=== PATIENT | male | born 1945 | race Caucasian/White ===

== ENCOUNTER → 2016-10-16 | Outpatient (CLI) | payer OTHER | END | disposition home or self-care (01) | LOC: EDSEX → C.LABMFLN 11:09 | PROVIDERS: ATTEND Family Medicine | DX: R19.7 Diarrhea, unspecified (principal) ==

== ENCOUNTER 2019-05-02 13:03 | Inpatient (IN) ==
[2019-05-02] MEDS ORDERED: ASPIRIN CHEW 324 MG PO STA (13:50)
[2019-05-02 13:59] LABS: Basophils # (auto) 0.03 K/uL (0-0.2); Basophils % (auto) 0.5 %; Eosinophils # (auto) 0.13 K/uL (0-0.5); Eosinophils % (auto) 2.1 %; Hematocrit (blood only) 40.3 % (42-52); Hemoglobin 14.2 g/dL (14.0-18.0); Immature Granulocytes # (auto) 0.01 K/uL (0.00-0.02); Immature Granulocytes % (auto) 0.2 %; Lymphocytes # (auto) 1.67 K/uL (1.2-3.4); Lymphocytes % (auto) 27.6 %; Mean Corpuscular Hemoglobin 32.6 pg (25-34); Mean Corpuscular Hgb Conc 35.2 g/dL (32-36); Mean Corpuscular Volume 92.4 fL (80-100); Mean Platelet Volume 12.6 fL (7.4-10.4); Monocytes # (auto) 0.96 K/uL (0.11-0.59); Monocytes % (auto) 15.8 %; Neutrophils # (auto) 3.26 K/uL (1.4-6.5); Neutrophils % (auto) 53.8 %; Platelet Count 166 K/uL (130-400); RDW Coefficient of Variation 13.7 % (11.5-14.5); Red Blood Count 4.36 M/uL (4.7-6.1); White Blood Count 6.06 K/uL (4.8-10.8)
[2019-05-02 14:06] LABS: BUN Creatinine Ratio 11.9 (10-20); Creatinine Clr Calc Pharmacy 68.8 ml/min; Est GFR (African American) 74.1; Est GFR (Non-African American) 63.9; Potassium 3.4 mmol/L (3.5-5.1)
[2019-05-02 14:10] LABS: INR 1.2 (0.9-1.1); Partial Thromboplastin Ratio 1.4; Partial Thromboplastin Time 37.9 Seconds (21.0-31.0); Prothrombin Time 12.6 Seconds (9.0-12.0)
[2019-05-02 14:17] LABS: Troponin I 0.127 ng/ml (0-0.045)
[2019-05-02] MEDS ORDERED: Heparin IV Low Dose WITH Bolus IV STA (14:20)
[2019-05-02] MEDS ORDERED: MoRPHine SULFATE 2 MG/ML CARP IV STA (14:28)
[2019-05-02] MEDS ORDERED: HEPARIN SODIUM/DEXTROSE 25,000 UNITS/500 ML BAG IV SCH (14:30)
--- NOTE | 2019-05-02 15:13 | History & Physical Report ---
Date of Service May 02, 2019 Assessment & Plan (1) Non-ST elevation CT (NSTEMI): presents with chest pressure that started around 11am worse with deep breath, fairly constant but not better recent history of worsening exertional dyspnea, decrease exercise tolerance, some exertional angina now occurring at rest some ischemic changes in lateral leads, specifically TW inversions and some ST depressions V6, I, aVL initial troponin 0.12 will admit to tele, cycle troponin q6 x 3 sets, routine echo morphine and Nitro PRN for any chest pressure continue on Coreg already on Eliquis for afib which he took this morning so no role for heparin drip received aspirin 324mg in the ED, will resume 81mg qAM tomorrow consult cardiology for further recommendations (2) Ischemic cardiomyopathy: long standing h/o EF of 35-40% no edema, no weight gain, says he weighs himself a few times a week continue on Lasix, Lisinopril, Coreg (3) Paroxysmal atrial fibrillation: rates are controlled, continue on Coreg continue Eliquis for anticoagulation (4) Hypertension: BP stable continue Norvasc, Lisinopril, Coreg (5) Hyperlipidemia: continue on Crestor (6) Coronary artery disease: h/o CT 14 years ago, was treated in [place] has a CABG x 2 no issues since the CT was previously taking aspirin 81mg daily, on prior visit with Dr. Marks decision made to stop aspirin due to Eliquis will resume Eliquis with possible NSTEMI continue Crestor (7) COPD with asthma: continue home inhalers no wheezing on exam, no labored breathing (8) Allergic rhinitis: continue Loratadine History of Present Illness Chief Complaint: I have some chest pressure Primary Care Provider: Geetha Galvez MD 73 yo male with history of CAD with acute CT in 2005 treated with CABG x 2 in [place], history of ischemic cardiomyopathy with EF 35-40%, hypertension, pre-diabetes presents to the ED this morning due to chest pressure. He said that the chest pressure started around 11am, he was exerting himself slightly at the time, walking up an incline in his backyard. However, the pressure did not go away with rest. He reports having some symptoms intermittently like this in the recent past. He gets winded going up the incline in his yard and he feels that his exercise tolerance is decreasing. Today however was the first time he has noticed pressure. He has not had a stress test in the past 5 years per his recollection, follows with Dr. Marks. He said that the pressure today is nothing like the severe, crushing pain he had 14 years ago. He did not have any associated dyspnea, nausea, diaphoresis. The pain/pressure did not radiate to his jaw or shoulder or arm. He elected to come to the ED when the pressure did not go away. He now feels better, the pressure got better with aspirin 324mg, very subtle sensation is left. Vitals stable. Labs with minimal elevation in troponin at 0.127 but symptoms only started about 2.5 hours prior to presentation. EKG with some lateral ischemic changes with ST depression and TW inversions. Allergies Allergy/AdvReac Type Severity Reaction Status Date / Time bee venom protein (honey bee) Allergy Verified 05/02/19 14:21 No Known Drug Allergies Allergy Verified 05/02/19 14:21 Home Medications Home Medications Medication Instructions Recorded Confirmed Type albuterol sulfate 90 mcg/actuation 2 puffs INHALATION Q4H PRN #18 gm 12/23/18 05/02/19 Rx aerosol inhaler apixaban 5 mg tablet 5 mg PO BID #60 tab 12/23/18 05/02/19 Rx calcium carbonate 600 mg calcium 600 mg PO HS tab 12/23/18 05/02/19 History (1,500 mg) tablet carvedilol 25 mg tablet 25 mg PO BID #60 tab 12/23/18 05/02/19 Rx lisinopril 40 mg tablet 40 mg PO BID #180 tab 12/23/18 05/02/19 History loratadine 10 mg tablet 10 mg PO QAM #30 tab 12/23/18 05/02/19 History multivitamin 1 tab PO QAM 12/23/18 05/02/19 History omega-3 acid ethyl esters 1 gram 1 cap PO BID cap 12/23/18 05/02/19 History capsule sildenafil 100 mg tablet 50 mg PO DAILY PRN tab 12/31/18 05/02/19 History nitroglycerin 0.4 mg sublingual 0.4 mg SL Q5M PRN #25 tab 04/08/19 05/02/19 Rx tablet amlodipine See Rx Instructions .ROUTE .COMPLEX 05/02/19 05/02/19 History furosemide 40 mg PO QAM 05/02/19 05/02/19 History potassium chloride 10 meq PO QAM 05/02/19 05/02/19 History rosuvastatin 20 mg PO HS 05/02/19 05/02/19 History tiotropium-olodaterol 2 puffs INHALATION QAM 05/02/19 05/02/19 History Past Med/Surg History Medical History Allergic rhinitis (Chronic) Cardiac defibrillator in place (Chronic) Chronic ischemic heart disease (Chronic) Congestive heart failure (Chronic) COPD with asthma (Chronic) Coronary artery disease (Chronic) Hyperlipidemia (Chronic) Hypertension (Chronic) Ischemic cardiomyopathy (Chronic) Paroxysmal atrial fibrillation (Chronic) Prediabetes (Chronic) Surgical History History of nasal surgery Hx of CABG S/P appendectomy (Chronic) S/P colonoscopy S/P implantation of automatic cardioverter/defibrillator (AICD) (Chronic) [employer] Family History (Updated 05/02/19 @ 16:46 by Don Valentin DO) Other Heart disease Hypertension Social History Preferred Language: [place] Communication Ability: Effective Director Of Market Research Required: No Beliefs That Will Affect Care: None marital status: Current Living Situation: Spouse current occupational status: retired Other Information That Helps Us Care for You: No Feels Safe at Home: Yes Safety Concerns: Feels Safe At This Time Smoking Status: Former smoker Hx Alcohol Use: No Hx Substance Use: No Review of Systems Review of Systems: All systems reviewed & are unremarkable except as noted in HPI & below Physical Exam Constitutional: WD/WN, vitals as above Eyes: PERRL, conjunctivae normal, anicteric sclerae ENMT: external ear and nose normal, oropharynx normal Neck: trachea midline, no thyromegaly Respiratory: normal respiratory effort, lungs clear to auscultation Cardiovascular: Rate/Rhythm: regular rate and + irregularly irregular Heart Sounds: normal S1 and normal S2; no murmur Vessels: no JVD Extremities: normal capillary refill; no edema Gastrointestinal (Abdomen): normal bowel sounds, soft, nontender, no hepatosplenomegaly Musculoskeletal: no cyanosis or clubbing, extremities motor strength 5/5 Skin: no rashes, warm and dry Neurologic: patellar DTR's 2+ bilat, sensation intact and PERRL, EOMI, accommodation nl, no face palsy, no dysarthria Psychiatric: A+Ox3, euthymic affect Lymphatic: no cervical or axillary lymphadenopathy Results & Data Vital Signs (Past 12 Hours) Vital Signs Temp Pulse Pulse Resp BP BP Pulse Ox 05/02/19 14:21 69 22 135/79 96 05/02/19 13:06 36.6 C 66 20 138/78 96 Laboratory Results Laboratory Results - last 24 hr 05/02/19 05/02/19 05/02/19 13:22 13:22 13:22 WBC 6.06 RBC 4.36 L Hgb 14.2 Hct 40.3 L MCV 92.4 MCH 32.6 MCHC 35.2 RDW Std Deviation 46.0 RDW Coeff of Jodee 13.7 Plt Count 166 MPV 12.6 H Immature Gran % (Auto) 0.2 Neut % (Auto) 53.8 Lymph % (Auto) 27.6 [place] % (Auto) 15.8 Eos % (Auto) 2.1 Baso % (Auto) 0.5 Immature Gran # (Auto) 0.01 Neut # (Auto) 3.26 Lymph # (Auto) 1.67 [place] # (Auto) 0.96 H Eos # (Auto) 0.13 Baso # (Auto) 0.03 PT 12.6 H INR 1.2 H APTT 37.9 H PTT Ratio 1.4 Sodium 139 Potassium 3.4 L Chloride 106 Carbon Dioxide 29 Anion Gap 4.0 BUN 14 Creatinine 1.14 Est Cr Clr Drug Dosing 68.8 Est GFR ( Amer) 74.1 Est GFR (Non-Af Amer) 63.9 BUN/Creatinine Ratio 11.9 Glucose 137 H Calcium 9.0 Troponin I 0.127 H* Lipase 86 05/02/19 13:22 WBC RBC Hgb Hct MCV MCH MCHC RDW Std Deviation RDW Coeff of Jodee Plt Count MPV Immature Gran % (Auto) Neut % (Auto) Lymph % (Auto) [place] % (Auto) Eos % (Auto) Baso % (Auto) Immature Gran # (Auto) Neut # (Auto) Lymph # (Auto) [place] # (Auto) Eos # (Auto) Baso # (Auto) PT INR APTT PTT Ratio Sodium Potassium Chloride Carbon Dioxide Anion Gap BUN Creatinine Est Cr Clr Drug Dosing Est GFR ( Amer) Est GFR (Non-Af Amer) BUN/Creatinine Ratio Glucose Calcium Troponin I Cancelled Lipase Diagnostic Findings XR chest 2V PA/lateral HISTORY: 73 years-old Male Chest Pain acute atypical chest pain COMPARISON: None available TECHNIQUE: PA and lateral views of the chest FINDINGS: Cardiac silhouette is enlarged, unchanged. Prior median sternotomy. Left subclavian pacer/AICD. No pneumothorax, large pleural effusion, focal airspace consolidation or overt pulmonary edema. Mild blunting of the posterior costophrenic angles. Mild diaphragmatic flattening. Degenerative changes of the shoulders and spine. IMPRESSION: Cardiomegaly without acute process. ECG Indication: chest pain Rhythm: atrial fibrillation Findings: + ST depression (Lateral) and + T-wave inversion (Lateral) Code Status & VTE Plan Code Status full code VTE Prophylaxis Plan VTE Prophylaxis will be ordered: Yes PG Care Time/CCT Total # of Minutes Spent Total Time Spent with Patient: Total time spent is greater than 50% in coordination of care (as documented) at patient's floor/unit and/or counseling patient:
--- NOTE | 2019-05-02 15:43 | XRay Report ---
XR chest 2V PA/lateral HISTORY: 73 years-old Male Chest Pain acute atypical chest pain COMPARISON: None available TECHNIQUE: PA and lateral views of the chest FINDINGS: Cardiac silhouette is enlarged, unchanged. Prior median sternotomy. Left subclavian pacer/AICD. No pn eumothorax, large pleural effusion, focal airspace consolidation or overt pulmonary edema. Mild blunt ing of the posterior costophrenic angles. Mild diaphragmatic flattening. Degenerative changes of the shoulders and spine. IMPRESSION: Cardiomegaly without acute process. The above report was generated using voice recognition software. It may contain grammatical, syntax o r spelling errors. Electronically signed by: Valeriano Dillon M.D. 05/02/2019 3:41 PM
[2019-05-02] MEDS ORDERED: MoRPHine SULFATE 2 MG/ML CARP IV PRN (16:17)
[2019-05-02] MEDS ORDERED: ACETAMINOPHEN 325 MG TAB PO PRN (16:17)
[2019-05-02] MEDS ORDERED: ONDANSETRON INJ 2 MG/ML 2 ML VIAL IV PRN (16:17)
[2019-05-02] MEDS ORDERED: NITROGLYCERIN SL 0.4 MG/TAB TAB SL PRN (16:17)
--- NOTE | 2019-05-02 18:06 | Emergency Department Note ---
Entered by Nataliya Pedroza acting as a scribe for History of Present Illness General Chief complaint: Chest Pain Stated complaint: CHEST PAIN Time Seen by Provider: 05/02/19 13:23 Source: patient Limitations: no limitations History of Present Illness Provider complaint: Chest pain Onset (ago): hour(s) Location: chest Radiation: non-radiation Pain Consistency: + constant Maximum Pain Intensity: 4 Quality: + constant Exacerbated By: + other (inhaling ) Associated symptoms: + chest pain and + other (Positive: chest pressure. Negative: difficulty breathing, diarrhea ); no nausea/vomiting The patient is a 73 year old male with past medical history of CABG, HTN, hyperlipidemia, paroxysmal atrial fibrillation, ischemic cardiomyopathy, CHF, COPD, diabetes, ventricular tachycardia, who presents to the ED with complaints of constant chest pain that is worsened with inhaling that started this morning. The patient notes he took nitro which did not help. He states he was not doing any strenuous activity when he first experienced the pain. The patient describes his pain more like pressure in his chest. He notes his pain does not radiate. He additionally states he is on Eliquis and missed two doses last week. 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 Marks, was a month ago. The patient denies difficulty breathing, nausea, vomiting, or diarrhea. Home Medications Home Medications Medication Instructions Recorded Confirmed Type albuterol sulfate 90 mcg/actuation 2 puffs INHALATION Q4H PRN #18 gm 12/23/18 05/02/19 Rx aerosol inhaler apixaban 5 mg tablet 5 mg PO BID #60 tab 12/23/18 05/02/19 Rx calcium carbonate 600 mg calcium 600 mg PO HS tab 12/23/18 05/02/19 History (1,500 mg) tablet carvedilol 25 mg tablet 25 mg PO BID #60 tab 12/23/18 05/02/19 Rx lisinopril 40 mg tablet 40 mg PO BID #180 tab 12/23/18 05/02/19 History loratadine 10 mg tablet 10 mg PO QAM #30 tab 12/23/18 05/02/19 History multivitamin 1 tab PO QAM 12/23/18 05/02/19 History omega-3 acid ethyl esters 1 gram 1 cap PO BID cap 12/23/18 05/02/19 History capsule sildenafil 100 mg tablet 50 mg PO DAILY PRN tab 12/31/18 05/02/19 History nitroglycerin 0.4 mg sublingual 0.4 mg SL Q5M PRN #25 tab 04/08/19 05/02/19 Rx tablet amlodipine See Rx Instructions .ROUTE .COMPLEX 05/02/19 05/02/19 History furosemide 40 mg PO QAM 05/02/19 05/02/19 History potassium chloride 10 meq PO QAM 05/02/19 05/02/19 History rosuvastatin 20 mg PO HS 05/02/19 05/02/19 History tiotropium-olodaterol 2 puffs INHALATION QAM 05/02/19 05/02/19 History Allergies Allergy/AdvReac Type Severity Reaction Status Date / Time bee venom protein (honey bee) Allergy Verified 05/02/19 14:21 No Known Drug Allergies Allergy Verified 05/02/19 14:21 Past Med/Surg History Medical History Allergic rhinitis (Chronic) Cardiac defibrillator in place (Chronic) Chronic ischemic heart disease (Chronic) Congestive heart failure (Chronic) COPD with asthma (Chronic) Coronary artery disease (Chronic) Hyperlipidemia (Chronic) Hypertension (Chronic) Ischemic cardiomyopathy (Chronic) Paroxysmal atrial fibrillation (Chronic) Prediabetes (Chronic) Surgical History History of nasal surgery Hx of CABG S/P appendectomy (Chronic) S/P colonoscopy S/P implantation of automatic cardioverter/defibrillator (AICD) (Chronic) [employer] Family History (Updated 05/02/19 @ 16:46 by Don Valentin DO) Other Heart disease Hypertension Social History Preferred Language: Chinese Communication Ability: Effective Chute Loader Required: No Beliefs That Will Affect Care: None marital status: Current Living Situation: Spouse current occupational status: retired Other Information That Helps Us Care for You: No Feels Safe at Home: Yes Safety Concerns: Feels Safe At This Time Smoking Status: Former smoker Hx Alcohol Use: No Hx Substance Use: No Review of Systems See HPI for pertinent positives & negatives. and A total of 10 systems reviewed and were otherwise negative Physical Exam Vital Signs Vital Signs - 24 hr 05/02/19 13:06 05/02/19 14:21 Temperature 36.6 C Temperature Source Oral Pulse Rate 66 Pulse Rate [Left] 69 Respiratory Rate 20 22 Respiratory Effort / Characteristics Non-Labored Spontaneous Non-Labored Respiratory Depth Normal Normal Respiratory Pattern Regular Regular Blood Pressure 138/78 Blood Pressure [Left Arm] 135/79 Blood Pressure Mean 98 Blood Pressure Mean [Left Arm] 97 Pulse Oximetry 96 96 Oxygen Delivery Method Room Air Room Air Sepsis Action Taken by Nursing No Action Required GENERAL: He is oriented to person, place, and time. He appears well-developed and well-nourished. He does not appear distressed. HENT: Exam performed. - Head: Normocephalic and atraumatic. - Right Ear: External ear normal. No mastoid tenderness. - Left Ear: External ear normal. No mastoid tenderness. - Mouth/Throat: The oropharynx is clear and moist. No trismus in the jaw. No dental abscesses or uvula swelling. No oropharyngeal exudate or tonsillar abscesses. EYES: Conjunctivae and EOM are normal. Pupils are equal, round, and reactive to light. Right eye exhibits no discharge. Left eye exhibits no discharge. No scleral icterus. NECK: Normal range of motion. Neck supple. No JVD present. No spinous process tenderness present. No carotid bruit present. No rigidity. No tracheal deviation and normal range of motion present. No Brudzinski's sign and no Kernig's sign noted. CV: Normal rate, regular rhythm, normal heart sounds and intact distal pulses. There is no peripheral edema. Palpable radial pulses bue. PULM/CHEST: Effort normal and breath sounds normal. No respiratory distress. No stridor. He has no wheezes. He has no rales. Irregular rhythm, regular rate. - Chest Wall: He exhibits no tenderness. ABD: The abdomen is soft. Bowel sounds are normal. He has no distension. No mass is present. There is no tenderness. There is no rebound, no guarding, no Rodriguez's sign and no tenderness at McBurney's point. Rovsig negative. MUSC/SKEL: Normal range of motion. There is no peripheral edema, tenderness or deformity. LYMPH: No cervical adenopathy. NEURO: He is alert and oriented to person, place, and time. He has normal strength. No cranial nerve deficit or sensory deficit. Coordination and gait normal. GCS eye subscore is 4. GCS verbal subscore is 5. GCS motor subscore is 6. Cerebellar tests wnl. SKIN: Skin is warm and dry. He is not diaphoretic. PSYCH: He has a normal mood and affect. Behavior is normal. Judgment and thought content normal. Course Course 1346: The patient was evaluated in room A3. A complete history and physical exam was performed. EMR reviewed: The patient has history of CABG, paroxysmal atrial fibrillation, ischemic cardiomyopathy, CHF, ventricular tachycardia, diabetes, HTN, COPD, hyperlipidemia. 1430: I checked on the patient. Vital signs stable. ECG shows T-wave inversion in lead 1 and AVL. The patient's troponin is elevated and will be treated for NSTEMI. The patient noted he is on Eliquis and missed 2 doses last week, however, did not miss any this week. I discussed the patient's case with Dr. Mark and he noted that there is no need to heparinize if the patient did not miss any doses of Eliquis this week. The patient will be admitted to Dr. Don Valentin. Administered Medications Discontinued Medications Aspirin (Aspirin) 324 mg PO NOW STA Stop: 05/02/19 13:51 Last Admin: 05/02/19 14:19 Dose: 324 mg Documented by: [id number] Heparin Sodium/Dextrose () 1 ea IV NOW STA; Protocol Stop: 05/02/19 14:21 Last Admin: 05/02/19 14:40 Dose: Not Given Documented by: [id number] Medical Decision Making Medical Records Attestation: I reviewed the patient's medical records. Home Medications Current Medication List: was personally reviewed by me Laboratory Data Attestation: I reviewed the patient's lab results. Result diagrams: 05/02/19 13:22 05/02/19 13:22 Lab Results 05/02/19 05/02/19 05/02/19 Range/Units 13:22 13:22 13:22 WBC 6.06 (4.8-10.8) K/uL RBC 4.36 L (4.7-6.1) M/uL Hgb 14.2 (14.0-18.0) g/dL Hct 40.3 L (42-52) % MCV 92.4 (80-100) fL MCH 32.6 (25-34) pg MCHC 35.2 (32-36) g/dL RDW Std Deviation 46.0 (36.4-46.3) fL RDW Coeff of Jodee 13.7 (11.5-14.5) % Plt Count 166 (130-400) K/uL MPV 12.6 H (7.4-10.4) fL Immature Gran % (Auto) 0.2 % Neut % (Auto) 53.8 % Lymph % (Auto) 27.6 % [place] % (Auto) 15.8 % Eos % (Auto) 2.1 % Baso % (Auto) 0.5 % Immature Gran # (Auto) 0.01 (0.00-0.02) K/uL Neut # (Auto) 3.26 (1.4-6.5) K/uL Lymph # (Auto) 1.67 (1.2-3.4) K/uL [place] # (Auto) 0.96 H (0.11-0.59) K/uL Eos # (Auto) 0.13 (0-0.5) K/uL Baso # (Auto) 0.03 (0-0.2) K/uL PT 12.6 H (9.0-12.0) Seconds INR 1.2 H (0.9-1.1) APTT 37.9 H (21.0-31.0) Seconds PTT Ratio 1.4 Sodium 139 (136-145) mmol/L Potassium 3.4 L (3.5-5.1) mmol/L Chloride 106 (98-107) mmol/L Carbon Dioxide 29 (21-32) mmol/L Anion Gap 4.0 (3-11) BUN 14 (7-18) mg/dl Creatinine 1.14 (0.6-1.4) mg/dl Est Cr Clr Drug Dosing 68.8 ml/min Est GFR ( Amer) 74.1 Est GFR (Non-Af Amer) 63.9 BUN/Creatinine Ratio 11.9 (10-20) Glucose 137 H (70-99) mg/dl Calcium 9.0 (8.5-10.1) mg/dl Troponin I 0.127 H* (0-0.045) ng/ml Lipase 86 (73-393) U/L 05/02/19 Range/Units 13:22 WBC (4.8-10.8) K/uL RBC (4.7-6.1) M/uL Hgb (14.0-18.0) g/dL Hct (42-52) % MCV (80-100) fL MCH (25-34) pg MCHC (32-36) g/dL RDW Std Deviation (36.4-46.3) fL RDW Coeff of Jodee (11.5-14.5) % Plt Count (130-400) K/uL MPV (7.4-10.4) fL Immature Gran % (Auto) % Neut % (Auto) % Lymph % (Auto) % [place] % (Auto) % Eos % (Auto) % Baso % (Auto) % Immature Gran # (Auto) (0.00-0.02) K/uL Neut # (Auto) (1.4-6.5) K/uL Lymph # (Auto) (1.2-3.4) K/uL [place] # (Auto) (0.11-0.59) K/uL Eos # (Auto) (0-0.5) K/uL Baso # (Auto) (0-0.2) K/uL PT (9.0-12.0) Seconds INR (0.9-1.1) APTT (21.0-31.0) Seconds PTT Ratio Sodium (136-145) mmol/L Potassium (3.5-5.1) mmol/L Chloride (98-107) mmol/L Carbon Dioxide (21-32) mmol/L Anion Gap (3-11) BUN (7-18) mg/dl Creatinine (0.6-1.4) mg/dl Est Cr Clr Drug Dosing ml/min Est GFR ( Amer) Est GFR (Non-Af Amer) BUN/Creatinine Ratio (10-20) Glucose (70-99) mg/dl Calcium (8.5-10.1) mg/dl Troponin I Cancelled (0-0.045) ng/ml Lipase (73-393) U/L Imaging Data Radiologist's Impression: Radiology results as stated below per my review and the radiologist's interpretation: XR chest 2V PA/lateral HISTORY: 73 years-old Male Chest Pain acute atypical chest pain COMPARISON: None available TECHNIQUE: PA and lateral views of the chest FINDINGS: Cardiac silhouette is enlarged, unchanged. Prior median sternotomy. Left arriaga bclavian pacer/AICD. No pneumothorax, large pleural effusion, focal airspace consolidation or overt pulmonary edema. Mild blunting of the posterior costophrenic angles. Mild diaphragmatic flattening. Degenerative changes of the shoulders and spine. IMPRESSION: Cardiomegaly without acute process. The above report was generated using voice recognition software. It may contain grammatical, syntax or spelling errors. Electronically signed by: Valeriano Dillon M.D. 05/02/2019 3:41 PM ECG Data Attestation: I personally reviewed and interpreted this ECG as follows: Indication: + chest pain Rate (beats per minute): 70 Rhythm: + atrial fibrillation ECG ST segments: + T-wave inversions (Lead 1, aVL); no ST depression and no ST elevation ECG Findings: + Other (QRS: 126 QT-c: 440.Left ventricular hypertrophy present) Blood Pressure Blood Pressure Findings: Normal blood pressure Blood Pressure Disposition: did not require urgent referral MDM Narrative 1346: The patient was evaluated in room A3. A complete history and physical exam was performed. EMR reviewed: The patient has history of CABG, paroxysmal atrial fibrillation, ischemic cardiomyopathy, CHF, ventricular tachycardia, diabetes, HTN, COPD, hyperlipidemia. 1430: I checked on the patient. Vital signs stable. ECG shows T-wave inversion in lead 1 and AVL. The patient's troponin is elevated and will be treated for NSTEMI. The patient noted he is on Eliquis and missed 2 doses last week, however, did not miss any this week. I discussed the patient's case with Dr. Mark and he noted that there is no need to heparinize if the patient did not miss any doses of Eliquis this week. The patient will be admitted to Dr. Don Valentin. Impression & Plan Non-ST elevation SC (NSTEMI) Discharge Plan Visit Data *Final* Discharge Date/Time: 05/02/19 15:49 Chief Complaint: Chest Pain Stated Complaint: CHEST PAIN ED Provider: Toby Llanos Discharge Problem: Non-ST elevation SC (NSTEMI) Patient Disposition: Admitted As Inpatient Discharge Instructions Interventions: ED Discharge Assessment Last Done: 05/02/19 15:49 The scribe's documentation has been prepared under my direction and personally reviewed by me in its entirety. I confirm that the note above accurately reflects all work, treatment, procedures, and medical decision making performed by me.
[2019-05-02] MEDS: OMEGA-3 (PURIFIED FISH OIL) 1 GM CAP PO SCH (20:33)
[2019-05-02] MEDS: carvediloL 25 MG TAB PO SCH (20:34)
[2019-05-02] MEDS: APIXABAN 5 MG TABLET PO SCH (20:34)
[2019-05-02] MEDS: AMLODIPINE BESYLATE 5 MG TAB PO SCH (20:35)
[2019-05-02] MEDS: CALCIUM CARBONATE 1250MG TAB PO SCH (20:37)
[2019-05-02] MEDS: ROSUVASTATIN CALCIUM 20 MG TAB PO SCH (20:37)
[2019-05-02] MEDS: lisinopriL 40 MG TAB PO SCH (20:37)
[2019-05-03 07:17] LABS: Hematocrit (blood only) 43.4 % (42-52); Hemoglobin 15.5 g/dL (14.0-18.0); Mean Corpuscular Hemoglobin 33.2 pg (25-34); Mean Corpuscular Hgb Conc 35.7 g/dL (32-36); Mean Corpuscular Volume 92.9 fL (80-100); Mean Platelet Volume 12.5 fL (7.4-10.4); Platelet Count 163 K/uL (130-400); RDW Coefficient of Variation 13.6 % (11.5-14.5); Red Blood Count 4.67 M/uL (4.7-6.1); White Blood Count 6.48 K/uL (4.8-10.8)
[2019-05-03 07:45] LABS: BUN Creatinine Ratio 13.9 (10-20); Calcium 9.2 mg/dl (8.5-10.1); Creatinine Clr Calc Pharmacy 87.5 ml/min; Est GFR (African American) 99.5; Est GFR (Non-African American) 85.8; Potassium 3.3 mmol/L (3.5-5.1)
[2019-05-03] MEDS: FUROSEMIDE 40 MG TAB PO SCH (08:13)
[2019-05-03] MEDS: carvediloL 25 MG TAB PO SCH ×2 (08:13→20:28)
[2019-05-03] MEDS: lisinopriL 40 MG TAB PO SCH ×2 (08:13→20:26)
[2019-05-03] MEDS: POTASSIUM CHLORIDE 10 MEQ TABCR PO SCH (08:13)
[2019-05-03] MEDS: ASPIRIN 81 MG ECTAB PO SCH (08:13)
[2019-05-03] MEDS: LORATADINE 10 MG TAB PO SCH (08:13)
[2019-05-03] MEDS: APIXABAN 5 MG TABLET PO SCH ×2 (08:13→20:28)
[2019-05-03] MEDS: OMEGA-3 (PURIFIED FISH OIL) 1 GM CAP PO SCH ×2 (08:13→20:27)
[2019-05-03] MEDS ORDERED: POTASSIUM CHLORIDE 20 MEQ TABCR PO STA (08:49)
[2019-05-03] MEDS ORDERED: TIOTROPIUM OLODATEROL INH SCH (09:00)
--- NOTE | 2019-05-03 09:04 | Hospitalist Progress Note ---
Date of Service May 03, 2019 Assessment & Plan (1) Non-ST elevation LA (NSTEMI): presents with chest pressure that started around 11am day of admission worse with deep breath, fairly constant but not better recent history of worsening exertional dyspnea, decrease exercise tolerance, some exertional angina now occurring at rest some ischemic changes in lateral leads, specifically TW inversions and some ST depressions V6, I, aVL initial troponin 0.12 repeat troponin 0.13 and 0.13, did not go up much further no further chest pressure this AM echo report pending morphine and Nitro PRN for any chest pressure continue on Coreg continue Eliquis and aspirin follow up on cardiology recs, anticipate needing either Lexiscan stress or cath (2) Ischemic cardiomyopathy: long standing h/o EF of 35-40%, will follow up on repeat echo this admiss ion no edema, no weight gain, says he weighs himself a few times a week continue on Lasix, Lisinopril, Coreg examines euvolemic (3) Paroxysmal atrial fibrillation: rates are controlled, continue on Coreg continue Eliquis for anticoagulation (4) Hypertension: BP slightly high this AM and was high in 150s yesterday continue Norvasc, Lisinopril, Coreg add Imdur 30mg this AM, monitor BP (5) Hyperlipidemia: continue on Crestor (6) Coronary artery disease: h/o LA 14 years ago, was treated in [place] has a CABG x 2 no issues since the LA was previously taking aspirin 81mg daily, on prior visit with Dr. Marks decision made to stop aspirin due to Eliquis will resume Eliquis with possible NSTEMI continue Crestor (7) COPD with asthma: continue home inhalers no wheezing on exam, no labored breathing (8) Allergic rhinitis: continue Loratadine Subjective patient doing well this morning, no further chest pressure, it went away last evening reviewed troponin, did not rise and fall, stayed consistent at 0.1 K slightly low at 3.3 this AM, CBC stable, BUN/Cr stable no dyspnea, no cough, no fever/chills discussed with him that cardiology will see, anticipate some further testing, either Lexiscan or cath Review of Systems Review of Systems: All systems reviewed & are unremarkable except as noted in HPI & below Physical Exam Constitutional: WD/WN, vitals as above Eyes: PERRL, conjunctivae normal, anicteric sclerae ENMT: external ear and nose normal, oropharynx normal Neck: trachea midline, no thyromegaly Respiratory: normal respiratory effort, lungs clear to auscultation Cardiovascular: Rate/Rhythm: regular rate and + irregularly irregular Heart Sounds: normal S1 and normal S2; no murmur Vessels: no JVD Extremities: normal capillary refill; no edema Gastrointestinal (Abdomen): normal bowel sounds, soft, nontender, no hepatosplenomegaly Musculoskeletal: no cyanosis or clubbing, extremities motor strength 5/5 Skin: no rashes, warm and dry Neurologic: patellar DTR's 2+ bilat, sensation intact and PERRL, EOMI, accommodation nl, no face palsy, no dysarthria Psychiatric: A+Ox3, euthymic affect Lymphatic: no cervical or axillary lymphadenopathy Results & Data Vital Signs (Past 12 Hours) Vital Signs Temp Pulse Resp BP Pulse Ox 05/03/19 08:14 36.4 C L 76 18 153/82 H 94 05/03/19 02:56 36.6 C 72 18 130/68 94 05/02/19 22:56 36.8 C 69 20 138/78 90 Laboratory Results Laboratory Results - last 24 hr 05/02/19 05/02/19 05/02/19 13:22 13:22 13:22 WBC 6.06 RBC 4.36 L Hgb 14.2 Hct 40.3 L MCV 92.4 MCH 32.6 MCHC 35.2 RDW Std Deviation 46.0 RDW Coeff of Jodee 13.7 Plt Count 166 MPV 12.6 H Immature Gran % (Auto) 0.2 Neut % (Auto) 53.8 Lymph % (Auto) 27.6 Lewis % (Auto) 15.8 Eos % (Auto) 2.1 Baso % (Auto) 0.5 Immature Gran # (Auto) 0.01 Neut # (Auto) 3.26 Lymph # (Auto) 1.67 Lewis # (Auto) 0.96 H Eos # (Auto) 0.13 Baso # (Auto) 0.03 PT 12.6 H INR 1.2 H APTT 37.9 H PTT Ratio 1.4 Sodium 139 Potassium 3.4 L Chloride 106 Carbon Dioxide 29 Anion Gap 4.0 BUN 14 Creatinine 1.14 Est Cr Clr Drug Dosing 68.8 Est GFR ( Amer) 74.1 Est GFR (Non-Af Amer) 63.9 BUN/Creatinine Ratio 11.9 Glucose 137 H Calcium 9.0 Troponin I 0.127 H* Lipase 86 05/02/19 05/02/19 05/03/19 13:22 18:48 00:47 WBC RBC Hgb Hct MCV MCH MCHC RDW Std Deviation RDW Coeff of Jodee Plt Count MPV Immature Gran % (Auto) Neut % (Auto) Lymph % (Auto) Lewis % (Auto) Eos % (Auto) Baso % (Auto) Immature Gran # (Auto) Neut # (Auto) Lymph # (Auto) Lewis # (Auto) Eos # (Auto) Baso # (Auto) PT INR APTT PTT Ratio Sodium Potassium Chloride Carbon Dioxide Anion Gap BUN Creatinine Est Cr Clr Drug Dosing Est GFR ( Amer) Est GFR (Non-Af Amer) BUN/Creatinine Ratio Glucose Calcium Troponin I Cancelled 0.133 H* 0.126 H* Lipase 05/03/19 05/03/19 05/03/19 06:52 06:52 06:52 WBC 6.48 RBC 4.67 L Hgb 15.5 Hct 43.4 MCV 92.9 MCH 33.2 MCHC 35.7 RDW Std Deviation 46.0 RDW Coeff of Jodee 13.6 Plt Count 163 MPV 12.5 H Immature Gran % (Auto) Neut % (Auto) Lymph % (Auto) Lewis % (Auto) Eos % (Auto) Baso % (Auto) Immature Gran # (Auto) Neut # (Auto) Lymph # (Auto) Lewis # (Auto) Eos # (Auto) Baso # (Auto) PT INR APTT PTT Ratio Sodium 139 Potassium 3.3 L Chloride 105 Carbon Dioxide 28 Anion Gap 5.0 BUN 12 Creatinine 0.88 Est Cr Clr Drug Dosing 87.5 Est GFR ( Amer) 99.5 Est GFR (Non-Af Amer) 85.8 BUN/Creatinine Ratio 13.9 Glucose 111 H Calcium 9.2 Troponin I 0.132 H* Lipase Medications Administered Current Inpatient Medications Acetaminophen (Tylenol) 650 mg PO Q4H PRN PRN Reason: Pain or Fever Stop: 06/01/19 16:16 Amlodipine Besylate (Norvasc) 2.5 mg PO QPM JANINE Stop: 06/01/19 20:59 Last Admin: 05/02/19 20:35 Dose: 2.5 mg Documented by: Amlodipine Besylate (Norvasc) 5 mg PO QAM [facility] Stop: 06/02/19 08:59 Apixaban (Eliquis) 5 mg PO BID [facility] Stop: 06/01/19 20:59 Last Admin: 05/03/19 08:13 Dose: 5 mg Documented by: Aspirin (Ecotrin Ectab) 81 mg PO QAM [facility] Stop: 06/02/19 08:59 Last Admin: 05/03/19 08:13 Dose: 81 mg Documented by: Calcium Carbonate (Os-Emmanuel 500) 1,250 mg PO HS [facility] Stop: 06/01/19 20:59 Last Admin: 05/02/19 20:37 Dose: 1,250 mg Documented by: Carvedilol (Coreg) 25 mg PO BID [facility] Stop: 06/01/19 20:59 Last Admin: 05/03/19 08:13 Dose: 25 mg Documented by: Fish Oil (Gipsy-3 (Purified Fish Oil)) 1 gm PO BID [facility] Stop: 06/01/19 20:59 Last Admin: 05/03/19 08:13 Dose: 1 gm Documented by: Furosemide (Lasix) 40 mg PO QAM [facility] Stop: 06/02/19 08:59 Last Admin: 05/03/19 08:13 Dose: 40 mg Documented by: Lisinopril (Zestril) 40 mg PO BID [facility] Stop: 06/01/19 20:59 Last Admin: 05/03/19 08:13 Dose: 40 mg Documented by: Loratadine (Claritin) 10 mg PO QAM [facility] Stop: 06/02/19 08:59 Last Admin: 05/03/19 08:13 Dose: 10 mg Documented by: Miscellaneous (Order Awaiting Action) 1 ea N/A QS [facility] Stop: 06/02/19 16:59 Morphine Sulfate (Morphine Sulfate) 2 mg IV Q30M PRN PRN Reason: Chest Pain Stop: 05/16/19 16:16 Nitroglycerin (Nitrostat) 0.4 mg SL UD PRN PRN Reason: Chest Pain Stop: 06/01/19 16:16 Ondansetron HCl (Zofran) 4 mg IV Q6H PRN PRN Reason: Nausea Stop: 01/06/20 16:16 Potassium Chloride (Klor-Con M10) 10 meq PO QAM [facility] Stop: 06/02/19 08:59 Last Admin: 05/03/19 08:13 Dose: 10 meq Documented by: Rosuvastatin Calcium (Crestor) 20 mg PO HS [facility] Stop: 06/01/19 20:59 Last Admin: 05/02/19 20:37 Dose: 20 mg Documented by: PG Care Time/CCT Total # of Minutes Spent Total Time Spent with Patient: Total time spent is greater than 50% in coordination of care (as documented) at patient's floor/unit and/or counseling patient:
[2019-05-03] MEDS: ISOSORBIDE MONO EXTENDED REL 30 MG TABCR PO SCH (09:52)
[2019-05-03] MEDS: AMLODIPINE BESYLATE 5 MG TAB PO SCH ×3 (10:43→20:26)
--- NOTE | 2019-05-03 18:11 | Cardiology Consultation ---
Date of Consultation May 03, 2019 History of Present Illness Attending Physician: Don Valentin, History of Present Illness Patient is a 73-year-old male with a past medical history significant for coronary artery disease s/p CABG x2, ischemic cardiomyopathy, atrial fibrillation and hyperlipidemia who is being seen today in consultation for elevated cardiac enzymes. Patient notes that he was in his usual state of health until yesterday at around 11 AM when he noted he had developed chest discomfort which he described as a pressure sensation. He noted that he had increased discomfort with inspiration. He denied any radiation shortness of breath or any other complaints noting it did not feel like his myocardial infarction in the past. But just to be safe he felt he should go to the emergency department where his cardiac enzymes were found to be mildly elevated therefore was admitted to the hospital service. Given his presentation cardiology was consulted. This morning when I saw the patient he noted that he had no further chest pain since being hospitalized which was at least 24 hours ago. He notes he has been up and ambulating with no chest discomfort or any other complaints and is feeling well today. He notes that at home he took one nitroglycerin which did not give him any relief. He notes that this was the first time he is ever taken nitroglycerin since his first heart attack 14 years ago. He denies any other complaints and is otherwise feeling well today. Allergies Allergy/AdvReac Type Severity Reaction Status Date / Time bee venom protein (honey bee) Allergy Verified 05/02/19 14:21 No Known Drug Allergies Allergy Verified 05/02/19 14:21 Home Medications Home Medications Medication Instructions Recorded Confirmed Type albuterol sulfate 90 mcg/actuation 2 puffs INHALATION Q4H PRN #18 gm 12/23/18 05/02/19 Rx aerosol inhaler apixaban 5 mg tablet 5 mg PO BID #60 tab 12/23/18 05/02/19 Rx calcium carbonate 600 mg calcium 600 mg PO HS tab 12/23/18 05/02/19 History (1,500 mg) tablet carvedilol 25 mg tablet 25 mg PO BID #60 tab 12/23/18 05/02/19 Rx lisinopril 40 mg tablet 40 mg PO BID #180 tab 12/23/18 05/02/19 History loratadine 10 mg tablet 10 mg PO QAM #30 tab 12/23/18 05/02/19 History multivitamin 1 tab PO QAM 12/23/18 05/02/19 History omega-3 acid ethyl esters 1 gram 1 cap PO BID cap 12/23/18 05/02/19 History capsule sildenafil 100 mg tablet 50 mg PO DAILY PRN tab 12/31/18 05/02/19 History nitroglycerin 0.4 mg sublingual 0.4 mg SL Q5M PRN #25 tab 04/08/19 05/02/19 Rx tablet amlodipine See Rx Instructions .ROUTE .COMPLEX 05/02/19 05/02/19 History furosemide 40 mg PO QAM 05/02/19 05/02/19 History potassium chloride 10 meq PO QAM 05/02/19 05/02/19 History rosuvastatin 20 mg PO HS 05/02/19 05/02/19 History tiotropium-olodaterol 2 puffs INHALATION QAM 05/02/19 05/02/19 History Patient History Medical History Allergic rhinitis (Chronic) Cardiac defibrillator in place (Chronic) Chronic ischemic heart disease (Chronic) Congestive heart failure (Chronic) COPD with asthma (Chronic) Coronary artery disease (Chronic) Hyperlipidemia (Chronic) Hypertension (Chronic) Ischemic cardiomyopathy (Chronic) Paroxysmal atrial fibrillation (Chronic) Prediabetes (Chronic) Surgical History History of nasal surgery Hx of CABG S/P appendectomy (Chronic) S/P colonoscopy S/P implantation of automatic cardioverter/defibrillator (AICD) (Chronic) [employer] [employer] Family History (Updated 05/02/19 @ 16:46 by Don Valentin DO) Other Heart disease Hypertension Social History Preferred Language: Indonesian Communication Ability: Effective 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: No Beliefs That Will Affect Care: None marital status: Current Living Situation: Spouse current occupational status: retired Other Information That Helps Us Care for You: No Feels Safe at Home: Yes Safety Concerns: Feels Safe At This Time Smoking Status: Former smoker Hx Alcohol Use: No Hx Substance Use: No Review of Systems Review of Systems: All systems reviewed & are unremarkable except as noted in HPI & below Physical Exam Physical Exam: General appearance he is awake alert and oriented no apparent distress stable pleasant HEENT: Normocephalic atraumatic Neck: Supple no JVD bruits adenopathy or thyromegaly Lungs: Diminished but clear to auscultation bilaterally Cardiovascular: Irregularly irregular normal rate. No appreciable murmurs rubs or gallops. Abdomen: Soft nontender nondistended with positive bowel sounds or bruits or masses are noted Extremities: No significant lower extremity edema Neurology: Grossly nonfocal Results & Data Vital Signs (Past 12 Hours) Vital Signs Temp Pulse Resp BP Pulse Ox 05/03/19 15:41 36.5 C 76 18 110/68 96 05/03/19 12:14 36.3 C L 72 18 112/66 95 05/03/19 08:14 36.4 C L 76 18 153/82 H 94 Impression: 1. Elevated cardiac enzymes 2. History of CAD 3. Chest pain 4. Atrial fibrillation 5. Hyperlipidemia 6. H/o ICM LVEF 35% 7. History of AICD placement Plan: 1. The patient's mild elevation in troponin have remained flat and I did explain to the patient and his that given he has had no recurrence of chest discomfort in over 24 hours that we could do a Lexiscan myocardial perfusion imaging study to evaluate for ischemic burden. We can continue titrating guideline directed medical therapy. We will continue with telemetry monitoring. He did have an echocardiogram which noted abnormal wall motion abnormalities in the LAD territory but did have history of large [place] with reduced LVEF. 2. As above patient should be made n.p.o. after midnight tonight and a Lexiscan MPI should be ordered. If chest pain does recur would consider changing our strategy and recommend a diagnostic cardiac catheterization. 3. As above 4. Patient is in atrial fibrillation with a controlled ventricular response therefore we will continue current management including Eliquis. He is stable from this perspective. 5. We will continue with statin therapy and I recommend a lipid panel be checked with a goal LDL of less than 70 6. Patient does follow with Dr. Marks. Continue with current HF regimen. Appears to be well compensated. 7. Follows with Dr. Marks as above. No shocks noted. If you have any questions please feel free to contact me and thank you for allowing her cardiovascular team to care for this patient
[2019-05-03] MEDS: CALCIUM CARBONATE 1250MG TAB PO SCH (20:26)
[2019-05-03] MEDS: ROSUVASTATIN CALCIUM 20 MG TAB PO SCH (20:27)
[2019-05-04] MEDS: OMEGA-3 (PURIFIED FISH OIL) 1 GM CAP PO SCH (07:37)
[2019-05-04] MEDS: ISOSORBIDE MONO EXTENDED REL 30 MG TABCR PO SCH (07:37)
[2019-05-04] MEDS: AMLODIPINE BESYLATE 5 MG TAB PO SCH (07:38)
[2019-05-04] MEDS: POTASSIUM CHLORIDE 10 MEQ TABCR PO SCH (07:38)
[2019-05-04] MEDS: LORATADINE 10 MG TAB PO SCH (07:38)
[2019-05-04] MEDS: FUROSEMIDE 40 MG TAB PO SCH (07:38)
[2019-05-04] MEDS: APIXABAN 5 MG TABLET PO SCH (07:38)
[2019-05-04] MEDS: ASPIRIN 81 MG ECTAB PO SCH (07:38)
[2019-05-04] MEDS: carvediloL 25 MG TAB PO SCH (07:38)
[2019-05-04] MEDS: lisinopriL 40 MG TAB PO SCH (08:52)
[2019-05-04] MEDS ORDERED: TIOTROPIUM BR/OLODATEROL HCL INHALER INH SCH (09:00)
[2019-05-04] MEDS ORDERED: REGADENOSON 0.4 MG/5 ML SYR IV ONE (10:01)
--- NOTE | 2019-05-04 10:47 | XCELERA ---
[id number] \\[email or web address]\[id number]
--- NOTE | 2019-05-04 15:06 | Discharge Summary ---
Date of Service May 04, 2019 Admission HPI Per Admitting Provider 73 yo male with history of CAD with acute SD in 2005 treated with CABG x 2 in [place], history of ischemic cardiomyopathy with EF 35-40%, hypertension, pre-diabetes presents to the ED this morning due to chest pressure. He said that the chest pressure started around 11am, he was exerting himself slightly at the time, walking up an incline in his backyard. However, the pressure did not go away with rest. He reports having some symptoms intermittently like this in the recent past. He gets winded going up the incline in his yard and he feels that his exercise tolerance is decreasing. Today however was the first time he has noticed pressure. He has not had a stress test in the past 5 years per his recollection, follows with Dr. Marks. He said that the pressure today is nothing like the severe, crushing pain he had 14 years ago. He did not have any associated dyspnea, nausea, diaphoresis. The pain/pressure did not radiate to his jaw or shoulder or arm. He elected to come to the ED when the pressure did not go away. He now feels better, the pressure got better with aspirin 324mg, very subtle sensation is left. Vitals stable. Labs with minimal elevation in troponin at 0.127 but symptoms only started about 2.5 hours prior to presentation. EKG with some lateral ischemic changes with ST depression and TW inversions. Principal Diagnosis Chest pain Discharge Exam Constitutional WD/WN, vitals as above Eyes PERRL, conjunctivae normal, anicteric sclerae ENMT external ear and nose normal, oropharynx normal Neck trachea midline, no thyromegaly Respiratory normal respiratory effort, lungs clear to auscultation Cardiovascular Rate/Rhythm: regular rate and + irregularly irregular Heart Sounds: normal S1 and normal S2; no murmur Vessels: no JVD Extremities: normal capillary refill; no edema Gastrointestinal (Abdomen) normal bowel sounds, soft, nontender, no hepatosplenomegaly Musculoskeletal no cyanosis or clubbing, extremities motor strength 5/5 Skin no rashes, warm and dry Neurologic patellar DTR's 2+ bilat, sensation intact and PERRL, EOMI, accommodation nl, no face palsy, no dysarthria Psychiatric A+Ox3, euthymic affect Lymphatic no cervical or axillary lymphadenopathy Discharge Data Allergies Allergy/AdvReac Type Severity Reaction Status Date / Time bee venom protein (honey bee) Allergy Verified 05/02/19 14:21 No Known Drug Allergies Allergy Verified 05/02/19 14:21 Consultations 05/02/19 14:21 ED Decision to Admit Stat 05/02/19 16:17 Consult Cardiology Routine Consult Case Management - Discharge Planning Routine Hospital Course (1) Non-ST elevation SD (NSTEMI): presents with chest pressure that started around 11am day of admission worse with deep breath, fairly constant but not better recent history of worsening exertional dyspnea, decrease exercise tolerance, some exertional angina now occurring at rest some ischemic changes in lateral leads, specifically TW inversions and some ST depressions V6, I, aVL initial troponin 0.12 repeat troponin 0.13 and 0.13, did not go up much further no further chest pressure this AM echo showed EF 30-35%, similar to prior study, with diastolic dysfunction large area of akinesis/hypokinesis in LAD distribution consistent with prior infarct morphine and Nitro PRN for any chest pressure continue on Coreg continue Eliquis and aspirin Lexiscan stress test on 05/04 with no areas of active ischemia d/c to home (2) Ischemic cardiomyopathy: long standing h/o EF of 35-40%, will follow up on repeat echo: EF is 30- 35% no edema, no weight gain, says he weighs himself a few times a week continue on Lasix, Lisinopril, Coreg examines euvolemic BP elevated at times despite optimum treatment with other medications would use Imdur but the patient takes Viagra at home will use Hydralazine 25mg BID and could be titrated up as outpatient (3) Paroxysmal atrial fibrillation: rates are controlled, continue on Coreg continue Eliquis for anticoagulation (4) Hypertension: BP slightly high this AM and was high in 150s yesterday continue Norvasc, Lisinopril, Coreg would add Imdur 30mg daily BUT the patient takes Viagra intermittently at home will use Hydralazine 25mg BID instead, follow up with PCP and data control assistant (5) Hyperlipidemia: continue on Crestor (6) Coronary artery disease: h/o SD 14 years ago, was treated in [place] has a CABG x 2 no issues since the SD was previously taking aspirin 81mg daily, on prior visit with Dr. Marks decision made to stop aspirin due to Eliquis will resume aspirin with possible NSTEMI continue Crestor (7) COPD with asthma: continue home inhalers no wheezing on exam, no labored breathing (8) Allergic rhinitis: continue Loratadine Total Time Total Time Spent Total Time Spent (In Minutes): 43 minutes Total Time Includes: Examination of the Patient, Discharge Planning, Medication Reconciliation, Communication With Other Providers (Dr. Marks and Dr. Salmon) and Other (discussion with family at the bedside) Discharge Plan Discharge Items Patient Disposition: Home - Self-Care Reason For Visit: CHEST PAIN Discharge Diagnosis: Angina Condition on Discharge: Good Goals: continue medical regimen for coronary disease Activity: Resume your previous activity Driving/Machine Use: No limitations Non-emergency contact: Primary Care Provider Call non-emergency contact if: you have any medication questions Follow-up/Referrals: Geetha Galvez MD [Primary Care Provider] - 05/11/19 8:30 am (Please, follow up with Dr. Galvez with her associate, Shanice WALLS, on SaturdayMay 11 at 8:30 am. *If you need to change this appointment, call the office at [phone].) Ck Marks MD [Physician] - 05/18/19 2:30 pm (Please, follow up with Dr. Marks on SaturdayMay 18 at 2:30 pm. *The office is located in [address] of [facility], next to this hospital. *If you need to change this appointment, call the office at [phone].) Diet: Heart Healthy Addtl Attending Provider Instructions: Medications: - ASPIRIN: resume 81mg daily - HYDRALAZINE: 25mg twice a day for blood pressure control Chest pain, pressure resolved with Nitro, no signs of acute SD, likely just stable angina Lexiscan stress test with no signs of acute ischemia, just shows the prior heart attack resume aspirin 81mg added Hydralazine 25mg twice a day for blood pressure control Follow up with PCP this week on recommend follow up with Dr. Marks in several weeks, call for appt Pending Studies at Discharge: No Stand-Alone Forms: Call Back Authorization, [facility], Smoking Cessation Medications and DC Order Prescriptions: New aspirin [Ecotrin Low Strength] 81 mg Tablet,Delayed Release (Dr/Ec) 81 mg PO QAM 30 Days Qty: 30 RF: 0 hydralazine 25 mg tablet 25 mg PO BID 30 Days Qty: 60 RF: 1 Continued nitroglycerin 0.4 mg tablet, sublingual 0.4 mg SL Q5M PRN (Reason: chest pain) Qty: 25 RF: 0 calcium carbonate 600 mg calcium (1,500 mg) tablet 600 mg PO HS RF: 0 omega-3 acid ethyl esters 1 gram capsule 1 cap PO BID RF: 0 loratadine 10 mg tablet 10 mg PO QAM Qty: 30 RF: 0 multivitamin tablet 1 tab PO QAM RF: 0 albuterol sulfate 90 mcg/actuation HFA aerosol inhaler 2 puffs inhalation Q4H PRN (Reason: shortness of breath or wheezing) Qty: 18 RF: 5 Eliquis 5 mg tablet 5 mg PO BID Qty: 60 RF: 5 carvedilol 25 mg tablet 25 mg PO BID Qty: 60 RF: 5 lisinopril 40 mg tablet 40 mg PO BID Qty: 180 RF: 0 sildenafil 100 mg tablet 50 mg PO DAILY PRN (Reason: .) RF: 0 furosemide 40 mg tablet 40 mg PO QAM RF: 0 amlodipine 2.5 mg tablet See Rx Instructions .ROUTE .COMPLEX RF: 0 rosuvastatin 40 mg tablet 20 mg PO HS RF: 0 potassium chloride 20 mEq tablet extended release 10 meq PO QAM RF: 0 tiotropium-olodaterol 2.5-2.5 mcg/actuation mist 2 puffs inhalation QAM RF: 0 Discharge Orders: Discharge Order (Routine); Ordered 05/04/19 Ordered By: Don Castaneda/Other Patient Handouts: ED Heart Disease Education Admission Data Admit Date/Time: 05/02/19 15:09 Attending Provider: Don Valentin Admit Provider: Don Valentin Primary Care Provider: Geetha Galvez Other Providers: Don Valentin ; Ck Marks. Other Interventions: Discharge Summary Assessment (RN) Last Done: 05/04/19 15:32 DC Date/Time DO NOT enter until pt leaves facility: 05/04/19 15:53
--- NOTE | 2019-05-04 15:10 | Myocardial Perfusion Study ---
Date of Service May 04, 2019 Myocardial Perfusion Study [facility] Myocardial Perfusion Study Report Myocardial Perfusion Study Report One day nuclear medicine technetium 99m Cardiolite myocardial perfusion scan Clinical history: This stress test is being performed because of a chest pain syndrome and an elevated troponin. Comparison: None Technique: For the stress portion of the study, 31.7 mCi of technetium 99m Cardiolite IV was injected at 11:40 a.m. on May 04, 2019. Thirty minutes following the injection, imaging of the heart was performed in multiple projections. For the rest portion of the study, 10.3 mCi of technetium 99m Cardiolite was injected IV at 9:50 a.m. on May 04, 2019. One hour following the injection, imaging of the heart was performed in the same projections. Lexiscan administration: For the stress portion of the study, the patient received 0.4 mg of Lexiscan injected intravenously. The patient did experience Lexiscan induced chest discomfort. There were no EKG changes. Following the study, the patient was hemodynamically stable and without complaints. Findings: The short axis, vertical long axis, horizontal long axis, rotating, and gated images were reviewed in detail. There was a large perfusion defect involving the anterior wall, apex, anteroseptum myocardial perfusion at both stress and rest suggesting a prior myocardial infarction. There is no evidence of stress induced myocardial ischemia. The left ventricle demonstrates reduced systolic function with a large anterior and apical wall motion abnormality. The left ventricular ejection fraction is 31%. Conclusions: 1. Scintigraphic evidence of a prior myocardial infarction involving the anterior wall and apex. 2. No stress-induced myocardial ischemia. 3. Lexiscan induced chest pain. 4. No Lexiscan induced EKG changes. 5. Reduced left ventricular systolic function with a large anterior and apical wall motion abnormality. Left ventricular ejection fraction is 31%. Myocardial perfusion codes Indication for Procedure (1) Chest pain syndrome: (2) Elevated troponin: Procedure Code Procedure 1: Myocardial Perfusion Codes: 59970 Cardiovascular Stress Test, multiple Procedure 2: Myocardial Perfusion Codes: 97145 Cardiovascular Stress Test, supervision only Procedure 3: Myocardial Perfusion Codes: 33230 Cardiovascular Stress Test, interpretation and report
--- NOTE | 2019-05-04 18:08 | Medical Student Progress Note ---
Date of Service May 04, 2019 Assessment & Plan (1) Chest pain syndrome: Aleks is a 73 y/o male with a PMH of CAD (s/p CABG x2), ischemic cardiomyopathy (EF 35-40%), HTN, and pre-diabetes that presented with chest pain that started after exertion but was not relieved by rest. Aleks states that his exercise tolerance has been decreasing. EKG on admission showed TW inversions and ST depressions in V6, I, aVL. Troponins on admission was 0.12, which trended to 0.13 and did continue to rise. He was given nitro and morphine for chest pressure. Aleks no longer has chest pain. He is ambulating and has no pain or dyspnea on exertion. He had a stress test today, which was reviewed by cardiology and did not show acute changes. He is clinically stable and clear for discharge. Continue to follow up with regular food and beverage analyst, Dr. Marks. (2) Hyperlipidemia: Continue Crestor (3) Hypertension: Continue Norvasc, Lisinopril and Coreg. Hydralazine was added to regimen as well. Imdur was discussed but differed due to sildenafil use. (4) Ischemic cardiomyopathy: Aleks has a longstanding history of HF with an EF of 35-40%. Stress test during this admission did not show any acute changes. He has no recent weight gain or LE edema. Continue Lasix, Lisinopril and Coreg. (5) COPD with asthma: Continue on home inhalers (6) Allergic rhinitis: Continue Loratadine Subjective Aleks is feeling well this morning. He has no chest pain or pressure. He has been walking the hallways and has no pain on exertion. He does not endorse any dyspnea, or LE swelling. Review of Systems Review of Systems: All systems reviewed & are unremarkable except as noted in HPI & below Constitutional: no fever, no chills, no fatigue and no anorexia Respiratory: no cough, no dyspnea and no pain on inspiration Cardiovascular: no chest pain, no dyspnea and no lightheadedness Psychiatric: no confusion Physical Exam Constitutional: WD/WN, vitals as above Eyes: PERRL, conjunctivae normal, anicteric sclerae ENMT: external ear and nose normal, oropharynx normal Neck: trachea midline, no thyromegaly Respiratory: normal respiratory effort, lungs clear to auscultation Cardiovascular: Rate/Rhythm: regular rate and + irregularly irregular Heart Sounds: normal S1 and normal S2; no murmur Vessels: no JVD Extremities: normal capillary refill; no edema Gastrointestinal (Abdomen): normal bowel sounds, soft, nontender, no hepatospl enomegaly Musculoskeletal: no cyanosis or clubbing, extremities motor strength 5/5 Skin: no rashes, warm and dry Neurologic: patellar DTR's 2+ bilat, sensation intact and PERRL, EOMI, accommodation nl, no face palsy, no dysarthria Psychiatric: A+Ox3, euthymic affect Lymphatic: no cervical or axillary lymphadenopathy Results & Data Vital Signs (Past 12 Hours) Vital Signs Temp Pulse Resp BP BP Pulse Ox 05/04/19 15:32 36.7 C 74 20 129/83 133/72 95 05/04/19 15:12 36.7 C 74 20 129/83 95 05/04/19 07:28 36.6 C 69 16 133/72 95 Lexiscan was reviewed by cardiology and showed no acute changes.
== END 2019-05-04 15:53 | disposition home or self-care (01) | DRG 281 ==
LOC: ED 13:03 → 2S 15:09

== ENCOUNTER 2020-09-18 13:18 | Observation (INO) ==
[2020-09-18] MEDS ORDERED: SODIUM CHLORIDE 0.9% 500 ML IV SCH (14:30)
--- NOTE | 2020-09-18 14:38 | Emergency Department Note ---
Impression & Plan Hypoxia, Abnormal ECG, Elevated troponin ED Provider Note NAME: BOOGIE VELASQUEZ AGE: 75 SEX: M : 1945 ARRIVES VIA: Walk-In INFORMANT: Patient ED PROVIDER(S): Kwame Dill DO CHIEF COMPLAINT: weak HPI: Patient is a 75-year-old male who presents to the ER for weakness. He denies any headache or change in vision. No chest pain or shortness of breath. No nausea, vomiting, or diarrhea. He denies any dysuria, urgency, or frequency. He notes that he had surgery on his left hand around the first of this month. On the fifth he had a Covid vaccine. Eventually started feeling better and then since Saturday he is just felt tired weak and rundown. He denies all other complaints. No tick bites. ROS: See above HPI for pertinent positives & negatives. A total of 10 systems reviewed and were otherwise negative. PAST MEDICAL HISTORY:See Below PAST SURGICAL HISTORY:See Below FAMILY HISTORY:See Below SOCIAL HISTORY:See Below HOME MEDICATIONS:See Below ALLERGIES:See Below VITALS:See Below PHYSICAL EXAMINATION: GENERAL: Sitting up in bed, alert, well appearing, well nourished, no distress, non-toxic EYE EXAM: normal conjunctiva. PERRL and EOM's grossly intact. OROPHARYNX: no exudate, no erythema, lips, buccal mucosa, and tongue normal and mucous membranes are moist NECK: supple, no nuchal rigidity, no adenopathy, non-tender LUNGS: Clear to auscultation. Normal chest wall mechanics HEART: no murmurs, S1 normal and S2 normal ABDOMEN: abdomen soft, non-tender, normo-active bowel sounds, no masses, no rebound or guarding. BACK: Back is symmetrical on inspection and there is no deformity, no midline tenderness, no CVA tenderness. SKIN: no rashes and no bruising UPPER EXTREMITIES: upper extremities are grossly normal. LOWER EXTREMITIES: No pitting edema. NEURO EXAM: Normal sensorium, cranial nerves II-XII intact, normal speech, no gross weakness of arms, no gross weakness of legs. MEDICAL DECISION MAKING: Patient is a 75-year-old male who presents the ER for diffuse weakness. IV was established blood work was obtained. He is completely neurologically intact. Labs show no significant leukocytosis or anemia. BMP with slightly elevated chloride. LFTs bilirubin was unremarkable. Troponin was elevated at 0.1. Upon review of his chart back in 2018 he had an elevated troponin and had an NSTEMI. Has not had any since then. EKG is fairly consistent with previous when you go to back. UA was negative. He denies any chest pain or shortness of breath. He is on a NOAC. He has not missed any doses. Will not pursue PE. He was slightly hypoxic. Does have a history of COPD and asthma. He was given steroids. Discussed with the hospitalist and remained on 2 L nasal cannula while in the ER. Triage Nursing notes reviewed. Limited review of prior medical records performed Vital Signs: reviewed and remarkable for HTN Differential diagnosis: Infection, dehydration, metabolic abnormality, hypo/hyperglycemia, electrolyte disturbance, anemia, hypoxia, cardiac sources, intracerebral event, toxicologic, neurologic, as well as other pathologies. ER treatment provided: See below Diagnostics interpreted by me: ECG: A. fib rate of 78 Left axis Left bundle branch block Consider gastroparesis changes in the lateral leads with ST depressions in DWI in the high lateral leads EKG changes are new from May 04, 2019 in the high lateral leads Cardiac Monitoring: An order was placed for continuous cardiac monitoring. The monitor shows a rate of 72 with sinus rhythm. Laboratory studies: As stated above and show below. Imaging studies: Portable AP upright 1 view of the chest shows no focal infiltrate or pneumothorax Consultation(s): Discussed with the hospitalist for further evaluation Procedures: none Critical Care: I have personally spent 31 minutes of critical care time in the direct management of this patient. This includes bedside care, interpretation of diagnostic studies, and testing, discussion with consultants, patient, and family members, and other required patient management activities. This 31 minutes is in excess of all separately billable procedures. Past Med/Surg History Medical History Allergic rhinitis Cardiac defibrillator in place [facility] Chronic ischemic heart disease F/U DR KRUEGER Congestive heart failure COPD with asthma Coronary artery disease s/p 2 vessel CABG (2003) Hyperlipidemia Hypertension Ischemic cardiomyopathy S/p AICD placement - LVEF 30-35% Non-ST elevation AK (NSTEMI) Anterior AK 2006- s/p 2 vessel CABG Paroxysmal atrial fibrillation Prediabetes Surgical History History of anesthesia reaction SLOW TO WAKE UP-GROGGY FOR A WHILE History of nasal surgery Hx of CABG 2 VESSELS 2004 S/P appendectomy S/P colonoscopy S/P implantation of automatic cardioverter/defibrillator (AICD) [employer] Family History Other Heart disease Hypertension Social History Smoking Status: Never smoker Second Hand Exposure: Yes (SPOUSE USED TO SMOKE); Hx Alcohol Use: Yes Alcohol type: beer and wine Hx Substance Use: No Preferred Language: Chinese Communication Ability: Effective Beamer 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 Required: No Beliefs That Will Affect Care: None marital status: Current Living Situation: Spouse current occupational status: retired Feels Safe at Home: Yes Assistive Devices: Denture - Upper, Glasses and Hearing Aid - Bilateral Allergies Allergies Allergy/AdvReac Type Severity Reaction Status Date / Time bee venom protein (honey bee) Allergy Unknown BIT BY BEE Verified 08/25/20 07:16 SWARM-SWELLING THROAT FACE No Known Drug Allergies Allergy NO KNOWN Verified 09/18/20 15:41 DRUG ALLERGIES Home Meds Home Medications Medication Instructions Recorded Confirmed calcium carbonate 600 mg calcium 600 mg PO HS tab 12/23/18 09/18/20 (1,500 mg) tablet lisinopril 40 mg tablet 40 mg PO BID #180 tab 12/23/18 09/18/20 loratadine 10 mg tablet 10 mg PO HS #30 tab 12/23/18 09/18/20 multivitamin 1 tab PO QAM 12/23/18 09/18/20 sildenafil 100 mg tablet 50 mg PO DAILY PRN tab 12/31/18 09/18/20 furosemide 40 mg PO QAM 05/02/19 09/18/20 potassium chloride 10 meq PO QAM 05/02/19 09/18/20 rosuvastatin 20 mg PO HS 05/02/19 09/18/20 tiotropium-olodaterol 2 puffs INHALATION QAM 05/02/19 09/18/20 amlodipine 2.5 mg tablet See Rx Instructions .ROUTE .COMPLEX 07/10/19 09/18/20 Airborne (ascorbic acid) 1 tab PO QAM 08/19/20 09/18/20 hydralazine 25 mg PO BID 08/19/20 09/18/20 Previous Rx's Medication Instructions Recorded albuterol sulfate 90 mcg/actuation 2 puffs INHALATION Q4H PRN #18 gm 12/23/18 aerosol inhaler apixaban 5 mg tablet 5 mg PO BID #60 tab 12/23/18 carvedilol 25 mg tablet 25 mg PO BID #60 tab 12/23/18 nitroglycerin 0.4 mg sublingual 0.4 mg SL Q5M PRN #25 tab 04/08/19 tablet Results & Data (ED) Vital Signs Vital Signs - 24 hr 09/18/20 13:29 09/18/20 14:34 09/18/20 14:40 Temperature 36.7 C Temperature Source Oral Pulse Rate 84 79 78 Pulse Rate [Right Finger] 78 Pulse Rate from SpO2 Sensor 77 Pulse Rhythm Regular Pulse Strength Normal Respiratory Rate 20 21 20 Respiratory Effort / Characteristics Non-Labored Respiratory Depth Normal Respiratory Pattern Regular Blood Pressure 145/80 H 145/85 H Blood Pressure [Right Arm] 145/85 H Blood Pressure Mean 101 105 Blood Pressure Mean [Right Arm] 105 Blood Pressure Position Sitting Pulse Oximetry 97 94 95 Oxygen Delivery Method Room Air Room Air Oxygen Flow Rate Sepsis Recent Fever Within 48 Hours No Sepsis New/Unexplained Change in Mental Status No Sepsis Action Taken by Nursing No Action Required Oxygen Flow Rate - Titration Pulse Oximetry Post Tiitration 09/18/20 14:49 09/18/20 15:00 09/18/20 15:01 Temperature Temperature Source Pulse Rate 78 79 74 Pulse Rate [Right Finger] Pulse Rate from SpO2 Sensor 77 76 74 Pulse Rhythm Pulse Strength Respiratory Rate 18 24 17 Respiratory Effort / Characteristics Respiratory Depth Respiratory Pattern Blood Pressure 133/81 Blood Pressure [Right Arm] Blood Pressure Mean 98 Blood Pressure Mean [Right Arm] Blood Pressure Position Pulse Oximetry 94 92 93 Oxygen Delivery Method Oxygen Flow Rate Sepsis Recent Fever Within 48 Hours Sepsis New/Unexplained Change in Mental Status Sepsis Action Taken by Nursing Oxygen Flow Rate - Titration Pulse Oximetry Post Tiitration 09/18/20 15:47 09/18/20 16:00 09/18/20 16:01 Temperature Temperature Source Pulse Rate 77 77 71 Pulse Rate [Right Finger] Pulse Rate from SpO2 Sensor 80 77 72 Pulse Rhythm Pulse Strength Respiratory Rate 28 H 24 33 H Respiratory Effort / Characteristics Respiratory Depth Respiratory Pattern Blood Pressure 129/94 144/81 H Blood Pressure [Right Arm] Blood Pressure Mean 105 102 Blood Pressure Mean [Right Arm] Blood Pressure Position Pulse Oximetry 92 92 92 Oxygen Delivery Method Oxygen Flow Rate Sepsis Recent Fever Within 48 Hours Sepsis New/Unexplained Change in Mental Status Sepsis Action Taken by Nursing Oxygen Flow Rate - Titration Pulse Oximetry Post Tiitration 09/18/20 16:18 09/18/20 16:30 09/18/20 16:31 Temperature Temperature Source Pulse Rate 72 81 Pulse Rate [Right Finger] Pulse Rate from SpO2 Sensor 78 81 Pulse Rhythm Pulse Strength Respiratory Rate 24 25 H Respiratory Effort / Characteristics Respiratory Depth Respiratory Pattern Blood Pressure 151/82 H Blood Pressure [Right Arm] Blood Pressure Mean 105 Blood Pressure Mean [Right Arm] Blood Pressure Position Pulse Oximetry 88 L 91 92 Oxygen Delivery Method Room Air Oxygen Flow Rate Sepsis Recent Fever Within 48 Hours Sepsis New/Unexplained Change in Mental Status Sepsis Action Taken by Nursing Oxygen Flow Rate - Titration 2 Pulse Oximetry Post Tiitration 98 09/18/20 17:00 09/18/20 17:01 09/18/20 17:16 Temperature Temperature Source Pulse Rate 83 78 Pulse Rate [Right Finger] 80 Pulse Rate from SpO2 Sensor 84 Pulse Rhythm Pulse Strength Respiratory Rate 24 23 24 Respiratory Effort / Characteristics Respiratory Depth Respiratory Pattern Blood Pressure 145/87 H Blood Pressure [Right Arm] 145/87 H Blood Pressure Mean 106 Blood Pressure Mean [Right Arm] 106 Blood Pressure Position Pulse Oximetry 93 97 Oxygen Delivery Method Nasal Cannula Oxygen Flow Rate 2 Sepsis Recent Fever Within 48 Hours Sepsis New/Unexplained Change in Mental Status Sepsis Action Taken by Nursing Oxygen Flow Rate - Titration Pulse Oximetry Post Tiitration 09/18/20 17:39 09/18/20 17:40 09/18/20 18:00 Temperature Temperature Source Pulse Rate 88 84 86 Pulse Rate [Right Finger] Pulse Rate from SpO2 Sensor 92 H 87 93 H Pulse Rhythm Pulse Strength Respiratory Rate 13 24 24 Respiratory Effort / Characteristics Respiratory Depth Respiratory Pattern Blood Pressure 145/81 H 144/84 H Blood Pressure [Right Arm] Blood Pressure Mean 102 104 Blood Pressure Mean [Right Arm] Blood Pressure Position Pulse Oximetry 96 92 93 Oxygen Delivery Method Oxygen Flow Rate Sepsis Recent Fever Within 48 Hours Sepsis New/Unexplained Change in Mental Status Sepsis Action Taken by Nursing Oxygen Flow Rate - Titration Pulse Oximetry Post Tiitration 09/18/20 18:01 09/18/20 18:30 09/18/20 19:00 Temperature Temperature Source Pulse Rate 95 H 87 82 Pulse Rate [Right Finger] Pulse Rate from SpO2 Sensor 91 H 86 83 Pulse Rhythm Pulse Strength Respiratory Rate 30 H 23 24 Respiratory Effort / Characteristics Respiratory Depth Respiratory Pattern Blood Pressure 143/87 H 133/82 Blood Pressure [Right Arm] Blood Pressure Mean 105 99 Blood Pressure Mean [Right Arm] Blood Pressure Position Pulse Oximetry 91 91 92 Oxygen Delivery Method Oxygen Flow Rate Sepsis Recent Fever Within 48 Hours Sepsis New/Unexplained Change in Mental Status Sepsis Action Taken by Nursing Oxygen Flow Rate - Titration Pulse Oximetry Post Tiitration 09/18/20 19:10 09/18/20 19:20 09/18/20 19:30 Temperature Temperature Source Pulse Rate 88 80 82 Pulse Rate [Right Finger] Pulse Rate from SpO2 Sensor 84 83 88 Pulse Rhythm Pulse Strength Respiratory Rate 20 22 20 Respiratory Effort / Characteristics Respiratory Depth Respiratory Pattern Blood Pressure 132/82 Blood Pressure [Right Arm] Blood Pressure Mean 98 Blood Pressure Mean [Right Arm] Blood Pressure Position Pulse Oximetry 93 93 94 Oxygen Delivery Method Oxygen Flow Rate Sepsis Recent Fever Within 48 Hours Sepsis New/Unexplained Change in Mental Status Sepsis Action Taken by Nursing Oxygen Flow Rate - Titration Pulse Oximetry Post Tiitration 09/18/20 19:31 09/18/20 19:40 09/18/20 20:02 Temperature Temperature Source Pulse Rate 73 83 Pulse Rate [Right Finger] Pulse Rate from SpO2 Sensor 77 81 Pulse Rhythm Pulse Strength Respiratory Rate 19 21 Respiratory Effort / Characteristics Respiratory Depth Respiratory Pattern Blood Pressure Blood Pressure [Right Arm] Blood Pressure Mean Blood Pressure Mean [Right Arm] Blood Pressure Position Pulse Oximetry 94 90 Oxygen Delivery Method Room Air Oxygen Flow Rate Sepsis Recent Fever Within 48 Hours Sepsis New/Unexplained Change in Mental Status Sepsis Action Taken by Nursing Oxygen Flow Rate - Titration Pulse Oximetry Post Tiitration Laboratory Data Result diagrams: 09/18/20 14:38 09/18/20 14:38 Lab Results 09/18/20 09/18/20 09/18/20 Range/Units 14:25 14:38 14:38 WBC 6.03 (4.8-10.8) K/uL RBC 4.22 L (4.7-6.1) M/uL Hgb 12.6 L (14.0-18.0) g/dL Hct 37.8 L (42-52) % MCV 89.6 (80-100) fL MCH 29.9 (25-34) pg MCHC 33.3 (32-36) g/dL RDW Std Deviation 47.3 H (36.4-46.3) fL RDW Coeff of Jodee 14.4 (11.5-14.5) % Plt Count 236 (130-400) K/uL MPV 11.5 H (7.4-10.4) fL Immature Gran % (Auto) 0.2 % Neut % (Auto) 61.0 % Lymph % (Auto) 17.9 % Taylor % (Auto) 17.9 % Eos % (Auto) 2.3 % Baso % (Auto) 0.7 % Neut # (Auto) 3.68 (1.4-6.5) K/uL Lymph # (Auto) 1.08 L (1.2-3.4) K/uL Taylor # (Auto) 1.08 H (0.11-0.59) K/uL Eos # (Auto) 0.14 (0-0.5) K/uL Baso # (Auto) 0.04 (0-0.2) K/uL Immature Gran # (Auto) 0.01 (0.00-0.02) K/uL Sodium 141 (136-145) mmol/L Potassium 3.7 (3.5-5.1) mmol/L Chloride 108 H (98-107) mmol/L Carbon Dioxide 26 (21-32) mmol/L Anion Gap 7.0 (3-11) BUN 15 (7-18) mg/dl Creatinine 0.76 (0.6-1.4) mg/dl Est Cr Clr Drug Dosing 93.6 ml/min Est GFR ( Amer) 104.2 Est GFR (Non-Af Amer) 89.9 BUN/Creatinine Ratio 20.0 (10-20) Glucose 101 H (70-99) mg/dl Calcium 8.9 (8.5-10.1) mg/dl Total Bilirubin 1.0 (0.2-1) mg/dl AST 13 L (15-37) U/L ALT 20 (12-78) U/L Alkaline Phosphatase 79 (45-117) U/L Troponin I 0.100 H* (0-0.045) ng/ml NT-Pro-B Natriuret Pep 3004 H (0-900) pg/ml Total Protein 8.6 H (6.4-8.2) gm/dl Albumin 3.3 L (3.4-5.0) gm/dl Globulin 5.3 H (2.5-4.0) gm/dl Albumin/Globulin Ratio 0.6 L (0.9-2) Procalcitonin < 0.05 (0-0.5) ng/ml TSH 1.480 (0.300-4.500) uIu/ml Urine Color Urine Appearance (Clear) Urine pH (4.5-7.5) Ur Specific [place] (1.000-1.030) Urine Protein (Negative) Urine Glucose (UA) (Negative) Urine Ketones (Negative) Urine Blood (Negative) Urine Nitrite (Negative) Urine Bilirubin (Negative) Urine Urobilinogen (Negative) Ur Leukocyte Esterase (Negative) COVID-19 Eval Order SARS-CoV-2 (PCR) (Negative) Influenza Type A (PCR) (Neg) Influenza Type B (PCR) (Neg) RSV (RT-PCR) (Neg) 09/18/20 09/18/20 09/18/20 Range/Units 15:37 17:15 17:15 WBC (4.8-10.8) K/uL RBC (4.7-6.1) M/uL Hgb (14.0-18.0) g/dL Hct (42-52) % MCV (80-100) fL MCH (25-34) pg MCHC (32-36) g/dL RDW Std Deviation (36.4-46.3) fL RDW Coeff of Jodee (11.5-14.5) % Plt Count (130-400) K/uL MPV (7.4-10.4) fL Immature Gran % (Auto) % Neut % (Auto) % Lymph % (Auto) % Taylor % (Auto) % Eos % (Auto) % Baso % (Auto) % Neut # (Auto) (1.4-6.5) K/uL Lymph # (Auto) (1.2-3.4) K/uL Taylor # (Auto) (0.11-0.59) K/uL Eos # (Auto) (0-0.5) K/uL Baso # (Auto) (0-0.2) K/uL Immature Gran # (Auto) (0.00-0.02) K/uL Sodium (136-145) mmol/L Potassium (3.5-5.1) mmol/L Chloride (98-107) mmol/L Carbon Dioxide (21-32) mmol/L Anion Gap (3-11) BUN (7-18) mg/dl Creatinine (0.6-1.4) mg/dl Est Cr Clr Drug Dosing ml/min Est GFR ( Amer) Est GFR (Non-Af Amer) BUN/Creatinine Ratio (10-20) Glucose (70-99) mg/dl Calcium (8.5-10.1) mg/dl Total Bilirubin (0.2-1) mg/dl AST (15-37) U/L ALT (12-78) U/L Alkaline Phosphatase (45-117) U/L Troponin I (0-0.045) ng/ml NT-Pro-B Natriuret Pep (0-900) pg/ml Total Protein (6.4-8.2) gm/dl Albumin (3.4-5.0) gm/dl Globulin (2.5-4.0) gm/dl Albumin/Globulin Ratio (0.9-2) Procalcitonin (0-0.5) ng/ml TSH (0.300-4.500) uIu/ml Urine Color Yellow Urine Appearance Clear (Clear) Urine pH 6.0 (4.5-7.5) Ur Specific [place] 1.014 (1.000-1.030) Urine Protein Negative (Negative) Urine Glucose (UA) Negative (Negative) Urine Ketones Negative (Negative) Urine Blood Negative (Negative) Urine Nitrite Negative (Negative) Urine Bilirubin Negative (Negative) Urine Urobilinogen Negative (Negative) Ur Leukocyte Esterase Negative (Negative) COVID-19 Eval Order CovFluRsv at [facility] SARS-CoV-2 (PCR) NEGATIVE (Negative) Influenza Type A (PCR) Negative (Neg) Influenza Type B (PCR) Negative (Neg) RSV (RT-PCR) Negative (Neg) Administered Medications Discontinued Medications Sodium Chloride (Nss) 500 mls @ 999 mls/hr IV .Q31M JANINE Stop: 09/18/20 15:00 Last Infusion: 09/18/20 16:02 Dose: 0 mls/hr Documented by: [id number] Admin: 09/18/20 15:03 Dose: 999 mls/hr Documented by: [id number] Methylprednisolone (Methylprednisolone 125 Mg/2 Ml Vial) 60 mg IV NOW STA Stop: 09/18/20 16:29 Last Admin: 09/18/20 17:13 Dose: 60 mg Documented by: [id number] Imaging Data Radiologist's Impression: Chest X-Ray 09/18/20 14:25 XR chest 1V portable CLINICAL HISTORY: weakness COMPARISON STUDY: Chest radiograph May 02, 2019. FINDINGS: Left subclavian pacer/AICD, median sternotomy wires and mediastinal surgical clips are noted. Note is made of cardiomegaly without evidence for pulmonary edema. There is no pneumothorax or pleural effusion. IMPRESSION: No acute cardiopulmonary findings. No change in appearance of the chest. Cardiomegaly. ACT 112: Negative or not required by law. Electronically signed by: Callum Nava M.D. 09/18/2020 2:[address] 09/18/20 17:16 CT OF THE CHEST WITHOUT IV CONTRAST CLINICAL HISTORY: Hypoxemia COMPARISON STUDY: Chest radiograph September 18, 2020 and May 02, 2019. CT DOSE: 438.23 mGy.cm TECHNIQUE: Axial images of the chest were obtained without IV contrast. Images were reviewed in the axial, sagittal, and coronal planes. IV contrast was not administered for this examination. Automated exposure control was utilized for the study. A dose lowering technique was utilized adhering to the principles of ALARA. FINDINGS: A left subclavian pacer/AICD, median sternotomy wires and mediastinal surgical clips are noted. Incidental note is made of an aberrant right subclavian artery. Moderate cardiomegaly is noted. There is no pericardial effusion. There is extensive coronary artery calcification. Multiple mildly enlarged mediastinal lymph nodes are noted. Index lymph node anterior to the SVC measures 1.1 cm in short axis diameter. There are prominent bilateral axillary lymph nodes. No pneumothorax is present. Small right and trace left pleural effusions are noted. Left pleural effusion may be chronic given pleural thickening. Lungs are suboptimally assessed due to respiratory motion. There is interlobular septal thickening. There are additional groundglass opacities within the lungs. There is no lobar consolidation. Visualized portions of the upper abdomen are unremarkable. There is a small hiatal hernia. IMPRESSION: 1. Interlobular septal thickening consistent with interstitial pulmonary edema. Additional mild airspace opacities could reflect alveolar pulmonary edema or atelectasis. An infectious process is considered less likely but could appear similar. 2. Small right and trace left pleural effusions. The left pleural effusion may be chronic given pleural thickening. 3. Moderate cardiomegaly and coronary artery calcification. 4. Multiple mildly enlarged mediastinal lymph nodes. A follow-up chest CT in 6 months is recommended. ACT 112: Negative or not required by law. Electronically signed by: Callum Nava M.D. 09/18/2020 6:22 PM Discharge Plan Visit Data Chief Complaint: Weakness Stated Complaint: WEAKNESS ED Provider: Kwame Dill Discharge Problem: Hypoxia, Abnormal ECG, Elevated troponin Patient Disposition: Admitted As Inpatient Discharge Instructions Interventions: ED Discharge Assessment Last Done: 09/18/20 20:02 Forms Stand Alone Forms: [employer] Prescriptions Prescriptions: No Action nitroglycerin 0.4 mg tablet, sublingual 0.4 mg SL Q5M PRN (Reason: chest pain) Qty: 25 RF: 0 calcium carbonate 600 mg calcium (1,500 mg) tablet 600 mg PO HS RF: 0 loratadine 10 mg tablet 10 mg PO HS Qty: 30 RF: 0 multivitamin tablet 1 tab PO QAM RF: 0 albuterol sulfate 90 mcg/actuation HFA aerosol inhaler 2 puffs inhalation Q4H PRN (Reason: shortness of breath or wheezing) Qty: 18 RF: 5 Eliquis 5 mg tablet 5 mg PO BID Qty: 60 RF: 5 carvedilol 25 mg tablet 25 mg PO BID Qty: 60 RF: 5 lisinopril 40 mg tablet 40 mg PO BID Qty: 180 RF: 0 sildenafil 100 mg tablet 50 mg PO DAILY PRN (Reason: .) RF: 0 furosemide 40 mg tablet 40 mg PO QAM RF: 0 rosuvastatin 40 mg tablet 20 mg PO HS RF: 0 potassium chloride 20 mEq tablet extended release 10 meq PO QAM RF: 0 tiotropium-olodaterol 2.5-2.5 mcg/actuation mist 2 puffs inhalation QAM RF: 0 amlodipine 2.5 mg tablet See Rx Instructions .ROUTE .COMPLEX RF: 0 hydralazine 25 mg tablet 25 mg PO BID RF: 0 Airborne (ascorbic acid) 250-8.875 mg Tablet,Chewable 1 tab PO QAM RF: 0 Referrals Referrals: Geetha Galvez MD [Primary Care Provider] -
--- NOTE | 2020-09-18 14:54 | XRay Report ---
XR chest 1V portable CLINICAL HISTORY: weakness COMPARISON STUDY: Chest radiograph May 02, 2019. FINDINGS: Left subclavian pacer/AICD, median sternotomy wires and mediastinal surgical clips are note d. Note is made of cardiomegaly without evidence for pulmonary edema. There is no pneumothorax or ple ural effusion. IMPRESSION: No acute cardiopulmonary findings. No change in appearance of the chest. Cardiomegaly. ACT 112: Negative or not required by law. Electronically signed by: Callum Nava M.D. 09/18/2020 2:52 PM
[2020-09-18 14:56] LABS: Basophils # (auto) 0.04 K/uL (0-0.2); Basophils % (auto) 0.7 %; Eosinophils # (auto) 0.14 K/uL (0-0.5); Eosinophils % (auto) 2.3 %; Hematocrit (blood only) 37.8 % (42-52); Hemoglobin 12.6 g/dL (14.0-18.0); Immature Granulocytes # (auto) 0.01 K/uL (0.00-0.02); Immature Granulocytes % (auto) 0.2 %; Lymphocytes # (auto) 1.08 K/uL (1.2-3.4); Lymphocytes % (auto) 17.9 %; Mean Corpuscular Hemoglobin 29.9 pg (25-34); Mean Corpuscular Hgb Conc 33.3 g/dL (32-36); Mean Corpuscular Volume 89.6 fL (80-100); Mean Platelet Volume 11.5 fL (7.4-10.4); Monocytes # (auto) 1.08 K/uL (0.11-0.59); Monocytes % (auto) 17.9 %; Neutrophils # (auto) 3.68 K/uL (1.4-6.5); Platelet Count 236 K/uL (130-400); RDW Coefficient of Variation 14.4 % (11.5-14.5); RDW Standard Deviation 47.3 fL (36.4-46.3); Red Blood Count 4.22 M/uL (4.7-6.1); White Blood Count 6.03 K/uL (4.8-10.8)
[2020-09-18 15:16] LABS: Albumin Level 3.3 gm/dl (3.4-5.0); Calcium 8.9 mg/dl (8.5-10.1); Creatinine Clr Calc Pharmacy 93.6 ml/min; Est GFR (African American) 104.2; Est GFR (Non-African American) 89.9; Potassium 3.7 mmol/L (3.5-5.1)
[2020-09-18 15:28] LABS: Albumin Globulin Ratio 0.6 (0.9-2); Globulin 5.3 gm/dl (2.5-4.0); Thyroid Stimulating Hormone 1.48 uIu/ml (0.300-4.500); Total Protein 8.6 gm/dl (6.4-8.2); Troponin I 0.1 ng/ml (0-0.045)
[2020-09-18 15:51] LABS: Appearance Urine Clear (Clear); Bilirubin Urine Negative (Negative); Blood Urine Negative (Negative); Color Urine Yellow; Glucose Urine UA Negative (Negative); Ketones Urine Negative (Negative); Leukocyte Esterase Urine Negative (Negative); Nitrite Urine Negative (Negative); Protein Urine Negative (Negative); Specific Gravity Urine 1.014 (1.000-1.030); Urobilinogen Urine Negative (Negative)
[2020-09-18] MEDS ORDERED: methylPREDNISolone 125 MG/2 ML VIAL IV STA (16:28)
--- NOTE | 2020-09-18 17:29 | History & Physical Report ---
Date of Service September 18, 2020 Assessment & Plan (1) Fatigue: Generalized fatigue and weakness are his main reasons for presentation. Ddx obviously is pretty broad here, including his known cardiomyopathy, afib becoming symptomatic, endocrinology issues (though TSH normal today), respiratory issues (including the hypoxemia (see below)), occult infection or malignancy, KYRIE, atypical PA, and more. - Ordered: * Chest CT given new hypoxemia * Trend troponins and EKGs (currently both are stable from multiple priors) * Limited echo to see how heart function may have changed * AM cortisol * Covid swab pending * Nocturnal pulse ox study to look for KYRIE * Will get BNP and procalcitonin to look for causes of hypoxemia * Will get HCV as he has a globulin gap on labs on admission (2) Hypoxemia: Has been told he has "early" COPD. Uses his maintenance inhaler faithfully. In the ED, needed 2L O2 to maintain an SpO2 of 91% which is new for him. - Plan as above (3) Ischemic cardiomyopathy: Echo in 04/2019 showed EF 30 - 35%. With hx of 2vCABG in 2007 after an [place]. As such, he has chronic systolic heart failure. - Continue home carvedilol, lisinopril, rosuvastatin - Continue home furosemide. Appears euvolemic at this time. (4) Paroxysmal atrial fibrillation: In atrial fibrillation with controlled rate on admission. He reports that he is asymptomatic from afib perspective and cannot tell when he goes in or out of afib. - Continue home apixaban - Continue home beta-sukumar for rate control (5) Hypertension: BP here is 145/90, but he reports his home BP is usually ~120/80. - Continue home amlodipine, carvedilol, furosemide, hydralazine, and lisinopril at home dosages (6) COPD with asthma: Reports he has been told he has "mild" or "early" COPD. Has some clear sputum in the mornings, but this has been stable. No extra shortness of breath or coughing. No wheezing on exam. - Do NOT think he is in COPD exacerbation. - Continue home maintenance inhaler (or formulary equivalents) - Albuterol PRN (7) Allergic rhinitis: Reports some post-nasal drip. - Continue home loratadine (8) Prediabetes: A1c was 6.5% in 02/2020. Not on home meds for DM. - Repeat A1c in the AM (9) DVT prophylaxis: On apixaban for afib History of Present Illness Primary Care Provider: Geetha Galvez MD 75yo M w/ hx of afib, HFrEF, early COPD who presents with fatigue and general weakness. He reports he had about 24h of chills, fatigue, weakness on August 29 when he had his second Covid vaccine, but reports he recovered after that. However, for the last week, he has had increased in generalized weakness, fatigue, and just generally feeling "rough." He reports that over the last few weeks, he has had episodes at night where he wakes up gasping for air. He and his tried a fan in the window and an air freshener. He also reports that he uses a "Sleep Number" bed and has increased the head of the bed height, though his reports it hasn't changed much recently and it's still lower than her side of the bed. However, he really denies any focal symptoms other than the above. He specifically denies RIVERA, vision changes, chest pain, palpitations, shortness of breath, cough, change in mucus production (he has some mild, clear sputum in the mornings, but this is stable), abdominal pain, nausea, vomiting, fevers/chills/night sweats, loss of weight, diarrhea, constipation, or blood in the stool. He has some mild LLE edema which he reports has been stable for a long time. Allergies Allergy/AdvReac Type Severity Reaction Status Date / Time bee venom protein (honey bee) Allergy Unknown BIT BY BEE Verified 08/25/20 07:16 SWARM-SWELLING THROAT FACE No Known Drug Allergies Allergy NO KNOWN Verified 09/18/20 15:41 DRUG ALLERGIES Home Medications Medication Instructions Recorded Confirmed Type albuterol sulfate 90 mcg/actuation 2 puffs INHALATION Q4H PRN #18 gm 12/23/18 09/18/20 Rx aerosol inhaler apixaban 5 mg tablet 5 mg PO BID #60 tab 12/23/18 09/18/20 Rx calcium carbonate 600 mg calcium 600 mg PO HS tab 12/23/18 09/18/20 History (1,500 mg) tablet carvedilol 25 mg tablet 25 mg PO BID #60 tab 12/23/18 09/18/20 Rx lisinopril 40 mg tablet 40 mg PO BID #180 tab 12/23/18 09/18/20 History loratadine 10 mg tablet 10 mg PO HS #30 tab 12/23/18 09/18/20 History multivitamin 1 tab PO QAM 12/23/18 09/18/20 History sildenafil 100 mg tablet 50 mg PO DAILY PRN tab 12/31/18 09/18/20 History nitroglycerin 0.4 mg sublingual 0.4 mg SL Q5M PRN #25 tab 04/08/19 09/18/20 Rx tablet furosemide 40 mg PO QAM 05/02/19 09/18/20 History potassium chloride 10 meq PO QAM 05/02/19 09/18/20 History rosuvastatin 20 mg PO HS 05/02/19 09/18/20 History tiotropium-olodaterol 2 puffs INHALATION QAM 05/02/19 09/18/20 History amlodipine 2.5 mg tablet See Rx Instructions .ROUTE .COMPLEX 07/10/19 09/18/20 History Airborne (ascorbic acid) 1 tab PO QAM 08/19/20 09/18/20 History hydralazine 25 mg PO BID 08/19/20 09/18/20 History Past Med/Surg History Medical History Allergic rhinitis Cardiac defibrillator in place [facility] single-chamber, [facility] Chronic ischemic heart disease F/U DR KRUEGER Congestive heart failure COPD with asthma Coronary artery disease s/p 2 vessel CABG (2003) Hyperlipidemia Hypertension Ischemic cardiomyopathy S/p AICD placement - LVEF 30-35% Non-ST elevation PA (NSTEMI) Anterior PA 2006- s/p 2 vessel CABG Paroxysmal atrial fibrillation Prediabetes Surgical History History of anesthesia reaction SLOW TO WAKE UP-GROGGY FOR A WHILE History of nasal surgery Hx of CABG 2 VESSELS 2003 S/P appendectomy S/P colonoscopy S/P implantation of automatic cardioverter/defibrillator (AICD) [employer] Family History Other Heart disease Hypertension Social History Smoking Status: Never smoker Second Hand Exposure: Yes (SPOUSE USED TO SMOKE); Hx Alcohol Use: Yes Alcohol type: beer and wine Hx Substance Use: No Preferred Language: Arabic Communication Ability: Effective Software Team Leader Required: No Beliefs That Will Affect Care: None marital status: Current Living Situation: Spouse current occupational status: retired Feels Safe at Home: Yes Assistive Devices: Denture - Upper, Glasses and Hearing Aid - Bilateral Review of Systems Review of Systems: All systems reviewed & are unremarkable except as noted in HPI & below Physical Exam Constitutional: WD/WN, vitals as above Eyes: EOM intact bilaterally; no conjunctival abnormality ENMT: external ear and nose normal, oropharynx normal Neck: trachea midline, no thyromegaly normal visual inspection Respiratory: normal respiratory effort, lungs clear to auscultation no respiratory distress Cardiovascular: RRR, no murmur, no edema Gastrointestinal (Abdomen): Inspection/Auscultation: abdomen normal to inspection; abdomen not distended Musculoskeletal: no cyanosis or clubbing, extremities motor strength 5/5 Skin: no rashes, warm and dry Neurologic: moves all extremities and awake Psychiatric: Orientation: alert, oriented to person and cooperative Results & Data Results & Data ([facility]) Vital Signs (Past 12 Hours) Vital Signs Temp Pulse Pulse Resp BP BP Pulse Ox 09/18/20 16:18 88 L 09/18/20 15:47 77 28 H 129/94 92 09/18/20 15:01 74 17 93 09/18/20 15:00 79 24 133/81 92 09/18/20 14:49 78 18 94 09/18/20 14:40 78 78 20 145/85 H 95 09/18/20 14:34 79 21 145/85 H 94 09/18/20 13:29 36.7 C 84 20 145/80 H 97 Code Status & VTE Plan VTE Prophylaxis Plan VTE Prophylaxis will be ordered: Yes PG Care Time/CCT Total # of Minutes Spent Total Time Spent with Patient: Total time spent is greater than 50% in coordination of care (as documented) at patient's floor/unit and/or counseling patient: Coding Level of Care Code 27333 OBS Care - Level 3 Diagnoses Fatigue R53.83 Hypoxemia R09.02 Ischemic cardiomyopathy I25.5 Paroxysmal atrial fibrillation I48.0 Hypertension I10 Hypertension type: essential hypertension COPD with asthma J44.9 Allergic rhinitis J30.9 Prediabetes R73.03 DVT prophylaxis Z29.9 (1) Hypertension Hypertension type: essential hypertension Qualified Code(s): I10 - Essential (primary) hypertension
[2020-09-18 17:58] LABS: Influenza A virus by PCR Negative (Neg); Influenza B virus by PCR Negative (Neg); RSV by PCR Negative (Neg); SARS CoV2 RNA(COVID-19) InHosp NEGATIVE (Negative)
--- NOTE | 2020-09-18 18:24 | CT Scan Report ---
CT OF THE CHEST WITHOUT IV CONTRAST CLINICAL HISTORY: Hypoxemia COMPARISON STUDY: Chest radiograph September 18, 2020 and May 02, 2019. CT DOSE: 438.23 mGy.cm TECHNIQUE: Axial images of the chest were obtained without IV contrast. Images were reviewed in the axial, sagittal, and coronal planes. IV contrast was not administered for this examination. Automat ed exposure control was utilized for the study. A dose lowering technique was utilized adhering to t he principles of ALARA. FINDINGS: A left subclavian pacer/AICD, median sternotomy wires and mediastinal surgical clips are n oted. Incidental note is made of an aberrant right subclavian artery. Moderate cardiomegaly is noted. There is no pericardial effusion. There is extensive coronary artery calcification. Multiple mildly enlarged mediastinal lymph nodes are noted. Index lymph node anterior to the SVC measures 1.1 cm in s hort axis diameter. There are prominent bilateral axillary lymph nodes. No pneumothorax is present. S mall right and trace left pleural effusions are noted. Left pleural effusion may be chronic given ple ural thickening. Lungs are suboptimally assessed due to respiratory motion. There is interlobular sep lara thickening. There are additional groundglass opacities within the lungs. There is no lobar consol idation. Visualized portions of the upper abdomen are unremarkable. There is a small hiatal hernia. IMPRESSION: 1. Interlobular septal thickening consistent with interstitial pulmonary edema. Additional mild airsp hua opacities could reflect alveolar pulmonary edema or atelectasis. An infectious process is conside red less likely but could appear similar. 2. Small right and trace left pleural effusions. The left pleural effusion may be chronic given pleur al thickening. 3. Moderate cardiomegaly and coronary artery calcification. 4. Multiple mildly enlarged mediastinal lymph nodes. A follow-up chest CT in 6 months is recommended. ACT 112: Negative or not required by law. Electronically signed by: Callum Nava M.D. 09/18/2020 6:22 PM
[2020-09-18] MEDS ORDERED: ACETAMINOPHEN 325 MG TAB PO PRN (20:30)
[2020-09-18] MEDS ORDERED: ONDANSETRON INJ 2 MG/ML 2 ML VIAL IV PRN (20:30)
[2020-09-18] MEDS ORDERED: ALBUTEROL HFA 8 GM INHALER INH PRN (20:30)
[2020-09-18] MEDS ORDERED: ROSUVASTATIN CALCIUM 20 MG TAB PO SCH (21:00)
[2020-09-18] MEDS ORDERED: LORATADINE 10 MG TAB PO SCH (21:00)
[2020-09-18] MEDS: lisinopril 40 MG TAB PO SCH (21:51)
[2020-09-18] MEDS: hydrALAZINE HCL 25 MG TAB PO SCH (21:51)
[2020-09-18] MEDS: carvediloL 25 MG TAB PO SCH (21:52)
[2020-09-18] MEDS: APIXABAN 5 MG TABLET PO SCH (21:52)
[2020-09-19 08:14] LABS: Hematocrit (blood only) 40.2 % (42-52); Hemoglobin 13.3 g/dL (14.0-18.0); Mean Corpuscular Hemoglobin 29.5 pg (25-34); Mean Corpuscular Hgb Conc 33.1 g/dL (32-36); Mean Corpuscular Volume 89.1 fL (80-100); Mean Platelet Volume 11.5 fL (7.4-10.4); Platelet Count 220 K/uL (130-400); Red Blood Count 4.51 M/uL (4.7-6.1); White Blood Count 4.18 K/uL (4.8-10.8)
[2020-09-19 08:22] LABS: Estimated Average Glucose 134 mg/dl; Hemoglobin A1C 6.3 % (4.5-5.6)
[2020-09-19 08:48] LABS: BUN Creatinine Ratio 21.3 (10-20); Calcium 9.2 mg/dl (8.5-10.1); Creatinine Clr Calc Pharmacy 88.5 ml/min; Magnesium 2.2 mg/dl (1.8-2.4); Potassium 3.7 mmol/L (3.5-5.1)
[2020-09-19 08:49] LABS: Phosphorus 3.3 mg/dl (2.5-4.9)
[2020-09-19] MEDS ORDERED: amLODIPine BESYLATE 5 MG TAB PO SCH (09:00)
[2020-09-19] MEDS ORDERED: FUROSEMIDE 40 MG TAB PO SCH (09:00)
[2020-09-19] MEDS ORDERED: UMECLIDINIUM/VILANTEROL 62.5/25MCG 7 PUFFS/INHALER INH SCH (09:00)
[2020-09-19] MEDS ORDERED: POTASSIUM CHLORIDE 10 MEQ TABCR PO SCH (09:00)
[2020-09-19 09:04] LABS: Cortisol AM 12.16 mcg/dl (4.3-22.4)
[2020-09-19] MEDS: APIXABAN 5 MG TABLET PO SCH (09:26)
[2020-09-19] MEDS: carvediloL 25 MG TAB PO SCH (09:26)
[2020-09-19] MEDS: hydrALAZINE HCL 25 MG TAB PO SCH (09:27)
[2020-09-19] MEDS: lisinopril 40 MG TAB PO SCH (09:27)
[2020-09-19 09:43] LABS: Hepatitis C IgG 13Yrs+Old_Rflx Neg (Neg)
--- NOTE | 2020-09-19 13:06 | XCELERA ---
[id number]
--- NOTE | 2020-09-19 14:16 | Electrocardiogram Report ---
Test Reason : Blood Pressure : / mmHG Vent. Rate : 078 BPM Atrial Rate : 208 BPM P-R Int : 000 ms QRS Dur : 122 ms QT Int : 396 ms P-R-T Axes : 000 -37 131 degrees QTc Int : 451 ms Atrial fibrillation Left axis deviation Left ventricular hypertrophy with QRS widening Abnormal ECG When compared with ECG of 04-MAY-2019 06:13, QRS axis Shifted left Nonspecific T wave abnormality no longer evident in Inferior leads T wave inversion more evident in Lateral leads Confirmed by Kiko Salmon ([id number]) on 09/19/2020 2:16:04 PM Referred By: REFERRED SELF Confirmed By:Kiko Salmon
--- NOTE | 2020-09-19 14:34 | Electrocardiogram Report ---
Test Reason : Blood Pressure : / mmHG Vent. Rate : 085 BPM Atrial Rate : 250 BPM P-R Int : 000 ms QRS Dur : 114 ms QT Int : 398 ms P-R-T Axes : 000 -27 156 degrees QTc Int : 473 ms Atrial fibrillation Incomplete left bundle block Left ventricular hypertrophy with repolarization abnormality Prolonged QT Abnormal ECG When compared with ECG of 18-SEP-2020 14:50, (unconfirmed) No significant change was found Confirmed by Kiko Salmon ([id number]) on 09/19/2020 2:34:54 PM Referred By: REFERRED SELF Confirmed By:Kiko Salmon
--- NOTE | 2020-09-19 18:26 | Discharge Summary ---
Date of Service September 19, 2020 Admission HPI Per Admitting Provider 75yo M w/ hx of afib, HFrEF, early COPD who presents with fatigue and general weakness. He reports he had about 24h of chills, fatigue, weakness on August 29 when he had his second Covid vaccine, but reports he recovered after that. However, for the last week, he has had increased in generalized weakness, fatigue, and just generally feeling "rough." He reports that over the last few weeks, he has had episodes at night where he wakes up gasping for air. He and his tried a fan in the window and an air freshener. He also reports that he uses a "Sleep Number" bed and has increased the head of the bed height, though his reports it hasn't changed much recently and it's still lower than her side of the bed. However, he really denies any focal symptoms other than the above. He specifically denies RIVERA, vision changes, chest pain, palpitations, shortness of breath, cough, change in mucus production (he has some mild, clear sputum in the mornings, but this is stable), abdominal pain, nausea, vomiting, f alex/chills/night sweats, loss of weight, diarrhea, constipation, or blood in the stool. He has some mild LLE edema which he reports has been stable for a long time. Principal Diagnosis Fatigue Discharge Exam Constitutional WD/WN, vitals as above Eyes EOM intact bilaterally; no conjunctival abnormality ENMT external ear and nose normal, oropharynx normal Neck trachea midline, no thyromegaly normal visual inspection Respiratory normal respiratory effort, lungs clear to auscultation no respiratory distress Cardiovascular RRR, no murmur, no edema Gastrointestinal (Abdomen) Inspection/Auscultation: abdomen normal to inspection; abdomen not distended Musculoskeletal no cyanosis or clubbing, extremities motor strength 5/5 Skin no rashes, warm and dry Neurologic moves all extremities and awake Psychiatric Orientation: alert, oriented to person and cooperative Discharge Data Allergies Allergy/AdvReac Type Severity Reaction Status Date / Time bee venom protein (honey bee) Allergy Unknown BIT BY BEE Verified 08/25/20 07:16 SWARM-SWELLING THROAT FACE No Known Drug Allergies Allergy NO KNOWN Verified 09/18/20 15:41 DRUG ALLERGIES Consultations 09/18/20 16:27 ED Decision to Admit Stat Ordered Studies 09/18/20 17:16 CT chest diagnostic wo con Routine Hospital Course (1) Fatigue: Generalized fatigue and weakness are his main reasons for presentation. Ddx obviously is pretty broad here, including his known cardiomyopathy, afib becoming symptomatic, endocrinology issues (though TSH normal today), respiratory issues (including the hypoxemia (see below)), occult infection or malignancy, KYRIE, atypical NH, and more. - Ordered: * Chest CT given new hypoxemia -> showed some mild/moderate pulmonary edema; no primary lung pathology to my read. * Trend troponins and EKGs (currently both are stable from multiple priors) -> No indication of ACS * Limited echo to see how heart function may have changed -> No change * AM cortisol -> Normal * Covid swab negative * Nocturnal pulse ox study to look for KYRIE -> Clear indication of KYRIE; will need outpatient sleep study and CPAP. Patient amenable to this. * Will get BNP and procalcitonin to look for causes of hypoxemia -> Elevated BNP indicating some volume overload, though weight was down/stable from priors and no major clinical indication of CHF. * Will get HCV as he has a globulin gap on labs on admission -> Negative (2) Hypoxemia: Has been told he has "early" COPD. Uses his maintenance inhaler faithfully. In the ED, needed 2L O2 to maintain an SpO2 of 91% which is new for him. - Plan as above (3) Ischemic cardiomyopathy: Echo in 04/2019 showed EF 30 - 35%. With hx of 2vCABG in 2007 after an NH. As such, he has chronic systolic heart failure. - Continue home carvedilol, lisinopril, rosuvastatin - Continue home furosemide. Appears euvolemic at this time. BNP was elevated, but again, clinical exam doesn't appear overloaded. Will defer to cardiology. (4) Paroxysmal atrial fibrillation: In atrial fibrillation with controlled rate on admission. He reports that he is asymptomatic from afib perspective and cannot tell when he goes in or out of afib. - Continue home apixaban - Continue home beta-sukumar for rate control - May want to discuss with cardiology if afib could be contributing to his fatigue. (5) Hypertension: BP here is 145/90, but he reports his home BP is usually ~120/80. - Continue home amlodipine, carvedilol, furosemide, hydralazine, and lisinopril at home dosages (6) COPD with asthma: Reports he has been told he has "mild" or "early" COPD. Has some clear sputum in the mornings, but this has been stable. No extra shortness of breath or coughing. No wheezing on exam. - Do NOT think he is in COPD exacerbation. - Continue home maintenance inhaler (or formulary equivalents) - Albuterol PRN (7) Allergic rhinitis: Reports some post-nasal drip. - Continue home loratadine (8) Prediabetes: A1c was 6.5% in 02/2020. Not on home meds for DM. - Repeat A1c in the AM showed A1c of 6.3%, so still pre-diabetic range. (9) DVT prophylaxis: On apixaban for afib Total Time Total Time Spent Total Time Spent (In Minutes): 35 Discharge Plan Discharge Items Patient Disposition: Home - Self-Care Reason For Visit: WEAKNESS,HYPOXEMIA Discharge Diagnosis: Weakness, low overnight oxygen levels Activity: Resume your previous activity Non-emergency contact: Primary Care Provider and Irrigator Valve Pipe Call non-emergency contact if: your symptoms worsen Follow-up/Referrals: Geetha Galvez MD [Primary Care Provider] - 09/21/20 11:30 am (Your appointment is with the nurse practitioner, Shanice Lopez. If you have any question or need to change this appointment, please call .) Ck Marks MD [Physician] - 09/23/20 3:45 pm (Please see Dr. Marks in 1-2 weeks to make sure you are doing well. If you have any questions or need to change this appointment, please call [phone].) Diet: Heart Healthy and Low Sodium (2gm) Addtl Attending Provider Instructions: Mr. Wilder, You were admitted to the hospital with fatigue and some overnight shortness of breath episodes. We did pretty thorough looking into your lungs and heart and found two issues. 1) You are having episodes were your oxygen falls overnight. It is falling as low as the low 80% range for several minutes at a time! This is almost certainly sleep apnea which is treated with a mask overnight that helps provide some extra pressure to keep your airways open. Unfortunately, "in hospital" testing cannot qualify insurance to pay for a CPAP machine. Dr. Galvez will have to see you in the office and get the equipment company to send a home testing kit to re-affirm our hospital testing before insurance will pay for the CPAP device. While this isn't urgent, I think the sooner the better to get this done. The equipment companies have lots of masks to try, so don't get discouraged if a mask or two don't fit very well initially. 2) You did have some slight fluid on the lungs as well. This is related to your heart failure which is stable from 2019 when you had your last heart ultrasound. However, it would be worth seeing Dr. Marks to see if he feels your atrial fibrillation ("afib") is causing any additional symptoms at this time. Otherwise, all your testing looked good, and I do not see any primary lung issues or hormone/lab issues. I hope you feel better soon and can see your doctors in the office to get these issues resolved! Pending Studies at Discharge: No Stand-Alone Forms: My [facility], Smoking Cessation Medications and DC Order Prescriptions: Continued nitroglycerin 0.4 mg tablet, sublingual 0.4 mg SL Q5M PRN (Reason: chest pain) Qty: 25 RF: 0 calcium carbonate 600 mg calcium (1,500 mg) tablet 600 mg PO HS RF: 0 loratadine 10 mg tablet 10 mg PO HS Qty: 30 RF: 0 multivitamin tablet 1 tab PO QAM RF: 0 albuterol sulfate 90 mcg/actuation HFA aerosol inhaler 2 puffs inhalation Q4H PRN (Reason: shortness of breath or wheezing) Qty: 18 RF: 5 Eliquis 5 mg tablet 5 mg PO BID Qty: 60 RF: 5 carvedilol 25 mg tablet 25 mg PO BID Qty: 60 RF: 5 lisinopril 40 mg tablet 40 mg PO BID Qty: 180 RF: 0 sildenafil 100 mg tablet 50 mg PO DAILY PRN (Reason: .) RF: 0 furosemide 40 mg tablet 40 mg PO QAM RF: 0 rosuvastatin 40 mg tablet 20 mg PO HS RF: 0 potassium chloride 20 mEq tablet extended release 10 meq PO QAM RF: 0 tiotropium-olodaterol 2.5-2.5 mcg/actuation mist 2 puffs inhalation QAM RF: 0 amlodipine 2.5 mg tablet See Rx Instructions .ROUTE .COMPLEX RF: 0 hydralazine 25 mg tablet 25 mg PO BID RF: 0 Airborne (ascorbic acid) 250-8.875 mg Tablet,Chewable 1 tab PO QAM RF: 0 Discharge Orders: Discharge Order (Routine); Ordered 09/19/20 Ordered By: Philip Camargo Admission Data Admit Date/Time: 09/18/20 17:16 Attending Provider: Philip Camargo Admit Provider: Philip Camargo Primary Care Provider: Geetha Galvez Other Interventions: Discharge Summary Assessment (RN) Last Done: 09/19/20 14:37 Coding Level of Care Code 10621 OBS Care - Discharge Diagnoses Fatigue R53.83 Hypoxemia R09.02 Ischemic cardiomyopathy I25.5 Paroxysmal atrial fibrillation I48.0 Hypertension I10 Hypertension type: essential hypertension COPD with asthma J44.9 Allergic rhinitis J30.9 Prediabetes R73.03 DVT prophylaxis Z29.9
== END 2020-09-19 15:56 | disposition home or self-care (01) ==
LOC: ED 13:18 → 2W 13:18

== ENCOUNTER 2021-05-31 10:45 | Inpatient (IN) ==
--- NOTE | 2021-05-31 11:44 | XRay Report ---
XR chest 1V portable HISTORY: 75 years-old Male Dyspnea acute shortness of breath COMPARISON: Chest radiograph 05/22/2021 TECHNIQUE: Portable AP view of the chest FINDINGS: Cardiac silhouette is enlarged. Prior median sternotomy. Left subclavian pacer/AICD. No pneumothorax. Trace pleural effusions. Pulmonary vascular congestion with interstitial coarsening, progressed from prior. Mild bibasilar densities. Degenerative changes of the shoulders and spine. IMPRESSION: 1. Cardiomegaly with pulmonary edema. 2. Trace pleural effusions with mild bibasilar opacities. ACT 112: Negative or not required by law. The above report was generated using voice recognition software. It may contain grammatical, syntax o r spelling errors. Electronically signed by: Zack Dillon M.D. 05/31/2021 11:42 AM
[2021-05-31 11:49] LABS: Basophils # (auto) 0.05 K/uL (0-0.2); Basophils % (auto) 0.9 %; Eosinophils # (auto) 0.12 K/uL (0-0.5); Eosinophils % (auto) 2.1 %; Hemoglobin 12.5 g/dL (14.0-18.0); Immature Granulocytes # (auto) 0.01 K/uL (0.00-0.02); Immature Granulocytes % (auto) 0.2 %; Lymphocytes # (auto) 0.81 K/uL (1.2-3.4); Lymphocytes % (auto) 14.3 %; Mean Corpuscular Hgb Conc 32.1 g/dL (32-36); Mean Corpuscular Volume 90.5 fL (80-100); Mean Platelet Volume 12.3 fL (7.4-10.4); Monocytes # (auto) 0.64 K/uL (0.11-0.59); Monocytes % (auto) 11.3 %; Neutrophils # (auto) 4.04 K/uL (1.4-6.5); Neutrophils % (auto) 71.2 %; Platelet Count 235 K/uL (130-400); RDW Coefficient of Variation 19.1 % (11.5-14.5); RDW Standard Deviation 62.8 fL (36.4-46.3); Red Blood Count 4.31 M/uL (4.7-6.1); White Blood Count 5.67 K/uL (4.8-10.8)
[2021-05-31 12:02] LABS: D Dimer 3470 ug/L FEU (0-500)
[2021-05-31] MEDS ORDERED: LEVALBUTEROL HCL 0.63 MG/3 ML NEB NEB STA (12:07)
[2021-05-31] MEDS ORDERED: methylPREDNISolone 125 MG/2 ML VIAL IV STA (12:07)
[2021-05-31] MEDS ORDERED: FUROSEMIDE 40 MG/4 ML VIAL IV ONE (12:07)
[2021-05-31 12:13] LABS: Albumin Level 2.9 gm/dl (3.4-5.0); BUN Creatinine Ratio 18.8 (10-20); Creatinine Clr Calc Pharmacy 79.2 ml/min; Est GFR (African American) 94.6 ml/min; Est GFR (Non-African American) 81.6 ml/min; Potassium 3.7 mmol/L (3.5-5.1)
[2021-05-31 12:31] LABS: Albumin Globulin Ratio 0.5 (0.9-2); Bilirubin,Total 1.5 mg/dl (0.2-1); Globulin 5.5 gm/dl (2.5-4.0); Total Protein 8.4 gm/dl (6.4-8.2); Troponin I 0.15 ng/ml (0-0.045)
[2021-05-31] MEDS ORDERED: OPTIRAY 320 125ml IV ONE (13:09)
--- NOTE | 2021-05-31 13:13 | Electrocardiogram Report ---
Test Reason : Blood Pressure : / mmHG Vent. Rate : 084 BPM Atrial Rate : 110 BPM P-R Int : 000 ms QRS Dur : 142 ms QT Int : 414 ms P-R-T Axes : 000 -43 130 degrees QTc Int : 489 ms Atrial fibrillation with premature ventricular or aberrantly conducted complexes Left axis deviation Left bundle branch block Abnormal ECG When compared with ECG of 18-SEP-2020 22:17, Left bundle branch block has replaced Incomplete left bundle block Confirmed by Kiko Salmon ([id number]) on 05/31/2021 1:13:00 PM Referred By: Confirmed By:Kiko Salmon
[2021-05-31 13:24] LABS: Appearance Urine Clear (Clear); Bacteria Urine Automated Negative (Negative); Bilirubin Urine Negative (Negative); Blood Urine Negative (Negative); Color Urine Yellow; Glucose Urine UA Negative (Negative); Ketones Urine Negative (Negative); Leukocyte Esterase Urine Negative (Negative); Nitrite Urine Negative (Negative); Protein Urine 1+ (Negative); RBC Urine Automated 0-4 /hpf (0-4); Specific Gravity Urine 1.012 (1.000-1.030); Urobilinogen Urine Negative (Negative); pH Urine 5.5 (4.5-7.5)
--- NOTE | 2021-05-31 13:27 | CT Scan Report ---
CT angio chest PE protocol CLINICAL HISTORY: hypoxia, elevated dimer TECHNIQUE: Multidetector row helical CT of the chest was performed. Coronal and sagittal reformations were obtained. Coronal and sagittal MIPS were obtained from the axial data set and were submitted fo r review. Automated dose lowering techniques and/or adjustment according to patient size were utiliz ed for this exam. Comparison: Comparison is made to CT chest 03/22/2021 FINDINGS: Lungs and pleura: There is a moderate right and small left pleural effusion with extension into the f issures. Smooth interlobular septal thickening is seen compatible with moderate pulmonary edema. Diff use groundglass opacities are seen. There is a 2 cm nodular mass abutting the left major fissure. Heart and pericardium: There is cardiomegaly without evidence of pericardial effusion. Reflux of cont rast is seen into the IVC which can be seen in heart failure. Vessels: There is a linear filling defect in the left main pulmonary trunk with extension into multip le lobar and segmental branches in the upper and lower lobes. No occlusion is seen. Mediastinum and maryellen: Subcentimeter lymph nodes are seen. Chest wall and lower neck: Subcentimeter axillary lymph nodes noted. There is a right axillary node m easuring 14 mm in diameter, however a fatty hilum is preserved. Abdomen: Unremarkable. Bones: Degenerative changes in the thoracic spine. In particular, sclerotic densities are seen in the anterior aspect of multiple thoracic vertebral bodies. IMPRESSION: 1. Linear nonocclusive filling defect in the left main pulmonary artery extending into lobar and seg mental branches in the upper and lower lobes. Although this may possibly reflect turbulent flow, it i s favored to represent a chronic thrombus. 2. Multifocal groundglass opacities which may reflect pneumonia or alveolar edema. 3. At least moderate pulmonary edema. Moderate right and small left pleural effusions. 4. 2 cm nodular density abutting the left major fissure is favored to represent a locule of pleural fluid. ACT 112: Negative or not required by law. Electronically signed by: Don Xiao M.D. 05/31/2021 1:25 PM
[2021-05-31] MEDS ORDERED: NITROGLYCERIN 2% OINTMENT 30GM TUBE EXT STA (15:21)
--- NOTE | 2021-05-31 15:21 | Emergency Department Note ---
Impression & Plan SOB (shortness of breath), Hypoxia, CHF (congestive heart failure) ED Provider Note INFORMANT: Patient and ED PROVIDER(S): Sunil Bruno MD CHIEF COMPLAINT: Shortness of breath PLAN: Disposition: Admitted Condition: Good Outpatient prescription management: none Referral: None MEDICAL DECISION MAKING: Patient presented because of worsening shortness of breath. He had peripheral edema on physical examination. The patient became more dyspneic and dropped his O2 saturations. He required significant of supplemental oxygen to correct. He was given Solu-Medrol and a Xopenex treatment. The patient was given IV Lasix. His chest x-ray was consistent with CHF. The patient had an unremarkable CBC and chemistry panel. His BNP and troponin were elevated. EKG did not show any obviou s ischemic changes. The patient had an elevated D-dimer. He was sent for CT imaging. The patient is anticoagulated. Chronic thrombus was noted. No acute thrombi noted. Patient had findings consistent with CHF on CT imaging. Nitropaste was applied. Patient and were updated. Under the circumstances further management in the hospital will be necessary. Consultation was made with the [facility] hospitalist service. Patient was evaluated by Al aMrio PA-C and admitted for further management. Triage Nursing notes reviewed and agree them. Vital Signs: reviewed and remarkable for hypoxia and tachypnea Differential diagnosis: Reactive airway disease, pneumonia, pneumothorax, COPD, CHF, infections, cardiac ischemia, pulmonary embolism, musculoskeletal, gastrointestinal, as well as other pathologies. Diagnostics interpreted by me: ECG: Twelve-lead ECG reveals A. fib at 84 bpm. Left axis deviation and left bundle branch block. No acute ST elevation or criteria for ischemia. Cardiac Monitoring:Cardiac monitoring ordered by me: The patient was placed on continuous cardiac monitoring and observed. It revealed atrial fibrillation at 84 beats per minute without ectopy or evidence of dysrhythmia. Imaging studies: Chest x-ray consistent with cardiomegaly and pulmonary edema. CT PE study is negative for acute thromboembolism. Possible chronic thrombus present. There is findings consistent with pulmonary edema and pleural effusion. Concerning for CHF. HPI: The patient is a 75 year old male who presents to the Emergency Room with complaints of shortness of breath. This started about 6 months ago and is worsening over the last few weeks. The patient also notes the following associated symptoms, dyspnea on exertion, difficulty sleeping. The patient has tried CPAP and is on Lasix for relieving factors. Current pain is rated as 0/10. Patient contacted his fraternity adviser and was directed to the ER. The patient also contacted pulmonology but no appointments were available until July. Pt denies LOC, headache, fevers, chills, diaphoresis, visual changes, neck pain, chest pain, nausea, vomiting, abdominal pain, back pain, melena, hematochezia, urinary symptoms, numbness, weakness, lymphadenopathy, rash, or other complaints. ROS: See above HPI for pertinent positives & negatives. A total of 10 systems reviewed and were otherwise negative. PAST MEDICAL HISTORY:See Below , CHF, COPD, anticoagulated PAST SURGICAL HISTORY:See Below, FAMILY HISTORY:See Below SOCIAL HISTORY:See Below, former-smoker. . HOME MEDICATIONS:See Below ALLERGIES:See Below VITALS:See Below PHYSICAL EXAMINATION: GENERAL: Awake, alert, mildly dyspneic-appearing, in no distress HENT: Normocephalic, atraumatic. Oropharynx unremarkable. EYES: Normal conjunctiva. Sclera non-icteric. NECK: Inspection normal. Non-tender. Supple. No nuchal rigidity. FROM. No masses. RESPIRATORY: No wheezes. Scattered rales. Mildly increased respiratory effort. CARDIAC: Normal rate. Normal rhythm. No murmurs. No rubs. Extremities warm and well perfused. Pulses equal. No JVD. GI: Soft, non-distended. No tenderness to palpation. No rebound or guarding. No masses. RECTAL: Deferred. MUSCULOSKELETAL: Atraumatic. Chest examination reveals no tenderness. The back is symmetrical on inspection without obvious abnormality. There is no CVA tenderness to palpation. No joint edema. LOWER EXTREMITIES: Calves are equal size bilaterally and non-tender. 2+ edema. No discoloration. NEURO: Normal sensorium. No sensory or motor deficits noted. SKIN: No rash or jaundice noted. CRITICAL CARE: I have personally spent greater than 35 minutes of critical care time in the direct management of this patient. This includes bedside care, interpretation of diagnostic studies, and testing, discussion with consultants, patient, and family members, and other required patient management activities. These minutes are in excess of all separately billable procedures. Sunil Bruno MD Past Med/Surg History Medical History Allergic rhinitis Anemia Cardiac defibrillator in place Congestive heart failure COPD with asthma Coronary artery disease Hyperlipidemia Hypertension Ischemic cardiomyopathy Non-ST elevation OK (NSTEMI) Paroxysmal atrial fibrillation Prediabetes Surgical History History of nasal surgery Hx of CABG Hx of carpal tunnel repair Hx of hand surgery S/P appendectomy S/P colonoscopy S/P implantation of automatic cardioverter/defibrillator (AICD) Family History Other Heart disease Hypertension Social History Smoking Status: Former smoker Second Hand Exposure: Yes (SPOUSE USED TO SMOKE); Hx Alcohol Use: Yes Alcohol type: beer Hx Substance Use: No Preferred Language: French Communication Ability: Effective Sales Estimator Required: No Beliefs That Will Affect Care: None marital status: Current Living Situation: Spouse current occupational status: retired Feels Safe at Home: Yes Assistive Devices: None Allergies Allergies Allergy/AdvReac Type Severity Reaction Status Date / Time bee venom protein (honey bee) Allergy Unknown BIT BY BEE Verified 05/02/21 10:44 SWARM-SWELLING THROAT FACE No Known Drug Allergies Allergy NO KNOWN Verified 05/02/21 10:44 DRUG ALLERGIES hydralazine AdvReac bad joint Verified 05/02/21 10:44 pain Home Meds Home Medications Medication Instructions Recorded Confirmed calcium carbonate 600 mg calcium 600 mg PO HS tab 12/23/18 05/31/21 (1,500 mg) tablet loratadine 10 mg tablet 10 mg PO HS #30 tab 12/23/18 05/31/21 multivitamin 1 tab PO QAM 12/23/18 05/31/21 sildenafil 100 mg tablet 50 mg PO DAILY PRN tab 12/31/18 05/31/21 furosemide 40 mg tablet 40 mg PO QAM 05/02/19 05/31/21 potassium chloride 20 mEq 10 meq PO QAM 05/02/19 05/31/21 tablet,extended release rosuvastatin 40 mg tablet 20 mg PO HS 05/02/19 05/31/21 tiotropium 2.5 mcg-olodaterol 2.5 2 puffs INHALATION QAM 05/02/19 05/31/21 mcg/actuation mist for inhalation ilidagtv-rizbmiby-uty C 250 1 tab PO QAM 08/19/20 05/31/21 mg-herbal no.124 8.875 mg chewable tablet (Airborne (ascorbic acid)) amlodipine 2.5 mg tablet 5 mg PO .COMPLEX tab 05/02/21 05/31/21 Previous Rx's Medication Instructions Recorded albuterol sulfate 90 mcg/actuation 2 puffs INHALATION Q4H PRN #18 gm 12/23/18 aerosol inhaler apixaban 5 mg tablet (Eliquis) 5 mg PO BID #60 tab 12/23/18 carvedilol 25 mg tablet 25 mg PO BID #60 tab 12/23/18 nitroglycerin 0.4 mg sublingual 0.4 mg SL Q5M PRN #25 tab 04/08/19 tablet sacubitril 24 mg-valsartan 26 mg 1 tab PO BID #60 tab 12/20/20 tablet (Entresto) CPAP Machine See Rx Instructions .ROUTE 12/28/20 .COMPLEX #1 ea Results & Data (ED) Vital Signs Vital Signs - 24 hr 05/31/21 11:08 05/31/21 11:32 05/31/21 11:33 Temperature 36.4 C L Temperature Source Temporal Artery Scan Pulse Rate 70 Pulse Rate [Apical] Respiratory Rate 22 Blood Pressure 111/77 Blood Pressure [Right Arm] Blood Pressure Mean 88 Blood Pressure Mean [Right Arm] Pulse Oximetry 91 88 L 91 Oxygen Delivery Method Room Air Room Air Nasal Cannula Oxygen Flow Rate 6 Sepsis Recent Fever Within 48 Hours No Sepsis New/Unexplained Change in Mental Status No Sepsis Action Taken by Nursing No Action Required 05/31/21 12:30 05/31/21 14:38 Temperature Temperature Source Pulse Rate Pulse Rate [Apical] 77 84 Respiratory Rate 22 28 H Blood Pressure Blood Pressure [Right Arm] 127/75 130/80 Blood Pressure Mean Blood Pressure Mean [Right Arm] 92 96 Pulse Oximetry 93 96 Oxygen Delivery Method Nebulizer Non-rebreather Oxygen Flow Rate 10 15 Sepsis Recent Fever Within 48 Hours Sepsis New/Unexplained Change in Mental Status Sepsis Action Taken by Nursing Laboratory Data Result diagrams: 05/31/21 11:35 05/31/21 11:35 Lab Results 05/31/21 05/31/21 05/31/21 Range/Units 11:20 11:35 11:35 WBC 5.67 (4.8-10.8) K/uL RBC 4.31 L (4.7-6.1) M/uL Hgb 12.5 L (14.0-18.0) g/dL Hct 39.0 L (42-52) % MCV 90.5 (80-100) fL MCH 29.0 (25-34) pg MCHC 32.1 (32-36) g/dL RDW Std Deviation 62.8 H (36.4-46.3) fL RDW Coeff of Jodee 19.1 H (11.5-14.5) % Plt Count 235 (130-400) K/uL MPV 12.3 H (7.4-10.4) fL Immature Gran % (Auto) 0.2 % Neut % (Auto) 71.2 % Lymph % (Auto) 14.3 % [place] % (Auto) 11.3 % Eos % (Auto) 2.1 % Baso % (Auto) 0.9 % Neut # (Auto) 4.04 (1.4-6.5) K/uL Lymph # (Auto) 0.81 L (1.2-3.4) K/uL [place] # (Auto) 0.64 H (0.11-0.59) K/uL Eos # (Auto) 0.12 (0-0.5) K/uL Baso # (Auto) 0.05 (0-0.2) K/uL Immature Gran # (Auto) 0.01 (0.00-0.02) K/uL D-Dimer (0-500) ug/L FEU Sodium 139 (136-145) mmol/L Potassium 3.7 (3.5-5.1) mmol/L Chloride 108 H (98-107) mmol/L Carbon Dioxide 24 (21-32) mmol/L Anion Gap 7.0 (3-11) BUN 17 (7-18) mg/dl Creatinine 0.92 (0.6-1.4) mg/dl Est Cr Clr Drug Dosing 79.2 ml/min Est GFR ( Amer) 94.6 ml/min Est GFR (Non-Af Amer) 81.6 ml/min BUN/Creatinine Ratio 18.8 (10-20) Glucose 136 H (70-99) mg/dl Calcium 9.0 (8.5-10.1) mg/dl Total Bilirubin 1.5 H (0.2-1) mg/dl AST 18 (15-37) U/L ALT 21 (12-78) Alkaline Phosphatase 152 H D (45-117) U/L Troponin I 0.150 H* (0-0.045) ng/ml NT-Pro-B Natriuret Pep 4491 H (0-900) pg/ml Total Protein 8.4 H (6.4-8.2) gm/dl Albumin 2.9 L (3.4-5.0) gm/dl Globulin 5.5 H (2.5-4.0) gm/dl Albumin/Globulin Ratio 0.5 L (0.9-2) Urine Color Urine Appearance (Clear) Urine pH (4.5-7.5) Ur Specific Circle (1.000-1.030) Urine Protein (Negative) Urine Glucose (UA) (Negative) Urine Ketones (Negative) Urine Blood (Negative) Urine Nitrite (Negative) Urine Bilirubin (Negative) Urine Urobilinogen (Negative) Ur Leukocyte Esterase (Negative) Urine WBC (Auto) (0-5) /hpf Urine RBC (Auto) (0-4) /hpf U Hyaline Cast (Auto) (0-5) /lpf U Epithel Cells (Auto) (0-5) /lpf Urine Bacteria (Auto) (Negative) SARS-CoV-2, RNA, NAAT NEGATIVE (NEGATIVE) 05/31/21 05/31/21 Range/Units 11:35 12:51 WBC (4.8-10.8) K/uL RBC (4.7-6.1) M/uL Hgb (14.0-18.0) g/dL Hct (42-52) % MCV (80-100) fL MCH (25-34) pg MCHC (32-36) g/dL RDW Std Deviation (36.4-46.3) fL RDW Coeff of Jodee (11.5-14.5) % Plt Count (130-400) K/uL MPV (7.4-10.4) fL Immature Gran % (Auto) % Neut % (Auto) % Lymph % (Auto) % [place] % (Auto) % Eos % (Auto) % Baso % (Auto) % Neut # (Auto) (1.4-6.5) K/uL Lymph # (Auto) (1.2-3.4) K/uL [place] # (Auto) (0.11-0.59) K/uL Eos # (Auto) (0-0.5) K/uL Baso # (Auto) (0-0.2) K/uL Immature Gran # (Auto) (0.00-0.02) K/uL D-Dimer 3470 H* (0-500) ug/L FEU Sodium (136-145) mmol/L Potassium (3.5-5.1) mmol/L Chloride (98-107) mmol/L Carbon Dioxide (21-32) mmol/L Anion Gap (3-11) BUN (7-18) mg/dl Creatinine (0.6-1.4) mg/dl Est Cr Clr Drug Dosing ml/min Est GFR ( Amer) ml/min Est GFR (Non-Af Amer) ml/min BUN/Creatinine Ratio (10-20) Glucose (70-99) mg/dl Calcium (8.5-10.1) mg/dl Total Bilirubin (0.2-1) mg/dl AST (15-37) U/L ALT (12-78) Alkaline Phosphatase (45-117) U/L Troponin I (0-0.045) ng/ml NT-Pro-B Natriuret Pep (0-900) pg/ml Total Protein (6.4-8.2) gm/dl Albumin (3.4-5.0) gm/dl Globulin (2.5-4.0) gm/dl Albumin/Globulin Ratio (0.9-2) Urine Color Yellow Urine Appearance Clear (Clear) Urine pH 5.5 (4.5-7.5) Ur Specific Circle 1.012 (1.000-1.030) Urine Protein 1+ H (Negative) Urine Glucose (UA) Negative (Negative) Urine Ketones Negative (Negative) Urine Blood Negative (Negative) Urine Nitrite Negative (Negative) Urine Bilirubin Negative (Negative) Urine Urobilinogen Negative (Negative) Ur Leukocyte Esterase Negative (Negative) Urine WBC (Auto) 1-5 (0-5) /hpf Urine RBC (Auto) 0-4 (0-4) /hpf U Hyaline Cast (Auto) 5-10 H (0-5) /lpf U Epithel Cells (Auto) 5-10 H (0-5) /lpf Urine Bacteria (Auto) Negative (Negative) SARS-CoV-2, RNA, NAAT (NEGATIVE) Administered Medications Discontinued Medications Furosemide (Furosemide 40 Mg/4 Ml Vial) 40 mg IV ONE ONE Stop: 05/31/21 12:08 Last Admin: 05/31/21 12:28 Dose: 40 mg Documented by: [id number] Ioversol (Optiray 320 125ml) 104 ml IV ONCE ONE Stop: 05/31/21 13:10 Last Admin: 05/31/21 13:10 Dose: 104 ml Documented by: [id number] Levalbuterol HCl (Levalbuterol Hcl 0.63 Mg/3 Ml Neb) 0.63 mg NEB NOW STA; Protocol Stop: 05/31/21 12:08 Last Admin: 05/31/21 12:28 Dose: 0.63 mg Documented by: [id number] Methylprednisolone (Methylprednisolone 125 Mg/2 Ml Vial) 125 mg IV NOW STA Stop: 05/31/21 12:08 Last Admin: 05/31/21 12:28 Dose: 125 mg Documented by: [id number] Imaging Data Radiologist's Impression: Chest X-Ray 05/31/21 11:14 XR chest 1V portable HISTORY: 75 years-old Male Dyspnea acute shortness of breath COMPARISON: Chest radiograph 05/22/2021 TECHNIQUE: Portable AP view of the chest FINDINGS: Cardiac silhouette is enlarged. Prior median sternotomy. Left subclavian pacer/AICD. No pneumothorax. Trace pleural effusions. Pulmonary vascular congestion with interstitial coarsening, progressed from prior. Mild bibasilar densities. Degenerative changes of the shoulders and spine. IMPRESSION: 1. Cardiomegaly with pulmonary edema. 2. Trace pleural effusions with mild bibasilar opacities. ACT 112: Negative or not required by law. The above report was generated using voice recognition software. It may contain grammatical, syntax or spelling errors. Electronically signed by: Zack Dillon M.D. 05/31/2021 11:42 AM Chest CTA 05/31/21 12:07 CT angio chest PE protocol CLINICAL HISTORY: hypoxia, elevated dimer TECHNIQUE: Multidetector row helical CT of the chest was performed. Coronal and sagittal reformations were obtained. Coronal and sagittal MIPS were obtained from the axial data set and were submitted for review. Automated dose lowering techniques and/or adjustment according to patient size were utilized for this exam. Comparison: Comparison is made to CT chest 03/22/2021 FINDINGS: Lungs and pleura: There is a moderate right and small left pleural effusion with extension into the fissures. Smooth interlobular septal thickening is seen compatible with moderate pulmonary edema. Diffuse groundglass opacities are seen. There is a 2 cm nodular mass abutting the left major fissure. Heart and pericardium: There is cardiomegaly without evidence of pericardial effusion. Reflux of contrast is seen into the IVC which can be seen in heart failure. Vessels: There is a linear filling defect in the left main pulmonary trunk with extension into multiple lobar and segmental branches in the upper and lower lobes. No occlusion is seen. Mediastinum and maryellen: Subcentimeter lymph nodes are seen. Chest wall and lower neck: Subcentimeter axillary lymph nodes noted. There is a right axillary node measuring 14 mm in diameter, however a fatty hilum is preserved. Abdomen: Unremarkable. Bones: Degenerative changes in the thoracic spine. In particular, sclerotic densities are seen in the anterior aspect of multiple thoracic vertebral bodies. IMPRESSION: 1. Linear nonocclusive filling defect in the left main pulmonary artery extending into lobar and segmental branches in the upper and lower lobes. Although this may possibly reflect turbulent flow, it is favored to represent a chronic thrombus. 2. Multifocal groundglass opacities which may reflect pneumonia or alveolar edema. 3. At least moderate pulmonary edema. Moderate right and small left pleural effusions. 4. 2 cm nodular density abutting the left major fissure is favored to represent a locule of pleural fluid. ACT 112: Negative or not required by law. Electronically signed by: Don Xiao M.D. 05/31/2021 1:25 PM Discharge Plan Visit Data Chief Complaint: Shortness of Breath/Dyspnea Stated Complaint: SOB ED Provider: Sunil Bruno Discharge Problem: SOB (shortness of breath), Hypoxia, CHF (congestive heart failure) Forms Stand Alone Forms: [employer] Prescriptions Prescriptions: No Action nitroglycerin 0.4 mg tablet, sublingual 0.4 mg SL Q5M PRN (Reason: chest pain) Qty: 25 RF: 0 calcium carbonate 600 mg calcium (1,500 mg) tablet 600 mg PO HS RF: 0 loratadine 10 mg tablet 10 mg PO HS Qty: 30 RF: 0 multivitamin tablet 1 tab PO QAM RF: 0 albuterol sulfate 90 mcg/actuation HFA aerosol inhaler 2 puffs inhalation Q4H PRN (Reason: shortness of breath or wheezing) Qty: 18 RF: 5 Eliquis 5 mg tablet 5 mg PO BID Qty: 60 RF: 5 carvedilol 25 mg tablet 25 mg PO BID Qty: 60 RF: 5 sildenafil 100 mg tablet 50 mg PO DAILY PRN (Reason: .) RF: 0 CPAP Machine Misc See Rx Instructions .ROUTE .COMPLEX Qty: 1 RF: 0 Entresto 24-26 mg tablet 1 tab PO BID Qty: 60 RF: 2 furosemide 40 mg tablet 40 mg PO QAM RF: 0 rosuvastatin 40 mg tablet 20 mg PO HS RF: 0 potassium chloride 20 mEq tablet extended release 10 meq PO QAM RF: 0 tiotropium-olodaterol 2.5-2.5 mcg/actuation mist 2 puffs inhalation QAM RF: 0 amlodipine 2.5 mg tablet 5 mg PO .COMPLEX RF: 0 Airborne (ascorbic acid) 250-8.875 mg Tablet,Chewable 1 tab PO QAM RF: 0 Referrals Referrals: Geetha Galvez MD [Primary Care Provider] -
[2021-05-31] MEDS: ASPIRIN 81 MG ECTAB PO SCH (15:36)
--- NOTE | 2021-05-31 15:46 | History & Physical Report ---
Date of Service May 31, 2021 Assessment & Plan (1) SOB (shortness of breath): (2) Hypoxia: (3) Acute on chronic systolic CHF (congestive heart failure): Plan: Mr. Wilder is a 75-year-old male with a history of CAD s/p Anterior ME 2006 s/p CABG x 2 Vessels 03/2007(GONZALES to LAD, Rad Artery Graft to LCx), Ischemic Cardiomyopathy s/p AICD, LVEF 30% to 35%, Chronic Systolic CHF, Hypertension, Hypercholesterolemia, COPD/Asthma, Prediabetes, Mild AI, Moderate MR, and Paroxysmal Atrial Fibrillationwho presents to [facility] today complaining of progressive SOB/HARRIS, and Hypoxemia over the past couple of months. Because of these symptoms he increased his Lasix from 40 mg to 80 mg and increased his KCL to 20 mEq daily approximately 4 to 5 weeks ago. His body weight went from 205 lb down to 189 lb a few days ago -- and despite this good diuretic response his breathing has not improved and, as a matter of fact, suddenly seemed to worsen about 3 weeks ago. In addition, the patient has experienced some fullness/soreness of his upper chest and into his upper back with exertion recently and thinks it's from the increased work of breathing and not his angina pectoris. Patient has been doing less activity over these past 3 weeks because his symptoms. He is becoming more short of breath with just walking across the room. In addition to the above symptoms, he has had orthopnea and PND. He sleeps in a Sleep number bed and has elevated the head of the bed recently. Patient denies any nausea, vomiting, diaphoresis associated with the above mentioned symptoms. Patient is currently in rate controlled A-fib. Patient states his diet has been steady. He denies any increase in dietary salt intake recently. The patient has been using his CPAP during the day in hopes that his breathing improves -- initially it seemed to help but it is no longer helping. patient has not had any fevers, chills, sputum production, or hemoptysis. He denies any ruperto chest pain. He denies any syncope or near syncope. He has not had any discharges from his defibrillator. Chest x-ray shows cardiomegaly with pulmonary edema trace pleural effusions with mild bibasilar opacities. CTA CHEST shows a linear nonocclusive filling defect in left main pulmonary artery extending into the lobar and segmental branches in left upper and left lower lobes favored to represent chronic thrombus multi focal ground-glass opacities least moderate pulmonary edema and moderate right and small left pleural effusions. Laboratory show a mild anemia hemoglobin 12.5 g dL, hematocrit 39% D-dimer is elevated 3470. Electrolytes and renal function are at baseline. ProBNP is elevated at 4491 pg/mL. Troponin I is elevated at 0.150 ng/mL. EKG shows rate controlled A-fib with an LBBB -- compared to prior EKG August 2020; LBBB has replaced an incomplete LBBB. While in the emergency room, the patient became more dyspneic and his O2 saturation dropped down into the mid 80s. He is now on oxygen mask at 15 liters/minute, and his O2 saturations are staying in the 90s. Patient was tr eated with IV Solu-Medrol, nebulizer treatment, and he received a dose of Lasix 40 mg. His breathing status subsequently improved. Recommend the followin. Admit to PCU. 2. Continue supplemental O2 to maintain SpO2 > 94%. 3. IV Lasix 60 mg b.i.d.. 4. Continue Entresto 24-26 mg b.i.d.. 5. Continue Coreg 25 mg b.i.d. 6. Add Topical Nitropaste, convert to Imdur at discharge. 7. Continue KCL 20 mEq daily. 8. Monitor daily BMP, Mg levels. 9. Strict I&O's, daily body weights. 10. Low sodium diet, 1500 mL fluid restriction. 11. Check Echocardiogram to reassess LV systolic function, QRS duration is 142 msec. (4) Ischemic cardiomyopathy: Plan: Ischemic Cardiomyopathy s/p AICD, LVEF 30% to 35%: -- Manage as outlined above. -- Discontinue Amlodipine due to negative inotropic effect. (5) Coronary artery disease: Plan: CAD s/p Anterior ME 2006 s/p CABG x 2 Vessels 03/2007(GONZALES to LAD, Rad Artery Graft to LCx): -- Initial Troponin I is elevated, will trend it. -- Add Aspirin 81 mg daily. -- Continue Coreg 25 mg b.i.d.. -- Continue Crestor 20 mg daily. -- Continue Entresto 24-26 mg b.i.d.. -- Add Nitrate. (6) Paroxysmal atrial fibrillation: Plan: Currently in A-Fib with rates in the 80's. -- Continue beta-sukumar and long-term anticoagulation with Eliquis 5 mg b.i.d. (7) Chronic pulmonary embolism: Plan: Appeared in CTA Chest today: -- It is not occlusive. -- Continue Eliquis 5 mg b.i.d.. History of Present Illness Chief Complaint: -- Progressive SOB/HARRIS and Hypoxemia. -- Decompensated Systolic CHF. -- Elevated Troponin I. -- Ischemic Cardiomyopathy (LVEF 30%-35% August 2020). Primary Care Provider: Geetha Galvez MD Mr. Wilder is a 75-year-old male with a history of CAD s/p Anterior ME 2006 s/p CABG x 2 Vessels 03/2007(GONZALES to LAD, Rad Artery Graft to LCx), Ischemic Cardiomyopathy s/p AICD, LVEF 30% to 35%, Chronic Systolic CHF, Hypertension, Hypercholesterolemia, COPD/Asthma, Prediabetes, Mild AI, Moderate MR, and Paroxysmal Atrial Fibrillationwho presents to [facility] ER today complaining of progressive SOB/HARRIS, and Hypoxemia over the past couple of months. Because of these symptoms he increased his Lasix from 40 mg to 80 mg and increased his KCL to 20 mEq daily approximately 4 to 5 weeks ago. His body weight went from 205 lb down to 189 lb a few days ago -- and despite this good diuretic response his breathing has not improved and, as a matter of fact, suddenly seemed to worsen about 3 weeks ago. In addition, the patient has experienced some fullness/soreness of his upper chest and into his upper back with exertion rece ntly and thinks it's from the increased work of breathing and not his angina pectoris. Patient has been doing less activity over these past 3 weeks because his symptoms. He is becoming more short of breath with just walking across the room. In addition to the above symptoms, he has had orthopnea and PND. He sleeps in a Sleep number bed and has elevated the head of the bed recently. Patient denies any nausea, vomiting, diaphoresis associated with the above mentioned symptoms. Patient is currently in rate controlled A-fib. patient states his diet has been steady. He denies any increase in dietary salt intake recently. The patient has been using his CPAP during the day in hopes that his breathing improves -- initially it seemed to help but it is no longer helping. patient has not had any fevers, chills, sputum production, or hemoptysis. He denies any ruperto chest pain. He denies any syncope or near syncope. He has not had any discharges from his defibrillator. While in the emergency room, the patient became more dyspneic and his O2 saturation dropped down into the mid 80s. He is now on oxygen mask at 15 liters/minute, and his O2 saturations are staying in the 90s. Patient was treated with IV Solu-Medrol, nebulizer treatment, and he received a dose of Lasix 40 mg. His breathing status subsequently improved. Patient has been compliant with his medications, he denies any adverse side effects. He has been compliant with his Eliquis. Allergies Allergy/AdvReac Type Severity Reaction Status Date / Time bee venom protein (honey bee) Allergy Unknown BIT BY BEE Verified 05/02/21 10:44 SWARM-SWELLING THROAT FACE No Known Drug Allergies Allergy NO KNOWN Verified 05/02/21 10:44 DRUG ALLERGIES hydralazine AdvReac bad joint Verified 05/02/21 10:44 pain Home Medications Medication Instructions Recorded Confirmed Type albuterol sulfate 90 mcg/actuation 2 puffs INHALATION Q4H PRN #18 gm 12/23/18 05/31/21 Rx aerosol inhaler apixaban 5 mg tablet (Eliquis) 5 mg PO BID #60 tab 12/23/18 05/31/21 Rx calcium carbonate 600 mg calcium 600 mg PO HS tab 12/23/18 05/31/21 History (1,500 mg) tablet carvedilol 25 mg tablet 25 mg PO BID #60 tab 12/23/18 05/31/21 Rx loratadine 10 mg tablet 10 mg PO HS #30 tab 12/23/18 05/31/21 History multivitamin 1 tab PO QAM 12/23/18 05/31/21 History sildenafil 100 mg tablet 50 mg PO DAILY PRN tab 12/31/18 05/31/21 History nitroglycerin 0.4 mg sublingual 0.4 mg SL Q5M PRN #25 tab 04/08/19 05/31/21 Rx tablet furosemide 40 mg tablet 40 mg PO QAM 05/02/19 05/31/21 History potassium chloride 20 mEq 10 meq PO QAM 05/02/19 05/31/21 History tablet,extended release rosuvastatin 40 mg tablet 20 mg PO HS 05/02/19 05/31/21 History tiotropium 2.5 mcg-olodaterol 2.5 2 puffs INHALATION QAM 05/02/19 05/31/21 History mcg/actuation mist for inhalation [id number]-[id number]-osb C 250 1 tab PO QAM 08/19/20 05/31/21 History mg-herbal no.124 8.875 mg chewable tablet (Airborne (ascorbic acid)) sacubitril 24 mg-valsartan 26 mg 1 tab PO BID #60 tab 12/20/20 05/31/21 Rx tablet (Entresto) CPAP Machine See Rx Instructions .ROUTE 12/28/20 05/31/21 Rx .COMPLEX #1 ea amlodipine 2.5 mg tablet 5 mg PO .COMPLEX tab 05/02/21 05/31/21 History Past Med/Surg History Medical History Allergic rhinitis Anemia [facility] in place [employer] [facility] Congestive [facility] COPD with asthma Coronary artery disease s/p 2 vessel CABG (2003) Hyperlipidemia Hypertension Ischemic cardiomyopathy S/p AICD placement - LVEF 30-35% Non-ST elevation ME (NSTEMI) Anterior ME 2006- s/p 2 vessel CABG Paroxysmal atrial fibrillation Prediabetes Surgical History History of nasal surgery Hx of CABG 2 VESSELS 2003 Hx of carpal tunnel repair Left hand Hx of hand surgery Plate placed in L thumb S/P appendectomy S/P colonoscopy 05/25/2015 repeat 10yrs S/P implantation of automatic cardioverter/defibrillator (AICD) [employer] Family History Other Heart disease Hypertension Social History Smoking Status: Former smoker Second Hand Exposure: Yes (SPOUSE USED TO SMOKE); Hx Alcohol Use: Yes Alcohol type: beer and wine Hx Substance Use: No Preferred Language: Tamaz[place] Communication Ability: Effective Manager [employer] Required: No Beliefs That Will Affect Care: None marital status: Current Living Situation: Spouse current occupational status: retired Other Information That Helps Us Care for You: No Feels Safe at Home: Yes Assistive Devices: CPAP, Glasses and Hearing Aid - Bilateral Review of Systems Review of Systems: Ten point review of systems was completed, and is negative with the exception of what is mentioned in the HPI. Physical Exam Physical Exam: GENERAL: Patient appears mildly distressed. Patient is tachypneic, difficulty finishing sentences due to dyspnea. HEENT: Head is atraumatic, normocephalic. EOM's intact. Facies symmetric. No perioral cyanosis. NECK: JVD is present. JVP is elevated to the angle of the jaw sitting upright. Carotid upstrokes are + 2 bilaterally. No bruits are noted. CHEST/LUNGS: Scattered crackles in bilateral lower and mid lung lindsay, no wheezes. He is tachypneic with RR 28. CVS: S1 and S2 are irregularly irregular with an apical rate of 84 beats per minute. No obvious murmurs, gallops, or rubs. No abdominal aortic or renal bruits. Palpable AICD generator present left subclavian fossa. ABDOMINAL EXAM: Bowel sounds are present. No masses, organomegaly, or tenderness. EXTREMITIES: No clubbing or cyanosis. +2 pitting edema to the level of the thigh, +2 to +3 pitting edema bilateral legs and feet. Limbs appear well perfused. NEUROLOGIC EXAM: Patient is awake, alert, and oriented. Pleasant and cooperative. Answers questions appropriately. Speech is clear. Normal movement in all 4 extremities. Gait pattern is unremarkable. EKG 08/19/20: -- Atrial fibrillation with controlled ventricular response rate at 84 bpm. -- LBBB. -- Left axis deviation. -- Compared to 09/18/20 tracing; LBBB has replaced an incomplete left bundle- branch block. Echocardiogram is ordered. Results & Data Results & Data ([facility]) Vital Signs (Past 12 Hours) Vital Signs Temp Pulse Pulse Resp BP BP Pulse Ox 05/31/21 14:38 84 28 H 130/80 96 05/31/21 12:30 77 22 127/75 93 05/31/21 11:33 91 05/31/21 11:32 88 L 05/31/21 11:08 36.4 C L 70 22 111/77 91 Laboratory Results Laboratory Results - last 24 hr 05/31/21 05/31/21 05/31/21 11:20 11:35 11:35 WBC 5.67 RBC 4.31 L Hgb 12.5 L Hct 39.0 L MCV 90.5 MCH 29.0 MCHC 32.1 RDW Std Deviation 62.8 H RDW Coeff of Jodee 19.1 H Plt Count 235 MPV 12.3 H Immature Gran % (Auto) 0.2 Neut % (Auto) 71.2 Lymph % (Auto) 14.3 [place] % (Auto) 11.3 Eos % (Auto) 2.1 Baso % (Auto) 0.9 Neut # (Auto) 4.04 Lymph # (Auto) 0.81 L [place] # (Auto) 0.64 H Eos # (Auto) 0.12 Baso # (Auto) 0.05 Immature Gran # (Auto) 0.01 D-Dimer Sodium 139 Potassium 3.7 Chloride 108 H Carbon Dioxide 24 Anion Gap 7.0 BUN 17 Creatinine 0.92 Est Cr Clr Drug Dosing 79.2 Est GFR ( Amer) 94.6 Est GFR (Non-Af Amer) 81.6 BUN/Creatinine Ratio 18.8 Glucose 136 H Calcium 9.0 Total Bilirubin 1.5 H AST 18 ALT 21 Alkaline Phosphatase 152 H D Troponin I 0.150 H* NT-Pro-B Natriuret Pep 4491 H Total Protein 8.4 H Albumin 2.9 L Globulin 5.5 H Albumin/Globulin Ratio 0.5 L Urine Color Urine Appearance Urine pH Ur Specific [place] Urine Protein Urine Glucose (UA) Urine Ketones Urine Blood Urine Nitrite Urine Bilirubin Urine Urobilinogen Ur Leukocyte Esterase Urine WBC (Auto) Urine RBC (Auto) U Hyaline Cast (Auto) U Epithel Cells (Auto) Urine Bacteria (Auto) SARS-CoV-2, RNA, NAAT NEGATIVE 05/31/21 05/31/21 05/31/21 11:35 12:51 15:53 WBC RBC Hgb Hct MCV MCH MCHC RDW Std Deviation RDW Coeff of Jodee Plt Count MPV Immature Gran % (Auto) Neut % (Auto) Lymph % (Auto) [place] % (Auto) Eos % (Auto) Baso % (Auto) Neut # (Auto) Lymph # (Auto) [place] # (Auto) Eos # (Auto) Baso # (Auto) Immature Gran # (Auto) D-Dimer 3470 H* Sodium Potassium Chloride Carbon Dioxide Anion Gap BUN Creatinine Est Cr Clr Drug Dosing Est GFR ( Amer) Est GFR (Non-Af Amer) BUN/Creatinine Ratio Glucose Calcium Total Bilirubin AST ALT Alkaline Phosphatase Troponin I Pending NT-Pro-B Natriuret Pep Total Protein Albumin Globulin Albumin/Globulin Ratio Urine Color Yellow Urine Appearance Clear Urine pH 5.5 Ur Specific [place] 1.012 Urine Protein 1+ H Urine Glucose (UA) Negative Urine Ketones Negative Urine Blood Negative Urine Nitrite Negative Urine Bilirubin Negative Urine Urobilinogen Negative Ur Leukocyte Esterase Negative Urine WBC (Auto) 1-5 Urine RBC (Auto) 0-4 U Hyaline Cast (Auto) 5-10 H U Epithel Cells (Auto) 5-10 H Urine Bacteria (Auto) Negative SARS-CoV-2, RNA, NAAT Diagnostic Findings CTA CHEST 05/31/21: Lungs and pleura: There is a moderate right and small left pleural effusion with extension into the fissures. Smooth interlobular septal thickening is seen compatible with moderate pulmonary edema. Diffuse groundglass opacities are se en. There is a 2 cm nodular mass abutting the left major fissure. Heart and pericardium: There is cardiomegaly without evidence of pericardial effusion. Reflux of contrast is seen into the IVC which can be seen in heart failure. Vessels: There is a linear filling defect in the left main pulmonary trunk with extension into multiple lobar and segmental branches in the upper and lower lobes. No occlusion is seen. Mediastinum and maryellen: Subcentimeter lymph nodes are seen. Chest wall and lower neck: Subcentimeter axillary lymph nodes noted. There is a right axillary node measuring 14 mm in diameter, however a fatty hilum is preserved. Abdomen: Unremarkable. Bones: Degenerative changes in the thoracic spine. In particular, sclerotic densities are seen in the anterior aspect of multiple thoracic vertebral bodies. IMPRESSION: 1. Linear nonocclusive filling defect in the left main pulmonary artery extending into lobar and segmental branches in the upper and lower lobes. Although this may possibly reflect turbulent flow, it is favored to represent a chronic thrombus. 2. Multifocal ground-glass opacities which may reflect pneumonia or alveolar edema. 3. At least moderate pulmonary edema. Moderate right and small left pleural effusions. 4. 2 cm nodular density abutting the left major fissure is favored to represent a locule of pleural fluid. CXR 05/31/21: Cardiac silhouette is enlarged. Prior median sternotomy. Left subclavian pacer/AICD. No pneumothorax. Trace pleural effusions. Pulmonary vascular congestion with interstitial coarsening, progressed from prior. Mild bibasilar densities. Degenerative changes of the shoulders and spine. IMPRESSION: 1. Cardiomegaly with pulmonary edema. 2. Trace pleural effusions with mild bibasilar opacities. Medications Administered Medications albuterol sulfate 90 mcg/actuation aerosol inhaler 2 puffs INHALATION Q4H PRN #18 gm 12/23/18 [Rx Confirmed 05/31/21] apixaban 5 mg tablet (Eliquis) 5 mg PO BID #60 tab 12/23/18 [Rx Confirmed 05/31/21] calcium carbonate 600 mg calcium (1,500 mg) tablet 600 mg PO HS tab 12/23/18 [History Confirmed 05/31/21] carvedilol 25 mg tablet 25 mg PO BID #60 tab 12/23/18 [Rx Confirmed 05/31/21] loratadine 10 mg tablet 10 mg PO HS #30 tab 12/23/18 [History Confirmed 05/31/21] multivitamin 1 tab PO QAM 12/23/18 [History Confirmed 05/31/21] sildenafil 100 mg tablet 50 mg PO DAILY PRN tab 12/31/18 [History Confirmed 05/31/21] nitroglycerin 0.4 mg sublingual tablet 0.4 mg SL Q5M PRN #25 tab 04/08/19 [Rx Confirmed 05/31/21] furosemide 40 mg tablet 40 mg PO QAM 05/02/19 [History Confirmed 05/31/21] potassium chloride 20 mEq tablet,extended release 10 meq PO QAM 05/02/19 [History Confirmed 05/31/21] rosuvastatin 40 mg tablet 20 mg PO HS 05/02/19 [History Confirmed 05/31/21] tiotropium 2.5 mcg-olodaterol 2.5 mcg/actuation mist for inhalation 2 puffs INHALATION QAM 05/02/19 [History Confirmed 05/31/21] aqzparuk-tvfrwzzj-not C 250 mg-herbal no.124 8.875 mg chewable tablet (Airborne (ascorbic acid)) 1 tab PO QAM 08/19/20 [History Confirmed 05/31/21] sacubitril 24 mg-valsartan 26 mg tablet (Entresto) 1 tab PO BID #60 tab 12/20/20 [Rx Confirmed 05/31/21] CPAP Machine See Rx Instructions .ROUTE .COMPLEX #1 ea 12/28/20 [Rx Confirmed 05/31/21] amlodipine 2.5 mg tablet 5 mg PO .COMPLEX tab 05/02/21 [History Confirmed 05/31/21] Home Medications Aspirin (Aspirin 81 Mg Ectab) 81 mg PO DAILY JANINE Stop: 06/30/21 15:29 Last Admin: 05/31/21 15:36 Dose: 81 mg Documented by: Code Status & VTE Plan Code Status Full Code VTE Prophylaxis Plan VTE Prophylaxis will be ordered: Yes Supervising Physician Co-Signing Physician Notes Reviewed documentation, discussed with PA. Agree with his note above. Patient has worsening dyspnea on exertion, has known chronic systolic CHF with EF of 30- 35%. Patient will now be admitted for acute systolic CHF. Diuresed well with Lasix as noted. Recheck 2D echo. Ask cardiology to evaluate further recommendations. PG Care Time/CCT Total # of Minutes Spent Total Time Spent with Patient: Total time spent is greater than 50% in coordination of care (as documented) at patient's floor/unit and/or counseling patient:45 Coding Level of Care Code 41879 Initial Inpt Care Lvl 3 Diagnoses SOB (shortness of breath) R06.02 Hypoxia R09.02 Acute on chronic systolic CHF (congestive heart failure) I50.23 Ischemic cardiomyopathy I25.5 Coronary artery disease I25.10 Paroxysmal atrial fibrillation I48.0 Chronic pulmonary embolism I27.82 Time Spent (min) 66
[2021-05-31] MEDS ORDERED: ALBUTEROL HFA 8 GM INHALER INH PRN (16:23)
[2021-05-31] MEDS ORDERED: NON-FORMULARY MEDICATION (Sildenafil 100 mg tablet) PO PRN (16:23)
[2021-05-31] MEDS ORDERED: NITROGLYCERIN SL 0.4 MG/TAB TAB SL PRN (16:23)
[2021-05-31] MEDS: CALCIUM CARBONATE 1250MG TAB PO SCH (20:54)
[2021-05-31] MEDS: ROSUVASTATIN CALCIUM 20 MG TAB PO SCH (20:54)
[2021-05-31] MEDS: VALSARTAN/SACUBITRIL 26/24MG TAB PO SCH (20:54)
[2021-05-31] MEDS: LORATADINE 10 MG TAB PO SCH (20:54)
[2021-05-31] MEDS: carvediloL 25 MG TAB PO SCH (20:54)
[2021-05-31] MEDS: APIXABAN 5 MG TABLET PO SCH (20:54)
[2021-05-31] MEDS: NITROGLYCERIN 2% OINTMENT 30GM TUBE EXT SCH (20:55)
[2021-05-31] MEDS: FUROSEMIDE 40 MG/4 ML VIAL IV SCH (20:55)
[2021-06-01] MEDS: NITROGLYCERIN 2% OINTMENT 30GM TUBE EXT SCH ×4 (02:51→20:52)
[2021-06-01 06:01] LABS: Basophils # (auto) 0.01 K/uL (0-0.2); Basophils % (auto) 0.3 %; Hematocrit (blood only) 36.2 % (42-52); Hemoglobin 11.5 g/dL (14.0-18.0); Lymphocytes # (auto) 0.41 K/uL (1.2-3.4); Lymphocytes % (auto) 13.4 %; Mean Corpuscular Hemoglobin 28.8 pg (25-34); Mean Corpuscular Hgb Conc 31.8 g/dL (32-36); Mean Corpuscular Volume 90.7 fL (80-100); Monocytes # (auto) 0.09 K/uL (0.11-0.59); Monocytes % (auto) 2.9 %; Neutrophils # (auto) 2.56 K/uL (1.4-6.5); Neutrophils % (auto) 83.4 %; Platelet Count 225 K/uL (130-400); RDW Coefficient of Variation 18.9 % (11.5-14.5); RDW Standard Deviation 63.4 fL (36.4-46.3); Red Blood Count 3.99 M/uL (4.7-6.1); White Blood Count 3.07 K/uL (4.8-10.8)
[2021-06-01 06:32] LABS: BUN Creatinine Ratio 22.7 (10-20); Creatinine Clr Calc Pharmacy 81.9 ml/min; Est GFR (African American) 97.6 ml/min; Est GFR (Non-African American) 84.2 ml/min; Magnesium 2.2 mg/dl (1.8-2.4); Potassium 3.3 mmol/L (3.5-5.1)
[2021-06-01] MEDS ORDERED: [UNRECOGNIZED DRUG - REMARK] PO SCH (09:00)
[2021-06-01] MEDS: FUROSEMIDE 40 MG/4 ML VIAL IV SCH ×2 (09:54→18:01)
[2021-06-01] MEDS: UMECLIDINIUM/VILANTEROL 62.5/25MCG 7 PUFFS/INHALER INH SCH (09:54)
[2021-06-01] MEDS: carvediloL 25 MG TAB PO SCH ×2 (09:55→20:52)
[2021-06-01] MEDS: VALSARTAN/SACUBITRIL 26/24MG TAB PO SCH ×2 (09:55→20:52)
[2021-06-01] MEDS: MULTIVITAMIN TAB PO SCH (09:55)
[2021-06-01] MEDS: APIXABAN 5 MG TABLET PO SCH (09:55)
[2021-06-01] MEDS: ASPIRIN 81 MG ECTAB PO SCH (10:00)
--- NOTE | 2021-06-01 10:34 | XCELERA ---
[id number]
--- NOTE | 2021-06-01 13:04 | Hospitalist Progress Note ---
Date of Service June 01, 2021 Assessment & Plan (1) Acute on chronic systolic CHF (congestive heart failure): Plan: Mr. Wilder is a 75-year-old male with a history of CAD s/p Anterior [place] 2006 s/p CABG x 2 Vessels 03/2007(GONZALES to LAD, Rad Artery Graft to LCx), Ischemic Cardiomyopathy s/p AICD, LVEF 30% to 35%, Chronic Systolic CHF, Hypertension, Hypercholesterolemia, COPD/Asthma, Prediabetes, Mild AI, Moderate MR, and Paroxysmal Atrial Fibrillationwho presents to [facility] today complaining of progressive SOB/HARRIS, and Hypoxemia over the past couple of months. Because of these symptoms he increased his Lasix from 40 mg to 80 mg and increased his KCL to 20 mEq daily approximately 4 to 5 weeks ago. His body weight went from 205 lb down to 189 lb a few days ago -- and despite this good diuretic response his breathing has not improved and, as a matter of fact, suddenly seemed to worsen about 3 weeks ago. In addition, the patient has experienced some fullness/soreness of his upper chest and into his upper back with exertion recently and thinks it's from the increased work of breathing and not his angina pectoris. Patient has been doing less activity over these past 3 weeks because his symptoms. He is becoming more short of breath with just walking across the room. In addition to the above symptoms, he has had orthopnea and PND. He sleeps in a Sleep number bed and has elevated the head of the bed recently. Patient denies any nausea, vomiting, diaphoresis associated with the above mentioned symptoms. Patient is currently in rate controlled A-fib. Patient states his diet has been steady. He denies any increase in dietary salt intake recently. The patient has been using his CPAP during the day in hopes that his breathing improves -- initially it seemed to help but it is no longer helping. patient has not had any fevers, chills, sputum production, or hemoptysis. He denies any ruperto chest pain. He denies any syncope or near syncope. He has not had any discharges from his defibrillator. Chest x-ray shows cardiomegaly with pulmonary edema trace pleural effusions with mild bibasilar opacities. CTA CHEST shows a linear nonocclusive filling defect in left main pulmonary artery extending into the lobar and segmental branches in left upper and left lower lobes favored to represent chronic thrombus multi focal ground-glass opacities least moderate pulmonary edema and moderate right and small left pleural effusions. Laboratory show a mild anemia hemoglobin 12.5 g dL, hematocrit 39% D-dimer is elevated 3470. Electrolytes and renal function are at baseline. ProBNP is elevated at 4491 pg/mL. Troponin I is elevated at 0.150 ng/mL. EKG shows rate controlled A-fib with an LBBB -- compared to prior EKG August 2020; LBBB has replaced an incomplete LBBB. While in the emergency room, the patient became more dyspneic and his O2 saturation dropped down into the mid 80s. He is now on oxygen mask at 15 liters/minute, and his O2 saturations are staying in the 90s. Patient was treated with IV Solu-Medrol, nebulizer treatment, and he received a dose of Lasix 40 mg. His breathing status subsequently improved. -Admit to PCU. - Echo - EF 30-35%; moderataly dilated L ventricle with moderately to severely reduced systolic function; large area of apical and anteroseptal akinesis; global hypokinesis; L ventricular hypertrophy; severe L atrial dilation, mild aortic regurg; mod mitral regurg; mild/mod tricuspid regurg; moderate pulm HTN 55 mmHg -- similar findings from echo in August 2020 -Continue supplemental O2 to maintain SpO2 > 94%. -- Given the pulm HTN this could also explain his chronic exertional dyspnea - May need to do 2-step prior to D/C - CPAP at night for KYRIE -IV Lasix 60 mg b.i.d. initially given but will reduce to 40 mg IV BID for now and monitor -Continue Entresto 24-26 mg b.i.d.. -Continue Coreg 25 mg b.i.d. -Add Topical Nitropaste, convert to Imdur at discharge. -Continue KCL 20 mEq daily. -Monitor daily BMP, Mg levels. -Strict I&O's, daily body weights. -Low sodium diet, 1500 mL fluid restriction. - Follows with Dr. Marks; will refer to CHF clinic as well (2) Hypoxia: Plan: - Acute hypoxic respiratory failure - Not normally on supplemental O2 - likely in setting of CHF and possibly PE? (3) Ischemic cardiomyopathy: Plan: Ischemic Cardiomyopathy s/p AICD, LVEF 30% to 35%: -- Manage as outlined above. -- Discontinue Amlodipine due to negative inotropic effect. (4) Coronary artery disease: Plan: CAD s/p Anterior UT 2006 s/p CABG x 2 Vessels 03/2007(GONZALES to LAD, Rad Artery Graft to LCx): -- Initial Troponin I is elevated and repeat slightly higher - 0.15 and 0.16 and trend until decreasing -- Add Aspirin 81 mg daily. -- Continue Coreg 25 mg b.i.d.. -- Continue Crestor 20 mg daily. -- Continue Entresto 24-26 mg b.i.d.. -- Add Nitrate. (5) Paroxysmal atrial fibrillation: Plan: Currently in A-Fib -- Continue beta-sukumar; anti-coagulation as below (6) Chronic pulmonary embolism: Plan: CTA - linear nonocclusive filling defect in L main pulmonary artery extending into lobar and segmental branches in the upper and lower lobes - may be turbulent flow but favors chronic thrombus - May be the instigator for his worsening SOB and dyspnea?? - Will hold Eliquis for now and cover with therapeutic Lovenox and obtain U/S bilateral legs. He does report that his L foot swells more than the R and was told this was due to gout? -- May need to consider Eliquis failure?? Plan: - Anticipate being able to return home on D/C; await diuresis and O2 wean Admission and Anticipated Discharge Date Admission Date: May 31, 2021 Supervising Physician Co-Signing Physician Notes Attending Attestation - Chart reviewed in detail, care plan d/w BARBER Ravi. I agree with the estrada components of her documentation. 75yo male - acute/chronic systolic CHF - cont IV diuresis. ?left-sided chronic PEs - developed while on Eliquis? Very unusual - change Eliquis to Lovenox 1mg/kg BID while awaiting additional w/u. Check dopplers of legs r/o DVT. Other plans per Ms Ravi. Groundglass opacities on CT chest, mild leukopenia, mild lymphopenia - if any fever or COVID symptoms -- retest for COVID. Jose Gonzalez MD Subjective No acute events overnight. Has been able to wean down on O2. He reports feeling better today than he has in weeks. No chest pain. Discussed with his licensed optician today as well. Also discussed with his over the phone. Review of Systems Review of Systems: All systems reviewed & are unremarkable except as noted in Subjective Physical Exam Physical Exam: PHYSICAL EXAM General Appearance: WDWN in NAD who is A&O x 3; has oxymask in place however able to carry full conversation without dyspnea HEENT: Head is normocephalic/atraumatic; Hearing grossly intact; Mucous membranes moist Neck: Supple; Trachea midline; Neg JVD Heart: Irregulgarly irregular Lungs: Crackles at bases; diminished at R base; Respirations unlabored; Neg accessory muscle use Abdomen: Soft, non-tender, non-distended; Positive BS x 4 quadrants Extremities: Neg cyanosis; + edema Neurological: Speech clear; Gross motor/sensory function intact; Neg focal neurologic deficits Psychiatric: Appropriate mood/affect Skin: Normal Color; Warm/Dry Results & Data Results & Data ([facility]) Vital Signs (Past 12 Hours) Vital Signs Temp Pulse Pulse Resp BP Pulse Ox 06/01/21 12:02 72 06/01/21 11:37 100 06/01/21 09:53 37 C 78 18 125/70 98 06/01/21 03:08 72 22 99 06/01/21 02:54 36.4 C L 79 20 117/78 96 06/01/21 01:03 71 20 121/69 100 PG Care Time/CCT Total # of Minutes Spent Total Time Spent with Patient: Total time spent is greater than 50% in coordination of care (as documented) at patient's floor/unit and/or counseling patient: Coding Level of Care Code 39265 Subseq Hosp Care Lvl 3 Diagnoses Hypoxia R09.02 Acute on chronic systolic CHF (congestive heart failure) I50.23 Ischemic cardiomyopathy I25.5 Coronary artery disease I25.10 Paroxysmal atrial fibrillation I48.0 Chronic pulmonary embolism I27.82
[2021-06-01] MEDS ORDERED: POTASSIUM CHLORIDE CRTAB 20 MEQ TABCR PO STA (16:49)
[2021-06-01] MEDS: ENOXAPARIN 100 MG/1ML SYR SQ SCH (19:33)
[2021-06-01] MEDS: CALCIUM CARBONATE 1250MG TAB PO SCH (20:52)
[2021-06-01] MEDS: LORATADINE 10 MG TAB PO SCH (20:52)
[2021-06-01] MEDS: ROSUVASTATIN CALCIUM 20 MG TAB PO SCH (20:52)
[2021-06-02] MEDS: NITROGLYCERIN 2% OINTMENT 30GM TUBE EXT SCH ×3 (03:44→16:16)
[2021-06-02 04:42] LABS: Hematocrit (blood only) 33.9 % (42-52); Hemoglobin 10.9 g/dL (14.0-18.0); Immature Granulocytes # (auto) 0.02 K/uL (0.00-0.02); Immature Granulocytes % (auto) 0.2 %; Lymphocytes # (auto) 0.67 K/uL (1.2-3.4); Lymphocytes % (auto) 6.6 %; Mean Corpuscular Hgb Conc 32.2 g/dL (32-36); Mean Corpuscular Volume 90.2 fL (80-100); Mean Platelet Volume 12.5 fL (7.4-10.4); Monocytes % (auto) 7.9 %; Neutrophils # (auto) 8.66 K/uL (1.4-6.5); Neutrophils % (auto) 85.3 %; Platelet Count 230 K/uL (130-400); RDW Coefficient of Variation 19.2 % (11.5-14.5); Red Blood Count 3.76 M/uL (4.7-6.1); White Blood Count 10.15 K/uL (4.8-10.8)
[2021-06-02 05:05] LABS: BUN Creatinine Ratio 27.2 (10-20); Calcium 8.8 mg/dl (8.5-10.1); Creatinine Clr Calc Pharmacy 70.1 ml/min; Est GFR (African American) 81.6 ml/min; Est GFR (Non-African American) 70.4 ml/min; Magnesium 2.2 mg/dl (1.8-2.4); Potassium 3.7 mmol/L (3.5-5.1)
[2021-06-02 05:14] LABS: Troponin I 0.111 ng/ml (0-0.045)
[2021-06-02] MEDS: ENOXAPARIN 100 MG/1ML SYR SQ SCH (06:52)
--- NOTE | 2021-06-02 07:06 | Ultrasound Report ---
ULTRASOUND BILATERAL LOWER EXTREMITY VENOUS CLINICAL HISTORY: Pulmonary embolus. COMPARISON STUDY: No priors. TECHNIQUE: Real-time, grayscale, and color Doppler sonography of the deep veins of the right and left lower extremity was performed from the inguinal crease to the calf. Compression and augmentation wer e utilized. FINDINGS: There is no sonographic evidence of deep venous thrombosis identified in the right or left lower extremity. The common femoral, superficial femoral, and popliteal veins are patent and normally compressible bilaterally. The greater saphenous vein and the profunda femoris vein at the junction w ith the common femoral vein are clear in both legs. The visualized calf veins are patent bilaterally. IMPRESSION: There is no sonographic evidence of deep venous thrombosis identified in the right or lef t lower extremity. ACT 112: Negative or not required by law. Electronically signed by: Vaibhav Mclean M.D. 06/02/2021 7:05 AM
[2021-06-02] MEDS: ASPIRIN 81 MG ECTAB PO SCH (08:10)
[2021-06-02] MEDS: VALSARTAN/SACUBITRIL 26/24MG TAB PO SCH ×2 (08:10→19:33)
[2021-06-02] MEDS: MULTIVITAMIN TAB PO SCH (08:11)
[2021-06-02] MEDS: carvediloL 25 MG TAB PO SCH ×2 (08:11→19:33)
[2021-06-02] MEDS: FUROSEMIDE 40 MG/4 ML VIAL IV SCH ×2 (08:12→16:51)
[2021-06-02] MEDS: UMECLIDINIUM/VILANTEROL 62.5/25MCG 7 PUFFS/INHALER INH SCH (08:12)
[2021-06-02] MEDS: APIXABAN 5 MG TABLET PO SCH ×2 (09:22→19:33)
--- NOTE | 2021-06-02 12:05 | Hospitalist Progress Note ---
Date of Service June 02, 2021 Assessment & Plan (1) Acute on chronic systolic CHF (congestive heart failure): Plan: Mr. Wilder is a 75-year-old male with a history of CAD s/p Anterior [place] 2006 s/p CABG x 2 Vessels 03/2007(GONZALES to LAD, Rad Artery Graft to LCx), Ischemic Cardiomyopathy s/p AICD, LVEF 30% to 35%, Chronic Systolic CHF, Hypertension, Hypercholesterolemia, COPD/Asthma, Prediabetes, Mild AI, Moderate MR, and Paroxysmal Atrial Fibrillationwho presents to [facility] today complaining of progressive SOB/HARRIS, and Hypoxemia over the past couple of months. Because of these symptoms he increased his Lasix from 40 mg to 80 mg and increased his KCL to 20 mEq daily approximately 4 to 5 weeks ago. His body weight went from 205 lb down to 189 lb a few days ago -- and despite this good diuretic response his breathing has not improved and, as a matter of fact, suddenly seemed to worsen about 3 weeks ago. In addition, the patient has experienced some fullness/soreness of his upper chest and into his upper back with exertion recently and thinks it's from the increased work of breathing and not his angina pectoris. -Admit to PCU. - Echo - EF 30-35%; moderataly dilated L ventricle with moderately to severely reduced systolic function; large area of apical and anteroseptal akinesis; global hypokinesis; L ventricular hypertrophy; severe L atrial dilation, mild aortic regurg; mod mitral regurg; mild/mod tricuspid regurg; moderate pulm HTN 55 mmHg -- similar findings from echo in August 2020 -Continue supplemental O2 to maintain SpO2 > 94%. -- Given the pulm HTN this could also explain his chronic exertional dyspnea - May need to do 2-step prior to D/C - CPAP at night for KYRIE -IV Lasix 60 mg b.i.d. initially given but will reduce to 40 mg IV BID for now and monitor -Continue Entresto 24-26 mg b.i.d.. -Continue Coreg 25 mg b.i.d. -Add Topical Nitropaste, consider changing to Imdur -Continue potassium supplement -Monitor daily BMP, Mg levels. -Strict I&O's, daily body weights. -- currently negative 3 L -Low sodium diet, 1500 mL fluid restriction. - Follows with Dr. Marks; discussed with Dr. Marks and also reached out to Bella Gallagher for involvement with CHF clinic (2) Hypoxia: Plan: - Acute hypoxic respiratory failure - improving - Not normally on supplemental O2 - likely in setting of CHF and continues to wean -- Encourage to keep saturations > 90% - Consider 2 step on D/C given CHF and pulmonary HTN on echo (3) Ischemic cardiomyopathy: Plan: Ischemic Cardiomyopathy s/p AICD, LVEF 30% to 35%; has ICD placed -- Manage as outlined above. -- Discontinue Amlodipine due to negative inotropic effect. (4) Coronary artery disease: Plan: CAD s/p Anterior [place] 2006 s/p CABG x 2 Vessels 03/2007(GONZALES to LAD, Rad Artery Graft to LCx): -- Initial Troponin I is elevated and repeat slightly higher - 0.15 and 0.16 but check today trending down to 0.111 -- suspect some demand mismatch given hypoxia -- Add Aspirin 81 mg daily. -- Continue Coreg 25 mg b.i.d.. -- Continue Crestor 20 mg daily. -- Continue Entresto 24-26 mg b.i.d.. -- Add Nitrate - plan to convert to Imdur (5) Paroxysmal atrial fibrillation: Plan: Currently in A-Fib; rate controlled -- Continue beta-sukumar; Eliquis (6) Chronic pulmonary embolism: Plan: - Ordered U/S - no signs of DVT - Was called by radiologist and addendum placed on CTA - There is no evidence of pulmonary embolus in the main, lobar, or segmental pulmonary arteries. The filling defect in the left main pulmonary artery question on the initial inter pretation corresponds to mixing artifact. There is no pulmonary embolus present on this examination. - Did change to Lovenox while awaiting more work-up given no DVT/PE will remain on Eliquis and converted back Plan: - Anticipate being able to return home on D/C; await diuresis and O2 wean; maybe 1-2 days and would recommend 2-step - Discussed with patient about consideration for CHF clinic as this may help with monitoring and better control/fluid balance Admission and Anticipated Discharge Date Admission Date: May 31, 2021 Subjective No acute events overnight. Continues to wean down on O2 and feeling much improved since arriving. Diuresing very nicely and labs remain stable. Not normally on supplemental O2 at baseline. Discussed his imaging and CHF program. Only reports being hungry as breakfast hasn't arrived but otherwise feeling well. Verbalizes no other complaints. Review of Systems Review of Systems: All systems reviewed & are unremarkable except as noted in Subjective Physical Exam Physical Exam: PHYSICAL EXAM General Appearance: WDWN in NAD who is A&O x 3; has NC in place however able to carry full conversation without dyspnea HEENT: Head is normocephalic/atraumatic; Hearing grossly intact; Mucous mem branes moist Neck: Supple; Trachea midline; Neg JVD Heart: Irregularly irregular; no murmur Lungs: CTA bilaterally, minimally diminished at bases; Respirations unlabored; Neg accessory muscle use Abdomen: Soft, non-tender, non-distended; Positive BS x 4 quadrants Extremities: Neg cyanosis, no edema Neurological: Speech clear; Gross motor/sensory function intact; Neg focal neurologic deficits Psychiatric: Appropriate mood/affect Skin: Normal Color; Warm/Dry Results & Data Results & Data ([facility]) Vital Signs (Past 12 Hours) Vital Signs Temp Pulse Pulse Resp BP Pulse Ox 06/02/21 07:30 36.8 C 70 22 114/78 95 06/02/21 03:29 87 20 96 06/02/21 00:17 64 18 98/60 L 99 PG Care Time/CCT Total # of Minutes Spent Total Time Spent with Patient: Total time spent is greater than 50% in coordination of care (as documented) at patient's floor/unit and/or counseling patient: Coding Level of Care Code 97656 Subseq Hosp Care Lvl 3 Diagnoses Acute on chronic systolic CHF (congestive heart failure) I50.23 Hypoxia R09.02 Ischemic cardiomyopathy I25.5 Coronary artery disease I25.10 Paroxysmal atrial fibrillation I48.0 Chronic pulmonary embolism I27.82
--- NOTE | 2021-06-02 14:52 | Heart Failure Consultation ---
Date of Consultation June 02, 2021 Assessment & Plan (1) Acute on chronic systolic CHF (congestive heart failure): (2) Sleep apnea: (3) Ischemic cardiomyopathy: (4) Coronary artery disease: (5) Cardiac defibrillator in place: Acute on chronic systolic CHF: Currently NYHA Class III symptoms. Patient has improved significantly with diuretic therapy. He is net negative for admission and is down 5 lb. BUN trending up but creatinine is stable. He remains slightly hypervolemic, still with JVD and supplemental O2. Would continue Lasix 40 mg IV BID with careful monitoring of his creatinine. If further elevated in am consider transitioning to PO. Patient is familiar with a low sodium diet. Recommend daily standing weights on discharge. Notify HF program of 2+ lb weight gain overnight or 5+ lb in 1 week. Strict I&Os. He is on appropriate medical therapy including Carvedilol and Entresto. Would consider adding Spironolactone for triple therapy. Can continue to titrate as outpatient if BP and heart rate allow. Planning on 2step prior to discharge. We discussed the goals of the heart failure program and he is agreeable to enrollment. Ischemic cardiomyopathy: Long standing. EF stable on recent echocardiogram. Continue Carvedilol and Entresto. Titrate as able. He has an AICD. KYRIE: Encourage compliance with CPAP. Follows with Dr. Rossi. Atrial fibrillation: Appears permanent. Overall good rate control. No symptoms. Continue on Eliquis. ICD: Follows with Dr. Marks CAD: No anginal symptoms. Continue medical therapy- ASA, Carvedilol, Crestor, Entresto, Nitrate. Disposition: Patient will be enrolled in the HF program. Follow up 06/08/21 at 1030. Follow up with Dr. Marks 06/26 as scheduled. History of Present Illness Reason for Consultation: New CHF referral Attending Physician: Don Valentin DO History of Present Illness Mr. Wilder is a 75-year-old male with a history of CAD s/p Anterior GA 2006 s/p CABG x 2 Vessels 03/2007(GONZALES to LAD, Rad Artery Graft to LCx), Ischemic Cardiomyopathy s/p AICD, LVEF 30% to 35%, Chronic Systolic CHF, Hypertension, Hypercholesterolemia, COPD/Asthma, Prediabetes, Mild AI, Moderate MR, and Paroxysmal Atrial Fibrillation. Dr. Marks is his primary mixer pigment. Recent cardiac studies: . 06/01/21 Echo: Moderately dilated LV with moderate to severely reduced EF. 30- 35%. Large area of apical akinesis and anteroseptal akinesis. Otherwise global hypokinesis. No LVH. Severe left atrial dilation. Mild AR. Moderate MR. Mild-mod TR. Moderate pulmonary hypertension. RVSP 55 mmHg. Patient was most recently evaluated by Dr. Marks 05/02/21. He was having increased dyspnea at that time but did not appear hypervolemic. His weight was trending down. Labs ordered. He presented to the ED 05/31/21 with shortness of breath, edema, and hypoxia. Chest x-ray shows cardiomegaly with pulmonary edema trace pleural effusions with mild bibasilar opacities. CTA CHEST shows a linear nonocclusive filling defect in left main pulmonary artery extending into the lobar and segmental branches in left upper and left lower lobes favored to represent chronic thrombus multi focal ground-glass opacities least moderate pulmonary edema and moderate right and small left pleural effusions. Laboratory show a mild anemia hemoglobin 12.5 g dL, hematocrit 39% D-dimer is elevated 3470. Electrolytes and renal function are at baseline. ProBNP is elevated at 4491 pg/mL. Troponin I is elevated at 0.150 ng/mL. EKG shows rate controlled A-fib with an LBBB -- compared to prior EKG August 2020; LBBB has replaced an incomplete LBBB. Echocardiogram stable from previous. He was treated with IV Lasix, nebulizers, SoluMedrol with good response. Patient was referred to the HF program by the primary service. He was evaluated in the ED today. He is ambulating around his room. He reports he's feeling significantly improved. He remains on supplemental O2, 2L. His edema has res olved. He denies significant orthopnea or PND. He's responding well to IV Lasix 40 mg BID. Net negative 3.5 L. Weight is trending down from 196 ---> 195 lb. SocHx: Patient lives at home with his . They are typically independent. He denies alcohol or tobacco use. Allergies Allergy/AdvReac Type Severity Reaction Status Date / Time bee venom protein (honey bee) Allergy Unknown BIT BY BEE Verified 05/02/21 10:44 SWARM-SWELLING THROAT FACE No Known Drug Allergies Allergy NO KNOWN Verified 05/02/21 10:44 DRUG ALLERGIES hydralazine AdvReac bad joint Verified 05/02/21 10:44 pain Home Medications Medication Instructions Recorded Confirmed Type albuterol sulfate 90 mcg/actuation 2 puffs INHALATION Q4H PRN #18 gm 12/23/18 05/31/21 Rx aerosol inhaler apixaban 5 mg tablet (Eliquis) 5 mg PO BID #60 tab 12/23/18 05/31/21 Rx calcium carbonate 600 mg calcium 600 mg PO HS tab 12/23/18 05/31/21 History (1,500 mg) tablet carvedilol 25 mg tablet 25 mg PO BID #60 tab 12/23/18 05/31/21 Rx loratadine 10 mg tablet 10 mg PO HS #30 tab 12/23/18 05/31/21 History multivitamin 1 tab PO QAM 12/23/18 05/31/21 History sildenafil 100 mg tablet 50 mg PO DAILY PRN tab 12/31/18 05/31/21 History nitroglycerin 0.4 mg sublingual 0.4 mg SL Q5M PRN #25 tab 04/08/19 05/31/21 Rx tablet furosemide 40 mg tablet 40 mg PO QAM 05/02/19 05/31/21 History potassium chloride 20 mEq 10 meq PO QAM 05/02/19 05/31/21 History tablet,extended release rosuvastatin 40 mg tablet 20 mg PO HS 05/02/19 05/31/21 History tiotropium 2.5 mcg-olodaterol 2.5 2 puffs INHALATION QAM 05/02/19 05/31/21 History mcg/actuation mist for inhalation [id number] C 250 1 tab PO QAM 08/19/20 05/31/21 History mg-herbal no.124 8.875 mg chewable tablet (Airborne (ascorbic acid)) sacubitril 24 mg-valsartan 26 mg 1 tab PO BID #60 tab 12/20/20 05/31/21 Rx tablet (Entresto) CPAP Machine See Rx Instructions .ROUTE 12/28/20 05/31/21 Rx .COMPLEX #1 ea amlodipine 2.5 mg tablet 5 mg PO .COMPLEX tab 05/02/21 05/31/21 History Patient History Medical History (Updated 06/02/21 @ 14:50 by Marilyn Gallagher PA-C) Allergic rhinitis Anemia Cardiac defibrillator in place [place] [facility] single-chamber, [facility] COPD with asthma Coronary artery disease s/p 2 vessel CABG (2003) Hyperlipidemia Hypertension Ischemic cardiomyopathy S/p AICD placement - LVEF 30-35% Non-ST elevation GA (NSTEMI) Anterior GA 2006- s/p 2 vessel CABG Paroxysmal atrial fibrillation Prediabetes Surgical History History of nasal surgery Hx of CABG 2 VESSELS 2003 Hx of carpal tunnel repair Left hand Hx of hand surgery Plate placed in L thumb S/P appendectomy S/P colonoscopy 05/25/2015 repeat 10yrs S/P implantation of automatic cardioverter/defibrillator (AICD) [place] Family History Other Heart disease Hypertension Social History Smoking Status: Former smoker Second Hand Exposure: Yes (SPOUSE USED TO SMOKE); Hx Alcohol Use: Yes Alcohol type: beer and wine Hx Substance Use: No Preferred Language: Turkish Communication Ability: Effective Conventional Underwriter Required: No Beliefs That Will Affect Care: None marital status: Current Living Situation: Spouse current occupational status: retired Other Information That Helps Us Care for You: No Feels Safe at Home: Yes Assistive Devices: CPAP, Glasses and Oxygen - Continuous Physical Exam Physical Exam: Constitutional: Alert, oriented, in no acute distress. Supplemental O2 via NC. HEENT: Head is atraumatic and normocephalic. EOMs intact. Sclera anicteric. Face is symmetric. No perioral cyanosis. Mucous membranes moist. Neck: Supple, JVD noted usp to the mandible sitting upright. + HJR. Pulmonary: Normal respiratory effort, clear to auscultation bilaterally Cardiac: Irregularly irregular rate and rhythm. Normal S1 and S2, no gallops, no rubs, no murmurs. Palpable AICD generator present left subclavian fossa. Extremities: 2+ radial pulses bilaterally. 2+ posterior tibialis pulses bilaterally. Trace BLE pitting edema. No cyanosis or clubbing. Abdomen: Normal bowel sounds, soft, non-tender, no abdominal mass palpated Skin: Normal skin color, turgor, and pigmentation, no rash, no skin lesions Neurological: Patient is awake, alert, and oriented. Pleasant and cooperative. Answers questions appropriately. Speech is clear. Normal movement in all 4 extremities. Gait pattern is unremarkable. Results & Data ([facility]) Vital Signs (Past 12 Hours) Vital Signs Temp Pulse Pulse Resp BP Pulse Ox 06/02/21 13:34 98 06/02/21 13:00 64 16 113/66 97 06/02/21 07:30 98.2 F 70 22 114/78 95 06/02/21 03:29 87 20 96 Heart Failure Data/Metrics Heart Failure Type: Systolic Ejection Fraction: 30-35% NYHA classification: III: Sx w/ ltd. activity Risk Stratification: B Implanted Cardiac Defibrillator (ICD): Yes Evidenced Based Beta Vernell Therapy Beta Vernell Therapy: Yes Beta Vernell Name: Carvedilol Beta Vernell Target Therapy: Target Therapy YESENIA/ARB/ARNI Therapy YESENIA/ARB/ARNI Therapy: Yes YESENIA/ARB/ARNI Name: Rocio YESENIA/ARB/ARNI Target Therapy: Not at Target Therapy Coding Level of Care Code 09284 Initial Inpt Care Lvl 3 Diagnoses Acute on chronic systolic CHF (congestive heart failure) I50.23 Sleep apnea G47.30 Ischemic cardiomyopathy I25.5 Coronary artery disease I25.[address] Z95.810
[2021-06-02] MEDS: ROSUVASTATIN CALCIUM 20 MG TAB PO SCH (19:33)
[2021-06-02] MEDS: CALCIUM CARBONATE 1250MG TAB PO SCH (19:33)
[2021-06-02] MEDS: LORATADINE 10 MG TAB PO SCH (19:34)
[2021-06-03 06:25] LABS: Basophils # (auto) 0.01 K/uL (0-0.2); Basophils % (auto) 0.1 %; Eosinophils % (auto) 1.3 %; Hematocrit (blood only) 37.7 % (42-52); Hemoglobin 11.8 g/dL (14.0-18.0); Immature Granulocytes # (auto) 0.01 K/uL (0.00-0.02); Immature Granulocytes % (auto) 0.1 %; Lymphocytes # (auto) 1.71 K/uL (1.2-3.4); Mean Corpuscular Hemoglobin 28.7 pg (25-34); Mean Corpuscular Hgb Conc 31.3 g/dL (32-36); Mean Corpuscular Volume 91.7 fL (80-100); Mean Platelet Volume 12.1 fL (7.4-10.4); Monocytes # (auto) 0.97 K/uL (0.11-0.59); Monocytes % (auto) 12.5 %; Neutrophils # (auto) 4.99 K/uL (1.4-6.5); Platelet Count 217 K/uL (130-400); RDW Standard Deviation 64.2 fL (36.4-46.3); Red Blood Count 4.11 M/uL (4.7-6.1); White Blood Count 7.79 K/uL (4.8-10.8)
[2021-06-03 06:33] LABS: BUN Creatinine Ratio 30.7 (10-20); Calcium 8.3 mg/dl (8.5-10.1); Creatinine Clr Calc Pharmacy 75.2 ml/min; Est GFR (African American) 97.6 ml/min; Est GFR (Non-African American) 84.2 ml/min; Magnesium 2.2 mg/dl (1.8-2.4); Potassium 3.3 mmol/L (3.5-5.1)
[2021-06-03] MEDS ORDERED: ISOSORBIDE MONO EXTENDED REL 30 MG TABCR PO SCH (09:00)
[2021-06-03] MEDS ORDERED: POTASSIUM CHLORIDE 10 MEQ TABCR PO SCH (09:00)
[2021-06-03] MEDS: UMECLIDINIUM/VILANTEROL 62.5/25MCG 7 PUFFS/INHALER INH SCH (09:12)
[2021-06-03] MEDS: carvediloL 25 MG TAB PO SCH (09:13)
[2021-06-03] MEDS: VALSARTAN/SACUBITRIL 26/24MG TAB PO SCH (09:14)
[2021-06-03] MEDS: APIXABAN 5 MG TABLET PO SCH (09:14)
[2021-06-03] MEDS: MULTIVITAMIN TAB PO SCH (09:14)
[2021-06-03] MEDS: ASPIRIN 81 MG ECTAB PO SCH (09:15)
[2021-06-03] MEDS: FUROSEMIDE 40 MG/4 ML VIAL IV SCH (09:15)
--- NOTE | 2021-06-03 11:02 | Discharge Summary ---
Date of Service June 03, 2021 Admission HPI Per Admitting Provider Mr. Wilder is a 75-year-old male with a history of CAD s/p Anterior MT 2006 s/p CABG x 2 Vessels 03/2007(GONZALES to LAD, Rad Artery Graft to LCx), Ischemic Cardiomyopathy s/p AICD, LVEF 30% to 35%, Chronic Systolic CHF, Hypertension, Hypercholesterolemia, COPD/Asthma, Prediabetes, Mild AI, Moderate MR, and Paroxysmal Atrial Fibrillationwho presents to [facility] ER today complaining of progressive SOB/HARRIS, and Hypoxemia over the past couple of months. Because of these symptoms he increased his Lasix from 40 mg to 80 mg and increased his KCL to 20 mEq daily approximately 4 to 5 weeks ago. His body weight went from 205 lb down to 189 lb a few days ago -- and despite this good diuretic response his breathing has not improved and, as a matter of fact, suddenly seemed to worsen about 3 weeks ago. In addition, the patient has experienced some fullness/soreness of his upper chest and into his upper back with exertion recently and thinks it's from the increased work of breathing and not his angina pectoris. Patient has been doing less activity over these past 3 weeks because his symptoms. He is becoming more short of breath with just walking across the room. In addition to the above symptoms, he has had orthopnea and PND. He sleeps in a Sleep number bed and has elevated the head of the bed recently. Patient denies any nausea, vomiting, diaphoresis associated with the above mentioned symptoms. Patient is currently in rate controlled A-fib. patient states his diet has been steady. He denies any increase in dietary salt intake recently. The patient has been using his CPAP during the day in hopes that his breathing improves -- initially it seemed to help but it is no longer helping. patient has not had any fevers, chills, sputum production, or hemoptysis. He denies any ruperto chest pain. He denies any syncope or near syncope. He has not had any discharges from his defibrillator. While in the emergency room, the patient became more dyspneic and his O2 saturation dropped down into the mid 80s. He is now on oxygen mask at 15 liters/minute, and his O2 saturations are staying in the 90s. Patient was treated with IV Solu-Medrol, nebulizer treatment, and he received a dose of Lasix 40 mg. His breathing status subsequently improved. Patient has been compliant with his medications, he denies any adverse side effects. He has been compliant with his Eliquis. Admission Exam Per Admitting Provider Physical Exam: GENERAL: Patient appears mildly distressed. Patient is tachypneic, difficulty finishing sentences due to dyspnea. HEENT: Head is atraumatic, normocephalic. EOM's intact. Facies symmetric. No perioral cyanosis. NECK: JVD is present. JVP is elevated to the angle of the jaw sitting upright. Carotid upstrokes are + 2 bilaterally. No bruits are noted. CHEST/LUNGS: Scattered crackles in bilateral lower and mid lung lindsay, no wheezes. He is tachypneic with RR 28. CVS: S1 and S2 are irregularly irregular with an apical rate of 84 beats per minute. No obvious murmurs, gallops, or rubs. No abdominal aortic or renal bruits. Palpable AICD generator present left subclavian fossa. ABDOMINAL EXAM: Bowel sounds are present. No masses, organomegaly, or tenderness. EXTREMITIES: No clubbing or cyanosis. +2 pitting edema to the level of the thigh, +2 to +3 pitting edema bilateral legs and feet. Limbs appear well perfused. NEUROLOGIC EXAM: Patient is awake, alert, and oriented. Pleasant and cooperative. Answers questions appropriately. Speech is clear. Normal movement in all 4 extremities. Gait pattern is unremarkable. EKG 08/19/20: -- Atrial fibrillation with controlled v entricular response rate at 84 bpm. -- LBBB. -- Left axis deviation. -- Compared to 09/18/20 tracing; LBBB has replaced an incomplete left bundle- branch block. Principal Diagnosis Acute on chronic CHF exacerbation Discharge Exam Temp Pulse Resp BP Pulse Ox 36.4 C 77 18 116/77 93 06/03/21 04:00 06/03/21 09:35 06/03/21 09:35 06/03/21 09:10 06/03/21 09:35 Patient is afebrile. Vital signs stable. Constitutional average body habitus; no acute distress Eyes + anicteric sclerae ENMT Ears: + hearing impairment (hard of hearing, has hearing aids ) Neck normal visual inspection Respiratory normal respiratory effort, lungs clear to auscultation Cardiovascular RRR, no murmur, no edema Gastrointestinal (Abdomen) Inspection/Auscultation: normal bowel sounds Percussion/Palpation: abdomen soft; abdomen nontender Musculoskeletal Head/Neck/Chest: normocephalic and head atraumatic Skin no rashes, warm and dry Psychiatric A+Ox3, euthymic affect Discharge Data Allergies Allergy/AdvReac Type Severity Reaction Status Date / Time bee venom protein (honey bee) Allergy Unknown BIT BY BEE Verified 05/02/21 10:44 SWARM-SWELLING THROAT FACE No Known Drug Allergies Allergy NO KNOWN Verified 05/02/21 10:44 DRUG ALLERGIES hydralazine AdvReac bad joint Verified 05/02/21 10:44 pain Consultations 05/31/21 15:43 ED Decision to Admit Stat 06/01/21 18:57 [facility] CHF Program Referral Routine Ordered Studies 05/31/21 12:07 CT angio chest PE protocol Stat 06/02/21 08:00 US venous doppler LE BI Routine Hospital Course (1) Acute on chronic systolic CHF (congestive heart failure): Mr. Wilder is a 75-year-old male with a history of CAD s/p Anterior MT 2006 s/p CABG x 2 Vessels 03/2007(GONZALES to LAD, Rad Artery Graft to LCx), Ischemic Cardiomyopathy s/p AICD, LVEF 30% to 35%, Chronic Systolic CHF, Hypertension, Hypercholesterolemia, COPD/Asthma, Prediabetes, Mild AI, Moderate MR, and Paroxysmal Atrial Fibrillationwho presents to [facility] ER today complaining of progressive SOB/HARRIS, and Hypoxemia over the past couple of months. Because of these symptoms he increased his Lasix from 40 mg to 80 mg and increased his KCL to 20 mEq daily approximately 4 to 5 weeks ago. His body weight went from 205 lb down to 189 lb a few days ago -- and despite this good diuretic response his breathing has not improved and, as a matter of fact, suddenly seemed to worsen about 3 weeks ago. In addition, the patient has experienced some fullness/soreness of his upper chest and into his upper back with exertion recently and thinks it's from the increased work of breathing and not his angina pectoris. -Admit to PCU. - Echo - EF 30-35%; moderataly dilated L ventricle with moderately to severely reduced systolic function; large area of apical and anteroseptal akinesis; global hypokinesis; L ventricular hypertrophy; severe L atrial dilation, mild aortic regurg; mod mitral regurg; mild/mod tricuspid regurg; moderate pulm HTN 55 mmHg -- similar findings from echo in August 2020 -Continue supplemental O2 to maintain SpO2 > 94%. -- Given the pulm HTN this could also explain his chronic exertional dyspnea - 2- step demonstrating need for 1L with exertion this AM. - CPAP at night for KYRIE -IV Lasix 60 mg b.i.d. initially given but will reduce to 40 mg IV BID for now and monitor--> resume 40mg PO qam upon discharge -Continue Entresto 24-26 mg b.i.d.. -Continue Coreg 25 mg b.i.d. -Add Topical Nitropaste, consider changing to Imdur -Continue potassium supplement -Monitor daily BMP, Mg levels. -Strict I&O's, daily body weights. -- currently negative 2580 L -Low sodium diet, 1500 mL fluid restriction, heart healthy diet - Follows with Dr. Marks; discussed with Dr. Marks and also reached out to Bella Gallagher for involvement with CHF clinic---> patient is scheduled to f/u with [facility] clinic on 06/08/[address] Marks on 06/26/21. Lungs clear to auscultation on exam this morning. Patient states he is feeling much better; denies SOB. Edema has resolved. Patient will be discharged home today with home O2 for exertion. F/u with cardiology as scheduled above. (2) Hypoxia: - Acute hypoxic respiratory failure - improving - Not normally on supplemental O2 - likely in setting of CHF and continues to wean -- Encourage to keep saturations > 90% - 2 step upon d/c showing need to 1L NC with exertion. Rx provided upon discharge. (3) Ischemic cardiomyopathy: Plan: Ischemic Cardiomyopathy s/p AICD, LVEF 30% to 35%; has ICD placed -- Manage as outlined above. -- Discontinue Amlodipine due to negative inotropic effect. (3) Ischemic cardiomyopathy: Ischemic Cardiomyopathy s/p AICD, LVEF 30% to 35%; has ICD placed -- Manage as outlined above. -- Discontinue Amlodipine due to negative inotropic effect. (4) Coronary artery disease: CAD s/p Anterior MT 2006 s/p CABG x 2 Vessels 03/2007(GONZALES to LAD, Rad Artery Graft to LCx): -- Initial Troponin I is elevated and repeat slightly higher - 0.15 and 0.16 but check today trending down to 0.111 -- suspect some demand mismatch given hypoxia -- Add Aspirin 81 mg daily. -- Continue Coreg 25 mg b.i.d.. -- Continue Crestor 20 mg daily. -- Continue Entresto 24-26 mg b.i.d.. -- Add Nitrate - plan to convert to Imdur (5) Paroxysmal atrial fibrillation: Currently in A-Fib; rate controlled -- Continue beta-sukumar; Eliqui (6) Chronic pulmonary embolism: - Ordered U/S - no signs of DVT - Was called by radiologist and addendum placed on CTA -There is no evidence of pulmonary embolus in the main, lobar, or segmental pulmonary arteries. The filling defect in the left main pulmonary artery question on the initial interpretation corresponds to mixing artifact. There is no pulmonary embolus present on this examination. - Did change to Lovenox while awaiting more work-up given no DVT/PE will remain on Eliquis and converted back Disposition: Discharge home today. Rx for home O2 provided. Follow-up with cardiology as scheduled. Follow-up with primary care in 1-2 weeks. Total Time Total Time Spent Total Time Spent (In Minutes): >60 minutes Total Time Includes: Examination of the Patient, Discharge Planning, Medication Reconciliation and Communication With Other Providers Discharge Plan Discharge Items Patient Disposition: Home - Self-Care Reason For Visit: ACUTE ON CHRONIC SYSTOLIC CHF Discharge Diagnosis: Acute on chronic CHF exacerbation Activity: Resume your previous activity Activity Comment: Need to wear O2 with activity Bathing: No limitations Exercise/Sports: Gradually increase as tolerated Driving/Machine Use: Resume 1 day after discharge Weightbearing: Full weightbearing Non-emergency contact: Primary Care Provider Call non-emergency contact if: you have any medication questions, your symptoms worsen and you have a fever Follow-up/Referrals: Geetha Galvez MD [Primary Care Provider] - Marilyn Gallagher PA-C [Physician Doctor Of Radiology] - 06/08/21 10:30 am (Congestive Heart Failure Program Appointment Information Early follow up is essential to managing your heart failure. An appointment has been scheduled for you with the [facility] Heart Failure Program within 7 days of discharge. Anticipate this visit to be 30-60 minutes long. Please expect a card hand phone call from one of our nurses approximately 48 hours from discharge. They will also be placing an order for lab work to be completed 1-2 days prior to your heart failure follow up appointment. Please be sure to have this done so we can go over the results when you come in. Office Location The cardiology office building is located in front of the hospital at [address]. Bring the following with you to your follow-up doctor appointments: Please bring your daily weight log any discharge paperwork all of your medication bottles with you to this visit. ) Diet: Heart Healthy and Low Sodium (2gm) Fluids: 1500ml (6 cups) Addtl Attending Provider Instructions: Follow-up with [facility] with Bella Gallagher PA-C on 06/08/21 at 1030am. Follow-up with Dr. Marks on 06/26/21 as scheduled. Follow-up with primary care in 1-2 weeks. Pending Studies at Discharge: No Stand-Alone Forms: My [facility] Medications and DC Order Prescriptions: New aspirin 81 mg Tablet,Delayed Release (Dr/Ec) 81 mg PO DAILY 30 Days Qty: 30 RF: 0 Continued nitroglycerin 0.4 mg tablet, sublingual 0.4 mg SL Q5M PRN (Reason: chest pain) Qty: 25 RF: 0 calcium carbonate 600 mg calcium (1,500 mg) tablet 600 mg PO HS RF: 0 loratadine 10 mg tablet 10 mg PO HS Qty: 30 RF: 0 multivitamin tablet 1 tab PO QAM RF: 0 albuterol sulfate 90 mcg/actuation HFA aerosol inhaler 2 puffs inhalation Q4H PRN (Reason: shortness of breath or wheezing) Qty: 18 RF: 5 Eliquis 5 mg tablet 5 mg PO BID Qty: 60 RF: 5 carvedilol 25 mg tablet 25 mg PO BID Qty: 60 RF: 5 sildenafil 100 mg tablet 50 mg PO DAILY PRN (Reason: .) RF: 0 CPAP Machine Misc See Rx Instructions .ROUTE .COMPLEX Qty: 1 RF: 0 Entresto 24-26 mg tablet 1 tab PO BID Qty: 60 RF: 2 furosemide 40 mg tablet 40 mg PO QAM RF: 0 rosuvastatin 40 mg tablet 20 mg PO HS RF: 0 potassium chloride 20 mEq tablet extended release 10 meq PO QAM RF: 0 tiotropium-olodaterol 2.5-2.5 mcg/actuation mist 2 puffs inhalation QAM RF: 0 Airborne (ascorbic acid) 250-8.875 mg Tablet,Chewable 1 tab PO QAM RF: 0 Discontinued amlodipine 2.5 mg tablet 5 mg PO .COMPLEX RF: 0 Discharge Orders: Discharge Order (Routine); Ordered 06/03/21 Ordered By: Hannah Castaneda/Other Patient Handouts: Coping with Heart Failure, My Heart Failure Symptoms Chart Admission Data Admit Date/Time: 05/31/21 15:23 Attending Provider: Homero Weldon Admit Provider: Omid Corado Primary Care Provider: Geetha Galvez Other Providers: Homero Weldon ; Marilyn Gallagher Coding Level of Care Code Established Pt D/C DAY MANAGEMENT >30 MINS Patient Type Established Exam Expanded Problem Focused Medical Decision Making Moderate Complexity Diagnoses Acute on chronic systolic CHF (congestive heart failure) I50.23 Hypoxia R09.02 Ischemic cardiomyopathy I25.5 Coronary artery disease I25.10 Paroxysmal atrial fibrillation I48.0 Chronic pulmonary embolism I27.82
== END 2021-06-03 12:55 | disposition home or self-care (01) | DRG 291 ==
LOC: ED 10:45 → SUATTDRO 15:23 → EDINP 15:23

== ENCOUNTER 2022-09-05 09:57 | Observation (INO) ==
--- NOTE | 2022-09-05 10:49 | Emergency Department Note ---
Impression & Plan Chest pain, Elevated troponin, Breathlessness on exertion ED Provider Note NAME: BOOGIE VELASQUEZ AGE: 77 SEX: M : 1945 ARRIVES VIA: Walk-In INFORMANT: Patient ED PROVIDER(S): Kwame Dill DO CHIEF COMPLAINT: chest pain and shortness of breath HPI: Patient is a 77-year-old male with a past medical history of CAD with CABG, CHF, hypertension, hyperlipidemia and ischemic cardiomyopathy that presents to the ER for shortness of breath with exertion and chest pressure. He notes when he gets worse it comes up into his neck. It resolves with rest. Bypass was about 20 years ago. Denies any headache or change in vision. No belly pain, nausea, vomiting, or diarrhea. Denies any new swelling of the legs but does believe he has gained some weight. No dysuria, urgency, or frequency. No other exacerbating or remitting factors. Last time he had the pain was some around 8 AM with walking. PAST MEDICAL HISTORY:See Below PAST SURGICAL HISTORY:See Below FAMILY HISTORY:See Below SOCIAL HISTORY:See Below HOME MEDICATIONS:See Below ALLERGIES:See Below VITALS:See Below PHYSICAL EXAMINATION: GENERAL: Sitting up in bed, alert, well appearing, well nourished, no distress, non-toxic EYE EXAM: normal conjunctiva. OROPHARYNX: mucous membranes are moist LUNGS: Clear to auscultation. Normal chest wall mechanics HEART: no murmurs, S1 normal and S2 normal ABDOMEN: abdomen soft, non-tender, normo-active bowel sounds, no masses, no rebound or guarding. UPPER EXTREMITIES: upper extremities are grossly normal. LOWER EXTREMITIES: No pitting edema. Calves are equal bilateral NEURO EXAM: Normal sensorium, cranial nerves II-XII grossly intact, normal speech, no gross weakness of arms, no gross weakness of legs. MEDICAL DECISION MAKING: Patient is a 77-year-old male who presents ER for exertional shortness of breath and chest pressure associate with neck pain. IV was established blood work was obtained. Labs show no significant leukocytosis. No anemia. INR was 1.5 likely secondary to the apixaban. BMP was unremarkable. Troponin was slightly elevated. Bili normal. COVID-negative. Chest x-ray was clean. Patient was given aspirin. Pain-free while in the ER. Discussed with the hospitalist with exertional symptoms for further evaluation management treatment. Discussed with Dr. Carolina for further evaluation management and treatment. Triage Nursing notes reviewed. Limited review of prior medical records performed Vital Signs: reviewed and remarkable for no significant abnormalities Differential diagnosis: Cardiac ischemia, aortic dissection, pulmonary embolism, pneumothorax, pneumonia, pericarditis, myocarditis, esophageal rupture, GERD, cholecystitis, pancreatitis, musculoskeletal, as well as other pathologies. ER treatment provided: See below Diagnostics interpreted by me include EKG and cardiac monitoring as listed below: -Cardiac Monitoring: An order was placed for continuous cardiac monitoring. The monitor shows a rate of 80 with Afib rhythm. -ECG: A-fib rate [address] Depressions and T wave inversions in the high lateral leads Septal Q waves QTc 473 No significant change from May 2021 EKG -Laboratory studies: As described below Imaging studies: Xrays: As interpreted by me: Portable AP upright 1 view of the chest shows no pneumonia CTs show: none Consultation(s): As described in MDM Procedures:none Critical Care: None Past Med/Surg History Medical History Allergic rhinitis Anemia Cardiac defibrillator in place COPD with asthma Coronary artery disease Elevated liver enzymes Hyperlipidemia Hypertension Ischemic cardiomyopathy Non-ST elevation DE (NSTEMI) Paroxysmal atrial fibrillation Prediabetes Thrombocytopenia Surgical History History of nasal surgery Hx of CABG Hx of carpal tunnel repair Hx of hand surgery S/P appendectomy S/P colonoscopy S/P implantation of automatic cardioverter/defibrillator (AICD) Family History Other Heart disease Hypertension Social History Smoking Status: Never smoker Second Hand Exposure: Yes (SPOUSE USED TO SMOKE); Hx Alcohol Use: Yes Alcohol type: beer and wine Alcohol Intake Frequency: Monthly or Less Hx Substance Use: No Preferred Language: Yoruba Communication Ability: Effective Visual Impairment: Limited Hearing Ability: Use of Hearing Aid 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 Required: No Beliefs That Will Affect Care: None marital status: Current Living Situation: Spouse current occupational status: retired Feels Safe at Home: Yes caffeine: Yes Do you think of yourself as: straight/heterosexual Gender Identity: Male Assistive Devices: None Allergies Allergies Allergy/AdvReac Type Severity Reaction Status Date / Time bee venom protein (honey bee) Allergy Unknown BIT BY BEE Verified 08/02/22 09:43 SWARM-SWELLING THROAT FACE hydralazine AdvReac bad joint Verified 08/02/22 09:43 pain Home Meds Home Medications Medication Instructions Recorded Confirmed loratadine 10 mg tablet 10 mg PO DAILY #30 tabs 12/23/18 09/05/22 multivitamin 1 tab PO QAM 12/23/18 09/05/22 sildenafil 100 mg tablet 50 mg PO DAILY PRN . 12/31/18 09/05/22 rosuvastatin 40 mg tablet 20 mg PO HS 05/02/19 09/05/22 tiotropium 2.5 mcg-olodaterol 2.5 2 puffs inhalation QAM 05/02/19 09/05/22 mcg/actuation mist for inhalation fluticasone propionate 50 2 spray intranasal DAILY 11/15/21 09/05/22 mcg/actuation nasal spray,suspension (Flonase Allergy Relief) calcium carbonate 600 mg calcium 600 mg PO DAILY 01/18/22 09/05/22 (1,500 mg) tablet (Calcium) Previous Rx's Medication Instructions Recorded albuterol sulfate 90 mcg/actuation 2 puffs inhalation Q4H PRN 12/23/18 aerosol inhaler shortness of breath or wheezing #18 grams apixaban 5 mg tablet (Eliquis) 5 mg PO BID #60 tabs 12/23/18 carvedilol 25 mg tablet 25 mg PO BID #60 tabs 12/23/18 nitroglycerin 0.4 mg sublingual 0.4 mg sublingual Q5M PRN chest 04/08/19 tablet pain #25 tabs empagliflozin 10 mg tablet 10 mg PO DAILY #90 tabs 02/06/22 furosemide 40 mg tablet 40 mg PO QAM #90 tabs 04/11/22 Results & Data (ED) Vital Signs Vital Signs - 24 hr 09/05/22 09:58 09/05/22 09:58 09/05/22 10:56 Temperature 36.6 C Temperature Source Temporal Artery Scan Pulse Rate 69 Pulse Rate from SpO2 Sensor Respiratory Rate 16 Blood Pressure 152/79 H Blood Pressure Mean 103 Pulse Oximetry 98 Oxygen Delivery Method Room Air Room Air Room Air Sepsis Recent Fever Within 48 Hours No Sepsis New/Unexplained Change in Mental Status N/A Sepsis Action Taken by Nursing No Action Required 09/05/22 10:56 09/05/22 11:11 09/05/22 12:14 Temperature Temperature Source Pulse Rate 67 73 Pulse Rate from SpO2 Sensor 72 Respiratory Rate 17 Blood Pressure 152/111 H Blood Pressure Mean 124 Pulse Oximetry 92 Oxygen Delivery Method Room Air Sepsis Recent Fever Within 48 Hours Sepsis New/Unexplained Change in Mental Status Sepsis Action Taken by Nursing 09/05/22 11:20 09/05/22 11:30 09/05/22 11:40 Temperature Temperature Source Pulse Rate 66 73 71 Pulse Rate from SpO2 Sensor 67 72 Respiratory Rate 17 19 24 Blood Pressure Blood Pressure Mean Pulse Oximetry 91 92 Oxygen Delivery Method Sepsis Recent Fever Within 48 Hours Sepsis New/Unexplained Change in Mental Status Sepsis Action Taken by Nursing 09/05/22 11:50 09/05/22 12:00 09/05/22 12:10 Temperature Temperature Source Pulse Rate 66 69 68 Pulse Rate from SpO2 Sensor 74 73 70 Respiratory Rate 19 13 18 Blood Pressure Blood Pressure Mean Pulse Oximetry 92 94 97 Oxygen Delivery Method Sepsis Recent Fever Within 48 Hours Sepsis New/Unexplained Change in Mental Status Sepsis Action Taken by Nursing 09/05/22 12:20 09/05/22 12:30 09/05/22 12:40 Temperature Temperature Source Pulse Rate 71 68 76 Pulse Rate from SpO2 Sensor 74 70 74 Respiratory Rate 19 12 22 Blood Pressure Blood Pressure Mean Pulse Oximetry 93 97 93 Oxygen Delivery Method Sepsis Recent Fever Within 48 Hours Sepsis New/Unexplained Change in Mental Status Sepsis Action Taken by Nursing 09/05/22 12:44 09/05/22 12:44 09/05/22 12:50 Temperature Temperature Source Pulse Rate 76 74 Pulse Rate from SpO2 Sensor 77 Respiratory Rate 26 H 23 Blood Pressure 153/93 H Blood Pressure Mean 113 Pulse Oximetry 91 Oxygen Delivery Method Sepsis Recent Fever Within 48 Hours Sepsis New/Unexplained Change in Mental Status Sepsis Action Taken by Nursing Laboratory Data 09/05/22 10:27 09/05/22 10:27 Lab Results 09/05/22 09/05/22 09/05/22 Range/Units 10:27 10:27 10:27 WBC 5.99 (4.8-10.8) K/ul RBC 3.85 L (4.70-6.10) M/uL Hgb 13.6 L (14.0-18.0) g/dl Hct 40.2 L (42.0-52.0) % MCV 104.4 H (80.0-100.0) fL MCH 35.3 H (25.0-34.0) pg MCHC 33.8 (32.0-36.0) g/dL RDW Std Deviation 56.2 H (36.4-46.3) fL RDW Coeff of Jodee 14.6 H (11.5-14.5) % Plt Count 138 (130-400) K/uL MPV 12.5 H (9.4-12.4) fL Immature Gran % (Auto) 0.3 % Neut % (Auto) 66.0 % Lymph % (Auto) 16.0 % Cavalier % (Auto) 13.5 % Eos % (Auto) 3.0 % Baso % (Auto) 1.2 % Neut # (Auto) 3.95 (1.40-6.50) K/uL Lymph # (Auto) 0.96 L (1.2-3.4) K/uL Cavalier # (Auto) 0.81 H (0.11-0.59) K/uL Eos # (Auto) 0.18 (0-0.50) K/uL Baso # (Auto) 0.07 (0-0.2) K/uL Immature Gran # (Auto) 0.02 (0.01-0.20) K/uL PT 15.5 H (9.0-12.0) Seconds INR 1.5 H (0.9-1.1) APTT 56.7 H* (21.0-31.0) Seconds PTT Ratio 2.1 Sodium 139 (136-145) mmol/L Potassium 5.0 (3.5-5.1) mmol/L Chloride 102 (98-107) mmol/L Carbon Dioxide 26 (21-32) mmol/L Anion Gap 11 (3-11) BUN 26 H (6-23) mg/dl Creatinine 1.32 (0.6-1.4) mg/dl Est Cr Clr Drug Dosing 49.2 ml/min Est GFR ( Amer) 60.3 ml/min Est GFR (Non-Af Amer) 52.0 ml/min BUN/Creatinine Ratio 19.7 (10-20) Glucose 113 H (70-99(Fasting)) mg/dl Calcium 9.5 (8.6-10.3) mg/dl Total Bilirubin 1.5 H (0.2-1.0) mg/dl AST 22 (13-39) U/L ALT 15 (7-52) U/L Alkaline Phosphatase 127 H (34-104) U/L Troponin I High Sens 23.1 H (0-20) pg/ml B-Natriuretic Peptide (0-100) pg/ml Total Protein 7.9 (6.0-8.3) gm/dl Albumin 4.0 (3.4-5.0) gm/dl Globulin 3.9 (2.5-4.0) gm/dl Albumin/Globulin Ratio 1.0 (0.9-2) SARS-CoV-2, RNA, NAAT (NEGATIVE) 09/05/22 09/05/22 09/05/22 Range/Units 11:45 13:11 13:11 WBC (4.8-10.8) K/ul RBC (4.70-6.10) M/uL Hgb (14.0-18.0) g/dl Hct (42.0-52.0) % MCV (80.0-100.0) fL MCH (25.0-34.0) pg MCHC (32.0-36.0) g/dL RDW Std Deviation (36.4-46.3) fL RDW Coeff of Jodee (11.5-14.5) % Plt Count (130-400) K/uL MPV (9.4-12.4) fL Immature Gran % (Auto) % Neut % (Auto) % Lymph % (Auto) % Cavalier % (Auto) % Eos % (Auto) % Baso % (Auto) % Neut # (Auto) (1.40-6.50) K/uL Lymph # (Auto) (1.2-3.4) K/uL Cavalier # (Auto) (0.11-0.59) K/uL Eos # (Auto) (0-0.50) K/uL Baso # (Auto) (0-0.2) K/uL Immature Gran # (Auto) (0.01-0.20) K/uL PT (9.0-12.0) Seconds INR (0.9-1.1) APTT (21.0-31.0) Seconds PTT Ratio Sodium (136-145) mmol/L Potassium (3.5-5.1) mmol/L Chloride (98-107) mmol/L Carbon Dioxide (21-32) mmol/L Anion Gap (3-11) BUN (6-23) mg/dl Creatinine (0.6-1.4) mg/dl Est Cr Clr Drug Dosing ml/min Est GFR ( Amer) ml/min Est GFR (Non-Af Amer) ml/min BUN/Creatinine Ratio (10-20) Glucose (70-99(Fasting)) mg/dl Calcium (8.6-10.3) mg/dl Total Bilirubin (0.2-1.0) mg/dl AST (13-39) U/L ALT (7-52) U/L Alkaline Phosphatase (34-104) U/L Troponin I High Sens 21.9 H (0-20) pg/ml B-Natriuretic Peptide 4289 H (0-100) pg/ml Total Protein (6.0-8.3) gm/dl Albumin (3.4-5.0) gm/dl Globulin (2.5-4.0) gm/dl Albumin/Globulin Ratio (0.9-2) SARS-CoV-2, RNA, NAAT NEGATIVE (NEGATIVE) Imaging Data Radiologist's Impression: Chest X-Ray 09/05/22 10:26 XR chest 1V portable CLINICAL HISTORY: Chest pain, nonspecific TECHNIQUE: Single frontal radiograph of the chest was obtained. Comparison: Comparison is made to chest radiograph 05/31/2021 FINDINGS: Median sternotomy wires are unchanged. Defibrillator is seen. Cardiomegaly is noted. The lungs are clear. No evidence of pleural effusion or pneumothorax. IMPRESSION: No acute abnormalities and in particular no radiographic evidence of pneumonia. ACT 112: Negative or not required by law. Electronically signed by: Don Xiao M.D. 09/05/2022 11:29 AM Discharge Plan Visit Data Chief Complaint: Shortness of Breath/Dyspnea Stated Complaint: SOB,WEAKNESS,REF BY DOC ED Provider: Kwame Dill Discharge Problem: Chest pain, Elevated troponin, Breathlessness on exertion Patient Disposition: Admitted As Inpatient Discharge Instructions Interventions: ED Discharge Assessment Last Done: 09/05/22 15:29
[2022-09-05 11:20] LABS: Basophils # (auto) 0.07 K/uL (0-0.2); Basophils % (auto) 1.2 %; Eosinophils # (auto) 0.18 K/uL (0-0.50); Hematocrit (blood only) 40.2 % (42.0-52.0); Hemoglobin 13.6 g/dl (14.0-18.0); Immature Granulocytes # (auto) 0.02 K/uL (0.01-0.20); Immature Granulocytes % (auto) 0.3 %; Lymphocytes # (auto) 0.96 K/uL (1.2-3.4); Mean Corpuscular Hemoglobin 35.3 pg (25.0-34.0); Mean Corpuscular Hgb Conc 33.8 g/dL (32.0-36.0); Mean Corpuscular Volume 104.4 fL (80.0-100.0); Mean Platelet Volume 12.5 fL (9.4-12.4); Monocytes # (auto) 0.81 K/uL (0.11-0.59); Monocytes % (auto) 13.5 %; Neutrophils # (auto) 3.95 K/uL (1.40-6.50); Platelet Count 138 K/uL (130-400); RDW Coefficient of Variation 14.6 % (11.5-14.5); RDW Standard Deviation 56.2 fL (36.4-46.3); Red Blood Count 3.85 M/uL (4.70-6.10); White Blood Count 5.99 K/ul (4.8-10.8)
--- NOTE | 2022-09-05 11:30 | XRay Report ---
XR chest 1V portable CLINICAL HISTORY: Chest pain, nonspecific TECHNIQUE: Single frontal radiograph of the chest was obtained. Comparison: Comparison is made to chest radiograph 05/31/2021 FINDINGS: Median sternotomy wires are unchanged. Defibrillator is seen. Cardiomegaly is noted. The lungs are cl ear. No evidence of pleural effusion or pneumothorax. IMPRESSION: No acute abnormalities and in particular no radiographic evidence of pneumonia. ACT 112: Negative or not required by law. Electronically signed by: Don Xiao M.D. 09/05/2022 11:29 AM
[2022-09-05 11:49] LABS: INR 1.5 (0.9-1.1); Partial Thromboplastin Ratio 2.1; Prothrombin Time 15.5 Seconds (9.0-12.0)
[2022-09-05 11:53] LABS: Bilirubin,Total 1.5 mg/dl (0.2-1.0); Calcium 9.5 mg/dl (8.6-10.3)
[2022-09-05 11:59] LABS: BUN Creatinine Ratio 19.7 (10-20); Creatinine Clr Calc Pharmacy 49.2 ml/min; Est GFR (African American) 60.3 ml/min; Globulin 3.9 gm/dl (2.5-4.0); Total Protein 7.9 gm/dl (6.0-8.3)
[2022-09-05 12:20] LABS: Troponin I High Sensitivity 23.1 pg/ml (0-20)
--- NOTE | 2022-09-05 12:58 | History & Physical Report ---
Date of Service September 05, 2022 Assessment & Plan (1) Chest pain: Plan: Chest pain, history of CAD s/p CABG 5 days of significant/sudden change in exercise tolerance, now with exertional dyspnea and chest tightness that occurs consistently when walking to the car and resolves completely with rest. No pain or dyspnea at time of bedside assessment. Has not noticed leg swelling or orthopnea, has had problems with volume overload in the past and reports this feels slightly similar but has not noticed swelling. Has had around 10 pounds of weight gain compared to last month. -History of 2007 Anterior HI s/p double bipass, single-chamber ICDfor EF 25-30% History of severe ischemic cardiomyopathy. Was last seen by cardiology 08/23. Spironolactone stopped for hyperkalemia. Pending Entresto EKG: A-fib, QTc 473, no acute ST segment changes/T wave inversions CXR: No acute findings. Pulmonary edema not appreciated With single-chamber ICD placement, no recent ventricular pacing. Interrogation pending On prior visits was noted to have baseline left bundle branch block with atypical QRS. Being followed for possible cardiac resynchronization therapy/biventricular pacemaker if worsening symptoms as outpatient, this has been deferred so far - 09/22/21: EF 25-30%. Moderate global hypokinesis of LV, akinetic septum, apex mildly dyskinetic, mild AR, moderate to severe MR, severe TR, RVSP greater than 60 Repeat echo pending Troponins trended BNP added, patient does not appear overtly fluid overloaded but has had some weight gain. Ischemic change versus CHF. Lasix continued. Continue Entresto, patient clarifying dose as was recently restarted. A-fib Previously reported as paroxysmal, appears permanent On Eliquis Adequately rate controlled on admission Continue carvedilol Type II DM - Last A1C 1yr ago, 6.9%. Repeat pending Hold empagliflozin. Patient somewhat poor historian, is not sure if he is actually taking this or not - Pt reports he was never told he was diabetic, and is not on any antiglycemic medications but does check his blood sugars. Discussed that his last A1C was diabetic, but it was already well controlled and Jardiance while prescribed in the setting of heart failure is an antiglycemic. Pt expressed understanding of this, notes his BSG is never >140 at home. Will update A1C, hold basal and use SSI if >140. Pt agreeable. DM/low-salt/HH diet Goal BSG [id number] COPD with asthma overlap Continue Stiolto/formulary equivalent while inpatient No wheezing on admission, no acute exacerbation DVT prophylaxis: Anticoagulated Diet: Heart healthy/low-sodium/DM2 Disposition: Medical telemetry CODE STATUS: Full code (2) Sleep apnea: (3) Hypoxia: History of Present Illness Primary Care Provider: Geetha Galvez MD Aleks is a 77-year-old male with a past medical history of CAD s/p CABG, CHF, hypertension, hyperlipidemia, ischemic cardiomyopathy who presents with worsening exertional dyspnea spreading to his neck. He does not have symptoms at rest, last chest pain was this morning while walking and resolved with rest. Patient reports that in the last 5 days he has had a significant change in exercise tolerance very different from his normal baseline. Is now short of breath with a squeezing feeling in the top of his chest while walking to the car, which resolves completely with rest. He is not in any pain at time of ER assessment OK when sitting. When he starts walking feels more weak in the legs, breathing becomes very labored with a dry nose, BP normally 110-120s, recently has been in the 140s/70s. 10lb weight gain in the last week. No change in diet. Has chest discomfort 'not pain just a tightness in the chest and throat' occurs at the same time as SoB with exertion. Started happening last Saturday (5 days ago) Previsouly good exercise tolerance going 6-7 mi over 30 min on stationary bike last month. Now can hardly walk to car due to shortness of breath. Has had orthopnea in the past, has not experienced this currently Stopped spironolactone recently, is now in entresto BID Took entresto this AM. Attempted to clarify dose, patient is not a good historian of his medications No asa/plaavix, stopped when he started Eliquis Albuterol maybe helps a little, not sure. No wheezing. Continues to use COPD/asthma overlap inhaler Hx double bipass in [facility] 20 years ago. No stents. No fever, chills, sweats, cough, lightheadedness, dizziness, syncope, presyncope. No melena. No bleeding/hematochezia Patient denies history of diabetes or being on diabetes medications. A1c 6.9% previously, was prescribed Jardiance in the setting of heart failure. Reviewed with patient who expressed understanding following conversation. Medical History: Reviewed Medications: Reviewed Surgical History: Reviewed Family history: Reviewed Allergies: Reviewed Social History: Reviewed Code Status: Full Allergies Allergy/AdvReac Type Severity Reaction Status Date / Time bee venom protein (honey bee) Allergy Unknown BIT BY BEE Verified 08/02/22 09:43 SWARM-SWELLING THROAT FACE hydralazine AdvReac bad joint Verified 08/02/22 09:43 pain Home Medications Medication Instructions Recorded Confirmed Type albuterol sulfate 90 mcg/actuation 2 puffs inhalation Q4H PRN 12/23/18 09/05/22 Rx aerosol inhaler shortness of breath or wheezing #18 grams apixaban 5 mg tablet (Eliquis) 5 mg PO BID #60 tabs 12/23/18 09/05/22 Rx carvedilol 25 mg tablet 25 mg PO BID #60 tabs 12/23/18 09/05/22 Rx loratadine 10 mg tablet 10 mg PO DAILY #30 tabs 12/23/18 09/05/22 History multivitamin 1 tab PO QAM 12/23/18 09/05/22 History sildenafil 100 mg tablet 50 mg PO DAILY PRN . 12/31/18 09/05/22 History nitroglycerin 0.4 mg sublingual 0.4 mg sublingual Q5M PRN chest 04/08/19 09/05/22 Rx tablet pain #25 tabs rosuvastatin 40 mg tablet 20 mg PO HS 05/02/19 09/05/22 History tiotropium 2.5 mcg-olodaterol 2.5 2 puffs inhalation QAM 05/02/19 09/05/22 History mcg/actuation mist for inhalation fluticasone propionate 50 2 spray intranasal DAILY 11/15/21 09/05/22 History mcg/actuation nasal spray,suspension (Flonase Allergy Relief) calcium carbonate 600 mg calcium 600 mg PO DAILY 01/18/22 09/05/22 History (1,500 mg) tablet (Calcium) empagliflozin 10 mg tablet 10 mg PO DAILY #90 tabs 02/06/22 09/05/22 Rx furosemide 40 mg tablet 40 mg PO QAM #90 tabs 04/11/22 09/05/22 Rx Past Med/Surg History Medical History Allergic rhinitis Anemia Cardiac defibrillator in place COPD with asthma Coronary artery disease Elevated liver enzymes Hyperlipidemia Hypertension Ischemic cardiomyopathy Non-ST elevation HI (NSTEMI) Paroxysmal atrial fibrillation Prediabetes Thrombocytopenia Surgical History History of nasal surgery Hx of CABG Hx of carpal tunnel repair Hx of hand surgery S/P appendectomy S/P colonoscopy S/P implantation of automatic cardioverter/defibrillator (AICD) Family History Other Heart disease Hypertension Social History Smoking Status: Never smoker Second Hand Exposure: Yes (SPOUSE USED TO SMOKE); Hx Alcohol Use: Yes Alcohol type: beer and wine Alcohol Intake Frequency: Monthly or Less Hx Substance Use: No Preferred Language: Icelandic Communication Ability: Effective Visual Impairment: Limited Hearing Ability: Use of Hearing Aid Assistant Professor Of Education Required: No Beliefs That Will Affect Care: None marital status: Current Living Situation: Spouse current occupational status: retired Feels Safe at Home: Yes caffeine: Yes Do you think of yourself as: straight/heterosexual Gender Identity: Male Assistive Devices: None Review of Systems Review of Systems: All systems reviewed & are unremarkable except as noted in HPI & below Physical Exam Physical Exam: General: A&Ox3. NAD. Cooperative. HEENT: Atraumatic, normocephalic. Vision/hearing grossly intact Pulm: CTAB A&P. -wheezes, -rales, -rhonchi. Symmetrical chest rise. No increased work of breathing. No respiratory distress. No basilar crackles appreciated Cardiac: distant. +Sm. irir Radial pulses intact and symmetrical. No JVD appreciated, 1+ lower ankle edema. Abdominal: Nontender, nondistended, soft. BS present. Ext: Warm/dry. Moving all extremities equally. Results & Data Results & Data Vital Signs (Past 12 Hours) Vital Signs Temp Pulse Resp BP Pulse Ox O2 Del Method 09/05/22 12:14 73 04/12/23 11:11 67 17 152/111 H 92 09/05/22 10:56 Room Air 09/05/22 10:56 Room Air 09/05/22 09:58 Room Air 09/05/22 09:58 36.6 C 69 16 152/79 H 98 Room Air PG Care Time/CCT Total # of Minutes Spent Total Time Spent with Patient: Total time spent is greater than 50% in coordination of care (as documented) at patient's floor/unit and/or counseling patient: Coding Level of Care Code 54073 INT INP/OBS CARE 2/55MIN Diagnoses Chest pain R07.9 Sleep apnea G47.30 Hypoxia R09.02
[2022-09-05 13:08] LABS: Partial Thromboplastin Time 56.7 Seconds (21.0-31.0)
[2022-09-05] MEDS ORDERED: DEXTROSE 50% 50 ML SYRINGE IV PRN (13:23)
[2022-09-05] MEDS ORDERED: CARBOHYDRATES FOR HYPOGLYCEMIA PO PRN (13:23)
[2022-09-05] MEDS ORDERED: GLUCOSE 40% GEL 15 GM TUBE PO PRN (13:23)
[2022-09-05] MEDS ORDERED: GLUCOSE 10 TAB/TUBE PO PRN (13:23)
[2022-09-05] MEDS ORDERED: GLUCAGON FOR INJ 1 MG VIAL SQ PRN (13:23)
[2022-09-05] MEDS: INSULIN ASPART PER UNIT CHARGE SC SCH ×2 (17:28→21:08)
--- NOTE | 2022-09-05 18:46 | XCELERA ---
[id number]
[2022-09-05 18:59] LABS: Estimated Average Glucose 123 mg/dl; Hemoglobin A1C 5.9 % (4.5-5.6)
[2022-09-05] MEDS ORDERED: LANTUS PER UNIT CHARGE SQ SCH (21:00)
[2022-09-05] MEDS: VALSARTAN/SACUBITRIL 26/24MG TAB PO SCH (21:07)
[2022-09-05] MEDS: ROSUVASTATIN CALCIUM 20 MG TAB PO SCH (21:08)
[2022-09-05] MEDS: APIXABAN 5 MG TABLET PO SCH (21:08)
[2022-09-05] MEDS: carvediloL 25 MG TAB PO SCH (21:08)
[2022-09-06 03:34] LABS: Basophils # (auto) 0.06 K/uL (0-0.2); Basophils % (auto) 1.1 %; Eosinophils # (auto) 0.19 K/uL (0-0.50); Eosinophils % (auto) 3.4 %; Hematocrit (blood only) 37.2 % (42.0-52.0); Hemoglobin 12.7 g/dl (14.0-18.0); Immature Granulocytes # (auto) 0.01 K/uL (0.01-0.20); Immature Granulocytes % (auto) 0.2 %; Lymphocytes # (auto) 1.19 K/uL (1.2-3.4); Lymphocytes % (auto) 21.3 %; Mean Corpuscular Hemoglobin 35.4 pg (25.0-34.0); Mean Corpuscular Hgb Conc 34.1 g/dL (32.0-36.0); Mean Corpuscular Volume 103.6 fL (80.0-100.0); Mean Platelet Volume 12.3 fL (9.4-12.4); Monocytes # (auto) 0.76 K/uL (0.11-0.59); Monocytes % (auto) 13.6 %; Neutrophils # (auto) 3.37 K/uL (1.40-6.50); Neutrophils % (auto) 60.4 %; Platelet Count 133 K/uL (130-400); RDW Coefficient of Variation 14.4 % (11.5-14.5); RDW Standard Deviation 54.2 fL (36.4-46.3); Red Blood Count 3.59 M/uL (4.70-6.10); White Blood Count 5.58 K/ul (4.8-10.8)
[2022-09-06 03:52] LABS: Calcium 8.8 mg/dl (8.6-10.3); Creatinine Clr Calc Pharmacy 48.1 ml/min; Est GFR (African American) 58.7 ml/min; Est GFR (Non-African American) 50.6 ml/min; Potassium 4.5 mmol/L (3.5-5.1)
[2022-09-06] MEDS: INSULIN ASPART PER UNIT CHARGE SC SCH ×4 (08:44→20:39)
[2022-09-06] MEDS: APIXABAN 5 MG TABLET PO SCH ×2 (08:49→20:36)
[2022-09-06] MEDS: carvediloL 25 MG TAB PO SCH ×2 (08:49→20:36)
[2022-09-06] MEDS: UMECLIDINIUM/VILANTEROL 62.5/25MCG 7 PUFFS/INHALER INH SCH (08:50)
[2022-09-06] MEDS: VALSARTAN/SACUBITRIL 26/24MG TAB PO SCH ×2 (08:50→20:36)
[2022-09-06] MEDS ORDERED: FUROSEMIDE 40 MG TAB PO SCH (09:00)
--- NOTE | 2022-09-06 13:13 | Hospitalist Progress Note ---
Date of Service September 06, 2022 Assessment & Plan (1) Acute on chronic systolic CHF (congestive heart failure): Plan: although cxr does not show obvious edema he has JVD with b/l basilar crackles along with 10-12 pound weight gain in the last 1-2 weeks. constellation of findings most c/w decompensated CHF. received PO lasix this am. will give lasix 40mg IV x 1 this afternoon and then carry on with IV lasix starting in am. appreciate Dr Marks's consultation and recs. echo findings noted. cont BB. cont Entresto. need higher dose of diuretic at discharge? (2) Atrial fibrillation: Plan: rates controlled cont coreg cont Eliquis (3) Chest tightness: Plan: despite known CAD his troponins are negative. the tightness could be from pulmonary congestion from CHF. if the symptoms resolve with diuresis then CHF was the likely culprit. if symptoms persist then potentially would need ischemic eval - but defer that to Dr Marks. (4) Elevated liver enzymes: Plan: t.bili, alk phos - may be 2nd to hepatic congestion from right heart failure. trend. no symptoms to suggest primary biliary cause of elevated LFTs. (5) Cardiac defibrillator in place: Plan: interrogation complete. last discharge of device was several years ago. (6) COPD with asthma: Plan: no wheezing or other pulmonary symptoms to suggest exacerbation. cont home inhalers. (7) Coronary artery disease: Plan: s/p acute ME ~20 years ago followed by 2-vessel CABG. see discussion in #1 above. cont coreg, eliquis, statin, ARB. (8) Hyperlipidemia: Plan: cont statin (9) Hypertension: Plan: some elevated readings since admission but defer on dose escalation of meds unless BPs remain persistently high. BPs likely to improve with diuresis. (10) Ischemic cardiomyopathy: Plan: 2nd to prior acute ME. current echo findings noted. (11) Prediabetes: Plan: most recent a1c <6% diet control (12) Pulmonary hypertension: Plan: severe based on current echo. decompensated CHF likely playing a role. mitral valve disease could be contributing. COPD could be contributing as well. may need to consider 2-step O2 test before discharge to ensure sats are ok with ambulation. (13) Macrocytic anemia: Plan: check b12, folate, and TSH in am. anemia is fortunately mild at this time. Plan updated at bedside care d/w Dr Marks from cardiology Admission and Anticipated Discharge Date Admission Date: September 05, 2022 Subjective tele overnight - a.fib, rates <100 patient reports that since arriving to [facility] he has had no further chest tightness never had pain - just upper chest tightness no radiation to arms symptoms different than his pain he had had with his acute ME ~20 years ago had 2-vessel CABG in [place] 20 years ago no cath since those events denies any HARRIS with walking the hallways this am, but staff report that he "looked short of breath" while walking he did not have chest tightness or pain with walking this am good appetite no recent URI or other illness updated at bedside today Review of Systems Review of Systems: gen - no fevers, good appetite, no excessive fatigue; 10+ pounds of weigh gain last 7-10 days cv - see HPI; denies orthopnea pulm - mild cough at times; no dyspnea at rest; no HARRIS GI - no abd pain, N/V Physical Exam Physical Exam: gen - NAD, pleasant neck - JVD present sitting upright at 90 degrees mouth - MMM heart - irregularly irregular, s1 s2, no murmur lungs - b/l basilar crackles; no wheeze abd - soft NT ND BS+ ext - no edema, pulses 2+ b/l Results & Data Results & Data Vital Signs (Past 12 Hours) Vital Signs Temp Pulse Pulse Resp BP Pulse Ox O2 Del Method 09/06/22 11:11 36.5 C 64 16 128/71 97 Room Air 09/06/22 08:18 36.6 C 72 19 125/54 L 97 Room Air 09/06/22 07:51 Room Air 09/06/22 07:43 83 09/06/22 03:43 36.8 C 72 18 151/75 H 95 Room Air Laboratory Results Laboratory Results - last 24 hr 09/06/22 09/06/22 09/06/22 07:47 09:21 11:40 POC Glucose 89 124 H Troponin I High Sens 19.3 09/06/22 09/06/22 16:42 20:32 POC Glucose 107 H 104 H Troponin I High Sens Diagnostic Findings echocardiogram - PG Care Time/CCT Total # of Minutes Spent Total Time Spent with Patient: Total time spent is greater than 50% in coordination of care (as documented) at patient's floor/unit and/or counseling patient: Coding Level of Care Code 80334 SUB INP/OBS CARE 50MIN Diagnoses Acute on chronic systolic CHF (congestive heart failure) I50.23 Atrial fibrillation I48.91 Chest tightness R07.89 Elevated liver enzymes R74.[address] Z95.810 COPD with asthma J44.9 Coronary artery disease I25.10 Hyperlipidemia E78.2 Hyperlipidemia type: mixed hyperlipidemia Hypertension I10 Hypertension type: essential hypertension Ischemic cardiomyopathy I25.5 Prediabetes R73.03 Pulmonary hypertension I27.20 Macrocytic anemia D53.9 (8) Hyperlipidemia Hyperlipidemia type: mixed hyperlipidemia Qualified Code(s): E78.2 - Mixed hyperlipidemia (9) Hypertension Hypertension type: essential hypertension Qualified Code(s): I10 - Essential (primary) hypertension
[2022-09-06] MEDS ORDERED: FUROSEMIDE 40 MG/4 ML VIAL IV ONE (15:00)
--- NOTE | 2022-09-06 16:50 | Cardiology Consultation ---
Date of Consultation September 06, 2022 Assessment & Plan (1) Breathlessness on exertion: (2) Ischemic cardiomyopathy: (3) Coronary artery disease: (4) Cardiac defibrillator in place: (5) Atrial fibrillation: Plan 1. Congestive heart failure: I think the most likely explanation for his worsening dyspnea was decompensated heart failure. He has had a significantly elevated BNP although in the setting of atrial fibrillation. Chest x-ray did not demonstrate severe pulmonary edema. His symptoms however appear to have resolved without much intervention. I think we will try some diuresis over the next 24 hours. Very likely could be discharged tomorrow with close follow-up in the clinic. This was possibly result of a reduced diuretic dose in the outpatient setting. 2. Ischemic cardiomyopathy: Patient's therapy was recently de escalated due to hyperkalemia and mild hypotension. Currently on jardiance, carvedilol and entresto ( by his report). 3. Coronary disease: Do not think his symptoms are consistent with angina. Certainly a consideration. However, his symptoms seemed to have improved over the past 24 hours and these symptoms were identical to those he experienced previously with decompensated heart failure. Continue aggressive secondary prevention 4. atrial fibrillation: Permanent. No overt symptoms. On appropriate systemic anticoagulation. History of Present Illness Reason for Consultation: Exertional dyspnea and chest pressure Requesting Physician: Sarai Attending Physician: Jose Gonzalez History of Present Illness the patient is a 77-year-old gentleman with a history of an ischemic cardiomyopathy who presented to the hospital with symptoms of worsening dyspnea. Patient states that for few days leading up to his admission he did have some symptoms of exertional dyspnea. However, this became notably worse over the past 2 days. He did report some sense of pressure in the upper neck with activity. He states this is distinct from symptoms he experienced during his heart attack many years ago. He did not describe this as a pain. The more prominent symptom was dyspnea. He also noted an 8 pound weight gain at home. He did not have peripheral edema. He has been adjusting his medical regimen and fact cut his diuretic dose in half recently. He did not report any new dietary changes but does eat out perhaps twice per week. He denies dizziness or lightheadedness. No orthostatic type symptoms. It seems that he did have some element of orthopnea over the past 2 nights and in fact did use his CPAP with improvement in his breathing. Curiously, he states that today he is feeling much better. He was able to ambulate a full lap around the [place] without significant dyspnea. No current breathing difficulties. No chest pains. Allergies Allergy/AdvReac Type Severity Reaction Status Date / Time bee venom protein (honey bee) Allergy Unknown BIT BY BEE Verified 08/02/22 09:43 SWARM-SWELLING THROAT FACE hydralazine AdvReac bad joint Verified 08/02/22 09:43 pain Home Medications Medication Instructions Recorded Confirmed Type albuterol sulfate 90 mcg/actuation 2 puffs inhalation Q4H PRN 12/23/18 09/05/22 Rx aerosol inhaler shortness of breath or wheezing #18 grams apixaban 5 mg tablet (Eliquis) 5 mg PO BID #60 tabs 12/23/18 09/05/22 Rx carvedilol 25 mg tablet 25 mg PO BID #60 tabs 12/23/18 09/05/22 Rx loratadine 10 mg tablet 10 mg PO DAILY #30 tabs 12/23/18 09/05/22 History multivitamin 1 tab PO QAM 12/23/18 09/05/22 History sildenafil 100 mg tablet 50 mg PO DAILY PRN . 12/31/18 09/05/22 History nitroglycerin 0.4 mg sublingual 0.4 mg sublingual Q5M PRN chest 04/08/19 09/05/22 Rx tablet pain #25 tabs rosuvastatin 40 mg tablet 20 mg PO HS 05/02/19 09/05/22 History tiotropium 2.5 mcg-olodaterol 2.5 2 puffs inhalation QAM 05/02/19 09/05/22 History mcg/actuation mist for inhalation fluticasone propionate 50 2 spray intranasal DAILY 11/15/21 09/05/22 History mcg/actuation nasal spray,suspension (Flonase Allergy Relief) calcium carbonate 600 mg calcium 600 mg PO DAILY 01/18/22 09/05/22 History (1,500 mg) tablet (Calcium) empagliflozin 10 mg tablet 10 mg PO DAILY #90 tabs 02/06/22 09/05/22 Rx furosemide 40 mg tablet 40 mg PO QAM #90 tabs 04/11/22 09/05/22 Rx Patient History Medical History Allergic rhinitis Anemia Cardiac defibrillator in place COPD with asthma Coronary artery disease Elevated liver enzymes Hyperlipidemia Hypertension Ischemic cardiomyopathy Non-ST elevation NV (NSTEMI) Paroxysmal atrial fibrillation Prediabetes Thrombocytopenia Surgical History History of nasal surgery Hx of CABG Hx of carpal tunnel repair Hx of hand surgery S/P appendectomy S/P colonoscopy S/P implantation of automatic cardioverter/defibrillator (AICD) Family History Other Heart disease Hypertension Social History Smoking Status: Never smoker Second Hand Exposure: Yes (SPOUSE USED TO SMOKE); Hx Alcohol Use: Yes Alcohol type: beer and wine Alcohol Intake Frequency: Monthly or Less Hx Substance Use: No Preferred Language: Hungarian Communication Ability: Effective Visual Impairment: Limited Hearing Ability: Use of Hearing Aid Ingredient Specialist Required: No Beliefs That Will Affect Care: None marital status: Current Living Situation: Spouse current occupational status: retired Feels Safe at Home: Yes caffeine: Yes Do you think of yourself as: straight/heterosexual Gender Identity: Male Assistive Devices: Cane Review of Systems Review of Systems: Per HPI Physical Exam Physical Exam: The patient is alert and oriented. Mood and affect appeared normal. He answered all questions appropriately. HEENT: Pupils are equal and reactive to light and accommodation. Extraocular movements are intact. The sclerae are anicteric. Neuro: Cranial nerves intact Lungs: Clear to auscultation bilaterally. He has good air movement without use of accessory muscles. No rales wheezes or rhonchi. Cardiac: Heart demonstrates an irregular rate and rhythm. Normal S1 and S2. No murmurs on examination. Pulses: The patient has palpable radial pulses bilaterally that are equal in intensity Extremities: There was no evidence of hypoperfusion. There is no cyanosis or clubbing. There is no edema. Skin: I did not appreciate any rashes on examination today. Results & Data Vital Signs (Past 12 Hours) Vital Signs Temp Pulse Pulse Resp BP BP Pulse Ox 09/06/22 15:44 36.5 C 74 20 123/70 97 09/06/22 14:16 65 09/06/22 11:11 36.5 C 64 16 128/71 97 09/06/22 08:18 36.6 C 72 19 125/54 L 97 09/06/22 07:51 09/06/22 07:43 83 O2 Del Method 09/06/22 15:44 Room Air 09/06/22 14:16 09/06/22 11:11 Room Air 09/06/22 08:18 Room Air 09/06/22 07:51 Room Air 09/06/22 07:43 Laboratory Results Abnormal Lab Results 09/05/22 09/05/22 09/05/22 10:27 20:37 21:06 WBC RBC Hgb Hct MCV MCH MCHC RDW Std Deviation RDW Coeff of Jodee Plt Count MPV Immature Gran % (Auto) Neut % (Auto) Lymph % (Auto) [place] % (Auto) Eos % (Auto) Baso % (Auto) Neut # (Auto) Lymph # (Auto) [place] # (Auto) Eos # (Auto) Baso # (Auto) Immature Gran # (Auto) Sodium Potassium Chloride Carbon Dioxide Anion Gap BUN Creatinine Est Cr Clr Drug Dosing Est GFR ( Amer) Est GFR (Non-Af Amer) BUN/Creatinine Ratio Glucose POC Glucose 114 H Estimat Average Glucose 123 Hemoglobin A1c 5.9 H Calcium Troponin I High Sens 22.2 H 09/06/22 09/06/22 09/06/22 03:22 03:22 03:22 WBC 5.58 RBC 3.59 L Hgb 12.7 L Hct 37.2 L MCV 103.6 H MCH 35.4 H MCHC 34.1 RDW Std Deviation 54.2 H RDW Coeff of Jodee 14.4 Plt Count 133 MPV 12.3 Immature Gran % (Auto) 0.2 Neut % (Auto) 60.4 Lymph % (Auto) 21.3 [place] % (Auto) 13.6 Eos % (Auto) 3.4 Baso % (Auto) 1.1 Neut # (Auto) 3.37 Lymph # (Auto) 1.19 L [place] # (Auto) 0.76 H Eos # (Auto) 0.19 Baso # (Auto) 0.06 Immature Gran # (Auto) 0.01 Sodium 138 Potassium 4.5 Chloride 106 Carbon Dioxide 27 Anion Gap 5 BUN 27 H Creatinine 1.35 Est Cr Clr Drug Dosing 48.1 Est GFR ( Amer) 58.7 Est GFR (Non-Af Amer) 50.6 BUN/Creatinine Ratio 20.0 Glucose 95 POC Glucose Estimat Average Glucose Hemoglobin A1c Calcium 8.8 Troponin I High Sens 22.9 H 09/06/22 09/06/22 09/06/22 07:47 09:21 11:40 WBC RBC Hgb Hct MCV MCH MCHC RDW Std Deviation RDW Coeff of Jodee Plt Count MPV Immature Gran % (Auto) Neut % (Auto) Lymph % (Auto) [place] % (Auto) Eos % (Auto) Baso % (Auto) Neut # (Auto) Lymph # (Auto) [place] # (Auto) Eos # (Auto) Baso # (Auto) Immature Gran # (Auto) Sodium Potassium Chloride Carbon Dioxide Anion Gap BUN Creatinine Est Cr Clr Drug Dosing Est GFR ( Amer) Est GFR (Non-Af Amer) BUN/Creatinine Ratio Glucose POC Glucose 89 124 H Estimat Average Glucose Hemoglobin A1c Calcium Troponin I High Sens 19.3 09/06/22 16:42 WBC RBC Hgb Hct MCV MCH MCHC RDW Std Deviation RDW Coeff of Jodee Plt Count MPV Immature Gran % (Auto) Neut % (Auto) Lymph % (Auto) [place] % (Auto) Eos % (Auto) Baso % (Auto) Neut # (Auto) Lymph # (Auto) [place] # (Auto) Eos # (Auto) Baso # (Auto) Immature Gran # (Auto) Sodium Potassium Chloride Carbon Dioxide Anion Gap BUN Creatinine Est Cr Clr Drug Dosing Est GFR ( Amer) Est GFR (Non-Af Amer) BUN/Creatinine Ratio Glucose POC Glucose 107 H Estimat Average Glucose Hemoglobin A1c Calcium Troponin I High Sens Diagnostic Findings chest x-ray obtained the time of admission did not reveal any acute cardiopulmonary process. Echocardiogram obtained today revealed reduced LV systolic function with ejection fraction of 30 percent. Regional wall motion abnormalities. Mild aortic regurgitation and moderate mitral regurgitation. Severe left atrial dilation. Elevated pulmonary pressures. PG Care Time/CCT Total # of Minutes Spent Total Time Spent with Patient: Total time spent is greater than 50% in coordination of care (as documented) at patient's floor/unit and/or counseling patient: Coding Level of Care Code 91395 INT INP/OBS CARE 3/75MIN Diagnoses Breathlessness on exertion R06.81 Ischemic cardiomyopathy I25.5 Coronary artery disease I25.[address] Z95.810 Atrial fibrillation I48.91
[2022-09-06] MEDS: ROSUVASTATIN CALCIUM 20 MG TAB PO SCH (20:36)
--- NOTE | 2022-09-07 05:36 | Electrocardiogram Report ---
Test Reason : Blood Pressure : / mmHG Vent. Rate : 072 BPM Atrial Rate : 326 BPM P-R Int : 000 ms QRS Dur : 142 ms QT Int : 432 ms P-R-T Axes : 000 -41 138 degrees QTc Int : 473 ms Atrial fibrillation Left axis deviation Left ventricular hypertrophy with QRS widening T wave abnormality, consider lateral ischemia Non-specific intra-ventricular conduction block Abnormal ECG When compared with ECG of 31-MAY-2021 11:23, No significant change Confirmed by Elijah Kim ([id number]) on 09/07/2022 5:36:45 AM Referred By: Confirmed By:Elijah Kim
[2022-09-07 07:08] LABS: BUN Creatinine Ratio 22.2 (10-20); Calcium 8.7 mg/dl (8.6-10.3); Creatinine Clr Calc Pharmacy 51.5 ml/min; Est GFR (African American) 63.8 ml/min; Potassium 3.6 mmol/L (3.5-5.1)
[2022-09-07 07:25] LABS: Vitamin B12 591 pg/ml (180-914)
[2022-09-07] MEDS: APIXABAN 5 MG TABLET PO SCH (08:30)
[2022-09-07] MEDS: VALSARTAN/SACUBITRIL 26/24MG TAB PO SCH (08:31)
[2022-09-07] MEDS: UMECLIDINIUM/VILANTEROL 62.5/25MCG 7 PUFFS/INHALER INH SCH (08:31)
[2022-09-07] MEDS: carvediloL 25 MG TAB PO SCH (08:31)
[2022-09-07] MEDS: INSULIN ASPART PER UNIT CHARGE SC SCH ×2 (08:33→12:26)
[2022-09-07] MEDS ORDERED: FUROSEMIDE 40 MG/4 ML VIAL IV SCH (09:00)
--- NOTE | 2022-09-07 09:53 | Cardiology Progress Note ---
Date of Service September 07, 2022 Assessment & Plan (1) Breathlessness on exertion: (2) Ischemic cardiomyopathy: (3) Coronary artery disease: (4) Cardiac defibrillator in place: (5) Atrial fibrillation: Plan 1. Congestive heart failure: he seems to be doing well. He has affected some diuresis. Clinically much better. It is possible that his reduced dose of diuretic in the outpatient setting resulted in slow fluid retention. Her originally his Lasix was reduced due to concerns over hypotension. However, his spironolactone his also been decreased and his Entresto was reduced. I think if he is ambulatory around the [place] later today without his presenting symptoms he could be discharged on his current medical regimen with the addition of Lasix 80 mg daily. 2. Ischemic cardiomyopathy: Patient's therapy was recently de escalated due to hyperkalemia and mild hypotension. Potassium normal today. I think he could be discharged on Jardiance, carvedilol, Lasix and his current dose of Entresto. blood pressure is normal if not elevated. 3. Coronary disease: Do not think his symptoms are consistent with angina. Continue aggressive secondary prevention. 4. atrial fibrillation: Permanent. No overt symptoms. On appropriate systemic anticoagulation. Admission and Anticipated Discharge Date Admission Date: September 05, 2022 Subjective This morning patient claims to be feeling well. He was able to sleep last night without significant orthopnea. He has been ambulatory and walked around the [place] again last evening without his presenting symptoms. Denies dizziness or lightheadedness. He feels that his abdomen is less tense. Review of Systems Review of Systems: HPI Physical Exam Physical Exam: The patient is alert and oriented. Mood and affect appeared normal. He answered all questions appropriately. HEENT: Pupils are equal and reactive to light and accommodation. Extraocular movements are intact. The sclerae are anicteric. Neuro: Cranial nerves intact Lungs: Clear to auscultation bilaterally. He has good air movement without use of accessory muscles. No rales wheezes or rhonchi. Cardiac: Heart demonstrates an irregular rate and rhythm. Normal S1 and S2. No murmurs on examination. Pulses: The patient has palpable radial pulses bilaterally that are equal in intensity Extremities: There was no evidence of hypoperfusion. There is no cyanosis or clubbing. There is no edema. Skin: I did not appreciate any rashes on examination today. Results & Data Vital Signs (Past 12 Hours) Vital Signs Temp Pulse Pulse Resp BP BP Pulse Ox 09/07/22 08:12 36.5 C 86 19 145/81 H 96 09/07/22 07:58 60 09/07/22 03:00 36.4 C L 70 20 134/71 92 09/06/22 23:23 64 09/06/22 22:00 37 C 72 18 152/90 H 92 O2 Del Method 09/07/22 08:12 Room Air 09/07/22 07:58 09/07/22 03:00 Room Air 09/06/22 23:23 09/06/22 22:00 Room Air Laboratory Results Abnormal Lab Results 09/06/22 09/06/22 09/06/22 09:21 11:40 16:42 Sodium Potassium Chloride Carbon Dioxide Anion Gap BUN Creatinine Est Cr Clr Drug Dosing Est GFR ( Amer) Est GFR (Non-Af Amer) BUN/Creatinine Ratio Glucose POC Glucose 124 H 107 H Calcium Troponin I High Sens 19.3 Vitamin B12 Folate TSH 09/06/22 09/07/22 09/07/22 20:32 05:53 05:53 Sodium 139 Potassium 3.6 Chloride 105 Carbon Dioxide 25 Anion Gap 9 BUN 28 H Creatinine 1.26 Est Cr Clr Drug Dosing 51.5 Est GFR ( Amer) 63.8 Est GFR (Non-Af Amer) 55.0 BUN/Creatinine Ratio 22.2 H Glucose 100 H POC Glucose 104 H Calcium 8.7 Troponin I High Sens Vitamin B12 591 Folate > 22.30 TSH 09/07/22 09/07/22 05:53 07:41 Sodium Potassium Chloride Carbon Dioxide Anion Gap BUN Creatinine Est Cr Clr Drug Dosing Est GFR ( Amer) Est GFR (Non-Af Amer) BUN/Creatinine Ratio Glucose POC Glucose 100 H Calcium Troponin I High Sens Vitamin B12 Folate TSH 3.774 PG Care Time/CCT Total # of Minutes Spent Total Time Spent with Patient: Total time spent is greater than 50% in coordination of care (as documented) at patient's floor/unit and/or counseling patient: Coding Level of Care Code 11815 SUB INP/OBS CARE 2/35MIN Diagnoses Breathlessness on exertion R06.81 Ischemic cardiomyopathy I25.5 Coronary artery disease I25.[address] Z95.810 Atrial fibrillation I48.91
--- NOTE | 2022-09-07 14:20 | Discharge Summary ---
Date of Service date of admission - September 05, 2022 date of discharge - September 07, 2022 Admission HPI Per Admitting Provider Aleks is a 77-year-old male with a past medical history of CAD s/p CABG, CHF, hypertension, hyperlipidemia, ischemic cardiomyopathy who presents with worsening exertional dyspnea spreading to his neck. He does not have symptoms at rest, last chest pain was this morning while walking and resolved with rest. Patient reports that in the last 5 days he has had a significant change in exercise tolerance very different from his normal baseline. Is now short of br eath with a squeezing feeling in the top of his chest while walking to the car, which resolves completely with rest. He is not in any pain at time of ER assessment OK when sitting. When he starts walking feels more weak in the legs, breathing becomes very labored with a dry nose, BP normally 110-120s, recently has been in the 140s/70s. 10lb weight gain in the last week. No change in diet. Has chest discomfort 'not pain just a tightness in the chest and throat' occurs at the same time as SoB with exertion. Started happening last Saturday (5 days ago) Previsouly good exercise tolerance going 6-7 mi over 30 min on stationary bike last month. Now can hardly walk to car due to shortness of breath. Has had orthopnea in the past, has not experienced this currently Stopped spironolactone recently, is now in entresto BID Took entresto this AM. Attempted to clarify dose, patient is not a good historian of his medications No asa/plaavix, stopped when he started Eliquis Albuterol maybe helps a little, not sure. No wheezing. Continues to use COPD/asthma overlap inhaler Hx double bypass in [facility] 20 years ago. No stents. No fever, chills, sweats, cough, lightheadedness, dizziness, syncope, presyncope. No melena. No bleeding/hematochezia Patient denies history of diabetes or being on diabetes medications. A1c 6.9% previously, was prescribed Jardiance in the setting of heart failure. Reviewed with patient who expressed understanding following conversation. Principal Diagnosis acute/chronic systolic CHF Discharge Exam gen - NAD, pleasant neck - resolved JVD mouth - MMM heart - irregularly irregular, s1 s2, no murmur lungs - nearly-resolved rales; no wheeze abd - soft NT ND BS+ ext - no edema, pulses 2+ b/l Discharge Data Allergies Allergy/AdvReac Type Severity Reaction Status Date / Time bee venom protein (honey bee) Allergy Unknown BIT BY BEE Verified 09/17/22 11:34 SWARM-SWELLING THROAT FACE hydralazine AdvReac bad joint Verified 09/17/22 11:34 pain Consultations [facility] Card[facility] Procedures Performed Echocardiogram - Hospital Course (1) Acute on chronic systolic CHF (congestive heart failure): Although cxr did not show obvious edema his exam findings coupled with 10-12 pound weight gain in the weeks leading up to admission were highly suggestive of decompensated CHF. He was diuresed during his stay with improvement in his chest symptoms. He was evaluated by Dr Manuel Marks from [facility] Cardiology who recommended he increase his daily lasix from 40mg to 80mg. He will remain on coreg 25mg BID, Entresto BID, along with the increased lasix dose. Echo was repeated during the visit with results noted above including EF 35%. Patient was counseled on ongoing fluid restriction, salt restriction, and daily weights. (2) Atrial fibrillation: rates were well-controlled while here. cont coreg cont Eliquis (3) Chest tightness: Despite known CAD his troponins were negative. His chest tightness was likely from pulmonary congestion from CHF. Again his chest symptoms resolved with diuresis. He will f/u closely with [facility] Card[facility]. If chest symptoms recur despite compensated CHF he may need repeat ischemic evaluation. (4) Elevated liver enzymes: t.bili, alk phos - may have been 2nd to hepatic congestion from right heart failure. He had no symptoms to suggest a primary biliary cause of elevated LFTs. (5) Cardiac defibrillator in place: interrogation completed during the stay. last discharge of device was several years ago. his device is functioning well. (6) COPD with asthma: no wheezing or other pulmonary symptoms to suggest exacerbation. cont home inhalers. (7) Coronary artery disease: s/p acute MO ~20 years ago followed by 2-vessel CABG. see discussion in #1 above. cont coreg, eliquis, statin, ARB. (8) Hyperlipidemia: cont statin (9) Hypertension: some elevated readings were present early in the admission but they improved with diuresis. no changes were made in his anti-hypertensive regimen. (10) Ischemic cardiomyopathy: 2nd to prior acute MO. see echo report above. (11) Prediabetes: most recent a1c <6%. cont diet control. (12) Pulmonary hypertension: severe based on current echo. decompensated CHF likely playing a role. mitral valve disease could be contributing. COPD could be contributing as well. o2 sats were normal during the hospitalization. (13) Macrocytic anemia: B12, folate, and TSH were all normal while here. Discharge hemoglobin was 12.7. He will need surveillance of his mild anemia. Total Time Total Time Spent Total Time Spent (In Minutes): 40 Discharge Plan Discharge Items Patient Disposition: Home - Self-Care Reason For Visit: CHEST TIGHTNESS Discharge Diagnosis: 1. chest tightness - no evidence of heart attack; symptoms likely due to congestive heart failure 2. congestive heart failure with weight gain & fluid build-up in the lungs - improving 3. history of coronary artery disease with open heart surgery 4. very mild anemia Activity: As commented below Activity Comment: gradually increase your activities over the next 5-7 days as tolerated Exercise/Sports: Wait until after follow-up appointment Non-emergency contact: Primary Care Provider and Php Engineer Call non-emergency contact if: you have any medication questions Follow-up/Referrals: Geetha Galvez MD [Primary Care Provider] - 09/17/22 (keep follow-up appointment with Dr Galvez as scheduled ) Richy Marks MD [Physician] - 09/14/22 2:30 pm (7-10 days -- follow up of congestive heart failure ) Diet: Carb Consistent or DM2 and Heart Healthy Fluids: 1500ml (6 cups) Addtl Attending Provider Instructions: Mr Wilder, You were hospitalized for episodes of chest tightness with activity. Fortunately we did not find evidence of any heart attack. Your echocardiogram was largely unchanged from your prior echocardiogram. You had evidence of fluid retention in the lungs from congestive heart failure. The fluid build-up was the likely cause of your chest tightness and other symptoms. You received IV furosemide diuretic and your symptoms and water retention improved. Dr Manuel Marks from [facility] Card[facility] saw you in consult and recommended that we increase your furosemide back to 80mg each day. Please resume the furosemide 80mg the morning of 09/08/22. No need to take any additional furosemide today upon return home. Continue to check your weights every day on the same scale. Best to use the toilet upon awakening, void, then jump on the scale and check your weight. Please limit total fluid consumption to about 1500ml in a 24-hour period. Please limit total sodium consumption to about 2000mg (2 grams) in a 24-hour period. Finally, at time of follow-up with Dr Galvez, please talk to her about the mild anemia (low red cells) and whether additional testing is needed. Follow-up - see separate section In addition, in 5-7 days, please have a blood draw to recheck your kidney function and electrolytes. I have included lab slips for you. These can be drawn at the main lab at [facility] or your family doctor's office. Return to [facility] if - * you have recurrent chest tightness or chest pain * you have worsening shortness of breath * your defibrillator device "fires" * any other concerns It was our pleasure to care for you! -Dr Gonzalez Pending Studies at Discharge: No Stand-Alone Forms: My [facility], Smoking Cessation Medications and DC Order Prescriptions: New Entresto 24-26 mg Tablet 1 tab PO BID Qty: 60 5RF Continued nitroglycerin 0.4 mg tablet, sublingual 0.4 mg SL Q5M PRN (Reason: chest pain) Qty: 25 0RF empagliflozin 10 mg tablet 10 mg PO DAILY Qty: 90 3RF loratadine 10 mg tablet 10 mg PO DAILY Qty: 30 multivitamin tablet 1 tab PO QAM albuterol sulfate 90 mcg/actuation HFA aerosol inhaler 2 puffs inhalation Q4H PRN (Reason: shortness of breath or wheezing) Qty: 18 5RF Eliquis 5 mg tablet 5 mg PO BID Qty: 60 5RF carvedilol 25 mg tablet 25 mg PO BID Qty: 60 5RF fluticasone propionate [Flonase Allergy Relief] 50 mcg/actuation spray,suspension 2 spray intranasal DAILY Rx Instructions: administer into each nostril calcium carbonate [Calcium 600] 600 mg calcium (1,500 mg) tablet 600 mg PO DAILY rosuvastatin 40 mg tablet 20 mg PO HS Changed furosemide 40 mg tablet 80 mg PO QAM Qty: 90 3RF Discontinued sildenafil 100 mg tablet 50 mg PO DAILY PRN (Reason: .) No Action tiotropium bromide 2.5 mcg/actuation mist 2 inh inhalation QAM Qty: 4 2RF Discharge Orders: Discharge Order (Routine); Ordered 09/07/22 Ordered By: Jose Gonzalez Admission Data Admit Date/Time: 09/05/22 13:20 Attending Provider: Jose Gonzalez Admit Provider: Edgardo Weinberg Primary Care Provider: Geetha Galvez Other Providers: Richy Marks Other Interventions: Discharge Summary Assessment (RN) Last Done: 09/07/22 14:20 Coding Level of Care Code 52053 INP/OBS DISCH >30 MIN Diagnoses Acute on chronic systolic CHF (congestive heart failure) I50.23 Atrial fibrillation I48.91 Chest tightness R07.89 Elevated liver enzymes R74.[address] Z95.810 COPD with asthma J44.9 Coronary artery disease I25.10 Hyperlipidemia E78.2 Hyperlipidemia type: mixed hyperlipidemia Hypertension I10 Hypertension type: essential hypertension Ischemic cardiomyopathy I25.5 Prediabetes R73.03 Pulmonary hypertension I27.20 Macrocytic anemia D53.9
== END 2022-09-07 14:45 | disposition home or self-care (01) ==
LOC: 2W 09:57 → ED 09:57 → SUATTDRO 13:20 → 2W 15:29

== ENCOUNTER 2023-12-29 10:10 | Inpatient (IN) ==
--- NOTE | 2023-12-29 11:04 | Emergency Department Note ---
Impression & Plan Weakness, Ischemic cardiomyopathy, Diarrhea, History of CHF (congestive heart failure) ED Provider Note NAME: BOOGIE VELASQUEZ AGE: 78 SEX: M : 1945 ARRIVES VIA: Walk-In INFORMANT: Patient, ED PROVIDER(S): Peewee Gutierrez MD CHIEF COMPLAINT: Diarrhea, weakness MEDICAL DECISION MAKING: Patient presents due to concern for weakness fatigue as well as diarrheal illness. IV was established and blood work was obtained. Patient did have prior E. coli Shiga toxin noted in most recent stool studies. Patient was ordered 250 bolus to be given over 1 hour given the patient's significantly poor EF. Patient with a normal white count hemoglobin and platelet count kidney function unremarkable with potassium 3.3. Troponin is elevated although has had chronic elevations in the past. No active chest pain or shortness of breath. TSH is elevated free T4 is normal. Urinalysis does not show any evidence of ketones. I did discuss the findings with the patient the patient's at bedside. I did state that patient does not have any significant lab abnormalities and vitals are reassuring to where if they wanted to consider outpatient treatment is not unreasonable although cannot aggressively fluid resuscitated given the patient's poor EF. Patient and patient's did not feel comfortable taking him home due to concerns about his increasing weakness and fatigue. I did Nathaly speak ta the on-call hospital service DIMITRI Low PA-C and Dr. Martines. Patient was admitted to the medicine service. Discussion w/ other healthcare providers: DIMITRI Low PA-C and Dr. Martines Prior /Outside records reviewed: I reviewed a heart failure visit from November 04, 2023 seen by Marilyn Gallagher.. Patient then history of A-fib ischemic cardiomyopathy CAD and acute on chronic CHF. EF of 15 to 20%. Patient is on Eliquis Coreg Lasix Differential diagnosis: Infection, dehydration, metabolic abnormality, hypo/hyperglycemia, electrolyte imbalance, anemia, UTI, pneumonia, thyroid dysfunction among others were considered. Diagnostics, as interpreted by me: ECG: V paced rhythm, PVCs noted, rate of 74, normal wide QRS, left axis deviation. ST depressions lateral leads. No significant change March 28, 2023 Cardiac monitoring: An order was placed for continuous cardiac monitoring. The monitor shows a rate of 75 with paced rhythm. Patient was placed on pulse oximetry Medical decision rules: None Imaging studies: I informally interpreted the patient's Chest x-ray that showed cardiomegaly no obvious pneumothorax, sternotomy wires and device noted. with formal report to follow. HPI: Patient presents due to concern for diarrhea and associated weakness and fatigue. The patient states that his diarrhea began this past Saturday and states he was seen here and was told it was likely food poisoning. The patient states that he was at a family picnic on and that he may have got it from this family picnic and thought that the pickles may have been bad. Patient has not had any vomiting he still tolerating solids and liquids. The patient states he typically has a larger liquid bowel movement in the morning and feels like he has to go 10 times per day over the last week. Patient states that he had decreased energy and fatigue. No reported blood in the stool. No urinary symptoms. Patient does have significant cardiac history but no reports of chest pains or shortness of breath. He does wear compression stockings help with any leg swelling. He has been taking his medications all week. Patient denies any known sick contacts. The patient denies any untreated stream or well water and no recent antibiotic use. He does follow with Dr. Marks with cardiology. Patient reports that he did bring his own stool for testing if needed. PAST MEDICAL HISTORY: See Below PAST SURGICAL HISTORY: See Below SOCIAL HISTORY: See Below HOME MEDICATIONS: See Below ALLERGIES: See Below VITALS: See Below PHYSICAL EXAMINATION: GENERAL: NAD, non-toxic. EYE EXAM: Normal conjunctiva. PERRL, no anisocoria and EOM's grossly intact w/o pain. OROPHARYNX: Dry mucus membranes, grossly normal dentition. NECK: Trachea midline, no stridor. LUNGS: Clear to auscultation. Normal chest wall mechanics. HEART: NSR, no MRG. ABDOMEN: Abdomen soft, non-tender, no masses, no rebound or guarding. BACK: No CVA TTP. SKIN: No rashes and no bruising. UPPER EXTREMITIES: Upper extremities are grossly normal. LOWER EXTREMITIES: Grossly normal, 1+ symmetric lower extremity edema without calf pain or erythema, compression stockings noted. NEURO EXAM: A&O x3, cranial nerves II-XII grossly intact, normal speech, moves all 4 extremities. Past Med/Surg History Problem List (Updated 12/29/23 @ 17:40 by Peewee Gutierrez MD) History of CHF (congestive heart failure) (Acute) Diarrhea (Acute) Weakness (Acute) Cirrhosis of liver pt unsure? Heart failure with reduced ejection fraction Diarrhea (Acute) Shiga toxin-producing Escherichia coli infection (Acute) Chronic kidney disease, stage 3a Proteinuria Diabetes mellitus Biventricular implantable cardioverter-defibrillator (ICD) in situ Elevated liver enzymes (Acute) Inflammatory arthritis Macrocytic anemia Pulmonary hypertension Elevated liver enzymes Chronic venous insufficiency of lower extremity (Chronic) Abnormal ankle brachial index ([place]WARD) Venous stasis dermatitis Acute on chronic systolic CHF (congestive heart failure) SOB (shortness of breath) (Acute) Sleep apnea Arthritis of carpometacarpal (CMC) joint of left thumb Carpal tunnel syndrome, left Paroxysmal atrial fibrillation Coronary artery disease s/p 2 vessel CABG (2003) Ischemic cardiomyopathy (Acute) S/p AICD placement - LVEF 30-35%. LVEF 15% to 20% on 02/28/23, upgraded to Bi-V AICD 03/28/23. Allergic rhinitis (Chronic) Hypertension (Chronic) Prediabetes (Chronic) oral med Anemia Thrombocytopenia Congestive heart failure Medical History Hx of reduction of nasal fracture ICD (implantable cardioverter-defibrillator) in place 03/2023, "old" ICD removed and replaced w/pacemaker/ICD device (medtronic), [facility]; f/u dr. marks Valvular heart disease SOB (shortness of breath) hospitalized twice in fall 2022, "filling up with fluid, dr decided it was time to change his defibrillator/pacemaker" Non-ST elevation MD (NSTEMI) Anterior MD 2006- s/p 2 vessel CABG Hyperlipidemia COPD with asthma daily and prn inh Cardiac defibrillator in place [employer] single-chamber, [facility] Surgical History History of cataract surgery left Hx of carpal tunnel repair Left hand Hx of hand surgery Plate placed in L thumb History of nasal surgery Hx of CABG 2003, s/p heart attack, double bypass, [place] S/P colonoscopy 05/25/2015 repeat 10yrs S/P implantation of automatic cardioverter/defibrillator (AICD) [employer] S/P appendectomy Family History Father Myocardial infarction Other Heart disease Hypertension Denies family history of Prostate cancer Colorectal cancer Social History Smoking Status: Never smoker Tobacco Type: Cigarettes Second Hand Exposure: No; Do You Dip or Chew Tobacco: No; Hx Alcohol Use: Yes Alcohol type: hard liquor Alcohol Intake Frequency: Monthly or Less Hx Substance Use: No Preferred Language: Uzbek Communication Ability: Effective Visual Impairment: Limited Hearing Ability: Use of Hearing Aid Rail Grinder Required: No Beliefs That Will Affect Care: None marital status: Current Living Situation: Spouse current occupational status: retired Feels Safe at Home: Yes Diet: low salt caffeine: Yes Do you think of yourself as: straight/heterosexual Gender Identity: Male Assistive Devices: Glasses and Hearing Aid - Bilateral Allergies Allergies Allergy/AdvReac Type Severity Reaction Status Date / Time bee venom protein (honey bee) Allergy Severe BIT BY BEE Verified 11/05/23 12:58 SWARM-SWELLING THROAT FACE hydralazine AdvReac Intermediate bad joint Verified 11/05/23 12:58 pain COVID-19 (SARS-CoV-2) AdvReac Mild Rash Verified 11/05/23 12:58 vaccine, elva Home Meds Home Medications Medication Instructions Recorded Confirmed multivitamin 1 tab PO QAM 12/23/18 12/29/23 rosuvastatin 40 mg tablet 20 mg PO HS 05/02/19 12/29/23 fluticasone propionate 50 1 spray intranasal DAILY PRN 07/25/23 12/29/23 mcg/actuation nasal Congestion spray,suspension empagliflozin 25 mg tablet 12.5 mg PO DAILY 11/04/23 12/29/23 (Jardiance) fexofenadine [Tracy Allergy] 1 tab PO DAILY PRN Allergy Symptoms 11/04/23 12/29/23 cholecalciferol (vitamin D3) 10 10 mcg PO DAILY 11/05/23 12/29/23 mcg (400 unit) capsule carvedilol 25 mg tablet 12.5 mg PO BID 12/29/23 12/29/23 Previous Rx's Medication Instructions Recorded albuterol sulfate 90 mcg/actuation 2 puffs inhalation Q4H PRN 12/23/18 aerosol inhaler shortness of breath or wheezing #18 grams apixaban 5 mg tablet (Eliquis) 5 mg PO BID #60 tabs 12/23/18 tiotropium bromide 2.5 2 inh inhalation QAM #4 grams 09/17/22 mcg/actuation mist for inhalation nitroglycerin 0.4 mg sublingual 0.4 mg sublingual Q5M PRN chest 10/31/22 tablet pain #25 tabs furosemide 40 mg tablet 40 mg PO QAM #90 tabs 03/04/23 sacubitril 24 mg-valsartan 26 mg 1 tab PO BID #90 tabs 11/15/23 tablet (Entresto) Results & Data (ED) Vital Signs Vital Signs - 24 hr 12/29/23 10:10 12/29/23 10:37 12/29/23 11:03 Temperature 36.6 C Temperature Source Temporal Artery Scan Pulse Rate 72 70 Pulse Rate [Apical] 74 Pulse Rhythm [Apical] Regular Pulse Strength [Apical] Normal Respiratory Rate 18 18 19 Respiratory Effort / Characteristics Non-Labored Respiratory Depth Normal Respiratory Pattern Regular Blood Pressure 68/45 L Blood Pressure [Right Arm] 115/70 Blood Pressure Mean 52 Blood Pressure Mean [Right Arm] 85 Pulse Oximetry 98 96 Oxygen Delivery Method Room Air Sepsis Recent Fever Within 48 Hours No Sepsis New/Unexplained Change in Mental Status N/A Sepsis Action Taken by Nursing No Action Required 12/29/23 11:18 12/29/23 11:39 12/29/23 12:09 Temperature Temperature Source Pulse Rate 70 74 71 Pulse Rate [Apical] Pulse Rhythm [Apical] Pulse Strength [Apical] Respiratory Rate 20 13 Respiratory Effort / Characteristics Respiratory Depth Respiratory Pattern Blood Pressure Blood Pressure [Right Arm] Blood Pressure Mean Blood Pressure Mean [Right Arm] Pulse Oximetry Oxygen Delivery Method Room Air Sepsis Recent Fever Within 48 Hours Sepsis New/Unexplained Change in Mental Status Sepsis Action Taken by Nursing 12/29/23 12:36 12/29/23 12:37 12/29/23 12:48 Temperature Temperature Source Pulse Rate 70 71 Pulse Rate [Apical] Pulse Rhythm [Apical] Pulse Strength [Apical] Respiratory Rate 15 Respiratory Effort / Characteristics Respiratory Depth Respiratory Pattern Blood Pressure 121/72 Blood Pressure [Right Arm] Blood Pressure Mean 93 Blood Pressure Mean [Right Arm] Pulse Oximetry Oxygen Delivery Method Sepsis Recent Fever Within 48 Hours Sepsis New/Unexplained Change in Mental Status Sepsis Action Taken by Nursing 12/29/23 12:48 12/29/23 13:00 12/29/23 13:00 Temperature Temperature Source Pulse Rate 73 70 Pulse Rate [Apical] Pulse Rhythm [Apical] Pulse Strength [Apical] Respiratory Rate 13 15 Respiratory Effort / Characteristics Respiratory Depth Respiratory Pattern Blood Pressure 110/67 Blood Pressure [Right Arm] Blood Pressure Mean 82 Blood Pressure Mean [Right Arm] Pulse Oximetry Oxygen Delivery Method Sepsis Recent Fever Within 48 Hours Sepsis New/Unexplained Change in Mental Status Sepsis Action Taken by Nursing 12/29/23 13:27 12/29/23 13:30 12/29/23 13:54 Temperature Temperature Source Pulse Rate 71 71 Pulse Rate [Apical] Pulse Rhythm [Apical] Pulse Strength [Apical] Respiratory Rate 14 20 Respiratory Effort / Characteristics Respiratory Depth Respiratory Pattern Blood Pressure 119/73 Blood Pressure [Right Arm] Blood Pressure Mean 91 Blood Pressure Mean [Right Arm] Pulse Oximetry Oxygen Delivery Method Sepsis Recent Fever Within 48 Hours Sepsis New/Unexplained Change in Mental Status Sepsis Action Taken by Nursing 12/29/23 14:00 12/29/23 14:09 Temperature Temperature Source Pulse Rate 71 Pulse Rate [Apical] Pulse Rhythm [Apical] Pulse Strength [Apical] Respiratory Rate 16 Respiratory Effort / Characteristics Respiratory Depth Respiratory Pattern Blood Pressure 123/72 Blood Pressure [Right Arm] Blood Pressure Mean 86 Blood Pressure Mean [Right Arm] Pulse Oximetry Oxygen Delivery Method Sepsis Recent Fever Within 48 Hours Sepsis New/Unexplained Change in Mental Status Sepsis Action Taken by [facility] Medications Current Medication List: was personally reviewed by me Laboratory Data Attestation: I reviewed the patient's lab results. 12/29/23 11:27 12/29/23 11:27 Lab Results 12/29/23 12/29/23 12/29/23 Range/Units 11:27 11:42 13:06 WBC 8.56 (4.8-10.8) K/ul RBC 4.43 L (4.70-6.10) M/uL Hgb 15.0 (14.0-18.0) g/dl Hct 44.8 (42.0-52.0) % MCV 101.1 H (80.0-100.0) fL MCH 33.9 (25.0-34.0) pg MCHC 33.5 (32.0-36.0) g/dL RDW Std Deviation 55.9 H (36.4-46.3) fL RDW Coeff of Jodee 14.8 H (11.5-14.5) % Plt Count 159 (130-400) K/uL MPV 13.0 H (9.4-12.4) fL Immature Gran % (Auto) 0.5 % Neut % (Auto) 84.9 % Lymph % (Auto) 6.9 % [place] % (Auto) 6.2 % Eos % (Auto) 0.7 % Baso % (Auto) 0.8 % Neut # (Auto) 7.27 H (1.40-6.50) K/uL Lymph # (Auto) 0.59 L (1.20-3.40) K/uL [place] # (Auto) 0.53 (0.11-0.59) K/uL Eos # (Auto) 0.06 (0.00-0.50) K/uL Baso # (Auto) 0.07 (0.00-0.20) K/uL Immature Gran # (Auto) 0.04 (0.01-0.20) K/uL Sodium 136 (136-145) mmol/L Potassium 3.3 L (3.5-5.1) mmol/L Chloride 101 (98-107) mmol/L Carbon Dioxide 26 (21-32) mmol/L Anion Gap 9 (3-11) BUN 20 (6-23) mg/dl Creatinine 1.35 (0.6-1.4) mg/dl Est Cr Clr Drug Dosing Not Reportable Est GFR ( Amer) 58.3 ml/min Est GFR (Non-Af Amer) 50.3 ml/min BUN/Creatinine Ratio 14.8 (10-20) Glucose 118 H (70-99(Fasting)) mg/dl Calcium 9.0 (8.6-10.3) mg/dl Magnesium 2.1 (1.7-2.4) mg/dl Total Bilirubin 3.4 H (0.2-1.0) mg/dl AST 31 (13-39) U/L ALT 13 (7-52) U/L Alkaline Phosphatase 132 H (34-104) U/L Troponin I High Sens 50.8 H* 50.0 H* (0-20) pg/ml Total Protein 7.6 (6.0-8.3) gm/dl Albumin 3.7 (3.4-5.0) gm/dl Globulin 3.9 (2.5-4.0) gm/dl Albumin/Globulin Ratio 0.9 (0.9-2) TSH 5.122 H (0.300-4.500) uIu/ml Free T4 1.40 (0.61-1.60) ng/dl Urine Color Yellow Urine Appearance Clear (Clear) Urine pH 5.0 (4.5-7.5) Ur Specific [place] 1.011 (1.000-1.030) Urine Protein 1+ H (Negative) Urine Glucose (UA) 3+ H (Negative) Urine Ketones Negative (Negative) Urine Blood Negative (Negative) Urine Nitrite Negative (Negative) Urine Bilirubin Negative (Negative) Urine Urobilinogen Negative (Negative) Ur Leukocyte Esterase Negative (Negative) Urine WBC (Auto) 0-5 (0-5) /hpf Urine RBC (Auto) 0-2 (0-2) /hpf U Hyaline Cast (Auto) 3-5 H (0-2) /lpf U Epithel Cells (Auto) 0-2 (0-2) /hpf Urine Bacteria (Auto) None Seen (None Seen) Administered Medications Lactated Ringer's (Lr) 1,000 mls @ 60 mls/hr IV .[id number] JANINE Stop: 12/30/23 07:39 Last Admin: 12/29/23 15:06 Dose: 60 mls/hr Documented By: LILLI Discontinued Medications Sodium Chloride (Nss) 250 mls @ 250 mls/hr IV .Q1H ONE Stop: 12/29/23 12:13 Last Infusion: 12/29/23 13:15 Dose: Infused Documented By: Admin: 12/29/23 11:21 Dose: 250 mls/hr Documented By: LILLI Potassium Chloride (Potassium Chloride Crtab 20 Meq Tabcr) 20 meq PO NOW STA Stop: 12/29/23 14:14 Last Admin: 12/29/23 14:39 Dose: 20 meq Documented By: LILLI Imaging Data Radiologist's Impression: Chest X-Ray 12/29/23 11:14 XR chest 1V portable HISTORY: weakness COMPARISON: Chest 03/28/2023. FINDINGS: There are low lung volumes. Slightly rotated study. No pneumothorax. No pleural effusions. No focal lung consolidations to suggest a pneumonia. No evidence for pulmonary edema. The heart remains mildly enlarged. There are poststernotomy changes and left-sided pacemaker/defibrillator. IMPRESSION: Stable cardiomegaly. Otherwise, no acute process within the chest. ACT 112: Negative or not required by law. Electronically signed by: Yusuf Esposito M.D. 12/29/2023 11:57 AM Discharge Plan Visit Data Chief Complaint: Diarrhea Stated Complaint: DIARRHEA ED Provider: Peewee Gutierrez Discharge Problem: Weakness, Ischemic cardiomyopathy, Diarrhea, History of CHF (congestive heart failure) Discharge Instructions Interventions: ED Discharge Assessment Last Done: 12/29/23 16:59 Discharge Problem: Diarrhea Qualifiers: Diarrhea type: infectious Qualified Code(s): A09 - Infectious gastroenteritis and colitis, unspecified
[2023-12-29] MEDS: SODIUM CHLORIDE 0.9% 250 ML IV ONE (11:21)
[2023-12-29 11:48] LABS: Basophils # (auto) 0.07 K/uL (0.00-0.20); Basophils % (auto) 0.8 %; Eosinophils # (auto) 0.06 K/uL (0.00-0.50); Eosinophils % (auto) 0.7 %; Hematocrit (blood only) 44.8 % (42.0-52.0); Immature Granulocytes # (auto) 0.04 K/uL (0.01-0.20); Immature Granulocytes % (auto) 0.5 %; Lymphocytes # (auto) 0.59 K/uL (1.20-3.40); Lymphocytes % (auto) 6.9 %; Mean Corpuscular Hemoglobin 33.9 pg (25.0-34.0); Mean Corpuscular Hgb Conc 33.5 g/dL (32.0-36.0); Mean Corpuscular Volume 101.1 fL (80.0-100.0); Monocytes # (auto) 0.53 K/uL (0.11-0.59); Monocytes % (auto) 6.2 %; Neutrophils # (auto) 7.27 K/uL (1.40-6.50); Neutrophils % (auto) 84.9 %; Platelet Count 159 K/uL (130-400); RDW Coefficient of Variation 14.8 % (11.5-14.5); RDW Standard Deviation 55.9 fL (36.4-46.3); Red Blood Count 4.43 M/uL (4.70-6.10); White Blood Count 8.56 K/ul (4.8-10.8)
[2023-12-29 11:52] LABS: Appearance Urine Clear (Clear); Bacteria Urine Automated None Seen (None Seen); Bilirubin Urine Negative (Negative); Blood Urine Negative (Negative); Color Urine Yellow; Epithelial Cell Urine Auto 0-2 /hpf (0-2); Glucose Urine UA 3+ (Negative); Ketones Urine Negative (Negative); Leukocyte Esterase Urine Negative (Negative); Nitrite Urine Negative (Negative); Protein Urine 1+ (Negative); RBC Urine Automated 0-2 /hpf (0-2); Specific Gravity Urine 1.011 (1.000-1.030); Urobilinogen Urine Negative (Negative); WBC Urine Automated 0-5 /hpf (0-5)
--- NOTE | 2023-12-29 11:59 | XRay Report ---
XR chest 1V portable HISTORY: weakness COMPARISON: Chest 03/28/2023. FINDINGS: There are low lung volumes. Slightly rotated study. No pneumothorax. No pleural effusions. No focal lung consolidations to suggest a pneumonia. No evidence for pulmonary edema. The heart remai ns mildly enlarged. There are poststernotomy changes and left-sided pacemaker/defibrillator. IMPRESSION: Stable cardiomegaly. Otherwise, no acute process within the chest. ACT 112: Negative or not required by law. Electronically signed by: Yusuf Esposito M.D. 12/29/2023 11:57 AM
[2023-12-29 12:00] LABS: Alanine Aminotransferase 13 U/L (7-52); Albumin Globulin Ratio 0.9 (0.9-2); Albumin Level 3.7 gm/dl (3.4-5.0); Alkaline Phosphatase 132 U/L (34-104); Anion Gap 9 (3-11); Aspartate Aminotransferase 31 U/L (13-39); BUN Creatinine Ratio 14.8 (10-20); Bilirubin,Total 3.4 mg/dl (0.2-1.0); Blood Urea Nitrogen 20 mg/dl (6-23); Carbon Dioxide 26 mmol/L (21-32); Chloride 101 mmol/L (98-107); Est GFR (African American) 58.3 ml/min; Est GFR (Non-African American) 50.3 ml/min; Globulin 3.9 gm/dl (2.5-4.0); Glucose 118 mg/dl (70-99(Fasting)); Magnesium 2.1 mg/dl (1.7-2.4); Potassium 3.3 mmol/L (3.5-5.1); Sodium 136 mmol/L (136-145); Total Protein 7.6 gm/dl (6.0-8.3)
--- NOTE | 2023-12-29 12:04 | Electrocardiogram Report ---
Test Reason : Blood Pressure : / mmHG Vent. Rate : 074 BPM Atrial Rate : 101 BPM P-R Int : 000 ms QRS Dur : 134 ms QT Int : 454 ms P-R-T Axes : 000 -55 156 degrees QTc Int : 503 ms Ventricular-paced rhythm with occasional PVCs Abnormal ECG When compared with ECG of 28-MAR-2023 13:07, No significant change was found Confirmed by Richy Marks ([id number]) on 12/29/2023 12:04:41 PM Referred By: Confirmed By:Mauricio Marks
[2023-12-29 12:16] LABS: Thyroid Stimulating Hormone 5.122 uIu/ml (0.300-4.500)
[2023-12-29 12:24] LABS: Troponin I High Sensitivity 50.8 pg/ml (0-20)
--- NOTE | 2023-12-29 13:24 | History & Physical Report ---
Date of Service December 29, 2023 Assessment & Plan (1) Shiga toxin-producing Escherichia coli infection: Plan: Ongoing daily diarrhea that began on Tuesday 12/19 (+) E. coli Shiga toxin on Stool PCR 12/21 Patient has failed supportive measures outpatient Repeat PCR stool/C. difficile ordered, pending; patient was recently placed on antibiotics this past week (azithromycin 500 mg p.o. daily) In the setting of severe heart failure and reduced ejection fraction, will prov vlad cautious IVF maintenance LR at 60 mL/hr x 1 L and will reassess Defer anti-motility agents and further antibiotics Replete K + Mag as needed Supportive care A.m. CBC, CMP, mag (2) Heart failure with reduced ejection fraction: Plan: Echocardiogram on 02/28/2023 revealed LVEF at 15-20%, and severe global hypokinesis with septal dyskinesis BNP ordered, pending Daily weights Strict I and O monitoring Hold Lasix for now in the setting of volume depletion Hold Entresto and Jardiance (3) Diabetes mellitus: Plan: Last A1c at 7.0% on 07/23/2023 SSI with target BSG range 110-140mg/dL, CF 50, carb ratio 15 T2DM diet BSG ACHS Adjust regimen as needed AM A1c (4) Paroxysmal atrial fibrillation: Plan: Rate controlled Continue Eliquis, carvedilol (5) Hypertension: (6) Cirrhosis of liver: (7) Biventricular implantable cardioverter-defibrillator (ICD) in situ: Plan Disposition: Admit to [facility] telemetry Full code Heart healthy, T2DM diet VTE PX: On Eliquis History of Present Illness Chief Complaint: Diarrhea Primary Care Provider: DO Claudia Alleny is a 78-year-old male with PMH of CHF, thrombocytopenia, diabetes mellitus, allergic rhinitis, CAD, sleep apnea, and chronic venous insufficiency. He presented on 12/28 for diarrhea x 1.5 weeks. Patient reports he was at a [employer] picnic on 12/18 and had some food that was brought in by other people; he believes the thing that got him sick might have been a jar of pickles that was sitting out on the counter for an extended period time. His grandson also developed abdominal cramping following the picnic. Then, patient developed bad diarrhea on Saturday morning 12/19. He went to the ED on 12/21 and his PCR stool tested positive for Shiga toxin. He was instructed to go home on supportive care (has been drinking lots of Gatorade, Pedialyte, and eating bland food), but he is not had any significant improvement. Patient took his regular medications today. No recent change in medications. No history of DVT/PE. No recent falls or injuries to the chest wall or abdomen. Patient ambulates with a cane at baseline. He is currently having diarrhea 10 times per day. He characterizes as a semiformed stool in the mornings, but becomes more liquid-y as the day progresses. The color is brown/yellowish. No mucus in stool. No bright red blood in the stool. at bedside reports that he has also been experiencing fecal incontinence; he gets up and takes 2 steps and finds that diarrhea is "running out of him". Of note, the patient also has significant heart disease. He was previously looking to become a heart transplant candidate, but was denied due to age. No recent change in diet, but patient's reports he has been eating less recently. He watches his salt intake and weighs himself daily. Patient was previously drinking alcohol pretty regularly, but stopped after discovering he had liver cirrhosis 2 months ago. Patient denies smoking or tobacco use. Patient's vitals are stable at time of mission. ED course: NSS 250 mL IV ROS: Patient endorses fatigue, dizziness when laying in bed, lightheadedness, abdominal cramping/discomfort, ongoing diarrhea, and new onset of fecal incontinence. Patient denies fever, chills, night sweats, headache, chest pain, SOB at rest, [place],, cough, N/V, blood in stool, new lower back pain, saddle anesthesia, or numbness or tingling down the arms or legs bilaterally. Allergies Allergy/AdvReac Type Severity Reaction Status Date / Time bee venom protein (honey bee) Allergy Severe BIT BY BEE Verified 11/05/23 12:58 SWARM-SWELLING THROAT FACE hydralazine AdvReac Intermediate bad joint Verified 11/05/23 12:58 pain COVID-19 (SARS-CoV-2) AdvReac Mild Rash Verified 11/05/23 12:58 vaccine, elva Home Medications Medication Instructions Recorded Confirmed Type albuterol sulfate 90 mcg/actuation 2 puffs inhalation Q4H PRN 12/23/18 12/29/23 Rx aerosol inhaler shortness of breath or wheezing #18 grams apixaban 5 mg tablet (Eliquis) 5 mg PO BID #60 tabs 12/23/18 12/29/23 Rx multivitamin 1 tab PO QAM 12/23/18 12/29/23 History rosuvastatin 40 mg tablet 20 mg PO HS 05/02/19 12/29/23 History tiotropium bromide 2.5 2 inh inhalation QAM #4 grams 09/17/22 12/29/23 Rx mcg/actuation mist for inhalation nitroglycerin 0.4 mg sublingual 0.4 mg sublingual Q5M PRN chest 10/31/22 12/29/23 Rx tablet pain #25 tabs furosemide 40 mg tablet 40 mg PO QAM #90 tabs 03/04/23 12/29/23 Rx fluticasone propionate 50 1 spray intranasal DAILY PRN 07/25/23 12/29/23 History mcg/actuation nasal Congestion spray,suspension empagliflozin 25 mg tablet 12.5 mg PO DAILY 11/04/23 12/29/23 History (Jardiance) fexofenadine [Tracy Allergy] 1 tab PO DAILY PRN Allergy Symptoms 11/04/23 12/29/23 History cholecalciferol (vitamin D3) 10 10 mcg PO DAILY 11/05/23 12/29/23 History mcg (400 unit) capsule sacubitril 24 mg-valsartan 26 mg 1 tab PO BID #90 tabs 11/15/23 12/29/23 Rx tablet (Entresto) carvedilol 25 mg tablet 12.5 mg PO BID 12/29/23 12/29/23 History Past Med/Surg History Problem List (Updated 12/29/23 @ 17:40 by Peewee Gutierrez MD) History of CHF (congestive heart failure) (Acute) Diarrhea (Acute) Weakness (Acute) Cirrhosis of liver pt unsure? Heart failure with reduced ejection fraction Diarrhea (Acute) Shiga toxin-producing Escherichia coli infection (Acute) Chronic kidney disease, stage 3a Proteinuria Diabetes mellitus Biventricular implantable cardioverter-defibrillator (ICD) in situ Elevated liver enzymes (Acute) Inflammatory arthritis Macrocytic anemia Pulmonary hypertension Elevated liver enzymes Chronic venous insufficiency of lower extremity (Chronic) Abnormal ankle brachial index ([place]) Venous stasis dermatitis Acute on chronic systolic CHF (congestive heart failure) SOB (shortness of breath) (Acute) Sleep apnea Arthritis of carpometacarpal (CMC) joint of left thumb Carpal tunnel syndrome, left Paroxysmal atrial fibrillation Coronary artery disease s/p 2 vessel CABG (2003) Ischemic cardiomyopathy (Acute) S/p AICD placement - LVEF 30-35%. LVEF 15% to 20% on 02/28/23, upgraded to Bi-V AICD 03/28/23. Allergic rhinitis (Chronic) Hypertension (Chronic) Prediabetes (Chronic) oral med Anemia Thrombocytopenia Congestive heart failure Medical History Hx of reduction of nasal fracture ICD (implantable cardioverter-defibrillator) in place 03/2023, "old" ICD removed and replaced w/pacemaker/ICD device (medtronic), @[facility]; f/u dr. claudio Valvular heart disease SOB (shortness of breath) hospitalized twice in fall 2022, "filling up with fluid, dr decided it was time to change his defibrillator/pacemaker" Non-ST elevation NE (NSTEMI) Anterior NE 2006- s/p 2 vessel CABG Hyperlipidemia COPD with asthma daily and prn inh Cardiac defibrillator in place [employer] [facility] History of cataract surgery left Hx of carpal tunnel repair Left hand Hx of hand surgery Plate placed in L thumb History of nasal surgery Hx of CABG 2003, s/p heart attack, double bypass, [place] S/P colonoscopy 05/25/2015 repeat 10yrs S/P implantation of automatic cardioverter/defibrillator (AICD) [employer] S/P appendectomy Family History Father Myocardial infarction Other Heart disease Hypertension Denies family history of Prostate cancer Colorectal cancer Social History Smoking Status: Former smoker Tobacco Type: Cigarettes Second Hand Exposure: No; Do You Dip or Chew Tobacco: No; Tobacco Cessation Education Requested by Patient: No Hx Alcohol Use: Yes Alcohol type: hard liquor Alcohol Intake Frequency: Monthly or Less Hx Substance Use: No Preferred Language: Icelandic Communication Ability: Effective Visual Impairment: Limited Hearing Ability: Use of Hearing Aid Resource Director Required: No Beliefs That Will Affect Care: None marital status: Current Living Situation: Spouse current occupational status: retired Other Information That Helps Us Care for You: No Feels Safe at Home: Yes Safety Concerns: Feels Safe At This Time Diet: low salt caffeine: Yes Do you think of yourself as: straight/heterosexual Gender Identity: Male Assistive Devices: Cane, Glasses and Hearing Aid - Bilateral Review of Systems Review of Systems: See HPI above Physical Exam Physical Exam: General: no acute distress; pleasant affect; non-toxic appearing; well- nourished; cooperative; SpO2 96% on RA HEENT: normocephalic, atraumatic; no scleral icterus; PERRLA w/ EOMs intact; vision and hearing grossly intact Neck: supple; no lymphadenopathy; trachea midline; (-) JVD Skin: warm, dry without signs of tenting; no cyanosis; no rashes, bruising, lesions, or erythema noted CV: chest wall NTP; RRR; S1/S2 normal; no murmurs/rubs/gallops; pulses intact and symmetric at radial, DP, and PT Lungs: no acute respiratory distress; symmetrical chest wall expansion; clear breath sounds across all lung lindsay w/o adventitious sounds; no wheezing ABD: Soft, NTP; BS present; no rebound/guarding; no distention; negative CVA tenderness MSK: no tics or fasciculations; +3 pitting edema in the lower extremities bilaterally, nonerythematous Neuro: A&Ox3; normal mood and affect; fluent speech; no focal deficits; sensation grossly intact in the LEs b/l Results & Data Results & Data Vital Signs (Past 12 Hours) Vital Signs Temp Pulse Pulse Resp BP BP Pulse Ox 12/29/23 12:37 71 12/29/23 12:36 70 15 12/29/23 12:09 71 13 12/29/23 11:39 74 20 12/29/23 11:18 70 12/29/23 11:03 70 19 12/29/23 10:37 74 18 115/70 96 12/29/23 10:10 36.6 C 72 18 68/45 L 98 O2 Del Method 12/29/23 12:37 12/29/23 12:36 12/29/23 12:09 12/29/23 11:39 12/29/23 11:18 Room Air 12/29/23 11:03 12/29/23 10:37 Room Air 12/29/23 10:10 Laboratory Results Abnormal lab results 12/29/23 12/29/23 Range/Units 11:27 11:42 RBC 4.43 L (4.70-6.10) M/uL MCV 101.1 H (80.0-100.0) fL RDW Std Deviation 55.9 H (36.4-46.3) fL RDW Coeff of Jodee 14.8 H (11.5-14.5) % MPV 13.0 H (9.4-12.4) fL Neut # (Auto) 7.27 H (1.40-6.50) K/uL Lymph # (Auto) 0.59 L (1.20-3.40) K/uL Potassium 3.3 L (3.5-5.1) mmol/L Glucose 118 H (70-99(Fasting)) mg/dl Total Bilirubin 3.4 H (0.2-1.0) mg/dl Alkaline Phosphatase 132 H (34-104) U/L Troponin I High Sens 50.8 H* (0-20) pg/ml TSH 5.122 H (0.300-4.500) uIu/ml Urine Protein 1+ H (Negative) Urine Glucose (UA) 3+ H (Negative) U Hyaline Cast (Auto) 3-5 H (0-2) /lpf Diagnostic Findings Chest X-Ray 12/29/23 11:14 XR chest 1V portable HISTORY: weakness COMPARISON: Chest 03/28/2023. FINDINGS: There are low lung volumes. Slightly rotated study. No pneumothorax. No pleural effusions. No focal lung consolidations to suggest a pneumonia. No evidence for pulmonary edema. The heart remains mildly enlarged. There are poststernotomy changes and left-sided pacemaker/defibrillator. IMPRESSION: Stable cardiomegaly. Otherwise, no acute process within the chest. ACT 112: Negative or not required by law. Electronically signed by: Yusuf Esposito M.D. 12/29/2023 11:57 AM ECG Additional Comments: ECG revealed ventricular paced rhythm with occasional PVCs at 74 bpm; QTc 503 Code Status & VTE Plan Code Status Full code VTE Prophylaxis Plan VTE Prophylaxis will be ordered: Yes Supervising Physician Co-Signing Physician Notes Attending addendum: I have physically seen this patient, have supervised the CHARMAINE's activities, and agree with the H&P unless as otherwise noted. Assessment and Plan: Shiga toxin producing E. coli- Stool PCR positive on 12/21, with symptoms that began on 12/19 Completed course of azithromycin 500 mg p.o. daily last week Serial CBC with differential, chemistry profile and magnesium levels LR at 60 mL/h x 1 L HFrEF/paroxysmal atrial fibrillation/hypertension/status post ICD- Most recent echo on 02/28/2023 with ejection fraction 15-20% Patient is clinically dry, should tolerate IV fluids as noted above Hold Lasix, Entresto and Jardiance Continue Eliquis and carvedilol Diabetes mellitus- Place on Accu-Cheks with NovoLog SSI PG Care Time/CCT Total # of Minutes Spent Total Time Spent with Patient: Total time spent is greater than 50% in coordination of care (as documented) at patient's floor/unit and/or counseling patient: Coding [place] [address] INT INP/OBS CARE 3/75MIN Patient Type Established Medical Decision Making High Complexity Diagnoses Shiga toxin-producing Escherichia coli infection A49.8 Heart failure with reduced ejection fraction I50.20 Diabetes mellitus E11.9 Paroxysmal atrial fibrillation I48.0 Essential hypertension I10 Hypertension type: essential hypertension Cirrhosis of liver K74.60 Biventricular implantable cardioverter-defibrillator (ICD) in situ Z95.810 (5) Hypertension Hypertension type: essential hypertension Qualified Code(s): I10 - Essential (primary) hypertension
[2023-12-29] MEDS: POTASSIUM CHLORIDE CRTAB 20 MEQ TABCR PO STA (14:39)
[2023-12-29] MEDS: LACTATED RINGER'S 1,000 ML IV SCH (15:06)
[2023-12-29] MEDS ORDERED: GLUCAGON FOR INJ 1 MG VIAL SQ PRN (16:58)
[2023-12-29] MEDS ORDERED: GLUCOSE 10 TAB/TUBE PO PRN (16:58)
[2023-12-29] MEDS ORDERED: CARBOHYDRATES FOR HYPOGLYCEMIA PO PRN (16:58)
[2023-12-29] MEDS ORDERED: DEXTROSE 50% 50 ML SYRINGE IV PRN (16:58)
[2023-12-29] MEDS ORDERED: GLUCOSE 40% GEL 15 GM TUBE PO PRN (16:58)
[2023-12-29] MEDS ORDERED: ACETAMINOPHEN 325 MG TAB PO PRN (16:58)
[2023-12-29] MEDS: INSULIN ASPART PER UNIT CHARGE SC SCH (18:01)
[2023-12-29] MEDS ORDERED: ALBUTEROL HFA 8 GM INHALER INH PRN (18:08)
[2023-12-29] MEDS ORDERED: FLUTICASONE PROPIONATE NA SPR 16 GM BTL PRN (18:08)
[2023-12-29] MEDS: carvediloL 12.5 MG TAB PO SCH (18:43)
[2023-12-29] MEDS: Patient's HEIGHT &/or WEIGHT Needed STA (19:40)
[2023-12-29] MEDS: APIXABAN 5 MG TABLET PO SCH (20:17)
[2023-12-29] MEDS: ROSUVASTATIN CALCIUM 20 MG TAB PO SCH (20:17)
[2023-12-30 05:26] LABS: Basophils # (auto) 0.05 K/uL (0.00-0.20); Basophils % (auto) 0.6 %; Eosinophils # (auto) 0.07 K/uL (0.00-0.50); Eosinophils % (auto) 0.9 %; Hematocrit (blood only) 37.6 % (42.0-52.0); Hemoglobin 12.9 g/dl (14.0-18.0); Immature Granulocytes # (auto) 0.04 K/uL (0.01-0.20); Immature Granulocytes % (auto) 0.5 %; Lymphocytes # (auto) 0.52 K/uL (1.20-3.40); Lymphocytes % (auto) 6.5 %; Mean Corpuscular Hemoglobin 34.7 pg (25.0-34.0); Mean Corpuscular Hgb Conc 34.3 g/dL (32.0-36.0); Mean Corpuscular Volume 101.1 fL (80.0-100.0); Mean Platelet Volume 13.3 fL (9.4-12.4); Monocytes # (auto) 0.54 K/uL (0.11-0.59); Monocytes % (auto) 6.8 %; Neutrophils # (auto) 6.74 K/uL (1.40-6.50); Neutrophils % (auto) 84.7 %; Platelet Count 123 K/uL (130-400); RDW Coefficient of Variation 14.7 % (11.5-14.5); RDW Standard Deviation 54.5 fL (36.4-46.3); Red Blood Count 3.72 M/uL (4.70-6.10); White Blood Count 7.96 K/ul (4.8-10.8)
[2023-12-30 05:36] LABS: Albumin Globulin Ratio 0.9 (0.9-2); Albumin Level 2.9 gm/dl (3.4-5.0); BUN Creatinine Ratio 14.6 (10-20); Bilirubin,Total 3.5 mg/dl (0.2-1.0); Calcium 8.1 mg/dl (8.6-10.3); Creatinine Clr Calc Pharmacy 47.9 ml/min; Est GFR (Non-African American) 52.6 ml/min; Globulin 3.2 gm/dl (2.5-4.0); Magnesium 1.9 mg/dl (1.7-2.4); Total Protein 6.1 gm/dl (6.0-8.3)
[2023-12-30 07:15] LABS: Estimated Average Glucose 143 mg/dl; Hemoglobin A1C 6.6 % (4.5-5.6)
--- NOTE | 2023-12-30 07:18 | Hospitalist Progress Note ---
Date of Service December 30, 2023 Assessment & Plan (1) C. difficile diarrhea: Plan: Ongoing daily diarrhea that began on Tuesday 12/19 (+) E. coli Shiga toxin on Stool PCR 12/21, Stool + for C diff- gene and toxin 12/29 Started oral vancomycin- 125mg q6H, contact precautions In the setting of severe heart failure and reduced ejection fraction, caution with IVF- appears euvolemic on exam s/p 1L IVF, encourage PO intake Defer anti-motility agents Replete K + Mag as needed Supportive care (2) Shiga toxin-producing Escherichia coli infection: Plan: - Repeat stool testing no longer showing E coli, plan for diarrhea as per above (3) Heart failure with reduced ejection fraction: Plan: Echocardiogram on 02/28/2023 revealed LVEF at 15-20%, and severe global hypokinesis with septal dyskinesis At present appears euvolemic Daily weights Strict I and O monitoring Hold Lasix for now in the setting of volume depletion Hold Entresto and Jardiance (4) Diabetes mellitus: Plan: Repeat a1c= 6.6 Hypoglycemic this morning, no indication for SSI at present (5) Paroxysmal atrial fibrillation: Plan: Rate controlled Continue Eliquis, carvedilol (6) Hypertension: Plan: - Continue carvedilol, Lasix/Entresto held as per above (7) Cirrhosis of liver: Plan: - in the setting of prior alcohol use - should f/u with outpatient GI (8) Biventricular implantable cardioverter-defibrillator (ICD) in situ: Plan: - inserted in the setting of EF less than 35% Plan Full code Heart healthy, T2DM diet VTE PX: On Eliquis Admission and Anticipated Discharge Date Admission Date: December 29, 2023 Supervising Physician Co-Signing Physician Notes I personally examined the patient and verified estrada points of history and exam, discussed case, and agree with decision making and plan documented by Dr. Ocasio. Patient with persistent diarrhea, previously positive Shiga toxin on stool PCR 12/21, now positive for C. difficile toxin. Agree with oral vancomycin. Will be mindful cardiac function with fluids. Reviewed recommendations with patient and . Subjective Pt seen at bedside this morning. Notes no improvement in number of BMs. Denies abdominal pain/blood in stool. Has been drinking fluids. Denies dyspnea. Review of Systems Review of Systems: As per above Physical Exam Physical Exam: Constitutional: well-appearing, no acute distress HEENT: NCAT, no conjunctival injection CV: regular rhythm, no murmur appreciated, extremities well-perfused, no LE edema Resp: CTABL, no wheezes/rales/rhonchi appreciated, no increased work of breathing GI: soft, nondistended, nontender MSK: no gross deformities appreciated Skin: warm, dry, no rash appreciated Neuro: alert, oriented, no focal neurologic deficit appreciated Results & Data Results & Data Vital Signs (Past 12 Hours) Vital Signs Pulse Pulse Resp BP Pulse Ox O2 Del Method 12/30/23 02:00 74 18 102/56 L 96 Room Air 12/30/23 01:58 73 12/29/23 22:30 76 16 100/60 96 Room Air Resident Activity Tracking Resident Involvement: Resident Care Provided Care Provided: Adult Hospital Medicine (6) Hypertension Hypertension type: essential hypertension Qualified Code(s): I10 - Essential (primary) hypertension
[2023-12-30 08:33] LABS: Cdiff Toxin B Gene (2yr or >) Positive Cdiff Gene (Neg)
[2023-12-30 09:08] LABS: Adenovirus F 40/41 PCR Not Detected (NotDetected); Astrovirus PCR Not Detected (NotDetected); Campylobacter PCR Not Detected (NotDetected); Cryptosporidium PCR Not Detected (NotDetected); Cyclospora cayetanensis PCR Not Detected (NotDetected); Entamoeba histolytica PCR Not Detected (NotDetected); Enteroaggregative E.coli(EAEC) Not Detected (NotDetected); Enteropathogenic E.coli (EPEC) Not Detected (NotDetected); Enterotoxigenic E.coli (ETEC) Not Detected (NotDetected); Giardia lamblia PCR Not Detected (NotDetected); Norovirus GI/GII PCR Not Detected (NotDetected); Plesiomonas shigelloides PCR Not Detected (NotDetected); Rotavirus A PCR Not Detected (NotDetected); Salmonella PCR Not Detected (NotDetected); Sapovirus PCR Not Detected (NotDetected); Shiga-like Toxin E.coli (STEC) Not Detected (NotDetected); Shigella/Enteroinvasive E.coli Not Detected (NotDetected); Vibrio cholerae PCR Not Detected (NotDetected); Vibrio species PCR Not Detected (NotDetected); Yersinia enterocolitica PCR Not Detected (NotDetected)
[2023-12-30] MEDS: POTASSIUM CHLORIDE CRTAB 20 MEQ TABCR PO STA (09:21)
[2023-12-30] MEDS: UMECLIDINIUM BROMIDE 62.5MCG/BLISTER 7 PUFFS/INHALER INH SCH (09:22)
[2023-12-30 10:01] LABS: Cdiff Antigen Positive
[2023-12-30 10:08] LABS: Cdiff Toxin A+B Positive Cdiff Toxin (Negative)
[2023-12-30] MEDS: VANCOMYCIN HCL 125 MG/2.5ML SOLN PO SCH (12:43)
[2023-12-30] MEDS: CHERRY SYRUP 5 ML UDP PO SCH (12:44)
[2023-12-30] MEDS: ONDANSETRON INJ 2 MG/ML 2 ML VIAL IV PRN (17:40)
--- NOTE | 2023-12-31 07:30 | Hospitalist Progress Note ---
Date of Service December 31, 2023 Assessment & Plan (1) C. difficile diarrhea: Plan: Ongoing daily diarrhea that began on Tuesday 12/19 (+) E. coli Shiga toxin on Stool PCR 12/21, Stool + for C diff- gene and toxin 12/29 Started oral vancomycin- 125mg q6H, contact precautions Defer anti-motility agents Replete K + Mag as needed Supportive care (2) Shiga toxin-producing Escherichia coli infection: Plan: - Repeat stool testing no longer showing E coli, plan for diarrhea as per above (3) JUANITA (acute kidney injury): Plan: - Creatine increased from 1.3 to 1.72 - likely prerenal secondary to hypovolemia in the setting of ongoing diarrhea - cautions with fluids given HFrEF, plan for an additional 1L at 60ml/hr (4) Heart failure with reduced ejection fraction: Plan: Echocardiogram on 02/28/2023 revealed LVEF at 15-20%, and severe global hypokinesis with septal dyskinesis Daily weights Strict I and O monitoring Hold Lasix for now in the setting of volume depletion Hold Entresto and Jardiance (5) Diabetes mellitus: Plan: Repeat a1c= 6.6 Hypoglycemic this morning, no indication for SSI at present (6) Paroxysmal atrial fibrillation: Plan: Rate controlled Continue Eliquis, carvedilol (7) Hypertension: Plan: - Continue carvedilol, Lasix/Entresto held as per above (8) Cirrhosis of liver: Plan: - in the setting of prior alcohol use - should f/u with outpatient GI (9) Biventricular implantable cardioverter-defibrillator (ICD) in situ: Plan: - inserted in the setting of EF less than 35% Plan Full code Heart healthy, T2DM diet VTE PX: On Eliquis Admission and Anticipated Discharge Date Admission Date: December 29, 2023 Supervising Physician Co-Signing Physician Notes I personally examined the patient and verified estrada points of history and exam, discussed case, and agree with decision making and plan documented by Dr. Ocasio. Patient continues to have loose bowel movements, he is tolerating oral vancomycin, denies any new concerns or complaints, at bedside. We reviewed that if patient continues with clinical improvement he may be able to go home tomorrow. Creatinine bumped up to 1.72 today, gentle fluids ordered, will continue to evaluate. Vital signs have been stable. Discussed importance of completing course of antibiotics upon discharge as well as increasing probiotic consumption. Subjective Pt seen at bedside this morning. Notes some improvement in number of BMs from yesterday, so far this morning notes 2. Denies abdominal pain. Has been tolerating liquids. Review of Systems Review of Systems: As per above Physical Exam Physical Exam: Constitutional: well-appearing, no acute distress HEENT: NCAT, no conjunctival injection CV: regular rhythm, no murmur appreciated, extremities well-perfused, no LE edema Resp: CTABL, no wheezes/rales/rhonchi appreciated, no increased work of breathing GI: soft, nondistended, nontender MSK: no gross deformities appreciated Skin: warm, dry, no rash appreciated Neuro: alert, oriented, no focal neurologic deficit appreciated Results & Data Results & Data Vital Signs (Past 12 Hours) Vital Signs Temp Pulse Pulse Resp BP Pulse Ox O2 Del Method 12/31/23 02:38 37.4 C 75 16 95/57 L 94 Room Air 12/31/23 00:39 73 12/30/23 22:28 37.7 C H 77 16 94/55 L 93 Room Air Resident Activity Tracking Resident Involvement: Resident Care Provided Care Provided: Adult Hospital Medicine (7) Hypertension Hypertension type: essential hypertension Qualified Code(s): I10 - Essential (primary) hypertension
[2023-12-31 09:01] LABS: Basophils # (auto) 0.04 K/uL (0.00-0.20); Basophils % (auto) 0.4 %; Eosinophils # (auto) 0.06 K/uL (0.00-0.50); Eosinophils % (auto) 0.6 %; Hematocrit (blood only) 37.5 % (42.0-52.0); Immature Granulocytes # (auto) 0.04 K/uL (0.01-0.20); Immature Granulocytes % (auto) 0.4 %; Lymphocytes # (auto) 0.51 K/uL (1.20-3.40); Lymphocytes % (auto) 5.5 %; Mean Corpuscular Hemoglobin 34.3 pg (25.0-34.0); Mean Corpuscular Hgb Conc 34.7 g/dL (32.0-36.0); Mean Corpuscular Volume 98.9 fL (80.0-100.0); Monocytes # (auto) 0.65 K/uL (0.11-0.59); Neutrophils # (auto) 8.05 K/uL (1.40-6.50); Neutrophils % (auto) 86.1 %; Platelet Count 142 K/uL (130-400); RDW Coefficient of Variation 14.9 % (11.5-14.5); RDW Standard Deviation 53.5 fL (36.4-46.3); Red Blood Count 3.79 M/uL (4.70-6.10); White Blood Count 9.35 K/ul (4.8-10.8)
[2023-12-31 09:14] LABS: Albumin Globulin Ratio 0.9 (0.9-2); Albumin Level 3.1 gm/dl (3.4-5.0); BUN Creatinine Ratio 12.8 (10-20); Bilirubin,Total 3.9 mg/dl (0.2-1.0); Calcium 8.4 mg/dl (8.6-10.3); Creatinine Clr Calc Pharmacy 37.1 ml/min; Est GFR (African American) 43.5 ml/min; Est GFR (Non-African American) 37.5 ml/min; Globulin 3.5 gm/dl (2.5-4.0); Potassium 3.6 mmol/L (3.5-5.1); Total Protein 6.6 gm/dl (6.0-8.3)
[2023-12-31] MEDS: SODIUM CHLORIDE 0.9% 1,000 ML IV SCH (15:38)
[2024-01-01 06:33] LABS: Basophils # (auto) 0.04 K/uL (0.00-0.20); Basophils % (auto) 0.4 %; Eosinophils # (auto) 0.11 K/uL (0.00-0.50); Eosinophils % (auto) 1.2 %; Hematocrit (blood only) 36.4 % (42.0-52.0); Hemoglobin 12.6 g/dl (14.0-18.0); Immature Granulocytes # (auto) 0.04 K/uL (0.01-0.20); Immature Granulocytes % (auto) 0.4 %; Lymphocytes # (auto) 0.56 K/uL (1.20-3.40); Lymphocytes % (auto) 5.9 %; Mean Corpuscular Hemoglobin 34.4 pg (25.0-34.0); Mean Corpuscular Hgb Conc 34.6 g/dL (32.0-36.0); Mean Corpuscular Volume 99.5 fL (80.0-100.0); Mean Platelet Volume 13.6 fL (9.4-12.4); Monocytes # (auto) 0.74 K/uL (0.11-0.59); Monocytes % (auto) 7.8 %; Neutrophils # (auto) 7.99 K/uL (1.40-6.50); Neutrophils % (auto) 84.3 %; Platelet Count 126 K/uL (130-400); RDW Coefficient of Variation 14.8 % (11.5-14.5); RDW Standard Deviation 54.4 fL (36.4-46.3); Red Blood Count 3.66 M/uL (4.70-6.10); White Blood Count 9.48 K/ul (4.8-10.8)
[2024-01-01 06:44] LABS: Albumin Globulin Ratio 0.9 (0.9-2); Albumin Level 2.7 gm/dl (3.4-5.0); Bilirubin,Total 3.1 mg/dl (0.2-1.0); Calcium 7.8 mg/dl (8.6-10.3); Creatinine Clr Calc Pharmacy 28.4 ml/min; Est GFR (African American) 31.4 ml/min; Est GFR (Non-African American) 27.1 ml/min; Globulin 3.1 gm/dl (2.5-4.0); Magnesium 1.9 mg/dl (1.7-2.4); Potassium 3.6 mmol/L (3.5-5.1); Total Protein 5.8 gm/dl (6.0-8.3)
--- NOTE | 2024-01-01 08:14 | Hospitalist Progress Note ---
Date of Service January 01, 2024 Assessment & Plan (1) C. difficile diarrhea: Plan: Ongoing daily diarrhea that began on Tuesday 12/19 (+) E. coli Shiga toxin on Stool PCR 12/21, Stool + for C diff- gene and toxin 12/29 Started oral vancomycin- 125mg q6H, contact precautions Defer anti-motility agents Replete K + Mag as needed Supportive care (2) Shiga toxin-producing Escherichia coli infection: Plan: - Repeat stool testing no longer showing E coli, plan for diarrhea as per above (3) JUANITA (acute kidney injury): Plan: - Creatine increased from 1.3 to 1.72 to 2.25 - likely prerenal secondary to hypovolemia in the setting of ongoing diarrhea - cautions with fluids given HFrEF, plan for an additional IVF today and continue to hold lasix (4) Heart failure with reduced ejection fraction: Plan: Echocardiogram on 02/28/2023 revealed LVEF at 15-20%, and severe global hypokinesis with septal dyskinesis Daily weights Strict I and O monitoring Hold Lasix for now in the setting of volume depletion Hold Entresto and Jardiance (5) Diabetes mellitus: Plan: Repeat a1c= 6.6 Hypoglycemic this morning, no indication for SSI at present (6) Paroxysmal atrial fibrillation: Plan: Rate controlled Continue Eliquis, carvedilol (7) Hypertension: Plan: - Continue carvedilol, Lasix/Entresto held as per above (8) Cirrhosis of liver: Plan: - in the setting of prior alcohol use - should f/u with outpatient GI (9) Biventricular implantable cardioverter-defibrillator (ICD) in situ: Plan: - inserted in the setting of EF less than 35% Plan Full code Heart healthy, T2DM diet VTE PX: On Eliquis Admission and Anticipated Discharge Date Admission Date: December 29, 2023 Supervising Physician Co-Signing Physician Notes I personally examined the patient and verified estrada points of history and exam, discussed case, and agree with decision making and plan documented by Dr. Ocasio. Diarrhea improving, patient tolerating oral vancomycin. Creatinine elevated again today, providing patient with gentle fluids, encouraged oral intake, will continue to monitor clinical improvement. Patient's at bedside. Subjective Pt seen at bedside this morning. Notes some improvement in number of BMs from yesterday, so far this morning notes 3. Has been up and walking around. Review of Systems Review of Systems: As per above Physical Exam Physical Exam: Constitutional: well-appearing, no acute distress HEENT: NCAT, no conjunctival injection CV: regular rhythm, no murmur appreciated, extremities well-perfused, trace LE edema Resp: CTABL, no wheezes/rales/rhonchi appreciated, no increased work of breathing GI: soft, nondistended, nontender MSK: no gross deformities appreciated Skin: warm, dry, no rash appreciated Neuro: alert, oriented, no focal neurologic deficit appreciated Results & Data Results & Data Vital Signs (Past 12 Hours) Vital Signs Temp Pulse Pulse Resp BP Pulse Ox O2 Del Method 01/01/24 07:58 74 01/01/24 07:54 36.8 C 74 18 91/47 L 92 Room Air 01/01/24 03:06 36.8 C 72 20 107/69 95 Room Air 01/01/24 00:23 84 12/31/23 23:32 36.8 C 76 20 95/59 L 95 Room Air 12/31/23 22:40 Room Air Resident Activity Tracking Resident Involvement: Resident Care Provided Care Provided: Adult Hospital Medicine (7) Hypertension Hypertension type: essential hypertension Qualified Code(s): I10 - Essential (primary) hypertension
[2024-01-01] MEDS: LACTATED RINGER'S 250 ML IV ONE (11:11)
[2024-01-01] MEDS: CALCIUM CARBONATE 500 MG CHEWABLE TAB PO PRN (11:30)
[2024-01-01] MEDS: FAMOTIDINE 20 MG TAB PO PRN (12:31)
[2024-01-01] MEDS: PANTOprazole 40 MG in SYRINGE 0 ML IV ONE (14:53)
[2024-01-01] MEDS: SUCRALFATE 1 GM/10 ML UDC PO SCH (17:50)
[2024-01-01] MEDS: SODIUM CHLORIDE 0.9% 500 ML IV SCH (17:50)
[2024-01-02 07:26] LABS: Basophils # (auto) 0.05 K/uL (0.00-0.20); Basophils % (auto) 0.5 %; Eosinophils # (auto) 0.13 K/uL (0.00-0.50); Eosinophils % (auto) 1.4 %; Hematocrit (blood only) 38.6 % (42.0-52.0); Hemoglobin 13.1 g/dl (14.0-18.0); Immature Granulocytes # (auto) 0.04 K/uL (0.01-0.20); Immature Granulocytes % (auto) 0.4 %; Lymphocytes # (auto) 0.57 K/uL (1.20-3.40); Lymphocytes % (auto) 6.1 %; Mean Corpuscular Hemoglobin 33.9 pg (25.0-34.0); Mean Corpuscular Hgb Conc 33.9 g/dL (32.0-36.0); Mean Corpuscular Volume 99.7 fL (80.0-100.0); Mean Platelet Volume 13.4 fL (9.4-12.4); Monocytes # (auto) 0.73 K/uL (0.11-0.59); Monocytes % (auto) 7.8 %; Neutrophils # (auto) 7.85 K/uL (1.40-6.50); Neutrophils % (auto) 83.8 %; Platelet Count 148 K/uL (130-400); RDW Coefficient of Variation 14.9 % (11.5-14.5); RDW Standard Deviation 54.4 fL (36.4-46.3); Red Blood Count 3.87 M/uL (4.70-6.10); White Blood Count 9.37 K/ul (4.8-10.8)
[2024-01-02 08:06] LABS: Albumin Globulin Ratio 0.9 (0.9-2); Albumin Level 3.1 gm/dl (3.4-5.0); BUN Creatinine Ratio 10.4 (10-20); Calcium 8.3 mg/dl (8.6-10.3); Creatinine Clr Calc Pharmacy 21.5 ml/min; Est GFR (African American) 22.5 ml/min; Est GFR (Non-African American) 19.4 ml/min; Globulin 3.6 gm/dl (2.5-4.0); Potassium 3.5 mmol/L (3.5-5.1); Total Protein 6.7 gm/dl (6.0-8.3)
--- NOTE | 2024-01-02 08:21 | Hospitalist Progress Note ---
Date of Service January 02, 2024 Assessment & Plan (1) JUANITA (acute kidney injury): Plan: - Creatine increased from 1.3 to 1.72 to 2.25 now up to 2.97 - likely prerenal secondary to hypovolemia in the setting of ongoing diarrhea - cautions with fluids given HFrEF, plan for an additional IVF today and continue to hold lasix - Consult nephrology (2) C. difficile diarrhea: Plan: Ongoing daily diarrhea that began on Tuesday 12/19 (+) E. coli Shiga toxin on Stool PCR 12/21, Stool + for C diff- gene and toxin 12/29 Started oral vancomycin- 125mg q6H, contact precautions Defer anti-motility agents Replete K + Mag as needed Supportive care (3) Shiga toxin-producing Escherichia coli infection: Plan: - Repeat stool testing no longer showing E coli, plan for diarrhea as per above (4) Heart failure with reduced ejection fraction: Plan: Echocardiogram on 02/28/2023 revealed LVEF at 15-20%, and severe global hypokinesis with septal dyskinesis Daily weights Strict I and O monitoring Hold Lasix for now in the setting of volume depletion Hold Entresto and Jardiance (5) Diabetes mellitus: Plan: Repeat a1c= 6.6 Hypoglycemic this morning, no indication for SSI at present (6) Paroxysmal atrial fibrillation: Plan: Rate controlled Continue Eliquis, carvedilol (7) Hypertension: Plan: - Continue carvedilol, Lasix/Entresto held as per above (8) Cirrhosis of liver: Plan: - in the setting of prior alcohol use - should f/u with outpatient GI (9) Biventricular implantable cardioverter-defibrillator (ICD) in situ: Plan: - inserted in the setting of EF less than 35% Plan Full code Heart healthy, T2DM diet VTE PX: On Eliquis Admission and Anticipated Discharge Date Admission Date: December 29, 2023 Supervising Physician Co-Signing Physician Notes I personally examined the patient and verified estrada points of history and exam, discussed case, and agree with decision making and plan documented by Dr. Ocasio. Patient presented with persistent diarrhea, had a previously positive Shiga toxin on stool PCR, at present is positive for C. difficile toxin, he is tolerating oral vancomycin well. Creatinine level 2.97 this morning, nephrology was consulted today for JUANITA, appreciate recommendations. Patient remains on gentle IV hydration, he has been encouraged to maintain p.o. intake as well. Will maintain close monitoring. Subjective Pt seen at bedside this morning. Notes continued improvement in number of BMs per day and overall is feeling better. States that he was been drinking water. Review of Systems Review of Systems: As per above Physical Exam Physical Exam: Constitutional: well-appearing, no acute distress HEENT: NCAT, no conjunctival injection CV: regular rhythm, no murmur appreciated, extremities well-perfused, trace LE edema Resp: CTABL, no wheezes/rales/rhonchi appreciated, no increased work of breathing GI: soft, nondistended, nontender MSK: no gross deformities appreciated Skin: warm, dry, no rash appreciated Neuro: alert, oriented, no focal neurologic deficit appreciated Results & Data Results & Data Vital Signs (Past 12 Hours) Vital Signs Temp Pulse Pulse Resp BP BP Pulse Ox 01/02/24 07:15 79 01/02/24 03:28 36.9 C 69 16 106/65 96 01/02/24 00:04 36.7 C 70 16 93/52 L 94 01/01/24 23:02 75 O2 Del Method 01/02/24 07:15 01/02/24 03:28 Room Air 01/02/24 00:04 Room Air 01/01/24 23:02 Resident Activity Tracking Resident Involvement: Resident Care Provided Care Provided: Adult Hospital Medicine (7) Hypertension Hypertension type: essential hypertension Qualified Code(s): I10 - Essential (primary) hypertension
--- NOTE | 2024-01-02 09:05 | Nephrology Consultation ---
Date of Consultation January 02, 2024 Assessment & Plan (1) JUANITA (acute kidney injury): * Likely ATN. Patient presented with 10 days of severe diarrhea while on Entresto therapy * Hold Entresto if OK w/ Cardiology * Patient remains clinically volume contracted. Agree w/ IV hydration * Will order urinalysis w/ microscopy, renal US * Monitor PRP. No acute indication for FOLDER INSPECTOR at this time (2) Chronic kidney disease, stage 3a: * CKD stage G3a (moderate impairment). His baseline creatinine has been 1.1-1.3 w/ EGFR 52.6 cc/min. Renal impairment has been attributed to microvascular disease (3) C. difficile diarrhea: * Currently on oral Vancomycin * Abdomen is distended and tympanitic. Will order KUB x-ray (4) Cirrhosis of liver: * New diagnosis, possible alcohol related. Patient reports no alcohol now x 2 months (5) Biventricular implantable cardioverter-defibrillator (ICD) in situ: * ICM w/ LVEF 15-20% s/p AICD History of Present Illness Reason for Consultation: JUANITA/CKD Attending Physician: Chasity Faria DO History of Present Illness Mr. Wilder is a 78 year old white male who is seen at the request of the [facility] hospitalist service for evaluation of JUANITA/CKD. Information for the HPI is obtained from direct patient interview and review of the EMR. HPI is summarized as follows: Mr. Wilder has CKD stage G3a (moderate impairment). His baseline creatinine has been 1.1-1.3 w/ EGFR 52.6 cc/min. Renal impairment has been attributed to microvascular disease. His primary dealer relationship manager is Dr. Calvillo. Mr. Wilder presented to [facility] EMD for evaluation of diarrhea x 10 days. This started following a picnic. 12/22/23 stool PCR was + for shiga toxin. 12/30/23 stool was + for C. Difficile toxin. Mr. Wilder has received supportive therapy and oral Vancomycin. Serum creatinine has risen from 1.3 to 2.97. He reports ongoing 2-3 liquid BM daily Allergies Allergy/AdvReac Type Severity Reaction Status Date / Time bee venom protein (honey bee) Allergy Severe BIT BY BEE Verified 11/05/23 12:58 SWARM-SWELLING THROAT FACE hydralazine AdvReac Intermediate bad joint Verified 11/05/23 12:58 pain COVID-19 (SARS-CoV-2) AdvReac Mild Rash Verified 11/05/23 12:58 vaccine, elva Home Medications Medication Instructions Recorded Confirmed Type albuterol sulfate 90 mcg/actuation 2 puffs inhalation Q4H PRN 12/23/18 12/29/23 Rx aerosol inhaler shortness of breath or wheezing #18 grams apixaban 5 mg tablet (Eliquis) 5 mg PO BID #60 tabs 12/23/18 12/29/23 Rx multivitamin 1 tab PO QAM 12/23/18 12/29/23 History rosuvastatin 40 mg tablet 20 mg PO HS 05/02/19 12/29/23 History tiotropium bromide 2.5 2 inh inhalation QAM #4 grams 09/17/22 12/29/23 Rx mcg/actuation mist for inhalation nitroglycerin 0.4 mg sublingual 0.4 mg sublingual Q5M PRN chest 10/31/22 12/29/23 Rx tablet pain #25 tabs furosemide 40 mg tablet 40 mg PO QAM #90 tabs 03/04/23 12/29/23 Rx fluticasone propionate 50 1 spray intranasal DAILY PRN 07/25/23 12/29/23 History mcg/actuation nasal Congestion spray,suspension empagliflozin 25 mg tablet 12.5 mg PO DAILY 11/04/23 12/29/23 History (Jardiance) fexofenadine [Tracy Allergy] 1 tab PO DAILY PRN Allergy Symptoms 11/04/23 12/29/23 History cholecalciferol (vitamin D3) 10 10 mcg PO DAILY 11/05/23 12/29/23 History mcg (400 unit) capsule sacubitril 24 mg-valsartan 26 mg 1 tab PO BID #90 tabs 11/15/23 12/29/23 Rx tablet (Entresto) carvedilol 25 mg tablet 12.5 mg PO BID 12/29/23 12/29/23 History Patient History Medical History Hx of reduction of nasal fracture ICD (implantable cardioverter-defibrillator) in place 03/2023, "old" ICD removed and replaced w/pacemaker/ICD device (medtronic), [facility]; f/u dr. claudio Valvular heart disease SOB (shortness of breath) hospitalized twice in fall 2022, "filling up with fluid, dr decided it was time to change his defibrillator/pacemaker" Non-ST elevation PA (NSTEMI) Anterior PA 2006- s/p 2 vessel CABG Hyperlipidemia COPD with asthma daily and prn inh Cardiac defibrillator in place [employer] single-chamber, [facility] Surgical History History of cataract surgery left Hx of carpal tunnel repair Left hand Hx of hand surgery Plate placed in L thumb History of nasal surgery Hx of CABG 2003, s/p heart attack, double bypass, [place] S/P colonoscopy 05/25/2015 repeat 10yrs S/P implantation of automatic cardioverter/defibrillator (AICD) [employer] S/P appendectomy Family History Father Myocardial infarction Other Heart disease Hypertension Denies family history of Prostate cancer Colorectal cancer Social History Smoking Status: Former smoker Tobacco Type: Cigarettes Second Hand Exposure: No; Do You Dip or Chew Tobacco: No; Tobacco Cessation Education Requested by Patient: No Hx Alcohol Use: Yes Alcohol type: hard liquor Alcohol Intake Frequency: Monthly or Less Hx Substance Use: No Preferred Language: [place] Communication Ability: Effective Visual Impairment: Limited Hearing Ability: Use of Hearing Aid Armhole Presser Required: No Beliefs That Will Affect Care: None marital status: Current Living Situation: Spouse current occupational status: retired Other Information That Helps Us Care for You: No Feels Safe at Home: Yes Safety Concerns: Feels Safe At This Time Diet: low salt caffeine: Yes Do you think of yourself as: straight/heterosexual Gender Identity: Male Assistive Devices: Cane Review of Systems Constitutional: no fever Eyes: no problem reported Ear, Nose, Mouth, Throat: no problem reported Respiratory: no cough and no dyspnea Cardiovascular: no chest pain Gastrointestinal: + bloating and + diarrhea/loose stools; no abdominal pain, no nausea and no vomiting Genitourinary: no problem reported Integumentary: no rash Physical Exam Constitutional: WD/WN, vitals as above Eyes: PERRL, conjunctivae normal, anicteric sclerae ENMT: Mouth: + dry oral mucous membranes Neck: trachea midline, no thyromegaly Respiratory: normal respiratory effort, lungs clear to auscultation Cardiovascular: RRR, no murmur, no edema Gastrointestinal (Abdomen): Inspection/Auscultation: + abdomen distended and + hypoactive bowel sounds Percussion/Palpation: + tympanic to percussion; abdomen nontender and no guarding Skin: no rashes, warm and dry Neurologic: Speech / Cognition: normal speech and normal cognition Psychiatric: Affect: euthymic affect Results & Data Vital Signs (Past 12 Hours) Vital Signs Temp Pulse Pulse Resp BP BP Pulse Ox 01/02/24 08:25 36.7 C 71 17 99/56 L 94 01/02/24 07:15 79 01/02/24 03:28 36.9 C 69 16 106/65 96 01/02/24 00:04 36.7 C 70 16 93/52 L 94 01/01/24 23:02 75 O2 Del Method 01/02/24 08:25 Room Air 01/02/24 07:15 01/02/24 03:28 Room Air 01/02/24 00:04 Room Air 01/01/24 23:02 Laboratory Results Laboratory Results WBC 9.37 K/ul (4.8-10.8) 01/02/24 07:05 RBC 3.87 M/uL (4.70-6.10) L 01/02/24 07:05 Hgb 13.1 g/dl (14.0-18.0) L 01/02/24 07:05 Hct 38.6 % (42.0-52.0) L 01/02/24 07:05 MCV 99.7 fL (80.0-100.0) 01/02/24 07:05 MCH 33.9 pg (25.0-34.0) 01/02/24 07:05 MCHC 33.9 g/dL (32.0-36.0) 01/02/24 07:05 RDW Std Deviation 54.4 fL (36.4-46.3) H 01/02/24 07:05 RDW Coeff of Jodee 14.9 % (11.5-14.5) H 01/02/24 07:05 Plt Count 148 K/uL (130-400) 01/02/24 07:05 MPV 13.4 fL (9.4-12.4) H 01/02/24 07:05 Immature Gran % (Auto) 0.4 % 01/02/24 07:05 Neut % (Auto) 83.8 % 01/02/24 07:05 Lymph % (Auto) 6.1 % 01/02/24 07:05 [place] % (Auto) 7.8 % 01/02/24 07:05 Eos % (Auto) 1.4 % 01/02/24 07:05 Baso % (Auto) 0.5 % 01/02/24 07:05 Neut # (Auto) 7.85 K/uL (1.40-6.50) H 01/02/24 07:05 Lymph # (Auto) 0.57 K/uL (1.20-3.40) L 01/02/24 07:05 [place] # (Auto) 0.73 K/uL (0.11-0.59) H 01/02/24 07:05 Eos # (Auto) 0.13 K/uL (0.00-0.50) 01/02/24 07:05 Baso # (Auto) 0.05 K/uL (0.00-0.20) 01/02/24 07:05 Immature Gran # (Auto) 0.04 K/uL (0.01-0.20) 01/02/24 07:05 Sodium 134 mmol/L (136-145) L 01/02/24 07:05 Potassium 3.5 mmol/L (3.5-5.1) 01/02/24 07:05 Chloride 102 mmol/L (98-107) 01/02/24 07:05 Carbon Dioxide 25 mmol/L (21-32) 01/02/24 07:05 Anion Gap 7 (3-11) 01/02/24 07:05 BUN 31 mg/dl (6-23) H 01/02/24 07:05 Creatinine 2.97 mg/dl (0.6-1.4) H D 01/02/24 07:05 Est Cr Clr Drug Dosing 21.5 ml/min 01/02/24 07:05 Est GFR ( Amer) 22.5 ml/min 01/02/24 07:05 Est GFR (Non-Af Amer) 19.4 ml/min 01/02/24 07:05 BUN/Creatinine Ratio 10.4 (10-20) 01/02/24 07:05 Glucose 94 mg/dl (70-99(Fasting)) 01/02/24 07:05 POC Glucose 116 mg/dl (70-99) H 12/30/23 12:42 Estimat Average Glucose 143 mg/dl 12/30/23 04:50 Hemoglobin A1c 6.6 % (4.5-5.6) H 12/30/23 04:50 Calcium 8.3 mg/dl (8.6-10.3) L 01/02/24 07:05 Magnesium 2.0 mg/dl (1.7-2.4) 01/02/24 07:05 Total Bilirubin 3.0 mg/dl (0.2-1.0) H 01/02/24 07:05 AST 50 U/L (13-39) H 01/02/24 07:05 ALT 19 U/L (7-52) 01/02/24 07:05 Alkaline Phosphatase 185 U/L (34-104) H 01/02/24 07:05 Troponin I High Sens 50.0 pg/ml (0-20) H* 12/29/23 13:06 Total Protein 6.7 gm/dl (6.0-8.3) 01/02/24 07:05 Albumin 3.1 gm/dl (3.4-5.0) L 01/02/24 07:05 Globulin 3.6 gm/dl (2.5-4.0) 01/02/24 07:05 Albumin/Globulin Ratio 0.9 (0.9-2) 01/02/24 07:05 TSH 5.122 uIu/ml (0.300-4.500) H 12/29/23 11:27 Free T4 1.40 ng/dl (0.61-1.60) 12/29/23 11:27 Urine Color Yellow 12/29/23 11:42 Urine Appearance Clear (Clear) 12/29/23 11:42 Urine pH 5.0 (4.5-7.5) 12/29/23 11:42 Ur Specific Hodge 1.011 (1.000-1.030) 12/29/23 11:42 Urine Protein 1+ (Negative) H 12/29/23 11:42 Urine Glucose (UA) 3+ (Negative) H 12/29/23 11:42 Urine Ketones Negative (Negative) 12/29/23 11:42 Urine Blood Negative (Negative) 12/29/23 11:42 Urine Nitrite Negative (Negative) 12/29/23 11:42 Urine Bilirubin Negative (Negative) 12/29/23 11:42 Urine Urobilinogen Negative (Negative) 12/29/23 11:42 Ur Leukocyte Esterase Negative (Negative) 12/29/23 11:42 Urine WBC (Auto) 0-5 /hpf (0-5) 12/29/23 11:42 Urine RBC (Auto) 0-2 /hpf (0-2) 12/29/23 11:42 U Hyaline Cast (Auto) 3-5 /lpf (0-2) H 12/29/23 11:42 U Epithel Cells (Auto) 0-2 /hpf (0-2) 12/29/23 11:42 Urine Bacteria (Auto) None Seen (None Seen) 12/29/23 11:42 Stl C. cayetanensis PCR Not Detected (NotDetected) 12/30/23 05:30 Stool Rotavirus A PCR Not Detected (NotDetected) 12/30/23 05:30 Stl Adenov F 40/41 PCR Not Detected (NotDetected) 12/30/23 05:30 Stool Astrovirus (PCR) Not Detected (NotDetected) 12/30/23 05:30 Stool Campylobacter PCR Not Detected (NotDetected) 12/30/23 05:30 Stl C. diff Tox B Gene Positive Cdiff Gene (Neg) H 12/30/23 05:30 Stl C.difficile Tox A&B Positive Cdiff Toxin (Negative) A* 12/30/23 05:30 Stool Cryptosporidium PCR Not Detected (NotDetected) 12/30/23 05:30 Stl E.coli Shiga Tox PCR Not Detected (NotDetected) 12/30/23 05:30 Stl Enterotoxigenic E PCR Not Detected (NotDetected) 12/30/23 05:30 Stool EPEC (PCR) Not Detected (NotDetected) 12/30/23 05:30 Stool EAEC (PCR) Not Detected (NotDetected) 12/30/23 05:30 Stl E. histolytica PCR Not Detected (NotDetected) 12/30/23 05:30 Stool Giardia Lamblia PCR Not Detected (NotDetected) 12/30/23 05:30 Stool Salmonella PCR Not Detected (NotDetected) 12/30/23 05:30 Stool Sapovirus (PCR) Not Detected (NotDetected) 12/30/23 05:30 Stl P. shigelloides PCR Not Detected (NotDetected) 12/30/23 05:30 Stl Shigella/EIEC PCR Not Detected (NotDetected) 12/30/23 05:30 St Y.enterocolitica PCR Not Detected (NotDetected) 12/30/23 05:30 Stool Vibrio (PCR) Not Detected (NotDetected) 12/30/23 05:30 Stl Vibrio cholerae PCR Not Detected (NotDetected) 12/30/23 05:30 Stl Norovirus GI/GII PCR Not Detected (NotDetected) 12/30/23 05:30 Impressions Chest X-Ray 12/29/23 11:14 XR chest 1V portable HISTORY: weakness COMPARISON: Chest 03/28/2023. FINDINGS: There are low lung volumes. Slightly rotated study. No pneumothorax. No pleural effusions. No focal lung consolidations to suggest a pneumonia. No evidence for pulmonary edema. The heart remains mildly enlarged. There are poststernotomy changes and left-sided pacemaker/defibrillator. IMPRESSION: Stable cardiomegaly. Otherwise, no acute process within the chest. ACT 112: Negative or not required by law. Electronically signed by: Yusuf Esposito M.D. 12/29/2023 11:57 AM PG Care Time/CCT Total # of Minutes Spent Total Time Spent with Patient: Total time spent is greater than 50% in coordination of care (as documented) at patient's floor/unit and/or counseling patient: Coding Level of Care Code 89247 IN/OBS CONSULT LVL 5,80M Diagnoses JUANITA (acute kidney injury) N17.9 Chronic kidney disease, stage 3a N18.31 C. difficile diarrhea A04.72 Cirrhosis of liver K74.60 Biventricular implantable cardioverter-defibrillator (ICD) in situ Z95.810
[2024-01-02] MEDS: SODIUM CHLORIDE 0.9% 250 ML IV ONE (09:18)
[2024-01-02] MEDS: LACTATED RINGER'S 1,000 ML IV SCH (10:58)
--- NOTE | 2024-01-02 17:48 | Ultrasound Report ---
ULTRASOUND KIDNEYS AND BLADDER CLINICAL HISTORY: Acute renal insufficiency. COMPARISON STUDY: Abdominal ultrasound dated 12/06/2023. TECHNIQUE: Real-time, grayscale, and color flow sonography of the kidneys and bladder is performed. I mages are reviewed in the transverse and longitudinal planes. FINDINGS: Kidneys: The kidneys are normal in size and echotexture. The right kidney measures 11.1 cm in length and the left kidney measures 10.6 cm in length. There is no hydronephrosis. No shadowing renal calcu li are identified. There is no sonographic evidence of contour deforming renal mass lesion. No perine phric fluid is identified. Bladder: The bladder is decompressed and not well assessed. Ureteral jets were not seen. Upper abdomen: There is perihepatic ascites. Suspect cirrhotic liver morphology. There are gallstones in the gallbladder wall is thickened. IMPRESSION: 1. The kidneys are normal in size and without hydronephrosis. 2. The bladder is decompressed and not well assessed. 3. Abdominal ascites. 4. There are gallstones with nonspecific gallbladder wall thickening. This may be related to hepatoce llular disease and ascites. Correlate clinically. 5. Suspect cirrhotic liver morphology. ACT 112: Negative or not required by law. Electronically signed by: Vaibhav Mclean M.D. 01/02/2024 5:47 PM
--- NOTE | 2024-01-02 17:52 | XRay Report ---
KUB CLINICAL HISTORY: Ileus. FINDINGS: 2 AP, portable, supine abdominal radiographs are obtained. No prior studies are available f or comparison at the time of dictation. There is diffuse gaseous distention of the small bowel loops which measure up to 3 cm. Gas and stool is seen in the left colon. No evidence of intraperitoneal kevin e air is identified on these supine images. Calcific gallstones are noted in the right upper quadrant . The skeletal structures are osteopenic and appear intact. There is moderate lumbosacral spondylosis . Sternotomy wires and pacemaker leads are partially visualized in the lower chest. IMPRESSION: 1. There is diffuse gaseous distention of the small bowel loop which is nonspecific and may represent ileus as clinically suspected. Developing obstruction is not excluded and clinical correlation will be required. 2. Cholelithiasis. Electronically signed by: Vaibhav Mclean M.D. 01/02/2024 5:51 PM
[2024-01-02 19:37] LABS: Appearance Urine Turbid (Clear); Bacteria Urine Automated None Seen (None Seen); Bilirubin Urine 2+ (Negative); Blood Urine 2+ (Negative); Cast Urine Automated >20 /lpf (0-2); Color Urine Dark Yellow; Epithelial Cell Urine Auto >20 /hpf (0-2); Glucose Urine UA 3+ (Negative); Granular Casts Urine Present /lpf (None Prsent); Ketones Urine Negative (Negative); Leukocyte Esterase Urine 1+ (Negative); Nitrite Urine Negative (Negative); Protein Urine 3+ (Negative); RBC Urine Automated 0-2 /hpf (0-2); Specific Gravity Urine 1.021 (1.000-1.030); Urobilinogen Urine Negative (Negative); WBC Urine Automated 0-5 /hpf (0-5)
[2024-01-03 06:23] LABS: Hematocrit (blood only) 35.6 % (42.0-52.0); Hemoglobin 12.4 g/dl (14.0-18.0); Mean Corpuscular Hemoglobin 34.1 pg (25.0-34.0); Mean Corpuscular Hgb Conc 34.8 g/dL (32.0-36.0); Mean Corpuscular Volume 97.8 fL (80.0-100.0); Mean Platelet Volume 13.2 fL (9.4-12.4); Platelet Count 126 K/uL (130-400); RDW Coefficient of Variation 14.6 % (11.5-14.5); RDW Standard Deviation 52.3 fL (36.4-46.3); Red Blood Count 3.64 M/uL (4.70-6.10); White Blood Count 8.47 K/ul (4.8-10.8)
[2024-01-03 06:34] LABS: Albumin Globulin Ratio 0.9 (0.9-2); Albumin Level 2.7 gm/dl (3.4-5.0); Bilirubin,Total 2.6 mg/dl (0.2-1.0); Calcium 7.9 mg/dl (8.6-10.3); Creatinine Clr Calc Pharmacy 17.8 ml/min; Est GFR (African American) 17.9 ml/min; Est GFR (Non-African American) 15.4 ml/min; Potassium 3.3 mmol/L (3.5-5.1); Total Protein 5.7 gm/dl (6.0-8.3)
--- NOTE | 2024-01-03 06:56 | Hospitalist Progress Note ---
Date of Service January 03, 2024 Assessment & Plan (1) JUANITA (acute kidney injury): Plan: (2) C. difficile diarrhea: (3) Shiga toxin-producing Escherichia coli infection: (4) Heart failure with reduced ejection fraction: (5) Diabetes mellitus: (6) Paroxysmal atrial fibrillation: (7) Hypertension: (8) Cirrhosis of liver: Plan: (9) Biventricular implantable cardioverter-defibrillator (ICD) in situ: Plan: Plan 1) Acute kidney injury - Cr, 3.59 <-- 2.97 <-- 2.25 <-- 1.72 - likely prerenal secondary to hypovolemia in the setting of ongoing diarrhea (BUN, 36; BUN/Cr, 10) - cautions with fluids given HFrEF, plan for an additional IVF today and continue to hold lasix - Consult nephrology --> - Urine sediment w/ granular cysts consistent w/ ATN - Renal US negative for obstruction; Continue IV hydration, (LR, IV, 1000 mLs, 80 mLs/hr) hold Entresto - monitor lungs for pulmonary edema (nothing on exam during AM and PM) 2) C. difficile infection - Ongoing daily diarrhea that began on Tuesday 12/19 (+) E. coli Shiga toxin on Stool PCR 12/21 (recent PMHx), repeat E. coli Shiga toxin negative - Stool + for C diff- gene and toxin 12/29 - Started oral vancomycin- 125mg q6H, contact precautions Defer anti-motility agents; Replete K + Mag as needed; Supportive care 3) Shiga-toxin producing infection #resolved - Repeat stool testing no longer showing E coli, plan for diarrhea as per above 4) HFrEF Echocardiogram on 02/28/2023 revealed LVEF at 15-20%, and severe global hypokinesis with septal dyskinesis Daily weights, Strict I and O monitoring Hold Lasix for now in the setting of volume depletion, Hold Entresto and Jardiance 5) T2DM Repeat A1C, 6.6 Hypoglycemic this morning, no indication for SSI at present 6) Paroxysmal AFib Rate controlled Continue Eliquis, carvedilol 7) Hypertension - Continue carvedilol, Lasix/Entresto held as per above 8) Cirrhosis of liver - in the setting of prior alcohol use - should f/u with outpatient GI 9) Biventricular ICD - inserted in the setting of EF less than 35% Code status: Full code FENGI: Heart healthy, T2DM diet VTE PX: On Eliquis Disposition: Med-Surg w/ Tele Admission and Anticipated Discharge Date Admission Date: December 29, 2023 Supervising Physician Co-Signing Physician Notes Attending Physician Supervision Note: I independently interviewed and examined the patient and verified the estrada history and physical, reviewed labs and image studies and agree with findings and care plan noted above. JUANITA - ATN due to 10 day of diarrhea while on entresto and lasix in setting of HFrEF EF 15-20% and Cirrhosis -continue gentle IV hydration while diarrhea continues and monitor renal function. C diff colitis - diarrhea continues while on oral vancomycin. -will add cholestyramine Follow Subjective Pt seen at bedside this morning. Patient notes that he's had 4 episodes of diarrhea since 6:00 AM. Patient is w/out N/V/AP, just has some mild cramping while having diarrhea. Patient denies SOB, cough, chest congestion, chest pain, and palpitations. Notes that he has chronic pedal edema bilaterally. Review of Systems Constitutional: + fatigue and + weakness; no fever and n o chills Respiratory: no cough, no chest congestion and no dyspnea Cardiovascular: no chest pain and no palpitations Gastrointestinal: + cramping and + diarrhea/loose stools; no abdominal pain, no nausea, no vomiting and no blood in stools Genitourinary: no dysuria, no difficulty urinating, no urinary frequency or no urinary incontinence Neurologic: no tingling and no numbness Physical Exam Constitutional: WD/WN, vitals as above Respiratory: normal respiratory effort and able to speak in complete sentences; no respiratory distress, no labored breathing and no cough Auscultation: + crackles (bases of both lungs posteriorly only at bases ) Cardiovascular: Rate/Rhythm: regular rate and regular rhythm Extremities: + pedal edema; + abnormal capillary refill and no calf tenderness Gastrointestinal (Abdomen): Inspection/Auscultation: abdomen normal to inspection and normal bowel sounds; abdomen not distended Percussion/Palpation: abdomen soft; abdomen nontender, no guarding and no hepatosplenomegaly Psychiatric: A+Ox3, euthymic affect Results & Data Results & Data Vital Signs (Past 12 Hours) Vital Signs Temp Pulse Pulse Pulse Resp BP BP 01/03/24 02:36 36.8 C 76 18 104/61 01/02/24 23:44 37 C 71 16 96/45 L 01/02/24 22:17 70 01/02/24 19:17 36.6 C 71 18 106/72 Pulse Ox O2 Del Method 01/03/24 02:36 92 Room Air 01/02/24 23:44 98 Room Air 01/02/24 22:17 01/02/24 19:17 98 Room Air Resident Activity Tracking Resident Involvement: Resident Care Provided Care Provided: Adult Hospital Medicine (7) Hypertension Hypertension type: essential hypertension Qualified Code(s): I10 - Essential (primary) hypertension
[2024-01-03] MEDS: LACTATED RINGER'S 250 ML IV ONE (08:18)
--- NOTE | 2024-01-03 09:04 | Nephrology Progress Note ---
Date of Service January 03, 2024 Assessment & Plan (1) JUANITA (acute kidney injury): Plan: * Urine sediment w/ granular casts c/w ATN. Patient presented with 10 days of severe diarrhea while on Entresto therapy. No progressive anemia/thrombocytopenia to suggest TMA * Continue to hold Entresto * Continue IV hydration * Renal US negative for obstruction * Monitor PRP. No acute indication for GALLERY OR MUSEUM GUIDE at this time (2) Chronic kidney disease, stage 3a: Plan: * CKD stage G3a (moderate impairment). His baseline creatinine has been 1.1-1.3 w/ EGFR 52.6 cc/min. Renal impairment has been attributed to microvascular disease (3) C. difficile diarrhea: Plan: * Currently on oral Vancomycin * Abdomen is distended and tympanitic. KUB x-ray concerning for ileus. Will supplement serum potassium. (4) Cirrhosis of liver: Plan: * New diagnosis, possible alcohol related. Patient reports no alcohol now x 2 months (5) Biventricular implantable cardioverter-defibrillator (ICD) in situ: Plan: * ICM w/ LVEF 15-20% s/p AICD Admission and Anticipated Discharge Date Admission Date: December 29, 2023 Subjective Mr. Wilder was evaluated in his hospital room this morning. He continues to have frequent diarrhea. Review of Systems Constitutional: no fever Eyes: no problem reported Ear, Nose, Mouth, Throat: no problem reported Respiratory: no cough and no dyspnea Cardiovascular: no chest pain Gastrointestinal: + bloating and + diarrhea/loose stools; no abdominal pain, no nausea and no vomiting Genitourinary: no problem reported Integumentary: no rash Physical Exam Constitutional: WD/WN, vitals as above Eyes: PERRL, conjunctivae normal, anicteric sclerae ENMT: Mouth: + dry oral mucous membranes Neck: trachea midline, no thyromegaly Respiratory: normal respiratory effort, lungs clear to auscultation Cardiovascular: RRR, no murmur, no edema Gastrointestinal (Abdomen): Inspection/Auscultation: + abdomen distended and + hypoactive bowel sounds Percussion/Palpation: + tympanic to percussion; abdomen nontender and no guarding Skin: no rashes, warm and dry Neurologic: Speech / Cognition: normal speech and normal cognition Psychiatric: Affect: euthymic affect Results & Data Vital Signs (Past 12 Hours) Vital Signs Temp Pulse Pulse Pulse Resp BP Pulse Ox 01/03/24 07:00 78 01/03/24 02:36 36.8 C 76 18 104/61 92 01/02/24 23:44 37 C 71 16 96/45 L 98 01/02/24 22:17 70 O2 Del Method 01/03/24 07:00 01/03/24 02:36 Room Air 01/02/24 23:44 Room Air 01/02/24 22:17 Laboratory Results Laboratory Results - last 24 hr 01/02/24 01/03/24 Unknown 05:38 WBC 8.47 RBC 3.64 L Hgb 12.4 L Hct 35.6 L MCV 97.8 MCH 34.1 H MCHC 34.8 RDW Std Deviation 52.3 H RDW Coeff of Jodee 14.6 H Plt Count 126 L MPV 13.2 H Sodium 133 L Potassium 3.3 L Chloride 103 Carbon Dioxide 21 Anion Gap 9 BUN 36 H Creatinine 3.59 H D Est Cr Clr Drug Dosing 17.8 Est GFR ( Amer) 17.9 Est GFR (Non-Af Amer) 15.4 BUN/Creatinine Ratio 10.0 Glucose 95 Calcium 7.9 L Total Bilirubin 2.6 H AST 41 H ALT 16 Alkaline Phosphatase 184 H Total Protein 5.7 L Albumin 2.7 L Globulin 3.0 Albumin/Globulin Ratio 0.9 Urine Color Dark Yellow Urine Appearance Turbid A Urine pH 5.0 Ur Specific [place] 1.021 Urine Protein 3+ H Urine Glucose (UA) 3+ H Urine Ketones Negative Urine Blood 2+ H Urine Nitrite Negative Urine Bilirubin 2+ H Urine Urobilinogen Negative Ur Leukocyte Esterase 1+ H Urine WBC (Auto) 0-5 Urine RBC (Auto) 0-2 U Hyaline Cast (Auto) >20 H U Epithel Cells (Auto) >20 H Urine Bacteria (Auto) None Seen Granular Casts Present A Diagnostic Findings 01/02/24 Renal US: 1. The kidneys are normal in size and without hydronephrosis. 2. The bladder is decompressed and not well assessed. 3. Abdominal ascites. 4. There are gallstones with nonspecific gallbladder wall thickening. This may be related to hepatocellular disease and ascites. Correlate clinically. 5. Suspect cirrhotic liver morphology. 01/02/24 KUB x-ray: 1. There is diffuse gaseous distention of the small bowel loop which is nonspecific and may represent ileus as clinically suspected. Developing obstruction is not excluded and clinical correlation will be required. 2. Cholelithiasis. PG Care Time/CCT Total # of Minutes Spent Total Time Spent with Patient: Total time spent is greater than 50% in coordination of care (as documented) at patient's floor/unit and/or counseling patient: Coding Level of Care Code 10016 SUB INP/OBS CARE 3/50MIN Diagnoses JUANITA (acute kidney injury) N17.9 Chronic kidney disease, stage 3a N18.31 C. difficile diarrhea A04.72 Cirrhosis of liver K74.60 Biventricular implantable cardioverter-defibrillator (ICD) in situ Z95.810
[2024-01-03] MEDS: LACTATED RINGER'S 1,000 ML IV SCH (10:03)
[2024-01-03] MEDS: POTASSIUM CHLORIDE / WTR 10 MEQ/100 ML PLCT IV SCH (12:04)
[2024-01-03] MEDS: CHOLESTYRAMINE LIGHT 4 GM PKT PO SCH (21:26)
[2024-01-04 08:40] LABS: Basophils # (auto) 0.05 K/uL (0.00-0.20); Basophils % (auto) 0.9 %; Eosinophils # (auto) 0.08 K/uL (0.00-0.50); Eosinophils % (auto) 1.5 %; Hematocrit (blood only) 39.2 % (42.0-52.0); Hemoglobin 13.5 g/dl (14.0-18.0); Immature Granulocytes # (auto) 0.02 K/uL (0.01-0.20); Immature Granulocytes % (auto) 0.4 %; Lymphocytes # (auto) 0.54 K/uL (1.20-3.40); Mean Corpuscular Hemoglobin 33.6 pg (25.0-34.0); Mean Corpuscular Hgb Conc 34.4 g/dL (32.0-36.0); Mean Corpuscular Volume 97.5 fL (80.0-100.0); Mean Platelet Volume 13.3 fL (9.4-12.4); Monocytes # (auto) 0.56 K/uL (0.11-0.59); Monocytes % (auto) 10.4 %; Neutrophils # (auto) 4.14 K/uL (1.40-6.50); Neutrophils % (auto) 76.8 %; Platelet Count 143 K/uL (130-400); RDW Coefficient of Variation 14.7 % (11.5-14.5); RDW Standard Deviation 52.7 fL (36.4-46.3); Red Blood Count 4.02 M/uL (4.70-6.10); White Blood Count 5.39 K/ul (4.8-10.8)
[2024-01-04 09:01] LABS: Albumin Globulin Ratio 0.8 (0.9-2); BUN Creatinine Ratio 9.6 (10-20); Calcium 8.3 mg/dl (8.6-10.3); Creatinine Clr Calc Pharmacy 16.1 ml/min; Est GFR (African American) 15.9 ml/min; Est GFR (Non-African American) 13.7 ml/min; Globulin 3.6 gm/dl (2.5-4.0); Potassium 4.1 mmol/L (3.5-5.1); Total Protein 6.6 gm/dl (6.0-8.3)
--- NOTE | 2024-01-04 12:55 | Nephrology Progress Note ---
Date of Service January 04, 2024 Assessment & Plan (1) JUANITA (acute kidney injury): (2) C. difficile diarrhea: (3) Weakness: (4) Chronic kidney disease, stage 3a: (5) Shiga toxin-producing Escherichia coli infection: (6) Heart failure with reduced ejection fraction: Plan Mr. Wilder is a 78 year old white male admitted to the hospital with ongoing diarrhea for about 2 weeks and found to have JUANITA secondary to ATN with volume depletion. Baseline creatinine has been 1.1-1.3 mg/dl secondary to microvascular disease. Diarrhea started following a picnic. 12/22/23 stool PCR was + for shiga toxin. 12/30/23 stool was + for C. Difficile toxin. Mr. Wilder has received supportive therapy and oral Vancomycin. On admission creatinine was 1.3 mg/dl which has been progressively worsening over last few days and this morning creatinine up to 3.9, sodium low at 131, potassium normalized. He reports diarrhea worsen after slight improvement. Denies any other symptoms. Progressive worsening of kidney function, acceptable electrolyte. -- Agree with continuing on LR at current rate, encouraged to increase p.o. intake. -- Continue to monitor kidney function and electrolyte with ongoing diarrhea, kidney function may continue to worsen before creatinine peak and then start to improve Admission and Anticipated Discharge Date Admission Date: December 29, 2023 Diane Fink was seen and evaluated this morning. He reports ongoing diarrhea. Denies abdominal pain, nausea or vomiting. Blood pressure staying stable. Slight progressive worsening of kidney function noted, creatinine up to 3.9, electrolyte acceptable. Review of Systems Review of Systems: Detailed review of system was otherwise unremarkable. Physical Exam Constitutional: WD/WN, vitals as above no acute distress Eyes: + anicteric sclerae Respiratory: Auscultation: lungs clear to auscultation bilaterally Cardiovascular: Rate/Rhythm: regular rate and regular rhythm Heart Sounds: normal S1 and normal S2 Extremities: no edema Musculoskeletal: Extremities: extremities normal to inspection Skin: no rashes, warm and dry Neurologic: no focal motor deficits Psychiatric: Orientation: alert and oriented x 3 Affect: euthymic affect Results & Data Vital Signs (Past 12 Hours) Vital Signs Temp Pulse Pulse Resp BP BP Pulse Ox 01/04/24 11:52 36.5 C 70 17 110/71 98 01/04/24 07:41 36.4 C L 72 17 113/69 96 01/04/24 07:00 72 01/04/24 03:38 36.5 C 70 20 98/59 L 95 01/04/24 01:20 73 97/49 L O2 Del Method 01/04/24 11:52 Room Air 01/04/24 07:41 Room Air 01/04/24 07:00 01/04/24 03:38 Room Air 01/04/24 01:20 PG Care Time/CCT Total # of Minutes Spent Total Time Spent with Patient: Total time spent is greater than 50% in coordination of care (as documented) at patient's floor/unit and/or counseling patient: Coding Level of Care Code 58931 SUB INP/OBS CARE 2/35MIN Diagnoses JUANITA (acute kidney injury) N17.9 C. difficile diarrhea A04.72 Weakness R53.1 Chronic kidney disease, stage 3a N18.31 Shiga toxin-producing Escherichia coli infection A49.8 Heart failure with reduced ejection fraction I50.20
--- NOTE | 2024-01-04 17:14 | Hospitalist Progress Note ---
Date of Service January 04, 2024 Assessment & Plan (1) JUANITA (acute kidney injury): (2) C. difficile diarrhea: (3) Heart failure with reduced ejection fraction: (4) Diabetes mellitus: (5) Paroxysmal atrial fibrillation: (6) Hypertension: (7) Cirrhosis of liver: (8) Biventricular implantable cardioverter-defibrillator (ICD) in situ: Plan: (1) JUANITA (acute kidney injury): Plan: - Cr continues to increase, 3.96 this am - likely prerenal JUANITA in setting of dehydration and granular casts consistent with ATN - gentle fluids 1L LR IV 80 ml/hr Q12hrs given HFrEF EF 15-20% - Renal US negative for obstruction; hold Entresto - Continue monitoring (2) C. difficile diarrhea: Plan: - Ongoing daily diarrhea that began on Tuesday 12/19 - Positive E. coli Shiga toxin on Stool PCR 12/21, more recent sample negative - Stool positive for C diff. gene and toxin 12/29 - Started oral vancomycin 125mg q6H, maintain contact precautions - Replete K + Mag as needed; Supportive care - Start Cholestyramine 4 gms PO BID (3) Heart failure with reduced ejection fraction: Plan: - Echo 02/28/23 showed LVEF 15-20% - Hold Lasix - Hold Entresto and Jardiance (4) Diabetes mellitus: Plan: - Repeat A1C 6.6 - No indication for SSI (5) Paroxysmal atrial fibrillation: Plan: - Rate controlled - Continue Eliquis, carvedilol (6) Hypertension: Plan: - Continue carvedilol - Hold lasix/entresto as noted above (7) Cirrhosis of liver: Plan: - In setting of prior alcohol use - f/u with GI outpatient Code status: Full code FENGI: Heart healthy, T2DM diet VTE PX: On Eliquis Disposition: Med-Surg w/ Tele Admission and Anticipated Discharge Date Admission Date: December 29, 2023 Supervising Physician Co-Signing Physician Notes Attending Physician Supervision Note: I independently interviewed and examined the patient and verified the estrada history and physical, reviewed labs and image studies and agree with findings and care plan noted above. JUANITA - ATN due to 10 day of diarrhea while on entresto and lasix in setting of HFrEF EF 15-20% and Cirrhosis -continue gentle IV hydration while diarrhea continues and monitor renal function - noted further rise in creatinine. C diff colitis - diarrhea continues while on oral vancomycin. -added cholestyramine 01/02 - follow -consider switching to Dificid if not improvement in symptoms. Follow Subjective Alekspranav Wilder is a 78 y/o M seen this morning resting comfortably. Patient Patient denies fevers, chills, headache, chest pain/palpitations/tightness, shortness of breath cough, wheeze, abdominal pain and incontinence. Patient does endorse continuing diarrhea. Patient is continuing to tolerate fluids for his dehydration without signs or symptoms of fluid overload. Patient continuing to receive treatment for his c. diff colitis with vancomycin, patient does have worsening of kidney function as creatinine has increased to 3.96. Physical Exam Physical Exam: General: patient resting comfortably, NAD, non-toxic in appearance, answers questions appropriately. Skin: warm, dry, intact HEENT: NC/AT, anicteric sclera, conjunctiva without injection, moist mucus membranes Heart: +S1/S2, regular, no m/r/g Lungs: equal air entry bilaterally, no rales/rhonchi/wheezes Abd: +BS, soft, NT/ND Ext: warm, no clubbing/cyanosis, 2+ pitting edema in lower extremities Neuro: nonfocal, patient AA&O x 4, speech intact, no facial droop, moving all extremities on command. 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
[2024-01-05 06:41] LABS: Basophils # (auto) 0.05 K/uL (0.00-0.20); Basophils % (auto) 1.2 %; Eosinophils # (auto) 0.09 K/uL (0.00-0.50); Eosinophils % (auto) 2.1 %; Hematocrit (blood only) 33.4 % (42.0-52.0); Hemoglobin 11.7 g/dl (14.0-18.0); Immature Granulocytes # (auto) 0.02 K/uL (0.01-0.20); Immature Granulocytes % (auto) 0.5 %; Lymphocytes # (auto) 0.57 K/uL (1.20-3.40); Lymphocytes % (auto) 13.3 %; Mean Corpuscular Hemoglobin 33.7 pg (25.0-34.0); Mean Corpuscular Volume 96.3 fL (80.0-100.0); Monocytes # (auto) 0.69 K/uL (0.11-0.59); Monocytes % (auto) 16.1 %; Neutrophils # (auto) 2.87 K/uL (1.40-6.50); Neutrophils % (auto) 66.8 %; Platelet Count 139 K/uL (130-400); RDW Coefficient of Variation 14.6 % (11.5-14.5); RDW Standard Deviation 51.3 fL (36.4-46.3); Red Blood Count 3.47 M/uL (4.70-6.10); White Blood Count 4.29 K/ul (4.8-10.8)
[2024-01-05 06:52] LABS: Albumin Globulin Ratio 0.9 (0.9-2); Albumin Level 2.5 gm/dl (3.4-5.0); BUN Creatinine Ratio 9.9 (10-20); Bilirubin,Total 2.5 mg/dl (0.2-1.0); Calcium 7.8 mg/dl (8.6-10.3); Creatinine Clr Calc Pharmacy 16.3 ml/min; Est GFR (Non-African American) 13.8 ml/min; Globulin 2.9 gm/dl (2.5-4.0); Potassium 3.8 mmol/L (3.5-5.1); Total Protein 5.4 gm/dl (6.0-8.3)
--- NOTE | 2024-01-05 12:33 | Hospitalist Progress Note ---
Date of Service January 05, 2024 Assessment & Plan (1) JUANITA (acute kidney injury): Plan: - Cr remains elevated at 3.93 this am - likely prerenal JUANITA in setting of dehydration and granular cysts consistent with ATN - HFrEF EF 15-20%, fluids held due to increase in weight and fluid retention - Renal US negative for obstruction; hold Entresto - Continue monitoring (2) C. difficile diarrhea: Plan: - Ongoing daily diarrhea that began on Tuesday 12/19 - Positive E. coli Shiga toxin on Stool PCR 12/21, more recent sample negative - Stool positive for C diff. gene and toxin 12/29 - Continue oral vancomycin 125mg q6H, maintain contact precautions - Replete K + Mag as needed; Supportive care - Start Cholestyramine 4 gms PO BID PRN, switch to Dificid if no improvement in symptoms (3) Heart failure with reduced ejection fraction: Plan: - Echo 02/28/23 showed LVEF 15-20% - Repeat TTE to check for worsening cardiac function - Hold Lasix - Hold Entresto and Jardiance - Cardiac consult placed at patient request due to fluid retention and low EF (4) Diabetes mellitus: Plan: - Repeat A1C 6.6 - No indication for SSI (5) Paroxysmal atrial fibrillation: Plan: - Rate controlled - Continue Eliquis, carvedilol (6) Hypertension: Plan: - Continue carvedilol - Hold lasix/entresto as noted above (7) Cirrhosis of liver: Plan: - In setting of prior alcohol use - f/u with GI outpatient Plan Code status: Full code FENGI: Heart healthy, T2DM diet VTE PX: On Eliquis Disposition: Med-Surg w/ Tele Admission and Anticipated Discharge Date Admission Date: December 29, 2023 Supervising Physician Co-Signing Physician Notes Attending Physician Supervision Note: I independently interviewed and examined the patient and verified the estrada history and physical, reviewed labs and image studies and agree with findings and care plan noted above. JUANITA - ATN due to >10 day of diarrhea while on entresto and lasix in setting of HFrEF EF 15-20% and Cirrhosis -Creatinine stable today. Has had increase in dry weight (165-170lb) per standing weighing machine -Since diarrhea is improving - Will hold IV hydration. -continue monitoring renal fx C diff colitis - diarrhea improving. -continue oral vancomycin. -continue cholestyramine 01/02 -consider switching to Dificid if symptoms worsen Subjective Aleks Wilder is a 78 y/o M seen this morning resting comfortably. Patient denies fevers, chills, headache, chest pain/palpitations/tightness, shortness of breath cough, wheeze, abdominal pain and incontinence. Patient does endorse continuing diarrhea that has been improving, with less loose bowel movements yesterday and today. Patient is exhibiting some signs of fluid overload, with increased weight this morning. Patient continuing to receive treatment for his c. diff colitis with vancomycin without complaint. Physical Exam Physical Exam: General: patient resting comfortably, NAD, non-toxic in appearance, answers questions appropriately. Skin: warm, dry, intact HEENT: NC/AT, anicteric sclera, conjunctiva without injection, moist mucus membranes Heart: +S1/S2, regular, no m/r/g Lungs: equal air entry bilaterally, no rales/rhonchi/wheezes Abd: +BS, soft, NT/ND Ext: warm, no clubbing/cyanosis, 2+ pitting edema in lower extremities Neuro: nonfocal, patient AA&O x 4, speech intact, no facial droop, moving all extremities on command. Results & Data Results & Data Vital Signs (Past 12 Hours) Vital Signs Temp Pulse Resp BP Pulse Ox O2 Del Method 01/05/24 07:56 36.6 C 71 16 119/69 99 Room Air 01/05/24 03:59 36.3 C L 72 20 102/82 98 Room Air Resident Activity Tracking Resident Involvement: Resident Care Provided Care Provided: Adult Hospital Medicine (4) Diabetes mellitus Diabetes mellitus complication status: without complication Diabetes mellitus [employer] insulin use: unspecified group home insulin use status Diabetes mellitus type: type 2 Qualified Code(s): E11.9 - Type 2 diabetes mellitus without complications (6) Hypertension Hypertension type: essential hypertension Qualified Code(s): I10 - Essential (primary) hypertension (7) Cirrhosis of liver Ascites presence: unspecified Hepatic cirrhosis type: alcoholic cirrhosis Qualified Code(s): K70.30 - Alcoholic cirrhosis of liver without ascites
--- NOTE | 2024-01-05 13:06 | Nephrology Progress Note ---
Date of Service January 05, 2024 Assessment & Plan (1) JUANITA (acute kidney injury): (2) C. difficile diarrhea: (3) Weakness: (4) Chronic kidney disease, stage 3a: (5) Shiga toxin-producing Escherichia coli infection: (6) Heart failure with reduced ejection fraction: Plan Mr. Wilder is a 78 year old white male admitted to the hospital with ongoing diarrhea for about 2 weeks and found to have JUANITA secondary to ATN with volume depletion. Baseline creatinine has been 1.1-1.3 mg/dl secondary to microvascular disease. Diarrhea started following a picnic. 12/22/23 stool PCR was + for shiga toxin. 12/30/23 stool was + for C. Difficile toxin. Mr. Wilder has received supportive therapy and oral Vancomycin. On admission creatinine was 1.3 mg/dl which has been progressively worsening over last few days and this morning creatinine up to 3.9, sodium low at 131, potassium normalized. Creatinine may have peaked and staying relatively stable today, electrolyte acceptable. Some sign of volume overload with lower extremity edema and abdominal distention but no respiratory distress and blood pressure very well- controlled. -- encouraged to increase p.o. intake while off of IV fluid. -- Continue to monitor kidney function and electrolyte. Admission and Anticipated Discharge Date Admission Date: December 29, 2023 Diane Fink was seen and evaluated this morning. He reports ongoing diarrhea although there has been slight improvement. He was concerned that he may be retaining too much fluid although denies any respiratory distress. Weight seems to be inaccurate although he may be slightly above his dry weight. Denies abdominal pain, nausea or vomiting. Blood pressure staying stable. Creatinine staying relatively stable compared to yesterday. IV fluid was stopped this morning due to concern over fluid overload. Reports decent p.o. intake. Review of Systems Review of Systems: Detailed review of system was otherwise unremarkable. Physical Exam Constitutional: WD/WN, vitals as above + ill appearing; no acute distress Eyes: + anicteric sclerae Respiratory: Auscultation: lungs clear to auscultation bilaterally Cardiovascular: Rate/Rhythm: regular rate and regular rhythm Heart Sounds: normal S1 and normal S2 Extremities: + edema (trace b/l LE edema) Gastrointestinal (Abdomen): Inspection/Auscultation: + abdomen distended Musculoskeletal: Extremities: + muscle atrophy; full ROM of extremities Skin: no rashes, warm and dry Neurologic: no focal motor deficits Psychiatric: Orientation: alert and oriented x 3 Affect: euthymic affect Results & Data Vital Signs (Past 12 Hours) Vital Signs Temp Pulse Resp BP Pulse Ox O2 Del Method 01/05/24 07:56 36.6 C 71 16 119/69 99 Room Air 01/05/24 03:59 36.3 C L 72 20 102/82 98 Room Air PG Care Time/CCT Total # of Minutes Spent Total Time Spent with Patient: Total time spent is greater than 50% in coordination of care (as documented) at patient's floor/unit and/or counseling patient: Coding Level of Care Code 57343 SUB INP/OBS CARE 2/35MIN Diagnoses JUANITA (acute kidney injury) N17.9 C. difficile diarrhea A04.72 Weakness R53.1 Chronic kidney disease, stage 3a N18.31 Shiga toxin-producing Escherichia coli infection A49.8 Heart failure with reduced ejection fraction I50.20
--- NOTE | 2024-01-05 15:08 | XCELERA ---
[id number] \\[id number]
--- NOTE | 2024-01-05 15:49 | Cardiology Consultation ---
Date of Consultation January 05, 2024 Assessment & Plan (1) Right heart failure with reduced right ventricular function: (2) Heart failure with reduced ejection fraction: (3) Ischemic cardiomyopathy with implantable cardioverter-defibrillator (ICD): (4) Diarrhea: (5) JUANITA (acute kidney injury): Plan 78-year-old man with previously noted severe cardiomyopathy (EF 15 to 20%) admitted with diarrhea, fluid resuscitated, and now with evidence of hypervolemia, right heart failure, and acute kidney injury (creatinine 3.93). Fortunately, he has no evidence of left heart failure and his only symptoms are increased abdominal girth/weight gain/leg edema. Agree with cessation of IV fluids. Role and timing of diuretic therapy remains uncertain, since the primary issue is reduced right heart function with reduced right to left flow and likely decreased left heart output from intraventricular interaction (as evidenced by abnormal septal configuration on echo). Defer to nephrology regarding timing of diuretic reintroduction. Unable to use YESENIA inhibitor, ARB, or Entresto given degree of renal dysfunction. Could try afterload reduction with oral or IV hydralazine, but this would need to be carefully titrated given his borderline hypotensive blood pressure. The goal would be to decrease vascular resistance without lowering BP. Could try preload reduction with addition of nitrates. For palliative purposes, consider dobutamine infusion to increase right heart function temporarily and improve left heart function/renal perfusion until volume unloading is achieved. Given his longstanding and advanced cardiac disease and current stability, would defer any immediate interventions until after the weekend when the patient could be evaluated by heart failure team and discussed with his primary professor of practice, Dr. Claudio. History of Present Illness Reason for Consultation: Patient requested, fluid overload/EF 15-20% Requesting Physician: Vanessa Zarate MD Attending Physician: Vanessa Zarate MD History of Present Illness 78-year-old man with severe ischemic cardiomyopathy (EF 15-20%, status post CABG 2003), chronic HFrEF, permanent atrial fibrillation (biventricular ICD/apixaban/carvedilol), and obstructive sleep apnea, admitted 12/29/2023 with several weeks of diarrhea for which he has been receiving IV fluid resuscitation, patient asked for cardiology evaluation today due to concerns regarding progressive edema and weight gain. The patient is able to lie flat and denies any dyspnea whatsoever. However, his weight has been steadily increasing and his abdominal girth and leg edema have increased as well. No chest pain, palpitations, lightheadedness, presyncope, or syncope. Admission 12/30 01/02 Today Weight 156 lbs. (bed scale) 165 lbs. (standing scale) 174 lbs. (standing scale) 188 pounds (standing scale) Creatinine 1.35 1.72 3.59 3.93 I>O (cumulative) 1604 ml 5085 ml 10,745 ml. Echocardiogram today shows LV systolic function remains severely reduced (unchanged at 15-20%), flattened septum is consistent with RV pressure and volume overload, right ventricle now appears moderate to severely dilated with severely reduced systolic function, moderate pulmonary hypertension with severely dilated IVC. Compared with 2022 study, right ventricular systolic function has further declined, otherwise no significant change. His current vasoactive regimen includes only carvedilol 12.5 mg twice daily, his Entresto and diuretics have been held. At the time of my evaluation this afternoon, aside from his leg edema the patient had no somatic complaints. Allergies Allergy/AdvReac Type Severity Reaction Status Date / Time bee venom protein (honey bee) Allergy Severe BIT BY BEE Verified 11/05/23 12:58 SWARM-SWELLING THROAT FACE hydralazine AdvReac Intermediate bad joint Verified 11/05/23 12:58 pain COVID-19 (SARS-CoV-2) AdvReac Mild Rash Verified 11/05/23 12:58 vaccine, elva Home Medications Medication Instructions Recorded Confirmed Type albuterol sulfate 90 mcg/actuation 2 puffs inhalation Q4H PRN 12/23/18 12/29/23 Rx aerosol inhaler shortness of breath or wheezing #18 grams apixaban 5 mg tablet (Eliquis) 5 mg PO BID #60 tabs 12/23/18 12/29/23 Rx multivitamin 1 tab PO QAM 12/23/18 12/29/23 History rosuvastatin 40 mg tablet 20 mg PO HS 05/02/19 12/29/23 History tiotropium bromide 2.5 2 inh inhalation QAM #4 grams 09/17/22 12/29/23 Rx mcg/actuation mist for inhalation nitroglycerin 0.4 mg sublingual 0.4 mg sublingual Q5M PRN chest 10/31/22 12/29/23 Rx tablet pain #25 tabs furosemide 40 mg tablet 40 mg PO QAM #90 tabs 03/04/23 12/29/23 Rx fluticasone propionate 50 1 spray intranasal DAILY PRN 07/25/23 12/29/23 History mcg/actuation nasal Congestion spray,suspension empagliflozin 25 mg tablet 12.5 mg PO DAILY 11/04/23 12/29/23 History (Jardiance) fexofenadine [Tracy Allergy] 1 tab PO DAILY PRN Allergy Symptoms 11/04/23 12/29/23 History cholecalciferol (vitamin D3) 10 10 mcg PO DAILY 11/05/23 12/29/23 History mcg (400 unit) capsule sacubitril 24 mg-valsartan 26 mg 1 tab PO BID #90 tabs 11/15/23 12/29/23 Rx tablet (Entresto) carvedilol 25 mg tablet 12.5 mg PO BID 12/29/23 12/29/23 History Patient History Medical History Hx of reduction of nasal fracture ICD (implantable cardioverter-defibrillator) in place 03/2023, "old" ICD removed and replaced w/pacemaker/ICD device (medtronic), @[facility]; f/u dr. claudio Valvular heart disease SOB (shortness of breath) hospitalized twice in fall 2022, "filling up with fluid, dr decided it was time to change his defibrillator/pacemaker" Non-ST elevation MA (NSTEMI) Anterior MA 2006- s/p 2 vessel CABG Hyperlipidemia COPD with asthma daily and prn inh Cardiac defibrillator in place [employer] single-chamber, [facility] Surgical History History of cataract surgery left Hx of carpal tunnel repair Left hand Hx of hand surgery Plate placed in L thumb History of nasal surgery Hx of CABG 2003, s/p heart attack, double bypass, [place] S/P colonoscopy 05/25/2015 repeat 10yrs S/P implantation of automatic cardioverter/defibrillator (AICD) [employer] S/P appendectomy Family History Father Myocardial infarction Other Heart disease Hypertension Denies family history of Prostate cancer Colorectal cancer Social History Smoking Status: Former smoker Tobacco Type: Cigarettes Second Hand Exposure: No; Do You Dip or Chew Tobacco: No; Tobacco Cessation Education Requested by Patient: No Hx Alcohol Use: Yes Alcohol type: hard liquor Alcohol Intake Frequency: Monthly or Less Hx Substance Use: No Preferred Language: Australian Communication Ability: Effective Visual Impairment: Limited Hearing Ability: Use of Hearing Aid Law Secretary Required: No Beliefs That Will Affect Care: None marital status: Current Living Situation: Spouse current occupational status: retired Other Information That Helps Us Care for You: No Feels Safe at Home: Yes Safety Concerns: Feels Safe At This Time Diet: low salt caffeine: Yes Do you think of yourself as: straight/heterosexual Gender Identity: Male Assistive Devices: Cane Physical Exam Physical Exam: Adult white male in no distress. Afebrile. BP 119/69 mmHg. Pulse 74 bpm and regular Respirations 16 and unlabored. Skin: few ecchymoses, no generalized lesions. HEENT: unremarkable. Neck: JVP at the angle of the jaw or above at 90 degrees, no carotid bruits. Lungs: clear bilaterally. Cardiac: regular rhythm, normal S1-2, no murmur. Abdomen: Distended but nontender. Extremities: 2+ pretibial edema, pulses intact. Neurologic: normal affect and conversation, nonfocal. Results & Data Vital Signs (Past 12 Hours) Vital Signs Temp Pulse Resp BP Pulse Ox O2 Del Method 01/05/24 07:56 97.9 F 71 16 119/69 99 Room Air 01/05/24 03:59 97.3 F L 72 20 102/82 98 Room Air Laboratory Results Sodium 129, potassium 3.8, BUN 39, creatinine 3.93. See HPI for renal function trend. Hemoglobin 11.7, WBC 4.29, platelet count 139,000. Normal transaminases. Albumin 2.5. Diagnostic Findings ECG on admission showed underlying atrial fibrillation with electronic biventricular pacing and occasional PVC. No significant change from prior. Chest x-ray on admission showed stable cardiomegaly, otherwise unremarkable. Echocardiogram today as noted in HPI. PG Care Time/CCT Total # of Minutes Spent Total Time Spent with Patient: Total time spent is greater than 50% in coordination of care (as documented) at patient's floor/unit and/or counseling patient: Coding Level of Care Code 98098 ER DEPT VISIT HIGH LVL 5 Diagnoses Right heart failure with reduced right ventricular function I50.810 Heart failure with reduced ejection fraction I50.20 Ischemic cardiomyopathy with implantable cardioverter-defibrillator (ICD) I25.5; Z95.810 Diarrhea A09 Diarrhea type: infectious JUANITA (acute kidney injury) N17.9 (4) Diarrhea Diarrhea type: infectious Qualified Code(s): A09 - Infectious gastroenteritis and colitis, unspecified
[2024-01-06 06:43] LABS: Basophils # (auto) 0.06 K/uL (0.00-0.20); Basophils % (auto) 1.4 %; Eosinophils # (auto) 0.07 K/uL (0.00-0.50); Eosinophils % (auto) 1.6 %; Hematocrit (blood only) 33.8 % (42.0-52.0); Hemoglobin 12.3 g/dl (14.0-18.0); Immature Granulocytes # (auto) 0.02 K/uL (0.01-0.20); Immature Granulocytes % (auto) 0.5 %; Lymphocytes # (auto) 0.53 K/uL (1.20-3.40); Lymphocytes % (auto) 12.2 %; Mean Corpuscular Hemoglobin 34.5 pg (25.0-34.0); Mean Corpuscular Hgb Conc 36.4 g/dL (32.0-36.0); Mean Corpuscular Volume 94.7 fL (80.0-100.0); Mean Platelet Volume 13.6 fL (9.4-12.4); Monocytes % (auto) 13.9 %; Neutrophils # (auto) 3.05 K/uL (1.40-6.50); Neutrophils % (auto) 70.4 %; Platelet Count 146 K/uL (130-400); RDW Coefficient of Variation 14.6 % (11.5-14.5); RDW Standard Deviation 50.8 fL (36.4-46.3); Red Blood Count 3.57 M/uL (4.70-6.10); White Blood Count 4.33 K/ul (4.8-10.8)
[2024-01-06 07:07] LABS: Albumin Globulin Ratio 0.9 (0.9-2); Albumin Level 2.9 gm/dl (3.4-5.0); BUN Creatinine Ratio 9.3 (10-20); Bilirubin,Total 2.9 mg/dl (0.2-1.0); Calcium 8.3 mg/dl (8.6-10.3); Creatinine Clr Calc Pharmacy 14.9 ml/min; Est GFR (African American) 14.4 ml/min; Est GFR (Non-African American) 12.4 ml/min; Globulin 3.3 gm/dl (2.5-4.0); Potassium 4.3 mmol/L (3.5-5.1); Total Protein 6.2 gm/dl (6.0-8.3)
[2024-01-06] MEDS: FUROSEMIDE 40 MG/4 ML VIAL IV ONE (10:09)
--- NOTE | 2024-01-06 13:14 | Nephrology Progress Note ---
Date of Service January 06, 2024 Assessment & Plan (1) JUANITA (acute kidney injury): (2) C. difficile diarrhea: (3) Weakness: (4) Chronic kidney disease, stage 3a: (5) Shiga toxin-producing Escherichia coli infection: (6) Heart failure with reduced ejection fraction: Plan Mr. Wilder is a 78 year old white male admitted to the hospital with ongoing diarrhea for about 2 weeks and found to have JUANITA secondary to ATN with volume depletion. Baseline creatinine has been 1.1-1.3 mg/dl secondary to microvascular disease. Diarrhea started following a picnic. 12/22/23 stool PCR was + for shiga toxin. 12/30/23 stool was + for C. Difficile toxin. Mr. Wilder has received supportive therapy and oral Vancomycin. On admission creatinine was 1.3 mg/dl which has been progressively worsening over last few days and this morning creatinine up to 3.9, sodium low at 131, potassium normalized. Kidney function worsened further to creatinine up to 4.3, electrolyte acceptable. Some sign of volume overload with lower extremity edema and abdominal distention but no respiratory distress and blood pressure very well- controlled. -- Start on Lasix 40 mg IV x 1 dose and then continue on 40 mg daily starting tomorrow, accurate intake and output, aim for net negative. -- Continue to monitor kidney function and electrolyte. Admission and Anticipated Discharge Date Admission Date: December 29, 2023 Subjective Aleks was seen and evaluated this morning. Diarrhea has been improving. Clinically seems volume overloaded with lower extremity edema and abdominal distention although that weight measurement in EMR continues to be widely variable making it difficult to interpret. Denies any respiratory distress. Has been off of IV fluid, decent p.o. intake. Kidney function worsened further, creatinine up to 4.3 this morning. Review of Systems Review of Systems: Detailed review of system was otherwise unremarkable. Physical Exam Constitutional: WD/WN, vitals as above + ill appearing; no acute distress Respiratory: Auscultation: lungs clear to auscultation bilaterally Cardiovascular: Rate/Rhythm: regular rate and regular rhythm Heart Sounds: normal S1 and normal S2 Extremities: + edema (1 to 2 b/l LE edema) Gastrointestinal (Abdomen): Inspection/Auscultation: + abdomen distended Musculoskeletal: Extremities: extremities normal to inspection and + muscle atrophy; full ROM of extremities Skin: no rashes, warm and dry Neurologic: no focal motor deficits Psychiatric: Orientation: alert and oriented x 3 Affect: euthymic affect Results & Data Vital Signs (Past 12 Hours) Vital Signs Temp Pulse Pulse Resp BP BP Pulse Ox 01/06/24 11:35 36.4 C L 70 16 119/74 97 01/06/24 08:01 36.4 C L 69 16 114/73 97 01/06/24 07:52 73 01/06/24 02:18 36.5 C 76 16 113/76 96 O2 Del Method 01/06/24 11:35 Room Air 01/06/24 08:01 Room Air 01/06/24 07:52 01/06/24 02:18 Room Air PG Care Time/CCT Total # of Minutes Spent Total Time Spent with Patient: Total time spent is greater than 50% in coordination of care (as documented) at patient's floor/unit and/or counseling patient: Coding Level of Care Code 86684 SUB INP/OBS CARE 2/35MIN Diagnoses JUANITA (acute kidney injury) N17.9 C. difficile diarrhea A04.72 Weakness R53.1 Chronic kidney disease, stage 3a N18.31 Shiga toxin-producing Escherichia coli infection A49.8 Heart failure with reduced ejection fraction I50.20
--- NOTE | 2024-01-06 18:36 | Hospitalist Progress Note ---
Date of Service January 06, 2024 Assessment & Plan (1) JUANITA (acute kidney injury): Plan: - Cr remains elevated at 4.29 this am - likely prerenal JUANITA in setting of dehydration and granular cysts consistent with ATN - HFrEF EF 15-20%, fluids held due to increase in weight and fluid retention - Renal US negative for obstruction; hold Entresto - Continue monitoring (2) C. difficile diarrhea: Plan: - Ongoing daily diarrhea that began on Tuesday 12/19 - Positive E. coli Shiga toxin on Stool PCR 12/21, more recent sample negative - Stool positive for C diff. gene and toxin 12/29 - Continue oral vancomycin 125mg q6H, maintain contact precautions - Replete K + Mag as needed; Supportive care - Start Cholestyramine 4 gms PO BID PRN, switch to Dificid if no improvement in symptoms (3) Heart failure with reduced ejection fraction: Plan: - Echo 02/28/23 showed LVEF 15-20% - Repeat TTE to check for worsening cardiac function - Hold Entresto and Jardiance - Cardiac consult placed at patient request due to fluid retention and low EF - will diurese carefully with Lasix due to increased edema per nephrology recs (4) Diabetes mellitus: Plan: - Repeat A1C 6.6 - No indication for SSI (5) Paroxysmal atrial fibrillation: Plan: - Rate controlled - Continue Eliquis, carvedilol (6) Hypertension: Plan: - Continue carvedilol - Hold entresto as noted above (7) Cirrhosis of liver: Plan: - In setting of prior alcohol use - f/u with GI outpatient Plan Code status: Full code FENGI: Heart healthy, T2DM diet VTE PX: On Eliquis Disposition: Med-Surg w/ Tele Admission and Anticipated Discharge Date Admission Date: December 29, 2023 Subjective Aleks was seen and evaluated this morning. Diarrhea has been improving, reports only 1 BM today improved from 5 the day before. Clinically seems volume overloaded with lower extremity edema and abdominal distention although that weight measurement in EMR continues to be widely variable making it difficult to interpret. Denies any respiratory distress. Has been off of IV fluid, decent p.o. intake. Kidney function worsened further, creatinine up to 4.3 this morning. Physical Exam Physical Exam: General: patient resting comfortably, NAD, non-toxic in appearance, answers questions appropriately. Skin: warm, dry, intact HEENT: NC/AT, anicteric sclera, conjunctiva without injection, moist mucus membranes Heart: +S1/S2, regular, no m/r/g Lungs: equal air entry bilaterally, no rales/rhonchi/wheezes Abd: +BS, soft, NT/ND Ext: warm, no clubbing/cyanosis, 2+ pitting edema in lower extremities Neuro: nonfocal, patient AA&O x 4, speech intact, no facial droop, moving all extremities on command. 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
--- NOTE | 2024-01-06 18:40 | Hospitalist Progress Note ---
Date of Service January 06, 2024 Assessment & Plan (1) JUANITA (acute kidney injury): Plan: - likely prerenal JUANITA in setting of dehydration and granular cysts consistent with ATNBrought on by dehydration. - chronic HFrEF EF 15-20% Likely exacerbated poor forward flow and he is prerenal state - Renal US negative for obstruction; hold Entresto - Continue monitoringconcerning that his creatinine is continuing to rise, somewhat reassuring that he made a large amount of urine today. (2) C. difficile diarrhea: Plan: Improving on oral vancomycin. Continue. Continue cholestyramine for now. (3) Heart failure with reduced ejection fraction: Plan: Markedly reduced EF probably worsening poor forward flow and his prerenal state. Fortunately no acute exacerbation, however. (4) Diabetes mellitus: Plan: - Repeat A1C 6.6 - sugars reasonable (5) Paroxysmal atrial fibrillation: Plan: - Rate controlled - Continue Eliquis, carvedilol (6) Hypertension: Plan: -BP reasonable for the situation (7) Cirrhosis of liver: Plan: - In setting of prior alcohol use - f/u with GI outpatient Plan Code status: Full code FENGI: Heart healthy, T2DM diet VTE PX: On Eliquis Disposition: Med-Surg w/ Tele; Anticipate hopefully going home at discharge. Obviously with his age and prolonged hospital stay, it could end up where he could require rehab, but it appears to not be the case at this time. Admission and Anticipated Discharge Date Admission Date: December 29, 2023 Subjective Feeling good overall. Diarrhea has slowed. No shortness of breath. No dyspnea on exertion. Walking around well. Notes that he has filled up his urine bottle 4 times and is working on the fifth. Review of Systems Review of Systems: All systems reviewed & are unremarkable except as noted in HPI & below Physical Exam Physical Exam: In general he is awake alert pleasant no distress. HEENT normocephalic atraumatic mucous membranes moist. Breathing unlabored no accessory muscle use good effort. Skin shows no rashes no pallor or icterus. Neuro without focal deficits. Results & Data Results & Data Vital Signs (Past 12 Hours) Vital Signs Temp Pulse Pulse Resp BP BP Pulse Ox 01/06/24 17:29 69 114/75 01/06/24 16:38 97.3 F L 69 16 112/66 97 01/06/24 13:46 74 01/06/24 11:35 97.5 F L 70 16 119/74 97 01/06/24 08:01 97.5 F L 69 16 114/73 97 01/06/24 07:52 73 O2 Del Method 01/06/24 17:29 01/06/24 16:38 Room Air 01/06/24 13:46 01/06/24 11:35 Room Air 01/06/24 08:01 Room Air 01/06/24 07:52 PG Care Time/CCT Total # of Minutes Spent Total Time Spent with Patient: Total time spent is greater than 50% in coordination of care (as documented) at patient's floor/unit and/or counseling patient: Coding Level of Care Code 04280 SUB INP/OBS CARE 350MIN Diagnoses JUANITA (acute kidney injury) N17.9 C. 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 insulin use: unspecified prison insulin use status Diabetes mellitus complication status: without complication Paroxysmal atrial fibrillation I48.0 Essential hypertension I10 Hypertension type: essential hypertension Alcoholic cirrhosis, unspecified whether ascites present K70.30 Hepatic cirrhosis type: alcoholic cirrhosis Ascites presence: unspecified (4) Diabetes mellitus Diabetes mellitus type: type 2 Diabetes mellitus 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
[2024-01-07 07:14] LABS: Basophils # (auto) 0.07 K/uL (0.00-0.20); Basophils % (auto) 1.6 %; Eosinophils # (auto) 0.05 K/uL (0.00-0.50); Eosinophils % (auto) 1.1 %; Hematocrit (blood only) 35.1 % (42.0-52.0); Hemoglobin 12.5 g/dl (14.0-18.0); Immature Granulocytes # (auto) 0.03 K/uL (0.01-0.20); Immature Granulocytes % (auto) 0.7 %; Lymphocytes # (auto) 0.58 K/uL (1.20-3.40); Mean Corpuscular Hemoglobin 34.5 pg (25.0-34.0); Mean Corpuscular Hgb Conc 35.6 g/dL (32.0-36.0); Mean Platelet Volume 13.3 fL (9.4-12.4); Monocytes # (auto) 0.64 K/uL (0.11-0.59); Monocytes % (auto) 14.3 %; Neutrophils # (auto) 3.09 K/uL (1.40-6.50); Neutrophils % (auto) 69.3 %; Platelet Count 146 K/uL (130-400); RDW Coefficient of Variation 14.6 % (11.5-14.5); RDW Standard Deviation 51.4 fL (36.4-46.3); Red Blood Count 3.62 M/uL (4.70-6.10); White Blood Count 4.46 K/ul (4.8-10.8)
[2024-01-07 07:29] LABS: Albumin Globulin Ratio 0.9 (0.9-2); BUN Creatinine Ratio 10.1 (10-20); Bilirubin,Total 3.1 mg/dl (0.2-1.0); Calcium 8.4 mg/dl (8.6-10.3); Creatinine Clr Calc Pharmacy 14.7 ml/min; Est GFR (African American) 14.1 ml/min; Est GFR (Non-African American) 12.2 ml/min; Globulin 3.3 gm/dl (2.5-4.0); Potassium 4.2 mmol/L (3.5-5.1); Total Protein 6.3 gm/dl (6.0-8.3)
[2024-01-07] MEDS ORDERED: FUROSEMIDE 40 MG TAB PO SCH (09:00)
[2024-01-07] MEDS: FUROSEMIDE 40 MG/4 ML VIAL IV SCH (10:25)
--- NOTE | 2024-01-07 11:08 | Hospitalist Progress Note ---
Date of Service January 07, 2024 Assessment & Plan (1) JUANITA (acute kidney injury): Plan: - Cr remains trending up at 4.36 this am - likely prerenal JUANITA in setting of dehydration and granular cysts consistent with ATN - HFrEF EF 15-20%, fluids held due to increase in weight and fluid retention - Renal US negative for obstruction; hold Entresto - Lasix 40mg IV daily for diuresis per nephrology - Continue monitoring (2) C. difficile diarrhea: Plan: - Ongoing daily diarrhea that began on Tuesday 12/19 - Positive E. coli Shiga toxin on Stool PCR 12/21, more recent sample negative - Stool positive for C diff. gene and toxin 12/29 - Continue oral vancomycin 125mg q6H, maintain contact precautions - Replete K + Mag as needed; Supportive care - Cholestyramine 4 gms PO BID PRN, switch to Dificid if no improvement in symptoms (3) Heart failure with reduced ejection fraction: Plan: - Echo 02/28/23 showed LVEF 15-20% - Repeat TTE showed similar left sided heart findings with increased right heart strain compared to previous TTE - Hold Entresto and Jardiance - Cardiac consult placed at patient request due to fluid retention and low EF (4) Diabetes mellitus: Plan: - Repeat A1C 6.6 - No indication for SSI (5) Paroxysmal atrial fibrillation: Plan: - Rate controlled - Continue Eliquis, carvedilol (6) Hypertension: Plan: - Continue carvedilol - Hold lasix/entresto as noted above (7) Cirrhosis of liver: Plan: - In setting of prior alcohol use - f/u with GI outpatient Plan Code status: Full code FENGI: Heart healthy, T2DM diet VTE PX: On Eliquis Disposition: Med-Surg w/ Tele Admission and Anticipated Discharge Date Admission Date: December 29, 2023 Supervising Physician Co-Signing Physician Notes I personally examined the patient and verified all estrada points of history and exam, discussed case, and agree with decision making with Dr Mccoy continues to feel fine. No shortness of breath. present at the bedsideupdated her as well. Nephrology input appreciated. Vitals noted, in general he is awake and alert pleasant no distress. HEENT normocephalic atraumatic mucous membranes moist. Breathing unlabored no accessory muscle use good effort. Skin without rashes pallor or icterus. Neuro without focal deficits. Acute renal failurealmost certainly ATNdue to diarrhea causing dehydration. Diarrhea appears to been from C. difficile for sure, possibly Shiga toxin mediated food poisoning as welleither way the diarrhea is improvingcontinue vancomycin. As far as the ATNnot improving, but no pulmonary edema, no hyperkalemiacontinue watchful waiting. Follow closely. Anticoagulated. Otherwise as above. Subjective Aleks Bubb was seen today sitting at bedside comfortably. Patient endorsed some increased peripheral swelling in his legs below knees that has been improving with diuresis. Patient endorses that his diarrhea symptoms have been improving with antibiotics, yesterday he had 3 bowel movements and 1 BM the day before. The patient denies fever, chills, headache, SOB, cough, wheeze, chest pain/palpitations/tightness, abdominal pain nausea or vomiting. The patient denies any acute complaints or concerns at this time and denies any adverse symptoms over night. Physical Exam Physical Exam: General: patient resting comfortably, NAD, non-toxic in appearance, answers questions appropriately. Skin: warm, dry, intact HEENT: NC/AT, anicteric sclera, conjunctiva without injection, moist mucus mem branes. Heart: +S1/S2, regular, no m/r/g Lungs: equal air entry bilaterally, no rales/rhonchi/wheezes Abd: +BS, soft, NT/ND Ext: warm, no clubbing/cyanosis minimal edema in bilateral LE Neuro: nonfocal, speech intact, no facial droop, moving all extremities. 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
--- NOTE | 2024-01-07 11:58 | Nephrology Progress Note ---
Date of Service January 07, 2024 Assessment & Plan (1) JUANITA (acute kidney injury): (2) C. difficile diarrhea: (3) Weakness: (4) Chronic kidney disease, stage 3a: (5) Shiga toxin-producing Escherichia coli infection: (6) Heart failure with reduced ejection fraction: Plan Mr. Wilder is a 78 year old white male admitted to the hospital with ongoing diarrhea for about 2 weeks and found to have JUANITA secondary to ATN with volume depletion. Baseline creatinine has been 1.1-1.3 mg/dl secondary to microvascular disease. Diarrhea started following a picnic. 12/22/23 stool PCR was + for shiga toxin. 12/30/23 stool was + for C. Difficile toxin. Mr. Wilder has received supportive therapy and oral Vancomycin. On admission creatinine was 1.3 mg/dl which has been progressively worsening over last few days and this morning creatinine up to 3.9, sodium low at 131, potassium normalized. Kidney function worsened further to creatinine up to 4.4 associated with volume overload and hyponatremia. Blood pressure very well-controlled. Slight improvement in urine output and volume status with IV diuretic, overall net negative about 0.5 L --Continue on Lasix 40 mg IV daily, , accurate intake and output, aim for net negative. -- Continue to monitor kidney function and electrolyte. Admission and Anticipated Discharge Date Admission Date: December 29, 2023 Diane Fink was seen and evaluated this morning. He feels volume status and lower extremity edema slightly improved, diarrhea has been improving. Denies any respiratory distress. Kidney function worsened further, creatinine up to 4.4 and sodium 128 this morning. Review of Systems Review of Systems: Detailed review of system was otherwise unremarkable. Physical Exam Constitutional: WD/WN, vitals as above + ill appearing; no acute distress Eyes: + anicteric sclerae Respiratory: Auscultation: lungs clear to auscultation bilaterally Cardiovascular: Rate/Rhythm: regular rate and regular rhythm Heart Sounds: normal S1 and normal S2 Extremities: + edema (2 b/l LE edema) Gastrointestinal (Abdomen): Inspection/Auscultation: + abdomen distended Musculoskeletal: Extremities: extremities normal to inspection and + muscle atrophy; full ROM of extremities Skin: no rashes, warm and dry Neurologic: no focal motor deficits Psychiatric: Orientation: alert and oriented x 3 Affect: euthymic affect Results & Data Vital Signs (Past 12 Hours) Vital Signs Temp Pulse Resp BP Pulse Ox O2 Del Method 01/07/24 10:55 36.2 C L 80 16 111/74 96 Room Air 01/07/24 08:26 36.4 C L 69 16 123/73 98 Room Air 01/07/24 02:58 36.2 C L 71 18 126/80 97 Room Air PG Care Time/CCT Total # of Minutes Spent Total Time Spent with Patient: Total time spent is greater than 50% in coordination of care (as documented) at patient's floor/unit and/or counseling patient: Coding Level of Care Code 48253 SUB INP/OBS CARE 2/35MIN Diagnoses JUANITA (acute kidney injury) N17.9 C. difficile diarrhea A04.72 Weakness R53.1 Chronic kidney disease, stage 3a N18.31 Shiga toxin-producing Escherichia coli infection A49.8 Heart failure with reduced ejection fraction I50.20
--- NOTE | 2024-01-07 15:18 | Billing Data ---
Date of Service January 07, 2024 Coding Level of Care Code 13450 SUB INP/OBS CARE MIN
[2024-01-08 06:40] LABS: Basophils # (auto) 0.07 K/uL (0.00-0.20); Basophils % (auto) 1.5 %; Eosinophils # (auto) 0.04 K/uL (0.00-0.50); Eosinophils % (auto) 0.9 %; Hemoglobin 12.1 g/dl (14.0-18.0); Immature Granulocytes # (auto) 0.05 K/uL (0.01-0.20); Immature Granulocytes % (auto) 1.1 %; Lymphocytes # (auto) 0.65 K/uL (1.20-3.40); Lymphocytes % (auto) 13.9 %; Mean Corpuscular Hemoglobin 34.9 pg (25.0-34.0); Mean Corpuscular Hgb Conc 36.7 g/dL (32.0-36.0); Mean Corpuscular Volume 95.1 fL (80.0-100.0); Mean Platelet Volume 13.5 fL (9.4-12.4); Monocytes # (auto) 0.77 K/uL (0.11-0.59); Monocytes % (auto) 16.5 %; Neutrophils # (auto) 3.08 K/uL (1.40-6.50); Neutrophils % (auto) 66.1 %; Platelet Count 144 K/uL (130-400); RDW Coefficient of Variation 14.8 % (11.5-14.5); RDW Standard Deviation 50.7 fL (36.4-46.3); Red Blood Count 3.47 M/uL (4.70-6.10); White Blood Count 4.66 K/ul (4.8-10.8)
[2024-01-08 07:04] LABS: Albumin Globulin Ratio 0.9 (0.9-2); Albumin Level 2.9 gm/dl (3.4-5.0); BUN Creatinine Ratio 11.1 (10-20); Calcium 8.5 mg/dl (8.6-10.3); Creatinine Clr Calc Pharmacy 15.4 ml/min; Globulin 3.2 gm/dl (2.5-4.0); Potassium 4.1 mmol/L (3.5-5.1); Total Protein 6.1 gm/dl (6.0-8.3)
--- NOTE | 2024-01-08 10:57 | Nephrology Progress Note ---
Date of Service January 08, 2024 Assessment & Plan (1) JUANITA (acute kidney injury): (2) C. difficile diarrhea: (3) Weakness: (4) Chronic kidney disease, stage 3a: (5) Shiga toxin-producing Escherichia coli infection: (6) Heart failure with reduced ejection fraction: Plan Mr. Wilder is a 78 year old white male admitted to the hospital with ongoing diarrhea for about 2 weeks and found to have JUANITA secondary to ATN with volume depletion. Baseline creatinine has been 1.1-1.3 mg/dl secondary to microvascular disease. Diarrhea started following a picnic. 12/22/23 stool PCR was + for shiga toxin. 12/30/23 stool was + for C. Difficile toxin. Mr. Wilder has received supportive therapy and oral Vancomycin. On admission creatinine was 1.3 mg/dl which has been progressively worsening over last few days and this morning creatinine up to 3.9, sodium low at 131, potassium normalized. Kidney function staying relatively stable with net slightly negative on IV Lasix. Blood pressure very well-controlled. --Continue on Lasix 40 mg IV daily, , accurate intake and output, aim for net negative. -- Continue to monitor kidney function and electrolyte. Admission and Anticipated Discharge Date Admission Date: December 29, 2023 Subjective Aleks was seen and evaluated this morning. He feels volume status and lower extremity edema slightly improved, diarrhea almost completely resolved. Appetite and p.o. intake decent. Kidney function stable, creatinine 4.1 mg/dl and sodium 130 this morning. Slightly net negative. Review of Systems Review of Systems: Detailed review of system was otherwise unremarkable. Physical Exam Constitutional: WD/WN, vitals as above + ill appearing; no acute distress Eyes: + anicteric sclerae Respiratory: Auscultation: lungs clear to auscultation bilaterally Cardiovascular: Rate/Rhythm: regular rate and regular rhythm Heart Sounds: normal S1 and normal S2 Extremities: + edema (2 b/l LE edema) Gastrointestinal (Abdomen): Inspection/Auscultation: + abdomen distended Musculoskeletal: Extremities: extremities normal to inspection and + muscle atrophy; full ROM of extremities Skin: no rashes, warm and dry Neurologic: no focal motor deficits Psychiatric: Orientation: alert and oriented x 3 Affect: euthymic affect Results & Data Vital Signs (Past 12 Hours) Vital Signs Temp Pulse Pulse Resp BP BP Pulse Ox 01/08/24 10:44 36.4 C L 66 18 130/80 95 01/08/24 07:45 36.2 C L 69 16 121/73 98 01/08/24 02:46 36.4 C L 69 18 116/68 91 01/07/24 23:00 36.2 C L 69 18 108/65 97 01/07/24 22:56 69 O2 Del Method 01/08/24 10:44 Room Air 01/08/24 07:45 Room Air 01/08/24 02:46 Room Air 01/07/24 23:00 Room Air 01/07/24 22:56 PG Care Time/CCT Total # of Minutes Spent Total Time Spent with Patient: Total time spent is greater than 50% in coordination of care (as documented) at patient's floor/unit and/or counseling patient: Coding Level of Care Code 33787 SUB INP/OBS CARE 2/35MIN Diagnoses JUANITA (acute kidney injury) N17.9 C. difficile diarrhea A04.72 Weakness R53.1 Chronic kidney disease, stage 3a N18.31 Shiga toxin-producing Escherichia coli infection A49.8 Heart failure with reduced ejection fraction I50.20
--- NOTE | 2024-01-08 16:33 | Hospitalist Progress Note ---
Date of Service January 08, 2024 Assessment & Plan (1) JUANITA (acute kidney injury): Plan: - Creatinine improved slightly to 4.14while it is certainly too soon to say, that combined with his urine output hopefully heralds improvement - likely prerenal JUANITA in setting of dehydration that then led to subsequent ATN - HFrEF EF 15-20%, fluids held due to increase in weight and fluid retention - Renal US negative for obstruction; hold Entresto - Lasix 40mg IV daily for diuresis per nephrology - Continue monitoring (2) C. difficile diarrhea: Plan: -improving - continue vanco (3) Heart failure with reduced ejection fraction: Plan: - Echo 02/28/23 showed LVEF 15-20% - Repeat TTE showed similar left sided heart findings with increased right heart strain compared to previous TTE - Hold Entresto and Jardiance - fortunately no pulmonary edema (4) Diabetes mellitus: Plan: - Repeat A1C 6.6 - No indication for SSI (5) Paroxysmal atrial fibrillation: Plan: - Rate controlled - Continue Eliquis, carvedilol (6) Hypertension: Plan: - Continue carvedilol - Hold lasix/entresto as noted above (7) Cirrhosis of liver: Plan: - In setting of prior alcohol use - f/u with GI outpatient Plan Code status: Full code FENGI: Heart healthy, T2DM diet VTE PX: On Eliquis Disposition: anticipate being able to go home on dc Admission and Anticipated Discharge Date Admission Date: December 29, 2023 Subjective feeling better. Diarrhea continues to improve. Notes he is down about 4 pounds. Still no shortness of breath. Updated the best my ability. Review of Systems Review of Systems: In general he is awake and alert pleasant no distress. HEENT normocephalic atraumatic mucous membranes moist. Breathing unlabored no accessory muscle use good effort. Skin shows no rashes no pallor or icterus. Neuro without focal deficits. Results & Data Results & Data Vital Signs (Past 12 Hours) Vital Signs Temp Pulse Resp BP BP Pulse Ox O2 Del Method 01/08/24 15:13 97.2 F L 70 18 117/71 98 Room Air 01/08/24 11:25 97.2 F L 70 18 116/73 98 Room Air 01/08/24 10:44 97.5 F L 66 18 130/80 95 Room Air 01/08/24 07:45 97.2 F L 69 16 121/73 98 Room Air PG Care Time/CCT Total # of Minutes Spent Total Time Spent with Patient: Total time spent is greater than 50% in coordination of care (as documented) at patient's floor/unit and/or counseling patient: Coding Level of Care Code 07130 SUB INP/OBS CARE 3/50MIN Diagnoses JUANITA (acute kidney injury) N17.9 C. difficile diarrhea A04.72 Heart failure with reduced ejection fraction I50.20 Type 2 diabetes mellitus without complication, unspecified whether termite treater insulin use E11.9 Diabetes mellitus type: type 2 Diabetes mellitus usp insulin use: unspecified usp insulin use status Diabetes mellitus complication status: without complication Paroxysmal atrial fibrillation I48.0 Essential hypertension I10 Hypertension type: essential hypertension Alcoholic cirrhosis, unspecified whether ascites present K70.30 Hepatic cirrhosis type: alcoholic cirrhosis Ascites presence: unspecified (4) Diabetes mellitus Diabetes mellitus type: type 2 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
[2024-01-09 06:56] LABS: Basophils # (auto) 0.05 K/uL (0.00-0.20); Eosinophils # (auto) 0.04 K/uL (0.00-0.50); Eosinophils % (auto) 0.8 %; Hematocrit (blood only) 33.9 % (42.0-52.0); Immature Granulocytes # (auto) 0.04 K/uL (0.01-0.20); Immature Granulocytes % (auto) 0.8 %; Lymphocytes # (auto) 0.71 K/uL (1.20-3.40); Lymphocytes % (auto) 14.1 %; Mean Corpuscular Hemoglobin 34.4 pg (25.0-34.0); Mean Corpuscular Hgb Conc 35.4 g/dL (32.0-36.0); Mean Corpuscular Volume 97.1 fL (80.0-100.0); Mean Platelet Volume 12.8 fL (9.4-12.4); Monocytes # (auto) 0.72 K/uL (0.11-0.59); Monocytes % (auto) 14.3 %; Neutrophils # (auto) 3.48 K/uL (1.40-6.50); Platelet Count 143 K/uL (130-400); RDW Coefficient of Variation 14.7 % (11.5-14.5); Red Blood Count 3.49 M/uL (4.70-6.10); White Blood Count 5.04 K/ul (4.8-10.8)
[2024-01-09 07:12] LABS: BUN Creatinine Ratio 12.2 (10-20); Calcium 8.5 mg/dl (8.6-10.3); Creatinine Clr Calc Pharmacy 16.3 ml/min; Est GFR (African American) 16.1 ml/min; Est GFR (Non-African American) 13.9 ml/min
--- NOTE | 2024-01-09 11:31 | Nephrology Progress Note ---
Date of Service January 09, 2024 Assessment & Plan (1) JUANITA (acute kidney injury): (2) C. difficile diarrhea: (3) Weakness: (4) Chronic kidney disease, stage 3a: (5) Shiga toxin-producing Escherichia coli infection: (6) Heart failure with reduced ejection fraction: Plan Mr. Wilder is a 78 year old white male admitted to the hospital with ongoing diarrhea for about 2 weeks and found to have JUANITA secondary to ATN with volume depletion. Baseline creatinine has been 1.1-1.3 mg/dl secondary to microvascular disease. Diarrhea started following a picnic. 12/22/23 stool PCR was + for shiga toxin. 12/30/23 stool was + for C. Difficile toxin. Mr. Wilder has received supportive therapy and oral Vancomycin. On admission creatinine was 1.3 mg/dl which has been progressively worsening over last few days and this morning creatinine up to 3.9, sodium low at 131, potassium normalized. Kidney function and electrolyte improving with improvement in volume status. Net negative more than 1 L. Blood pressure very well-controlled. --Continue on Lasix 40 mg IV daily for now, accurate intake and output, aim for net negative. Will consider switching to PO if continues to be negative more than a liter. --Continue to monitor kidney function and electrolyte. Admission and Anticipated Discharge Date Admission Date: December 29, 2023 Subjective Aleks was seen and evaluated this morning. Overall reports feeling much better, diarrhea resolved, respiratory status and lower extremity edema improving. Appetite and p.o. intake decent. Kidney function and electrolyte slightly improved, creatinine down to 3.9 mg/dl and sodium 131 this morning. 1L net negative. Review of Systems Review of Systems: Detailed review of system was otherwise unremarkable. Physical Exam Constitutional: WD/WN, vitals as above no acute distress Respiratory: Auscultation: lungs clear to auscultation bilaterally Cardiovascular: Rate/Rhythm: regular rate and regular rhythm Heart Sounds: normal S1 and normal S2 Extremities: + edema (2 b/l LE edema) Gastrointestinal (Abdomen): Inspection/Auscultation: + abdomen distended Skin: no rashes, warm and dry Neurologic: no focal motor deficits Psychiatric: Orientation: alert and oriented x 3 Affect: euthymic affect Results & Data Vital Signs (Past 12 Hours) Vital Signs Temp Pulse Resp BP Pulse Ox O2 Del Method 01/09/24 09:41 Room Air 01/09/24 07:32 36.5 C 70 18 129/73 99 Room Air PG Care Time/CCT Total # of Minutes Spent Total Time Spent with Patient: Total time spent is greater than 50% in coordination of care (as documented) at patient's floor/unit and/or counseling patient: Coding Level of Care Code 15498 SUB INP/OBS CARE 2/35MIN Diagnoses JUANITA (acute kidney injury) N17.9 C. difficile diarrhea A04.72 Weakness R53.1 Chronic kidney disease, stage 3a N18.31 Shiga toxin-producing Escherichia coli infection A49.8 Heart failure with reduced ejection fraction I50.20
--- NOTE | 2024-01-09 17:21 | Hospitalist Progress Note ---
Date of Service January 09, 2024 Assessment & Plan (1) JUANITA (acute kidney injury): Plan: - Creatinine Showing small, incremental, but steady improvement the last 2 days. - likely was prerenal JUANITA in setting of dehydration that then led to subsequent ATN - HFrEF EF 15-20%, fluids held due to increase in weight and fluid retention - Renal US negative for obstruction; hold Entresto - Lasix 40mg IV daily for diuresis per nephrology - Continue monitoringShowing improvement (2) C. difficile diarrhea: Plan: -improving - finished course of p.o. Vanco. Discussed risk of recurrence and next steps should recurrence happen. (3) Heart failure with reduced ejection fraction: Plan: - Echo 02/28/23 showed LVEF 15-20% - Repeat TTE showed similar left sided heart findings with increased right heart strain compared to previous TTE - Hold Entresto and Jardiance - fortunately no pulmonary edema throughout his stay (4) Diabetes mellitus: Plan: - Repeat A1C 6.6 - No indication for SSI (5) Paroxysmal atrial fibrillation: Plan: - Rate controlled - Continue Eliquis, carvedilol (6) Hypertension: Plan: - Continue carvedilol - Hold entresto (7) Cirrhosis of liver: Plan: - In setting of prior alcohol use - f/u with GI outpatient Plan Code status: Full code FENGI: Heart healthy, T2DM diet VTE PX: On Eliquis Disposition: anticipate being able to go home on dc, hopefully in the next few days with ongoing creatinine improvement Admission and Anticipated Discharge Date Admission Date: December 29, 2023 Subjective feels good no complaints. Diarrhea basically resolved. Review of Systems Review of Systems: All systems reviewed & are unremarkable except as noted in HPI & below Physical Exam Physical Exam: In general he is awake and alert pleasant no distress. HEENT normocephalic atraumatic mucous membranes moist. Breathing unlabored no accessory muscle use good effort. Skin without rashes pallor or icterus. Neuro without focal deficits. Results & Data Results & Data Vital Signs (Past 12 Hours) Vital Signs Temp Pulse Resp BP Pulse Ox O2 Del Method 01/09/24 15:43 97.3 F L 69 18 111/71 98 Room Air 01/09/24 09:41 Room Air 01/09/24 07:32 97.7 F 70 18 129/73 99 Room Air PG Care Time/CCT Total # of Minutes Spent Total Time Spent with Patient: Total time spent is greater than 50% in coordination of care (as documented) at patient's floor/unit and/or counseling patient: Coding Level of Care Code 98927 SUB INP/OBS CARE 3/50MIN Diagnoses JUANITA (acute kidney injury) N17.9 C. 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: unspecified [facility] insulin use status Diabetes mellitus complication status: without complication Paroxysmal atrial fibrillation I48.0 Essential hypertension I10 Hypertension type: essential hypertension Alcoholic cirrhosis, unspecified whether ascites present K70.30 Hepatic cirrhosis type: alcoholic cirrhosis Ascites presence: unspecified (4) Diabetes mellitus Diabetes mellitus type: type 2 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
[2024-01-10 09:40] LABS: BUN Creatinine Ratio 13.6 (10-20); Calcium 8.7 mg/dl (8.6-10.3); Creatinine Clr Calc Pharmacy 17.7 ml/min; Est GFR (African American) 17.8 ml/min; Est GFR (Non-African American) 15.4 ml/min; Potassium 3.8 mmol/L (3.5-5.1)
--- NOTE | 2024-01-10 12:39 | Nephrology Progress Note ---
Date of Service January 10, 2024 Assessment & Plan (1) JUANITA (acute kidney injury): (2) C. difficile diarrhea: (3) Weakness: (4) Chronic kidney disease, stage 3a: (5) Shiga toxin-producing Escherichia coli infection: (6) Heart failure with reduced ejection fraction: Plan Mr. Wilder is a 78 year old white male admitted to the hospital with ongoing diarrhea for about 2 weeks and found to have JUANITA secondary to ATN with volume depletion. Baseline creatinine has been 1.1-1.3 mg/dl secondary to microvascular disease. Diarrhea started following a picnic. 12/22/23 stool PCR was + for shiga toxin. 12/30/23 stool was + for C. Difficile toxin. Mr. Wilder has received supportive therapy and oral Vancomycin. On admission creatinine was 1.3 mg/dl which has been progressively worsening over last few days and this morning creatinine up to 3.9, sodium low at 131, potassium normalized. Kidney function and electrolyte improving with improvement in volume status. Net negative. Blood pressure very well-controlled. --Continue on Lasix 40 mg IV daily, accurate intake and output, aim for net negative, ok to switch to PO on discharge. --monitor kidney function and electrolyte. Admission and Anticipated Discharge Date Admission Date: December 29, 2023 Subjective Aleks was seen and evaluated this morning. He reports feeling great, volume status continues to improve, diarrhea resolved. Appetite and p.o. intake decent. Kidney function continues to improve slowly, creatinine down to 3.6 mg/dl and sodium 132 this morning. Review of Systems Review of Systems: Detailed review of system was otherwise unremarkable. Results & Data Vital Signs (Past 12 Hours) Vital Signs Temp Pulse Pulse Resp BP O2 Del Method 01/10/24 09:20 74 118/75 01/10/24 08:12 36.8 C 75 16 117/75 Room Air PG Care Time/CCT Total # of Minutes Spent Total Time Spent with Patient: Total time spent is greater than 50% in coordination of care (as documented) at patient's floor/unit and/or counseling patient: Coding Level of Care Code 29420 SUB INP/OBS CARE 2/35MIN Diagnoses JUANITA (acute kidney injury) N17.9 C. difficile diarrhea A04.72 Weakness R53.1 Chronic kidney disease, stage 3a N18.31 Shiga toxin-producing Escherichia coli infection A49.8 Heart failure with reduced ejection fraction I50.20
--- NOTE | 2024-01-10 16:22 | Hospitalist Progress Note ---
Date of Service January 10, 2024 Assessment & Plan (1) JUANITA (acute kidney injury): Plan: - Cr remains trending down at 3.6 this am - likely prerenal JUANITA in setting of dehydration and granular cysts consistent with ATN - HFrEF EF 15-20%, fluids held due to increase in weight and fluid retention - Renal US negative for obstruction; hold Entresto - Lasix 40mg IV daily for diuresis per nephrology - Continue monitoring (2) C. difficile diarrhea: Plan: - Stool positive for C diff. gene and toxin 12/29 - Continue oral vancomycin 125mg q6H, maintain contact precautions - Diarrhea has resolved (3) Heart failure with reduced ejection fraction: Plan: - Echo 02/28/23 showed LVEF 15-20% - Repeat TTE showed similar left sided heart findings with increased right heart strain compared to previous TTE - Hold Entresto and Jardiance - Cardiac consult placed at patient request due to fluid retention and low EF (4) Diabetes mellitus: Plan: - Repeat A1C 6.6 - No indication for SSI (5) Paroxysmal atrial fibrillation: Plan: - Rate controlled - Continue Eliquis, carvedilol (6) Hypertension: Plan: - Continue carvedilol - Hold lasix/entresto as noted above (7) Cirrhosis of liver: Plan: - In setting of prior alcohol use - f/u with GI outpatient Plan Code status: Full code FENGI: Heart healthy, T2DM diet VTE PX: On Eliquis Disposition: Med-Surg w/ Tele Admission and Anticipated Discharge Date Admission Date: December 29, 2023 Supervising Physician Co-Signing Physician Notes I personally examined the patient and verified all estrada points of history and exam, discussed case, and agree with decision making with Dr Mccoy Feels great. Creatinine improving. Hopeful for home soon. Vitals noted, in general he is awake and alert pleasant no distress. HEENT normocephalic atraumatic mucous membranes moist. Breathing unlabored no accessory muscle use good effort. Skin without rashes pallor or icterus. Neuro without focal deficits. Acute renal failurealmost certainly ATNdue to diarrhea causing dehydration. Diarrhea appears to been from C. difficile for sure, possibly Shiga toxin mediated food poisoning as welleither way the diarrhea is improvingcontinue vancomycin. As far as the ATN Showing nice improvement. Hopefully home soon Anticoagulated. Otherwise as above. Subjective Aleks Bubb was seen resting comfortably at bedside. The patient reports that his diarrhea has resolved with 3 normal BMs the day prior, and improving renal function with creatinine continuing to drop. Patient does not report any acute complaints or concerns overnight. The patient denies fevers, chills, chest pain, palpitations, SOB, cough, wheeze, abdominal pain nausea or vomiting. Patient continues to have mild peripheral edema that has also been improving. Physical Exam Physical Exam: General: patient resting comfortably, NAD, non-toxic in appearance, answers questions appropriately. Skin: warm, dry, intact HEENT: NC/AT, anicteric sclera, conjunctiva without injection, moist mucus membranes. Heart: +S1/S2, regular, no m/r/g Lungs: equal air entry bilaterally, no rales/rhonchi/wheezes Abd: +BS, soft, NT/ND Ext: warm, no clubbing/cyanosis minimal edema in bilateral LE Neuro: nonfocal, speech intact, no facial droop, moving all extremities. Results & Data Results & Data Vital Signs (Past 12 Hours) Vital Signs Temp Pulse Pulse Resp BP BP Pulse Ox 01/10/24 14:41 36.3 C L 67 14 117/73 97 01/10/24 13:14 36.6 C 68 16 112/75 96 01/10/24 09:20 74 118/75 01/10/24 08:12 36.8 C 75 16 117/75 O2 Del Method 01/10/24 14:41 Room Air 01/10/24 13:14 Room Air 01/10/24 09:20 01/10/24 08:12 Room Air Resident Activity Tracking Resident Involvement: Resident Care Provided Care Provided: Adult Hospital Medicine (4) Diabetes mellitus Diabetes mellitus complication status: without complication Diabetes mellitus mcc insulin use: unspecified mcc insulin use status Diabetes mellitus type: type 2 Qualified Code(s): E11.9 - Type 2 diabetes mellitus without complications (6) Hypertension Hypertension type: essential hypertension Qualified Code(s): I10 - Essential (primary) hypertension (7) Cirrhosis of liver Ascites presence: unspecified Hepatic cirrhosis type: alcoholic cirrhosis Qualified Code(s): K70.30 - Alcoholic cirrhosis of liver without ascites
--- NOTE | 2024-01-10 18:46 | Billing Data ---
Date of Service January 10, 2024 Coding Level of Care Code 66268 SUB INP/OBS CARE MIN
[2024-01-11 07:00] LABS: BUN Creatinine Ratio 14.6 (10-20); Calcium 8.7 mg/dl (8.6-10.3); Creatinine Clr Calc Pharmacy 19.4 ml/min; Est GFR (African American) 19.9 ml/min; Est GFR (Non-African American) 17.1 ml/min; Potassium 3.6 mmol/L (3.5-5.1)
[2024-01-11 07:28] VITALS: RESP 16; TEMP 98.2
[2024-01-11 09:36] VITALS: BP 114/64; PULSE 72; O2SAT 97
--- NOTE | 2024-01-11 10:38 | Hospitalist Progress Note ---
Date of Service January 11, 2024 Assessment & Plan (1) JUANITA (acute kidney injury): Plan: - Cr remains trending down at 3.6 this am - likely prerenal JUANITA in setting of dehydration and granular cysts consistent with ATN - HFrEF EF 15-20%, fluids held due to increase in weight and fluid retention - Renal US negative for obstruction; hold Entresto - Lasix 40mg IV daily for diuresis per nephrology - Continue monitoring (2) C. difficile diarrhea: Plan: - Stool positive for C diff. gene and toxin 12/29 - Continue oral vancomycin 125mg q6H, maintain contact precautions - Diarrhea has resolved (3) Heart failure with reduced ejection fraction: Plan: - Echo 02/28/23 showed LVEF 15-20% - Repeat TTE showed similar left sided heart findings with increased right heart strain compared to previous TTE - Hold Entresto and Jardiance - Cardiac consult placed at patient request due to fluid retention and low EF (4) Diabetes mellitus: Plan: - Repeat A1C 6.6 - No indication for SSI (5) Paroxysmal atrial fibrillation: Plan: - Rate controlled - Continue Eliquis, carvedilol (6) Hypertension: Plan: - Continue carvedilol - Hold lasix/entresto as noted above (7) Cirrhosis of liver: Plan: - In setting of prior alcohol use - f/u with GI outpatient Plan Code status: Full code FENGI: Heart healthy, T2DM diet VTE PX: On Eliquis Disposition: Med-Surg w/ Tele Admission and Anticipated Discharge Date Admission Date: December 29, 2023 Results & Data Results & Data Vital Signs (Past 12 Hours) Vital Signs Temp Pulse Resp BP Pulse Ox O2 Del Method 01/11/24 09:35 72 114/64 97 Room Air 01/11/24 07:27 36.8 C 69 16 119/76 99 Room Air (4) Diabetes mellitus Diabetes mellitus type: type 2 Diabetes mellitus rn long term care insulin use: unspecified care home insulin use status Diabetes mellitus complication status: without complication Qualified Code(s): E11.9 - Type 2 diabetes mellitus without complications (6) Hypertension Hypertension type: essential hypertension Qualified Code(s): I10 - Essential (primary) hypertension (7) Cirrhosis of liver Hepatic cirrhosis type: alcoholic cirrhosis Ascites presence: unspecified Qualified Code(s): K70.30 - Alcoholic cirrhosis of liver without ascites
--- NOTE | 2024-01-11 18:12 | Billing Data ---
Date of Service January 11, 2024 Coding Level of Care Code 53189 IN/OBS DISCH 30 MIN/LESS
--- NOTE | 2024-01-11 18:12 | Discharge Summary ---
Discharge Summary Date of Service January 11, 2024 Principal Dx & Hospital Course #1 = Principal Diagnosis (1) JUANITA (acute kidney injury): appears to have initially been a prerenal insult due to fluid losses from diarrhea, and this appears to have precipitated the ATN. Fortunately he never had potassium issues, and while he has a baseline of a significantly reduced EF, he showed no pulmonary edema. He is making good urine, his creatinine is improving, and he appears safe/stable for home. Labs every 2 to 3 days until he returns to baseline (holding off on Jardiance and Entresto until his creatinine levels out.) While I would expect his creatinine to slowly resolve to his previous baseline over time, we did discuss that it is possible he could have a new elevated baseline Will be determined based on trending his creatinine over time. (2) C. difficile diarrhea: treated with 10 days of p.o. Vanco, diarrhea has resolved. Discussed recurrencesee discharge instructions. (3) Heart failure with reduced ejection fraction: - Fortunately no pulmonary edema while he was here, even and spite of ATN. Continue Lasix, holding Jardiance and Entresto until his creatinine levels out. (4) Diabetes mellitus: - Repeat A1C 6.6 (5) Paroxysmal atrial fibrillation: - Rate controlled - Continue Eliquis, carvedilol (6) Hypertension: - Continue carvedilol - Hold lasix/entresto as noted above (7) Cirrhosis of liver: - In setting of prior alcohol use - f/u with GI outpatient Plan stable for home Notes For Next Care Provider Medication Changes From Visit entresto, jardiance temporary hold until creatine improves further/levels out Admission HPI Per Admitting Provider Aleks is a 78-year-old male with PMH of CHF, thrombocytopenia, diabetes mellitus, allergic rhinitis, CAD, sleep apnea, and chronic venous insufficiency. He presented on 12/28 for diarrhea x 1.5 weeks. Patient reports he was at a [employer] picnic on 12/18 and had some food that was brought in by other people; he believes the thing that got him sick might have been a jar of pickles that was sitting out on the counter for an extended period time. His grandson also developed abdominal cramping following the picnic. Then, patient developed bad diarrhea on Saturday morning 12/19. He went to the ED on 12/21 and his PCR stool tested positive for Shiga toxin. He was instructed to go home on supportive care (has been drinking lots of Gatorade, Pedialyte, and eating bland food), but he is not had any significant improvement. Patient took his regular medications today. No recent change in medications. No history of DVT/PE. No recent falls or injuries to the chest wall or abdomen. Patient ambulates with a cane at baseline. He is currently having diarrhea 10 times per day. He characterizes as a semiformed stool in the mornings, but becomes more liquid-y as the day progresses. The color is brown/yellowish. No mucus in stool. No bright red blood in the stool. at bedside reports that he has also been experiencing fecal incontinence; he gets up and takes 2 steps and finds that diarrhea is "running out of him". Of note, the patient also has significant heart disease. He was previously looking to become a heart transplant candidate, but was denied due to age. No recent change in diet, but patient's reports he has been eating less recently. He watches his salt intake and weighs himself daily. Patient was previously drinking alcohol pretty regularly, but stopped after discovering he had liver cirrhosis 2 months ago. Patient denies smoking or tobacco use. Patient's vitals are stable at time of mission. ED course: NSS 250 mL IV ROS: Patient endorses fatigue, dizziness when laying in bed, lightheadedness, abdominal cramping/discomfort, ongoing diarrhea, and new onset of fecal incontinence. Patient denies fever, chills, night sweats, headache, chest pain, SOB at rest, HARRIS,, cough, N/V, blood in stool, new lower back pain, saddle anesthesia, or numbness or tingling down the arms or legs bilaterally. Updated Medication List Medication Instructions Recorded Confirmed Type albuterol sulfate 90 mcg/actuation 2 puffs inhalation Q4H PRN 12/23/18 12/29/23 Rx aerosol inhaler shortness of breath or wheezing #18 grams apixaban 5 mg tablet (Eliquis) 5 mg PO BID #60 tabs 12/23/18 12/29/23 Rx multivitamin 1 tab PO QAM 12/23/18 12/29/23 History rosuvastatin 40 mg tablet 20 mg PO HS 05/02/19 12/29/23 History tiotropium bromide 2.5 2 inh inhalation QAM #4 grams 09/17/22 12/29/23 Rx mcg/actuation mist for inhalation nitroglycerin 0.4 mg sublingual 0.4 mg sublingual Q5M PRN chest 10/31/22 12/29/23 Rx tablet pain #25 tabs furosemide 40 mg tablet 40 mg PO QAM #90 tabs 03/04/23 12/29/23 Rx fluticasone propionate 50 1 spray intranasal DAILY PRN 07/25/23 12/29/23 History mcg/actuation nasal Congestion spray,suspension empagliflozin 25 mg tablet 12.5 mg PO DAILY 11/04/23 12/29/23 History (Jardiance) fexofenadine [Tracy Allergy] 1 tab PO DAILY PRN Allergy Symptoms 11/04/23 12/29/23 History cholecalciferol (vitamin D3) 10 10 mcg PO DAILY 11/05/23 12/29/23 History mcg (400 unit) capsule sacubitril 24 mg-valsartan 26 mg 1 tab PO BID #90 tabs 11/15/23 12/29/23 Rx tablet (Entresto) carvedilol 25 mg tablet 12.5 mg PO BID 12/29/23 12/29/23 History Hospital Stay Data Consultations 12/29/23 12:42 ED Decision to Admit Stat 01/02/24 08:28 Consult Nephrology Routine 01/05/24 11:41 Consult Cardiology Routine Diagnostic Imagining Performed 01/02/24 09:53 US renal/blad retro comp Routine Pending Results Patient Have Any Pending Studies at Discharge: No Discharge Instructions Given to Patient (Per Discharging Provider) renal failure - Your renal failure is improving, but not yet back to "baseline". As we have been discussing, it appears to have essentially been profound and prolonged dehydration from all of the diarrhea which led to renal failure not just simply from being dehydrated, but also what is called "acute tubular necrosis". Tubular necrosis is where the tubules ("the business and the filtering") get killed off from the profound and prolonged dehydration. Generally the tubules will grow backit just takes time. What we are seeing is a slow but steady improvement implying that the kidneys are starting to heal. Most people make somewhere close to a full recovery, although every now and then there can be a permanent degree of impairment afterwards. We will need to follow your lab work out of the hospital over time to track things back to baseline, or establish "new baseline" if things level off before getting back to where you were. - Fortunately, you are doing great with thisthe main thing that we would worry about (especially in your context with your baseline heart disease) would be fluid accumulation in the lungs (congestive heart failure/pulmonary edema)but you have shown this absolutely none of that (even when the renal failure was far worse than it is now). While I do not expect this to happen at all, especially given that you are now in a recovery/healing phase, if you were to start to notice new shortness of breath (especially it could be as subtle as a little bit of new shortness of breath laying flat, or new/worse shortness of breath with exertion) we would want you back here right away for evaluation. Again, I do not expect this to happen, but that is the main "red flag" to watch for - we will want to follow lab work closely as an outpatienthaving a basic metabolic panel (BMP) checked every 2-3 days until things either get back to normal, or clearly have leveled off at a "new baseline". You should have your next lab work checked on Saturday. Dr. Mccann and Dr. Calvillo will follow the results and guide you. - For the short-term (until Dr. Mccann or Dr. Calvillo give you the "greenlight"), while we are waiting on your kidney numbers to improve further or level off, we will have you hold off on taking your Entresto and Jardiance. Both of these are quite helpful medications in the long-term both for your heart and kidneys, but often when our kidneys have had a "dehydration insult" the way Jardiance and Entresto affect blood flow can make the situation a little more "dicey" -- please note there is not a good way to have a medication labeled "hold until told otherwise" in the computer medication listso you are "med reconciliation" still says to continue them. Again to clarifywe are not stopping them forever, but we do not want you to take either the Jardiance or Entresto until you are instructed to restart them. Cdiff colitis - Fortunately, your C. difficile appears to have resolved. Unfortunately, you are in the hospital long enough to complete a full course of antibiotics, although the upside is you do not have to take anything further for the C. difficile once you are home! - As we discussed, the concern with C. difficile is that about 20% of people will have a recurrence. This is because the C. difficile bacteria conform sporesand because it is a toxin produced by the active bacteria that causes the diarrhea, when the diarrhea resolves it is essentially impossible to tell if it is because the antibiotics are killing the bacteria, or if because the bacteria are forming spores to "hide from the antibiotics". Between now and Saturday (01/16) is really the "critical time" where we would usually see recurrence if it happens. During that time if you have any increase in diarrhea, we would have to assume it is a C. difficile recurrence (there is no sense rechecking your stoolpeople often test positive for C. difficile for at least a month after an infection). If you have an increase in diarrheacall Dr. Mccann's office, so that she can get you right back on vancomycin. As we discussed, generally almost everybody has improvement on vancomycin within 1-3 days, so while resuming vancomycin will probably not be the "long-term fix" getting back on it right away is usually pretty easy to do, and should be able to reign and the diarrhea quickly/easily enough that you do not get dehydrated again. - If there is a recurrence, once we have it back under control, then we are able to build a more "definitive plan"typically the next step will either be an antibiotic called fidaxomicin (which is supposed to kill the spores, although really only does a marginally better job than vancomycin, and often cost is absurd), or a "fecal transplant" where gastroenterology instills "donor stool" and essentially replaces microbiome overrun with C. difficile with a normal, healthy microbiome. - Hopefully (and there is an 80% chance of no recurrence) you will not have to deal with any of thisbut generally if you know what to watch for, and what the roadmap will be, a C. difficile recurrence can be much more of a "major annoyance" than a true disaster. - between now and about 's Day (anytime in the next 6 months or so) if you would need to be on antibiotics for any reason (such as a pneumonia, urinary tract infection, etc.) there would be a pretty significant chance of getting a recurrence of C. difficile because of being on the antibiotics. To blunt this, if you need antibiotics, have the prescribing physician also get you on vancomycin (typically only 125 mg once a day for a week longer than the other antibiotics you need) as a preventionand this almost eliminates the risk of C. difficile recurrence. To Do: - Have lab work (BMP) checked Saturday and then anticipate needing labs checked every 2-3 days for the short term, but foreseeable future - call Dr. Mccann right away if there is a clear return of diarrhea - hold off on taking your Entresto and Jardiance until directed to resume by Dr. Mccann and/or Dr. Calvillo - come back to the hospital right away with any new/worse shortness of breath Total Time Total Time Spent Total Time Spent (In Minutes): <30
== END 2024-01-11 15:06 | disposition home or self-care (01) | DRG 371 ==
LOC: ED 10:10 → SUATTDRO 14:13 → EDINP 14:13 → 2W 16:59 → 3W 01-08 18:00